=== PATIENT | female | born 1945 | race Caucasian/White ===

== ENCOUNTER → 2018-05-10 | Outpatient (CLI) | payer MEDICARE ==
[~2018-05-10] MED LIST: CLIN-62 PO; OXYC-109 PO
== END ==
LOC: CARD 07:57
PROVIDERS: ATTEND Internal Medicine Interventional Cardiology
DX: I49.3 Ventricular premature depolarization (principal); I49.5 Sick sinus syndrome; I10 Essential (primary) hypertension
CPT/HCPCS: 93225; 93226

== ENCOUNTER 2018-05-11 09:10 | Outpatient (RCR) | payer MEDICARE ==
[2018-05-13] MEDS ORDERED: DICL25TA PO (08:59)
[2018-05-13] MEDS ORDERED: MULT-878 PO (08:59)
[2018-05-13] MEDS ORDERED: OMEP20CA12 PO (08:59)
[2018-05-13] MEDS ORDERED: ACET-2267 PO (08:59)
[2018-05-13] MEDS ORDERED: CEFD300C3 PO (11:01)
[2018-05-23] MEDS ORDERED: ONDA4TAB11 PO (17:59)
[2018-05-28] MEDS ORDERED: CLIN300C11 PO (08:53)
== END 2018-08-09 | disposition home or self-care (01) ==
LOC: CARD 09:10
PROVIDERS: ATTEND Internal Medicine Interventional Cardiology
DX: I49.5 Sick sinus syndrome (principal); I10 Essential (primary) hypertension; I49.3 Ventricular premature depolarization
CPT/HCPCS: 93270

== ENCOUNTER 2018-05-12 10:28 | Inpatient (IN) | payer MEDICARE ==
[~2018-05-12] VITALS: Ht 165.1 cm; Wt 60.3 kg
[2018-05-12] MEDS ORDERED: NS IV 500 ML 500 ML IV ONE (10:37)
[2018-05-12] MEDS ORDERED: NS IV 1000 ML 1,000 ML IV SCH (10:37)
[2018-05-12] MEDS ORDERED: ONDANSETRON 4 MG/2 ML (SDV) Z0FRAN IVP ONE (10:45)
--- OUTSIDE RECORDS SUMMARY | 2018-05-12 10:45 | XMS REPORT | Clinical Summary ---
Author Author Admin, BESSY Organization [facility] [employer] [place] Address Unknown Phone Unavailable Allergies, Adverse Reactions, Alerts Allergy Name Reaction Description Start Date Severity Status Provider SULFA rash Moderate Active Spring Elder DAILY MULTIVITAMIN rash/hives Moderate Active Spring Elder L-GLUTAMIC ACID MONOSOD SALT abdominal pain Moderate Active Spring Elder IBUPROFEN headache Mild Active Spring Elder EQUATE rash Moderate Active Spring Elder CIPRO constipation Mild Active Spring Elder BACTRIM rash Moderate Active Spring Elder Conditions or Problems Problem Name Problem Code Onset Date Status Entry Date Provider Comment Standard Description Annotate BMI 20-20.9 Active Anson Sal MD Body Mass Index between 19-24, adult 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 Medication List Medication Instructions Start Date Stop Date Generic Name NDC Status Provider Patient Instruction TYLENOL 325 MG ORAL TABLET 2 tabs by mouth every 4 hours as needed ACETAMINOPHEN 25152639816 Active Anson Sal MD Active OMEPRAZOLE 20 MG ORAL CAPSULE DELAYED RELEASE 1 tablet by mouth daily OMEPRAZOLE 95851485857 Active Sprign Elder Active LOPERAMIDE HCL 2 MG ORAL CAPSULE 1 cap by mouth daily LOPERAMIDE HCL 84825970197 Active Spring Elder Active ONDANSETRON 4 MG ORAL TABLET DISINTEGRATING 1 q4h PRN nausea ONDANSETRON 89120301930 Active Spring Elder Active DICLOFENAC SODIUM 25 MG ORAL TABLET DELAYED RELEASE 1 tab by mouth daily DICLOFENAC SODIUM 77053206845 Active Spring Elder Active Vital Signs Date Name Value Unit Range Description blood pressure, diastolic, repeated by physician 70 BP sal blood pressure, diastolic 70 mm[Hg] BP sal blood pressure, systolic, repeated by physician 110 BP sys blood pressure, systolic 110 mm[Hg] BP sys height E&M 66 [in_us] Bdy height pulse rate E&M 56 /min Heart rate temperature E&M 98.0 [degF] Body temperature weight E&M 125 [lb_av] Weight Measured Diagnostic Results Date Name Value Unit Range Description Office Visit: CN-obstructing left ureter - Chemistry RBC, urine, dipstick negative Office Visit: CN-obstructing left ureter - PMH sexually transmitted disease no risk noted Office Visit: CN-obstructing left ureter - Urinalysis appearance, urine clear urine color straw specific gravity, urine 1.010 pH, urine, semiquantitative 5.0 protein, urine, semiquantitative (dipstick) negative glucose, urine, semiquantitative negative ketones, urine, by test strip negative bilirubin, urine negative nitrite, urine, semiquantitative negative urobilinogen, urine, semiquantitative (dipstick) 0.2 leukocyte esterase, urine, by dipstick 2+ Encounters Code Encounter Date Provider Facility CPT-94794 Level 3 New Patient 13:25:33 MINGO Sal MD [facility] [place]
--- OUTSIDE RECORDS SUMMARY | 2018-05-12 10:45 | XMS REPORT | Clinical Summary ---
Author Author Admin, Reece Organization [facility] [employer] [place] Address Unknown Phone Unavailable Allergies, Adverse Reactions, [...] mouth every 4 hours as needed ACETAMINOPHEN 51007733249 Active Anson Sal MD Active OMEPRAZOLE 20 MG ORAL CAPSULE DELAYED RELEASE 1 tablet by mouth daily OMEPRAZOLE 65316101719 Active Spring Elder Active LOPERAMIDE HCL 2 MG ORAL CAPSULE 1 cap by mouth daily LOPERAMIDE HCL 30626008926 Active Spring Elder Active ONDANSETRON 4 MG ORAL TABLET DISINTEGRATING 1 q4h PRN nausea ONDANSETRON 49505305875 Active [facility] Elder Active DICLOFENAC SODIUM 25 MG ORAL TABLET DELAYED RELEASE 1 tab by mouth daily DICLOFENAC SODIUM 89969784555 Active Spring Elder Active Advance Directives Directive Description Start Date PERMISSION TO SHARE Vital Signs Date Name Value Unit Range Description blood pressure, diastolic, repeated by physician 72 BP sal blood pressure, diastolic 72 mm[Hg] BP sal blood pressure, systolic, repeated by physician 110 BP sys blood pressure, systolic 110 mm[Hg] BP sys height E&M 66 [in_us] Bdy height pulse rate E&M 68 /min Heart rate temperature E&M 98.3 [degF] Body temperature weight E&M 125 [lb_av] Weight Measured blood pressure, diastolic, repeated by physician 70 [...] 2+ Encounters Code Encounter Date Provider Facility CPT-96155 Level 3 Est. 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
--- OUTSIDE RECORDS SUMMARY | 2018-05-12 10:45 | XMS REPORT | Clinical Summary ---
Author Author Admin, Reece Organization [facility] [employer] [place] Address Unknown Phone Unavailable Allergies, Adverse Reactions, [...] mouth every 4 hours as needed ACETAMINOPHEN 40858026133 Active Anson Sal MD Active OMEPRAZOLE 20 MG ORAL CAPSULE DELAYED RELEASE 1 tablet by mouth daily OMEPRAZOLE 75992592589 Active Spring Elder Active LOPERAMIDE HCL 2 MG ORAL CAPSULE 1 cap by mouth daily LOPERAMIDE HCL 70192711391 Active Spring Elder Active ONDANSETRON 4 MG ORAL TABLET DISINTEGRATING 1 q4h PRN nausea ONDANSETRON 69254113967 Active Spring Elder Active DICLOFENAC SODIUM 25 MG ORAL TABLET DELAYED RELEASE 1 tab by mouth daily DICLOFENAC SODIUM 75140558933 Active Spring Elder Active Advance Directives Directive [...] 2+ Encounters Code Encounter Date Provider Facility CPT-36550 Level 3 Est. 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
--- OUTSIDE RECORDS SUMMARY | 2018-05-12 10:45 | XMS REPORT | Clinical Summary ---
Author Author Admin, Reece Organization [facility] [employer] [place] Address Unknown Phone Unavailable Allergies, Adverse Reactions, [...] mouth every 4 hours as needed ACETAMINOPHEN 44547651790 Active Anson Sal MD Active OMEPRAZOLE 20 MG ORAL CAPSULE DELAYED RELEASE 1 tablet by mouth daily OMEPRAZOLE 08704606439 Active Spring Elder Active LOPERAMIDE HCL 2 MG ORAL CAPSULE 1 cap by mouth daily LOPERAMIDE HCL 56508071263 Active Spring Elder Active ONDANSETRON 4 MG ORAL TABLET DISINTEGRATING 1 q4h PRN nausea ONDANSETRON 60804266770 Active Spring Elder Active DICLOFENAC SODIUM 25 MG ORAL TABLET DELAYED RELEASE 1 tab by mouth daily DICLOFENAC SODIUM 76620972651 Active Spring Elder Active Advance Directives Directive [...] 2+ Encounters Code Encounter Date Provider Facility CPT-80832 Level 3 Est. 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
--- OUTSIDE RECORDS SUMMARY | 2018-05-12 10:45 | XMS REPORT ---
Author Author [place]HOMI ARMAND[place]RA[place] [facility] Address [address] [place] [address] Care Team Providers [employer] Supervisor Name Role Phone ARMANDO COMER Unavailable PROBLEMS Type Condition ICD9-CM Code HNI94-DZ Code Onset Dates Condition Status SNOMED Code Problem Anxiety F41.9 Active 64103201 Problem Mixed hyperlipidemia E78.2 Active 247456264 Problem Diverticulosis of both small and large intestine without bleeding K57.50 Active 50622780 Problem Hiatal hernia K44.9 Active 34191439 Problem Gastroesophageal reflux disease with esophagitis K21.0 Active 916672732 Problem Arthritis M19.90 Active 2138774 ALLERGIES Substance Reaction Event Type Date Status Equate rash Drug Allergy Mar, Active Cipro constipation Drug Allergy Mar, Active Bactrim rash Drug Allergy Mar, Active Multivitamin rash Drug Allergy Mar, Active Ibuprofen headache Drug Allergy Mar, Active ENCOUNTERS Encounter Location Date Diagnosis [address] [address] Mar, Anxiety F41.[address] [address] Mar, Anxiety F41.9 ; Arthritis M19.90 ; Diverticulosis of both small and large intestine without bleeding K57.50 ; Gastroesophageal reflux disease with esophagitis K21.0 ; Hiatal hernia K44.9 ; Mixed hyperlipidemia E78.2 and Acute URI J06.[address] [address] Mar, [address] [address] Mar, IMMUNIZATIONS No Known Immunizations SOCIAL HISTORY Never Assessed REASON FOR VISIT PLAN OF CARE VITAL SIGNS MEDICATIONS Medication Instructions Dosage Frequency Start Date End Date Duration Status Zofran 4 MG Orally every 8 hrs prn 1 tablet 30 day(s) Unknown Diclofenac Sodium 25 MG Orally two times a day 1 tablet with food or milk 12h 30 day(s) Active Omeprazole 20 MG Orally Once a day 1 capsule 24h 30 day(s) Active Imodium A-D 2 MG Orally Four times a day 1 tablet as needed 6h Unknown RESULTS No Results PROCEDURES No Known procedures INSTRUCTIONS MEDICATIONS ADMINISTERED No Known Medications MEDICAL (GENERAL) HISTORY Type Description Date Medical History coronary artery disease Medical History pyelonephritis Medical History Anxiety Medical History Arthritis Medical History Diverticulosis of both small and large intestine without bleeding Medical History Gastroesophageal reflux disease with esophagitis Medical History Hiatal hernia Medical History Mixed hyperlipidemia Surgical History cholecystectomy Surgical History hysterectomy Surgical History jaw wiring
--- NOTE | 2018-05-12 10:46 | ED General ---
General Stated Complaint: NAUSEA Source of Information: Patient, EMS Exam Limitations: No Limitations History of Present Illness Date Seen by Provider: May 12, 2018 Time Seen by Provider: 10:29 Initial Comments Patient presents to ER by EMS from home with chief complaint that she woke up this morning feeling very very weak and tired. She having any chest pains but she was starting have some nausea vomiting. She has some burning urination but she thinks She doesn't drink enough water. She was recently started on a residential monitor outpatient by Dr. Tyson, cardiology because she was having bradycardia sometimes symptomatic. She's had a lot of nasal congestion, sore throat, postnasal drip but no coughing, shortness of breath or wheezing. She has no history of coronary disease. She denies fever or chills. Her bowels are moving normally today, non-diarrhea. She does have quite a bit of anxiety. After the residential monitor the plan was to qualify her for a pacemaker. Patient also within the last couple weeks had a surgery by urologist and for a left ureteral stricture or kink repair. Allergies and Home Medications Allergies Coded Allergies: Penicillins (Unverified Allergy, Unknown, PASS OUT, 05/12/18) Sulfa (Sulfonamide Antibiotics) (Unverified Allergy, Unknown, RASH, ) Home Medications Clindamycin Hcl 150 Mg Cap, 1 EACH PO QID, (Reported) Oxycodone Hcl/Acetaminophen 1 Each Tablet, 1 EACH PO Q4H PRN, (Reported) FOR PAIN Patient Home Medication List Home Medication List Reviewed: Yes Review of Systems Review of Systems Constitutional: No chills, No fever; malaise, weakness EENTM: No ear pain, No eye pain Respiratory: cough; No phlegm, No stridor, No wheezing Cardiovascular: No chest pain, No palpitations Gastrointestinal: No abdominal pain, No constipation, No diarrhea; nausea, vomiting Genitourinary: No discharge, No dysuria Musculoskeletal: No back pain, No joint pain Skin: No pruritus, No rash Past Unlwrmm-Wagxdr-Rearhx Hx Patient Social History Alcohol Use: Denies Use Recreational Drug Use: No Smoking Status: Never a Smoker Past Medical History 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 Disorders: No Physical Exam Vital Signs Vital Signs - First Documented 05/12/18 10:30 Temp 98.3 Pulse 65 Resp 15 B/P (MAP) 103/52 (69) Pulse Ox 99 Capillary Refill : Height, Weight, BMI Height: '" Weight: lbs. oz. kg; BMI Method: General Appearance: Anxious, Thin Eyes: Bilateral Eye Normal Inspection, Bilateral Eye PERRL, Bilateral Eye EOMI HEENT: PERRL/EOMI, Normal ENT Inspection, Pharynx Normal; No Moist Mucous Membranes Neck: Full Range of Motion, Normal Inspection, Supple Respiratory: Chest Non Tender, Lungs Clear, Normal Breath Sounds, No Accessory Muscle Use, No Respiratory Distress Cardiovascular: Regular Rate, Rhythm, Normal Peripheral Pulses, Other (right lower extremity has chronic edema more so than left) Gastrointestinal: No Organomegaly, Non Tender, Soft Extremity: Normal Capillary Refill, Normal Range of Motion, Non Tender, No Calf Tenderness Neurologic/Psychiatric: Alert, Oriented x3, No Motor/Sensory Deficits, Other ( anxious affect) Progress/Results/Core Measures Suspected Sepsis SIRS Temperature: Pulse: Respiratory Rate: Laboratory Tests 05/12/18 11:02: White Blood Count 11.0 Blood Pressure / Mean: Laboratory Tests 05/12/18 11:02: Creatinine 0.80, INR Comment 1.0, Platelet Count 424H, Total Bilirubin 0.6 Results/Orders Lab Results Laboratory Tests Test 05/12/18 11:02 05/12/18 11:55 Range/Units White Blood Count 11.0 4.3-11.0 10^3/uL Red Blood Count 5.59 4.35-5.85 10^6/uL Hemoglobin 15.1 11.5-16.0 G/DL Hematocrit 46 35-52 % Mean Corpuscular Volume 82 80-99 FL Mean Corpuscular Hemoglobin 27 25-34 PG Mean Corpuscular Hemoglobin Concent 33 32-36 G/DL Red Cell Distribution Width 14.9 H 10.0-14.5 % Platelet Count 424 H 130-400 10^3/uL Mean Platelet Volume 9.5 7.4-10.4 FL Neutrophils (%) (Auto) 79 H 42-75 % Lymphocytes (%) (Auto) 14 12-44 % Monocytes (%) (Auto) 4 0-12 % Eosinophils (%) (Auto) 2 0-10 % Basophils (%) (Auto) 0 0-10 % Neutrophils # (Auto) 8.7 H 1.8-7.8 X 10^3 Lymphocytes # (Auto) 1.6 1.0-4.0 X 10^3 Monocytes # (Auto) 0.5 0.0-1.0 X 10^3 Eosinophils # (Auto) 0.3 0.0-0.3 10^3/uL Basophils # (Auto) 0.0 0.0-0.1 10^3/uL Prothrombin Time 13.5 12.2-14.7 SEC INR Comment 1.0 0.8-1.4 Activated Partial Thromboplast Time 29 24-35 SEC Sodium Level 140 135-145 MMOL/L Potassium Level 4.2 3.6-5.0 MMOL/L Chloride Level 101 98-107 MMOL/L Carbon Dioxide Level 17 L 21-32 MMOL/L Anion Gap 22 H 5-14 MMOL/L Blood Urea Nitrogen 14 7-18 MG/DL Creatinine 0.80 0.60-1.30 MG/DL Estimat Glomerular Filtration Rate > 60 BUN/Creatinine Ratio 18 Glucose Level 117 H 70-105 MG/DL Calcium Level 10.1 8.5-10.1 MG/DL Corrected Calcium 9.7 8.5-10.1 MG/DL Magnesium Level 2.5 H 1.8-2.4 MG/DL Total Bilirubin 0.6 0.1-1.0 MG/DL Aspartate Amino Transf (AST/SGOT) 19 5-34 U/L Alanine Aminotransferase (ALT/SGPT) 11 0-55 U/L Alkaline Phosphatase 109 40-136 U/L Troponin T 13 H <=10 NG/L Pro-B-Type Natriuretic Peptide 433.4 H <75.0 PG/ML Total Protein 7.5 6.4-8.2 GM/DL Albumin 4.5 3.2-4.5 GM/DL Urine Color YELLOW Urine Clarity CLOUDY Urine pH 5.5 5-9 Urine Specific [place] >=1.030 1.016-1.022 Urine Protein 2+ H NEGATIVE Urine Glucose (UA) NEGATIVE NEGATIVE Urine Ketones TRACE H NEGATIVE Urine Nitrite NEGATIVE NEGATIVE Urine Bilirubin NEGATIVE NEGATIVE Urine Urobilinogen 0.2 NORMAL MG/DL Urine Leukocyte Esterase 1+ H NEGATIVE Urine RBC (Auto) 3+ H NEGATIVE Urine RBC 50-100 H /HPF Urine WBC 10-25 H /HPF Urine Squamous Epithelial Cells 0-2 /HPF Urine Crystals P /LPF Urine Amorphous Sediment MOD CORBIN PHOSPHATE H /LPF Urine Bacteria FEW H /HPF Urine Casts NONE /LPF Urine Mucus NONE /LPF Urine Culture Indicated YES Urine Opiates Screen NEGATIVE NEGATIVE Urine Oxycodone Screen NEGATIVE NEGATIVE Urine Methadone Screen NEGATIVE NEGATIVE Urine Propoxyphene Screen NEGATIVE NEGATIVE Urine Barbiturates Screen NEGATIVE NEGATIVE Ur Tricyclic Antidepressants Screen NEGATIVE NEGATIVE Urine Phencyclidine Screen NEGATIVE NEGATIVE Urine Amphetamines Screen NEGATIVE NEGATIVE Urine Methamphetamines Screen NEGATIVE NEGATIVE Urine Benzodiazepines Screen NEGATIVE NEGATIVE Urine Cocaine Screen NEGATIVE NEGATIVE Urine Cannabinoids Screen NEGATIVE NEGATIVE My Orders Orders - YOLY SANTOS Ondansetron Injection (Zofran Injectio (05/12/18 10:45) Cbc With Automated Diff (05/12/18 10:37) Comprehensive Metabolic Panel (05/12/18 10:37) Hs C Reactive Protein (05/12/18 10:37) Drug Screen Stat (Urine) (05/12/18 10:37) Magnesium (05/12/18 10:37) Protime With Inr (05/12/18 10:37) Partial Thromboplastin Time (05/12/18 10:37) Thyroid Stimulating Hormone (05/12/18 10:37) Ua Culture If Indicated (05/12/18 10:37) Troponin T (05/12/18 10:37) Probnp Fs (05/12/18 10:37) Chest 1 View Ap/Pa Only (05/12/18 10:37) Saline Lock/Iv-Start (05/12/18 10:37) Ns Iv 500 Ml (Sodium Chloride 0.9%) (05/12/18 10:37) Ns Iv 1000 Ml (Sodium Chloride 0.9%) (05/12/18 10:37) Promethazine Injection (Phenergan Injec (05/12/18 11:15) Loratadine Tablet (Claritin Tablet) (05/12/18 11:15) Straight Cath For Spec.-Adult (05/12/18 11:44) Urine Culture (05/12/18 11:55) Lactated Ringers (Lr 1000 Ml Iv Solution (05/12/18 13:15) Medications Given in ED Current Medications Medications Dose Ordered Sig/Mela Route Start Time Stop Time Status Last Admin Dose Admin Ondansetron HCl 4 mg ONCE ONCE IVP 05/12/18 10:45 05/12/18 10:46 DC 05/12/18 10:50 4 MG Promethazine HCl 25 mg ONCE ONCE IVP 05/12/18 11:15 05/12/18 11:16 DC 05/12/18 11:07 25 MG Sodium Chloride 500 ml @ 0 mls/hr Q0M ONCE IV 05/12/18 10:37 05/12/18 10:41 DC 05/12/18 12:01 999 MLS/HR Vital Signs/I&O 05/12/18 10:30 Temp 98.3 Pulse 65 Resp 15 B/P (MAP) 103/52 (69) Pulse Ox 99 Capillary Refill : Progress Note #1: Time: 10:45 Progress Note The patient has fairly dramatic and anxious however her blood pressure soft around the 100/48 and her heart rate stays low and appropriately so about 60- 70. Plan to get an EKG, chest x-ray look for infection by obtaining a urine sample. We'll give her a 30 mL/kg fluid bolus and since she's having dysuria but no fever we'll go ahead and give her a gram of Rocephin. We'll give her 4 more milligrams of Zofran since she started complaining of nausea. She does have some upper respiratory symptoms which are seasonal allergy versus viral. Ordered loratadine but we don't have any. 25 mg Phenergan were added her IV fluids. Progress Note #2: Time: 13:01 Progress Note The patient's nausea is under control with Phenergan and she appears to have a UTI. Her initial troponin is negative. Her blood pressure soft and she was having an elevated heart rate which would qualify her for sepsis. They are much better now 109/56 after her 30 mg/kg fluid bolus. We'll offer her stay in the hospital. ECG Initial ECG Impression Date: May 12, 2018 Initial ECG Impression Time: 10:31 Initial ECG Rate: 67 Initial ECG Rhythm: Normal Sinus Initial ECG Intervals: Normal Initial ECG Impression: Normal, Nonspecific Changes Initial ECG Comparisson: No Previous ECG Available Comment PVC. Sinus rhythm without ST elevation or depression. Diagnostic Imaging Diagonstic Imaging: Xray Plain Films/CT/US/NM/MRI: chest (1v) Comments [facility] [place], [place] NAME: MARTÍN MATHEW REC#: [id number] PT STATUS: REG ER : 1945 PHYSICIAN: YOLY SANTOS MD ADMIT DATE: 05/12/18/ER FS Draft Date of Exam:05/12/18 CHEST 1 VIEW AP/PA ONLY INDICATION: Productive cough and nausea. Frontal chest obtained at 10:18 a.m. There is no prior study for comparison. FINDINGS: Heart is normal in size. There appears to be a large hiatal hernia with majority of stomach above the hemidiaphragms. There is no focal infiltrate or pneumothorax or pleural fluid. IMPRESSION: Apparent large hiatal hernia with majority of stomach above the hemidiaphragms. No acute infiltrate or pleural fluid. Dictated on workstation # [id number] Dict: 05/12/18 1123 Trans: 05/12/18 1130 [id number] Interpreted by: DESIRAE DAHL MD Electronically signed by: Reviewed: Reviewed by Me Departure Impression Primary Impression: Urinary tract infection Qualified Codes: N30.01 - Acute cystitis with hematuria Additional Impressions: Sepsis Qualified Codes: A41.9 - Sepsis, unspecified organism History of sinus bradycardia History of ureteral obstruction Disposition: XFER SHT-TRM HOSP Condition: Stable Transfer Time Spoke to Accepting Phy: 13:[address] Rubin: Accepts the patient to [facility] telemetry. Transfer Time: 14:15 Transfer Facility: [facility] [place], [place] Method of Transfer: EMS Departure-Patient Inst. Referrals: ARMANDO COMER MD (PCP/Family) Primary Care Physician YOLY SANTOS May 12, 2018 10:46
--- OUTSIDE RECORDS SUMMARY | 2018-05-12 10:46 | XMS REPORT | Continuity of Care Document ---
Author Author [facility] Organization [facility] Address Unknown Phone Unavailable Allergies Active Description Code Type Severity Reaction Onset Reported/Identified Relationship to Patient Clinical Status Yes ibuprofen Drug Mild migraine Yes penicillin 3 Drug Severe [id number] Yes sulfa drug 16 Drug Moderate 926548666 Yes Penicillins [id number] Drug Allergy Unknown PASS OUT 11/18/2011 Yes Sulfa (Sulfonamide Antibiotics) [id number] Drug Allergy Unknown RASH 2011 Medications There is no data. 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 03/19/2018 Anson Sue MD Z68.20 BMI 20-20.9 05/10/2018 Victoriano ESTRADA MD Ot I49.3 VENTRICULAR PREMATURE DEPOLARIZATION 05/10/2018 Victoriano ESTRADA MD Ot I49.3 VENTRICULAR PREMATURE DEPOLARIZATION 05/11/2018 NATALIE COLINDRES M LEE Ot I10 ESSENTIAL (PRIMARY) HYPERTENSION 05/11/2018 NATALIE COLINDRES M LEE Ot I49.3 VENTRICULAR PREMATURE DEPOLARIZATION 05/11/2018 Victoriano ESTRADA MD Ot I49.5 SICK SINUS SYNDROME Procedures There is no data. Results There is no data. Encounters ACCT No. Visit Date/Time Discharge Status Pt. Type Provider Facility Loc./Unit Complaint [id number] 05/07/2018 16:25:26 ACT Unknown Anson Sue MD [id number] 04/27/2018 06:25:20 04/28/2018 11:55:00 DIS Inpatient DAYA SUE YASMEEN ICU robotic pyeloplasty [id number] 03/24/2018 07:49:45 03/24/2018 12:00:00 DIS Outpatient DAYA SUE YASMEEN Surgery ops [id number] 04/19/2018 10:40:00 04/19/2018 23:59:59 CLS [facility] [id number] 05/05/2018 08:06:00 05/05/2018 23:59:59 CLS Preadmit Victoriano ESTRADA MD [facility] CARD HTN,PVC'S,SINUS NODE DYSFUCTION [id number] 05/12/2018 10:30:00 ACT Emergency YOLY SANTOS MD [facility] ER FS NAUSEA [id number] 05/11/2018 09:10:00 ACT Outpatient Victoriano ESTRADA MD [facility] CARD HTN,PVC'S,SINUS NODE DYSFUCTION [id number] 05/10/2018 07:57:00 ACT Outpatient Victoriano ESTRADA MD [facility] CARD HTN,PVC'S,SINUS NODE DYSFUCTION
--- OUTSIDE RECORDS SUMMARY | 2018-05-12 10:46 | XMS REPORT | Clinical Summary ---
Author Author Admin, BESSY Organization [facility] [employer] [place] Address Unknown Phone Unavailable Allergies, Adverse Reactions, [...] mouth every 4 hours as needed ACETAMINOPHEN 94999768455 Active Anson Sal MD Active OMEPRAZOLE 20 MG ORAL CAPSULE DELAYED RELEASE 1 tablet by mouth daily OMEPRAZOLE 25266613135 Active Spring Elder Active LOPERAMIDE HCL 2 MG ORAL CAPSULE 1 cap by mouth daily LOPERAMIDE HCL 99878928616 Active Spring Elder Active ONDANSETRON 4 MG ORAL TABLET DISINTEGRATING 1 q4h PRN nausea ONDANSETRON 02895124926 Active Spring Elder Active DICLOFENAC SODIUM 25 MG ORAL TABLET DELAYED RELEASE 1 tab by mouth daily DICLOFENAC SODIUM 45027833875 Active Spring Elder Active Vital Signs Date [...] 2+ Encounters Code Encounter Date Provider Facility CPT-31842 Level 3 New Patient 13:25:33 MINGO Sal MD [facility] [place]
--- OUTSIDE RECORDS SUMMARY | 2018-05-12 10:46 | XMS REPORT | Clinical Summary ---
Author Author Admin, E Organization [facility] [place] Address Unknown Phone Unavailable Allergies, Adverse Reactions, [...] Entry Date Provider Comment Standard Description Annotate Problems Unknown Active Medication List Medication Instructions Start Date Stop Date Generic Name NDC Status Provider Patient Instruction OMEPRAZOLE 20 MG ORAL CAPSULE DELAYED RELEASE 1 tablet by mouth daily OMEPRAZOLE 37642309468 Active Spring Elder Active LOPERAMIDE HCL 2 MG ORAL CAPSULE 1 cap by mouth daily LOPERAMIDE HCL 66133157729 Active Spring Elder Active ONDANSETRON 4 MG ORAL TABLET DISINTEGRATING 1 q4h PRN nausea ONDANSETRON 83376672752 Active Spring Elder Active DICLOFENAC SODIUM 25 MG ORAL TABLET DELAYED RELEASE 1 tab by mouth daily DICLOFENAC SODIUM 04101294036 Active Spring Elder Active
--- OUTSIDE RECORDS SUMMARY | 2018-05-12 10:46 | XMS REPORT | Clinical Summary ---
Author Author Admin, BESSY Organization [facility] [employer] [place] Address Unknown Phone Unavailable Allergies, Adverse Reactions, [...] mouth every 4 hours as needed ACETAMINOPHEN 84507442308 Active Anson Sal MD Active OMEPRAZOLE 20 MG ORAL CAPSULE DELAYED RELEASE 1 tablet by mouth daily OMEPRAZOLE 11552661423 Active Spring Elder Active LOPERAMIDE HCL 2 MG ORAL CAPSULE 1 cap by mouth daily LOPERAMIDE HCL 40441513775 Active Spring Elder Active ONDANSETRON 4 MG ORAL TABLET DISINTEGRATING 1 q4h PRN nausea ONDANSETRON 74331493696 Active Spring Elder Active DICLOFENAC SODIUM 25 MG ORAL TABLET DELAYED RELEASE 1 tab by mouth daily DICLOFENAC SODIUM 99141336816 Active Spring Elder Active Vital Signs Date [...] 2+ Encounters Code Encounter Date Provider Facility CPT-84244 Level 3 New Patient 13:25:33 MINGO Sal MD [facility] [place]
--- OUTSIDE RECORDS SUMMARY | 2018-05-12 10:46 | XMS REPORT | Clinical Summary ---
Author Author Admin, BESSY Organization [facility] [employer] [place] Address Unknown Phone Unavailable Allergies, Adverse Reactions, [...] mouth every 4 hours as needed ACETAMINOPHEN 09172934966 Active Anson Sal MD Active OMEPRAZOLE 20 MG ORAL CAPSULE DELAYED RELEASE 1 tablet by mouth daily OMEPRAZOLE 42275333476 Active [place] Elder Active LOPERAMIDE HCL 2 MG ORAL CAPSULE 1 cap by mouth daily LOPERAMIDE HCL 13176596131 Active [place] Elder Active ONDANSETRON 4 MG ORAL TABLET DISINTEGRATING 1 q4h PRN nausea ONDANSETRON 06000672201 Active [place] Elder Active DICLOFENAC SODIUM 25 MG ORAL TABLET DELAYED RELEASE 1 tab by mouth daily DICLOFENAC SODIUM 64484877788 Active [place] Elder Active Vital Signs Date [...] 2+ Encounters Code Encounter Date Provider Facility [id number] Level 3 New Patient 13:25:33 MINGO Sal MD [facility] [place]
[2018-05-12 11:15] LABS: BASOPHILS % (AUTO) 0 % (0-10); EOSINOPHILS % (AUTO) 2 % (0-10); HEMATOCRIT 46 % (35-52); HEMOGLOBIN 15.1 G/DL (11.5-16.0); LYMPHOCYTES % (AUTO) 14 % (12-44); MEAN CORPUSCULAR HEMOGLOBIN 27 PG (25-34); MEAN CORPUSCULAR HGB CONC 33 G/DL (32-36); MEAN CORPUSCULAR VOLUME 82 FL (80-99); MEAN PLATELET VOLUME 9.5 FL (7.4-10.4); MONOCYTES % (AUTO) 4 % (0-12); NEUTROPHILS % (AUTO) 79 % (42-75); PLATELET COUNT 424 10^3/uL (130-400); RED CELL DISTRIBUTION WIDTH 14.9 % (10.0-14.5)
[2018-05-12] MEDS ORDERED: LORATADINE (CLARITIN) 10 MG TAB PO ONE (11:15)
[2018-05-12] MEDS ORDERED: PROMETHAZINE INJ 25 MG/ML (PHENERGAN) AMP IVP ONE (11:15)
[2018-05-12 11:16] LABS: EOSINOPHILS # (AUTO) 0.3 10^3/uL (0.0-0.3); LYMPHOCYTES # (AUTO) 1.6 X 10^3 (1.0-4.0); MONOCYTES # (AUTO) 0.5 X 10^3 (0.0-1.0); NEUTROPHILS # (AUTO) 8.7 X 10^3 (1.8-7.8)
--- NOTE | 2018-05-12 11:31 | Diagnostic Imaging Report ---
INDICATION: Productive cough and nausea. Frontal chest obtained at 10:18 a.m. There is no prior study for comparison. FINDINGS: Heart is normal in size. There appears to be a large hiatal hernia with majority of stomach above the hemidiaphragms. There is no focal infiltrate or pneumothorax or pleural fluid. IMPRESSION: Apparent large hiatal hernia with majority of stomach above the hemidiaphragms. No acute infiltrate or pleural fluid. Dictated by: Dictated on workstation # [id number]
[2018-05-12 11:42] LABS: PROTHROMBIN TIME PATIENT 13.5 SEC (12.2-14.7)
[2018-05-12 12:31] LABS: ALANINE AMINOTRANSFERASE 11 U/L (0-55); ALKALINE PHOSPHATASE 109 U/L (40-136); BILIRUBIN,TOTAL 0.6 MG/DL (0.1-1.0); BUN/CREATININE RATIO 18; CALCIUM 10.1 MG/DL (8.5-10.1); CARBON DIOXIDE 17 MMOL/L (21-32); CHLORIDE 101 MMOL/L (98-107); GFR ESTIMATED > 60; GLUCOSE 117 MG/DL (70-105); MAGNESIUM 2.5 MG/DL (1.8-2.4); POTASSIUM 4.2 MMOL/L (3.6-5.0); SODIUM 140 MMOL/L (135-145)
[2018-05-12 12:32] LABS: ALBUMIN 4.5 GM/DL (3.2-4.5); TOTAL PROTEIN 7.5 GM/DL (6.4-8.2)
[2018-05-12 12:33] LABS: CLARITY,URINE CLOUDY; COLOR,URINE YELLOW; GLUCOSE, URINE (UA) NEGATIVE (NEGATIVE); PH,URINE 5.5 (5-9); PROTEIN,URINE 2+ (NEGATIVE)
[2018-05-12 12:34] LABS: BACTERIA,URINE FEW /HPF; BILIRUBIN,URINE NEGATIVE (NEGATIVE); KETONES,URINE TRACE (NEGATIVE); LEUKOCYTE ESTERASE ,URINE 1+ (NEGATIVE); NITRITE,URINE NEGATIVE (NEGATIVE); RBC,URINE 50-100 /HPF; SQUAMOUS EPITHELIAL CELL,UR 0-2 /HPF; UROBILINOGEN,URINE 0.2 MG/DL (NORMAL)
[2018-05-12 12:35] LABS: AMORPHOUS SEDIMENT,UR MOD AMOR PHOSPHATE /LPF
[2018-05-12 12:38] LABS: AMPHETAMINE SCREEN, URINE NEGATIVE (NEGATIVE); BARBITURATE SCREEN URINE NEGATIVE (NEGATIVE); BENZODIAZEPINES SCREEN URINE NEGATIVE (NEGATIVE); CANNABINOID SCREEN, URINE NEGATIVE (NEGATIVE); COCAINE SCREEN URINE NEGATIVE (NEGATIVE); METHADONE STAT NEGATIVE (NEGATIVE); METHAMPHETAMINE SCREEN URINE S NEGATIVE (NEGATIVE); OPIATE SCREEN URINE NEGATIVE (NEGATIVE); OXYCODONE STAT NEGATIVE (NEGATIVE); PROPOXYPHENE STAT NEGATIVE (NEGATIVE); TRICYCLIC ANTIDEPRESSANTS SCRE NEGATIVE (NEGATIVE)
[2018-05-12] MEDS ORDERED: LACTATED RINGERS 1,000 ML IV SCH (13:15)
--- OUTSIDE RECORDS SUMMARY | 2018-05-12 14:05 | XMS REPORT | Continuity of Care Document ---
Author Author [facility] Organization [facility] Address Unknown Phone Unavailable Allergies Active Description Code Type Severity Reaction Onset Reported/Identified Relationship to Patient Clinical Status Yes ibuprofen Drug Mild migraine Yes penicillin 3 Drug Severe 306713616 Yes sulfa drug 16 Drug Moderate 043463491 Yes Penicillins [id number] Drug Allergy Unknown PASS OUT 05/12/2018 Yes Sulfa (Sulfonamide Antibiotics) [id number] Drug Allergy Unknown RASH 2018 Medications There is no data. 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 Results Test Result Range Complete blood count (CBC) with automated white blood cell (WBC) differential - 05/12/18 11:02 Blood leukocytes automated count (number/volume) 11.0 10*3/uL 4.3-11.0 Blood erythrocytes automated count (number/volume) 5.59 10*6/uL 4.35-5.85 Venous blood hemoglobin measurement (mass/volume) 15.1 g/dL 11.5-16.0 Blood hematocrit (volume fraction) 46 % 35-52 Automated erythrocyte mean corpuscular volume 82 [foz_us] 80-99 Automated erythrocyte mean corpuscular hemoglobin (mass per erythrocyte) 27 pg 25-34 Automated erythrocyte mean corpuscular hemoglobin concentration measurement ( mass/volume) 33 g/dL 32-36 Automated erythrocyte distribution width ratio 14.9 % 10.0-14.5 Automated blood platelet count (count/volume) 424 10*3/uL 130-400 Automated blood platelet mean volume measurement 9.5 [foz_us] 7.4-10.4 Automated blood neutrophils/100 leukocytes 79 % 42-75 Automated blood lymphocytes/100 leukocytes 14 % 12-44 Blood monocytes/100 leukocytes 4 % 0-12 Automated blood eosinophils/100 leukocytes 2 % 0-10 Automated blood basophils/100 leukocytes 0 % 0-10 Blood neutrophils automated count (number/volume) 8.7 10*3 1.8-7.8 Blood lymphocytes automated count (number/volume) 1.6 10*3 1.0-4.0 Blood monocytes automated count (number/volume) 0.5 10*3 0.0-1.0 Automated eosinophil count 0.3 10*3/uL 0.0-0.3 Automated blood basophil count (count/volume) 0.0 10*3/uL 0.0-0.1 PT panel in platelet poor plasma by coagulation assay - 05/12/18 11:02 Prothrombin time (PT) in platelet poor plasma by coagulation assay 13.5 s 12.2-14.7 INR in platelet poor plasma or blood by coagulation assay 1.0 0.8-1.4 Activated partial thromboplastin time (aPTT) in platelet poor plasma bycoagulation assay - 05/12/18 11:02 Activated partial thromboplastin time (aPTT) in platelet poor plasma bycoagulation assay 29 s 24-35 Comprehensive metabolic panel - 05/12/18 11:02 Serum or plasma sodium measurement (moles/volume) 140 mmol/L 135-145 Serum or plasma potassium measurement (moles/volume) 4.2 mmol/L 3.6-5.0 Serum or plasma chloride measurement (moles/volume) 101 mmol/L 98-107 Carbon dioxide 17 mmol/L 21-32 Serum or plasma anion gap determination (moles/volume) 22 mmol/L 5-14 Serum or plasma urea nitrogen measurement (mass/volume) 14 mg/dL 7-18 Serum or plasma creatinine measurement (mass/volume) 0.80 mg/dL 0.60-1.30 Serum or plasma urea nitrogen/creatinine mass ratio 18 NRG Serum or plasma creatinine measurement with calculation of estimated glomerular filtration rate > NRG Serum or plasma glucose measurement (mass/volume) 117 mg/dL 70-105 Serum or plasma calcium measurement (mass/volume) 10.1 mg/dL 8.5-10.1 Serum or plasma total bilirubin measurement (mass/volume) 0.6 mg/dL 0.1-1.0 Serum or plasma alkaline phosphatase measurement (enzymatic activity/volume) 109 U/L 40-136 Serum or plasma aspartate aminotransferase measurement (enzymatic activity/ volume) 19 U/L 5-34 Serum or plasma alanine aminotransferase measurement (enzymatic activity/volume ) 11 U/L 0-55 Serum or plasma protein measurement (mass/volume) 7.5 g/dL 6.4-8.2 Serum or plasma albumin measurement (mass/volume) 4.5 g/dL 3.2-4.5 CALCIUM CORRECTED 9.7 mg/dL 8.5-10.1 Magnesium - 05/12/18 11:02 Magnesium 2.5 mg/dL 1.8-2.4 TROPONIN T - 05/12/18 11:02 TROPONIN T 13 % <=10 PROBNP FS - 05/12/18 11:02 PROBNP FS 433.4 pg/mL <75.0 Complete urinalysis with reflex to culture - 05/12/18 11:55 Urine color determination YELLOW NRG Urine clarity determination CLOUDY NRG Urine pH measurement by test strip 5.5 5-9 Specific gravity of urine by test strip >= 1.016-1.022 Urine protein assay by test strip, semi-quantitative 2+ NEGATIVE Urine glucose detection by automated test strip NEGATIVE NEGATIVE Erythrocytes detection in urine sediment by light microscopy 3+ NEGATIVE Urine ketones detection by automated test strip TRACE NEGATIVE Urine nitrite detection by test strip NEGATIVE NEGATIVE Urine total bilirubin detection by test strip NEGATIVE NEGATIVE Urine urobilinogen measurement by automated test strip (mass/volume) 0.2 mg/dL NORMAL Urine leukocyte esterase detection by dipstick 1+ NEGATIVE Automated urine sediment erythrocyte count by microscopy (number/high power field) [HPF] NRG Automated urine sediment leukocyte count by microscopy (number/high power field ) [HPF] NRG Bacteria detection in urine sediment by light microscopy FEW NRG Squamous epithelial cells detection in urine sediment by light microscopy 0-2 NRG Crystals detection in urine sediment by light microscopy P NRG Casts detection in urine sediment by light microscopy NONE NRG Mucus detection in urine sediment by light microscopy NONE NRG Complete urinalysis with reflex to culture YES NRG Amorphous sediment detection in urine sediment by light microscopy MOD CORBIN PHOSPHATE NRG Urine drug screening test - 05/12/18 11:55 Urine phencyclidine detection by screening method NEGATIVE NEGATIVE Urine benzodiazepines detection by screening method NEGATIVE NEGATIVE Urine cocaine detection NEGATIVE NEGATIVE Urine amphetamines detection by screening method NEGATIVE NEGATIVE Urine methamphetamine detection by screening method NEGATIVE NEGATIVE Urine cannabinoids detection by screening method NEGATIVE NEGATIVE Urine opiates detection by screening method NEGATIVE NEGATIVE Urine barbiturates detection NEGATIVE NEGATIVE Screening urine tricyclic antidepressants detection NEGATIVE NEGATIVE Urine methadone detection by screening method NEGATIVE NEGATIVE Urine oxycodone detection NEGATIVE NEGATIVE Urine propoxyphene detection NEGATIVE NEGATIVE Encounters ACCT No. Visit Date/Time Discharge Status Pt. Type Provider Facility Loc./Unit Complaint [id number] 05/07/2018 16:25:26 ACT Unknown Anson Sue MD [id number] 04/27/2018 06:25:20 04/28/2018 11:55:00 DIS Inpatient DAYA SUE [facility] ICU robotic pyeloplasty [id number] 03/24/2018 07:49:45 03/24/2018 12:00:00 DIS Outpatient DAYA SUE [facility] Surgery ops [id number] 04/19/2018 10:40:00 04/19/2018 23:59:59 CLS [facility] [id number] 05/05/2018 08:06:00 05/05/2018 23:59:59 CLS Preadmit Victoriano ESTRADA MD [facility] CARD HTN,PVC'S,SINUS NODE DYSFUCTION [id number] 05/12/2018 14:01:00 ACT Inpatient SAMMIE TINAJERO MD [facility] 4TH NAUSEA [id number] 05/11/2018 09:10:00 ACT Outpatient Victoriano ESTRADA MD [facility] CARD HTN,PVC'S,SINUS NODE DYSFUCTION [id number] 05/10/2018 07:57:00 ACT Outpatient Victoriano ESTRADA MD [facility] CARD HTN,PVC'S,SINUS NODE DYSFUCTION
[2018-05-12] MEDS ORDERED: ACETAMINOPHEN 500 MG TAB (TYLENOL) ONE (15:40)
[2018-05-12] MEDS ORDERED: ACETAMINOPHEN 500 MG TAB (TYLENOL) PO PRN (15:45)
[2018-05-12] MEDS ORDERED: PANTOPRAZOLE 40 MG (PROTONIX) TAB PO NR (15:45)
[2018-05-12] MEDS ORDERED: IBUPROFEN 800 MG (MOTRIN) TAB PO PRN (15:45)
[2018-05-12] MEDS ORDERED: CATHETER FLUSH 10 ML SYR IV PRN (16:00)
[2018-05-12] MEDS ORDERED: ONDANSETRON 4 MG/2 ML (SDV) Z0FRAN IV PRN (16:00)
[2018-05-12] MEDS: LACTATED RINGERS 1,000 ML IV SCH (16:00)
[2018-05-12] MEDS ORDERED: PROMETHAZINE INJ 25 MG/ML (PHENERGAN) AMP IV PRN (16:00)
[2018-05-12] MEDS: cefTRIAXone 1,000 MG/SWFI 10 ML IV PUSH IV SCH ×2 (16:04)
--- NOTE | 2018-05-12 16:27 | NUR ---
MARTÍN MATHEW admitted to room 422-1, with an admitting diagnosis of uti, on 05/12/18 from [facility] ED via EMS, accompanied by EMS staff.recieved report from Tory nurse at [facility] ER ,MARTÍN MATHEW introduced to surroundings, call light, bed controls, phone, TV, temperature control, lights, meal times, smoking policy, visitor policy, side rail policy, bathrooms and showers. Patient Rights given to patient in the handbook. MARTÍN MATHEW verbalizes understanding that [facility] is not responsible for the loss or damage to any personal effects or valuables that are kept in the patients posession, patient requested to keep her purse in safe, during their hospitalization. The following Patient Care Plans and discharge were discussed with the patient . MARTÍN MATHEW verbalizes understanding of Interdisciplinary Patient Education.
[2018-05-12 16:36] VITALS: BP 134/61
[2018-05-12] MEDS ORDERED: FLU QUADRIvalent (5+ YOA) 2018-2019 (AFLURIA) 0.5 ML IM ONE (17:00)
[2018-05-12 19:38] VITALS: BP 127/58
[2018-05-13 00:10] VITALS: BP 114/57
[2018-05-13] MEDS: LACTATED RINGERS 1,000 ML IV SCH ×3 (02:11→11:58)
--- NOTE | 2018-05-13 03:09 | NUR ---
THIS RN CALLED DR. TINAJERO IN REGARDS TO THE PT'S HEART RATE BEING UPPER 40S TO LOWER 50S BPM, PT IS ASYMPTOMATIC. ORDERS RECEIVED TO MONITOR. ORDERS READ BACK AND VERIFIED. WILL CONTINUE TO MONITOR.
[2018-05-13 04:30] VITALS: BP 122/57
[2018-05-13 06:13] LABS: BASOPHILS % (AUTO) 0 % (0-10); EOSINOPHILS # (AUTO) 1.5 10^3/uL (0.0-0.3); EOSINOPHILS % (AUTO) 21 % (0-10); HEMATOCRIT 37 % (35-52); HEMOGLOBIN 11.8 G/DL (11.5-16.0); LYMPHOCYTES # (AUTO) 1.2 X 10^3 (1.0-4.0); LYMPHOCYTES % (AUTO) 16 % (12-44); MEAN CORPUSCULAR HEMOGLOBIN 27 PG (25-34); MEAN CORPUSCULAR HGB CONC 32 G/DL (32-36); MEAN CORPUSCULAR VOLUME 83 FL (80-99); MEAN PLATELET VOLUME 10.1 FL (7.4-10.4); MONOCYTES # (AUTO) 0.5 X 10^3 (0.0-1.0); MONOCYTES % (AUTO) 6 % (0-12); NEUTROPHILS # (AUTO) 4.3 X 10^3 (1.8-7.8); NEUTROPHILS % (AUTO) 57 % (42-75); PLATELET COUNT 310 10^3/uL (130-400); RED CELL DISTRIBUTION WIDTH 14.7 % (10.0-14.5); WHITE BLOOD COUNT 7.5 10^3/uL (4.3-11.0)
[2018-05-13 06:30] LABS: BUN/CREATININE RATIO 16; CALCIUM 8.6 MG/DL (8.5-10.1); CARBON DIOXIDE 21 MMOL/L (21-32); CHLORIDE 112 MMOL/L (98-107); CREATININE SERUM 0.77 MG/DL (0.60-1.30); GFR ESTIMATED > 60; GLUCOSE 89 MG/DL (70-105); POTASSIUM 3.8 MMOL/L (3.6-5.0); SODIUM 142 MMOL/L (135-145)
[2018-05-13] MEDS ORDERED: PANTOPRAZOLE 40 MG (PROTONIX) TAB PO SCH (07:00)
[2018-05-13 07:02] LABS: EOSINOPHILS % (MANUAL) 16 %; LYMPHOCYTES % (MANUAL) 22 %; MONOCYTES % (MANUAL) 5 %; NEUTROPHILS % (MANUAL) 57 %
[2018-05-13 08:00] VITALS: BP 110/58
[2018-05-13] MEDS ORDERED: MULT-878 PO (08:59)
[2018-05-13] MEDS ORDERED: OMEP20CA12 PO (08:59)
[2018-05-13] MEDS ORDERED: ACET-2267 PO (08:59)
[2018-05-13] MEDS ORDERED: DICL25TA PO (08:59)
--- NOTE | 2018-05-13 10:53 | Short Stay Summary ---
History of Present Illness History of Present Illness Reason for visit/HPI 72 yo F that presented to ER with nausea and vomiting that had been going on for a couple days prior to presenting to ER. States that she had been feeling fatigued. 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 She has been seeing Dr Tyson for bradycardia. States that during surgery it was low and into the 30s. States that she has never had any symptoms with her low heart rate. Date of Admission May 12, 2018 at 14:01 Date of Discharge 05/13/2018 Time Seen by Provider: 09:45 Attending Physician Sammie Tinajero MD Admitting Physician Madhu Gould MD Consult Allergies and Home Medications Allergies Coded Allergies: Penicillins (Unverified Allergy, Unknown, PASS OUT, 05/12/18) Sulfa (Sulfonamide Antibiotics) (Unverified Allergy, Unknown, RASH, ) Home Medications Acetaminophen 500 Mg Tablet, 1,000 MG PO Q6H PRN for PAIN-MILD, (Reported) Diclofenac Sodium 25 Mg Tablet.dr, 25 MG PO BID, (Reported) Multivitamins-Min/FA/Ginkgo 1 Each Tablet, 1 TAB PO DAILY, (Reported) Omeprazole 20 Mg Capsule.dr, 20 MG PO DAILY, (Reported) Patient Home Medication List Home Medication List Reviewed: Yes Past Tedpnnp-Iqvbfr-Dimoea Hx Patient Social History Living Status: Daughter Alcohol Use: Denies Use Recreational Drug Use: No Smoking Status: Never a Smoker Physical Abuse Screen: No Sexual Abuse: No Recent Foreign Travel: No Contact w/other who traveled: No Recent Infectious Disease Expo: No Immunizations Up To Date Date of Pneumonia Vaccine: Oct 24, 2017 Respiratory No Cardiovascular No Neurological No 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 System Hx 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 Disorders: No Gastrointestinal No Musculoskeletal Yes (DJD RIGHT SHOULDER) Arthritis Endocrine History of Endocrine Disorders: No HEENT History of HEENT Disorders: No Cancer No Psychosocial History of Psychiatric Problem: No Integumentary History of Skin or Integumenta: No Blood Transfusions History of Blood Disorders: No Family Medical History Family Hx: Cardiovascular disease Colon cancer Hypertension Visual disorder Review of Systems Constitutional: no symptoms reported EENTM: no symptoms reported Respiratory: no symptoms reported; No cough, No dyspnea on exertion, No short of breath Cardiovascular: no symptoms reported; No edema, No palpitations Gastrointestinal: no symptoms reported; No abdominal pain, No constipation, No diarrhea, No loss of appetite, No nausea Genitourinary: no symptoms reported; No dysuria; frequency; No hematuria : No Musculoskeletal: no symptoms reported Skin: no symptoms reported Psychiatric/Neurological: No Symptoms Reported Physical Exam Vital Signs Vital Signs - First Documented 05/12/18 05/12/18 10:30 16:36 Temp 98.3 Pulse 65 Resp 15 B/P (MAP) 103/52 (69) Pulse Ox 99 O2 Delivery Room Air Capillary Refill : Less Than 3 Seconds Height, Weight, BMI Height: 5'5.00" Weight: 133lbs. 0.0oz. 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 Norm as Tested Skin: Normal Color, Warm/Dry Lymphatic: No Adenopathy Clinical Quality Measures Admission Status Admission Status: Observation DVT/VTE Risk/Contraindication: Risk Factor Score Per Nursin RFS Level Per Nursing on Admit: 2=Moderate Short Stay Diagnosis Discharge Diagnosis-Short Stay Admission Diagnosis: Dehydration UTI Bradycardia Final Discharge Diagnosis: See Above Conclusion Labs Laboratory Tests 05/12/18 11:02: White Blood Count 11.0, Red Blood Count 5.59, Hemoglobin 15.1, Hematocrit 46, Mean Corpuscular Volume 82, Mean Corpuscular Hemoglobin 27, Mean Corpuscular Hemoglobin Concent 33, Red Cell Distribution Width 14.9H, Platelet Count 424H, Mean Platelet Volume 9.5, Neutrophils (%) (Auto) 79H, Lymphocytes (%) (Auto) 14 , Monocytes (%) (Auto) 4, Eosinophils (%) (Auto) 2, Basophils (%) (Auto) 0, Neutrophils # (Auto) 8.7H, Lymphocytes # (Auto) 1.6, Monocytes # (Auto) 0.5, Eosinophils # (Auto) 0.3, Basophils # (Auto) 0.0, Prothrombin Time 13.5, INR Comment 1.0, Activated Partial Thromboplast Time 29, Sodium Level 140, Potassium Level 4.2, Chloride Level 101, Carbon Dioxide Level 17L, Anion Gap 22H , Blood Urea Nitrogen 14, Creatinine 0.80, Estimat Glomerular Filtration Rate > 60, BUN/Creatinine Ratio 18, Glucose Level 117H, Calcium Level 10.1, Corrected Calcium 9.7, Magnesium Level 2.5H, Total Bilirubin 0.6, Aspartate Amino Transf ( AST/SGOT) 19, Alanine Aminotransferase (ALT/SGPT) 11, Alkaline Phosphatase 109, Troponin T 13H, C-Reactive Protein High Sensitivity 0.26, Pro-B-Type Natriuretic Peptide 433.4H, Total Protein 7.5, Albumin 4.5, Thyroid Stimulating Hormone (TSH) 1.59 05/12/18 11:55: Urine Color YELLOW, Urine Clarity CLOUDY, Urine pH 5.5, Urine Specific [place] > =1.030, Urine Protein 2+H, Urine Glucose (UA) NEGATIVE, Urine Ketones TRACEH, Urine Nitrite NEGATIVE, Urine Bilirubin NEGATIVE, Urine Urobilinogen 0.2, Urine Leukocyte Esterase 1+H, Urine RBC (Auto) 3+H, Urine RBC 50-100H, Urine WBC 10- 25H, Urine Squamous Epithelial Cells 0-2, Urine Crystals P, Urine Amorphous Sediment MOD CORBIN PHOSPHATEH, Urine Bacteria FEWH, Urine Casts NONE, Urine Mucus NONE, Urine Culture Indicated YES, Urine Opiates Screen NEGATIVE, Urine Oxycodone Screen NEGATIVE, Urine Methadone Screen NEGATIVE, Urine Propoxyphene Screen NEGATIVE, Urine Barbiturates Screen NEGATIVE, Ur Tricyclic Antidepressants Screen NEGATIVE, Urine Phencyclidine Screen NEGATIVE, Urine Amphetamines Screen NEGATIVE, Urine Methamphetamines Screen NEGATIVE, Urine Benzodiazepines Screen NEGATIVE, Urine Cocaine Screen NEGATIVE, Urine Cannabinoids Screen NEGATIVE 05/12/18 17:15: Troponin I < 0.028 05/13/18 05:25: White Blood Count 7.5, Red Blood Count 4.43, Hemoglobin 11.8#, Hematocrit 37, Mean Corpuscular Volume 83, Mean Corpuscular Hemoglobin 27, Mean Corpuscular Hemoglobin Concent 32, Red Cell Distribution Width 14.7H, Platelet Count 310, Mean Platelet Volume 10.1, Neutrophils (%) (Auto) 57, Lymphocytes (%) (Auto) 16 , Monocytes (%) (Auto) 6, Eosinophils (%) (Auto) 21H, Basophils (%) (Auto) 0, Neutrophils # (Auto) 4.3, Lymphocytes # (Auto) 1.2, Monocytes # (Auto) 0.5, Eosinophils # (Auto) 1.5H, Basophils # (Auto) 0.0, Sodium Level 142, Potassium Level 3.8, Chloride Level 112#H, Carbon Dioxide Level 21, Anion Gap 9, Blood Urea Nitrogen 12, Creatinine 0.77, Estimat Glomerular Filtration Rate > 60, BUN/ Creatinine Ratio 16, Glucose Level 89, Calcium Level 8.6, Neutrophils % (Manual ) 57, Lymphocytes % (Manual) 22, Monocytes % (Manual) 5, Eosinophils % (Manual) 16 Microbiology 05/12/18 Urine Culture - Final, Complete NO GROWTH Conclusion/Plan 72 yo F that was admitted for nausea and vomiting with dehydration. Doing much better this AM. She has tolerated PO diet. Labs improved. Will d/c home with oral antibiotics. Copy Copies To 1: SELF,MADHU TINAJERO,SAMMIE Reid MD May 13, 2018 10:53
[2018-05-13] MEDS ORDERED: CEFD300C3 PO (11:01)
--- NOTE | 2018-05-13 11:05 | Discharge Instructions ---
Discharge [facility] Discharge Medications New, Converted or Re-Newed RX: Transmitted to Pharmacy New Medications: Cefdinir (Cefdinir) 300 Mg Capsule 300 MG PO BID, #10 CAP Continued Medications: Acetaminophen (Tylenol Extra Strength) 500 Mg Tablet 1000 MG PO Q6H PRN for PAIN-MILD, TAB Diclofenac Sodium (Diclofenac Sodium) 25 Mg Tablet.dr 25 MG PO BID, TAB Multivitamins-Min/FA/Ginkgo (One Daily For Women 50+ Adv Tb) 1 Each Tablet 1 TAB PO DAILY, TAB Omeprazole (Omeprazole) 20 Mg Capsule.dr 20 MG PO DAILY, CAP Patient Instructions Goal/Follow Up Appt: You have a hospital follow up appt with Dr Gould Thu @ [id number] Patient Instructions: - Make sure to complete your antibiotics Activity & Diet Discharge Diet: No Restrictions Activity as Tolerated: Yes Copy Copies To 1: ARMANDO GOULD MD, HOLLY R MD May 13, 2018 11:05
[2018-05-13 13:53] VITALS: BP 110/58
[2018-05-13] MEDS: cefTRIAXone 1,000 MG/SWFI 10 ML IV PUSH IV SCH ×2 (13:55)
--- NOTE | 2018-05-14 16:12 | Physician Query Clarification ---
PQ-Conflicting Diagnosis Admission/Discharge Admission Date: May 12, 2018 at 14:01 Discharge Date: May 13, 2018 at 13:56 The medical record reflects the following clinical scenario: History/Risk Factors: UTI Clinical Findings: UTI, increased heart rate Treatment: IV Rocephin Question: Do you agree with the impression of the SEPSIS per Dr. Tapia Please document a response below. PHYSICIAN RESPONSE Do you agree w/Consulting Dx?: No Explanation of clincal finding Tachycardia can be explained by dehydration and it resolved after IVF bolus. No other signs to indicate sepsis related to UTI In responding to this query, please exercise your independent professional judgment. The purpose of this communication is to more accurately reflect the complexity of your patients condition. The fact that a question is asked does not imply that any particular answer is desired or expected. Thank you for your timely response to this clarification. Requestors name: [ ] Phone # [ ] THIS PHYSICIAN QUERY FORM IS A PERMANENT PART OF THE MEDICAL RECORD KARI ANDRES May 14, 2018 16:12 SAMMIE TINAJERO MD May 26, 2018 08:45
== END 2018-05-13 13:56 | disposition home or self-care (01) | DRG 690 ==
LOC: EDUNIT# 10:28 → ER FS 10:30 → 4TH 14:01
PROVIDERS: ADMIT Family Medicine; ATTEND Family Medicine
DX: N30.01 Acute cystitis with hematuria (principal); E86.0 Dehydration; R00.1 Bradycardia, unspecified; F41.9 Anxiety disorder, unspecified; I49.5 Sick sinus syndrome; M19.011 Primary osteoarthritis, right shoulder; Z98.890 Other specified postprocedural states; Z88.0 Allergy status to penicillin; Z88.2 Allergy status to sulfonamides; I49.3 Ventricular premature depolarization; I10 Essential (primary) hypertension
CPT/HCPCS: 36415; 51701; 71045; 80048; 80053; 80306; 81000; 83735; 83880; 84443; 84484; 85007; 85025; 85027; 85610; 85730; 86141; 87088; 96361; 96374; 96375

== ENCOUNTER 2018-05-23 15:09 | Emergency (ER) | payer MEDICARE ==
[~2018-05-23] VITALS: Ht 165.1 cm; Wt 55.8 kg
[~2018-05-23 15:09] MED LIST changes: +ACET-2267 PO; +CEFD300C3 PO; +DICL25TA PO; +MULT-878 PO; +OMEP20CA12 PO
--- OUTSIDE RECORDS SUMMARY | 2018-05-23 15:14 | XMS REPORT | Clinical Summary ---
Author Author Admin, [facility] Organization [facility] [place] Address Unknown Phone Unavailable Allergies, Adverse Reactions, [...] mouth every 4 hours as needed ACETAMINOPHEN 18896426846 Active Anson Sal MD Active OMEPRAZOLE 20 MG ORAL CAPSULE DELAYED RELEASE 1 tablet by mouth daily OMEPRAZOLE 65079250223 Active [place] Elder Active LOPERAMIDE HCL 2 MG ORAL CAPSULE 1 cap by mouth daily LOPERAMIDE HCL 91533473040 Active [place] Elder Active ONDANSETRON 4 MG ORAL TABLET DISINTEGRATING 1 q4h PRN nausea ONDANSETRON 16966168773 Active [place] Elder Active DICLOFENAC SODIUM 25 MG ORAL TABLET DELAYED RELEASE 1 tab by mouth daily DICLOFENAC SODIUM 56179838456 Active [place] Elder Active Advance Directives Directive Description Start Date PERMISSION TO SHARE Vital Signs Date Name Value Unit Range Description blood pressure, diastolic, repeated by physician 70 BP sal blood pressure, diastolic 70 mm[Hg] BP sal blood pressure, systolic, repeated by physician 120 BP sys blood pressure, systolic 120 mm[Hg] BP sys height E&M 66 [in_us] Bdy height pulse rate E&M 70 /min Heart rate temperature E&M 98.0 [degF] Body temperature weight E&M 126 [lb_av] Weight Measured blood pressure, diastolic, repeated by physician 72 [...] 2+ Encounters Code Encounter Date Provider Facility CPT-32939 Level 3 Est. 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
--- OUTSIDE RECORDS SUMMARY | 2018-05-23 15:14 | XMS REPORT | Clinical Summary ---
Author Author Admin, [facility] Organization [facility] [facility] [place] Address Unknown Phone Unavailable Allergies, Adverse Reactions, [...] mouth every 4 hours as needed ACETAMINOPHEN 41700647713 Active Anson Sal MD Active OMEPRAZOLE 20 MG ORAL CAPSULE DELAYED RELEASE 1 tablet by mouth daily OMEPRAZOLE 35941004661 Active [place] Elder Active LOPERAMIDE HCL 2 MG ORAL CAPSULE 1 cap by mouth daily LOPERAMIDE HCL 47825940269 Active [place] Elder Active ONDANSETRON 4 MG ORAL TABLET DISINTEGRATING 1 q4h PRN nausea ONDANSETRON 77835642653 Active [place] Elder Active DICLOFENAC SODIUM 25 MG ORAL TABLET DELAYED RELEASE 1 tab by mouth daily DICLOFENAC SODIUM 95505672740 Active [place] Elder Active Advance Directives Directive [...] pressure, diastolic, repeated by physician 72 BP sla blood pressure, diastolic 72 mm[Hg] BP sal [...] 2+ Encounters Code Encounter Date Provider Facility CPT-84759 Level 3 Est. 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
--- OUTSIDE RECORDS SUMMARY | 2018-05-23 15:14 | XMS REPORT | Clinical Summary ---
Author Author Admin, [facility] Organization [facility] [employer] [place] Address Unknown Phone Unavailable Allergies, Adverse Reactions, [...] mouth every 4 hours as needed ACETAMINOPHEN 05474879579 Active Anson Sal MD Active OMEPRAZOLE 20 MG ORAL CAPSULE DELAYED RELEASE 1 tablet by mouth daily OMEPRAZOLE 53171480117 Active [place] Elder Active LOPERAMIDE HCL 2 MG ORAL CAPSULE 1 cap by mouth daily LOPERAMIDE HCL 22367300650 Active [place] Elder Active ONDANSETRON 4 MG ORAL TABLET DISINTEGRATING 1 q4h PRN nausea ONDANSETRON 23943369877 Active [place] Elder Active DICLOFENAC SODIUM 25 MG ORAL TABLET DELAYED RELEASE 1 tab by mouth daily DICLOFENAC SODIUM 48343837143 Active [place] Elder Active Advance Directives Directive [...] 2+ Encounters Code Encounter Date Provider Facility CPT-06157 Level 3 Est. 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
--- OUTSIDE RECORDS SUMMARY | 2018-05-23 15:15 | XMS REPORT | Continuity of Care Document ---
Author Author [facility] Organization [facility] Address Unknown Phone Unavailable Allergies Active Description Code Type Severity Reaction Onset Reported/Identified Relationship to Patient Clinical Status Yes ibuprofen Drug Mild migraine Yes penicillin 3 Drug Severe [id number] Yes sulfa drug 16 Drug Moderate [id number] Yes Penicillins [id number] Drug Allergy Unknown PASS OUT 05/12/2018 Yes Sulfa (Sulfonamide Antibiotics) [id number] Drug Allergy Unknown RASH 2018 Medications There [...] 05/12/18 11:02 PROBNP FS 433.4 pg/mL <75.0 THYROID STIMULATING HORMONE - 05/12/18 11:02 THYROID STIMULATING HORMONE 1.59 u[iU]/mL 0.35-4.94 Serum or plasma C reactive protein measurement (mass/volume) - 05/12/18 11:02 Serum or plasma C reactive protein measurement (mass/volume) 0.26 mg /dL 0.00-0.50 Complete urinalysis with reflex to culture - [...] NEGATIVE NEGATIVE Urine propoxyphene detection NEGATIVE NEGATIVE Bacterial urine culture - 05/12/18 11:55 Bacterial urine culture NG NRG Serum or plasma troponin i.cardiac measurement (mass/volume) - 05/12/18 17:15 Serum or plasma troponin i.cardiac measurement (mass/volume) < ng/ mL <0.028 Complete blood count (CBC) with automated white blood cell (WBC) differential - 05/13/18 05:25 Blood leukocytes automated count (number/volume) 7.5 10*3/uL 4.3-11.0 Blood erythrocytes automated count (number/volume) 4.43 10*6/uL 4.35-5.85 Venous blood hemoglobin measurement (mass/volume) 11.8 g/dL 11.5-16.0 Blood hematocrit (volume fraction) 37 % 35-52 Automated erythrocyte mean corpuscular volume 83 [foz_us] 80-99 Automated erythrocyte mean corpuscular hemoglobin (mass per erythrocyte) 27 pg 25-34 Automated erythrocyte mean corpuscular hemoglobin concentration measurement ( mass/volume) 32 g/dL 32-36 Automated erythrocyte distribution width ratio 14.7 % 10.0-14.5 Automated blood platelet count (count/volume) 310 10*3/uL 130-400 Automated blood platelet mean volume measurement 10.1 [foz_us] 7.4-10.4 Automated blood neutrophils/100 leukocytes 57 % 42-75 Automated blood lymphocytes/100 leukocytes 16 % 12-44 Blood monocytes/100 leukocytes 6 % 0-12 Automated blood eosinophils/100 leukocytes 21 % 0-10 Automated blood basophils/100 leukocytes 0 % 0-10 Blood neutrophils automated count (number/volume) 4.3 10*3 1.8-7.8 Blood lymphocytes automated count (number/volume) 1.2 10*3 1.0-4.0 Blood monocytes automated count (number/volume) 0.5 10*3 0.0-1.0 Automated eosinophil count 1.5 10*3/uL 0.0-0.3 Automated blood basophil count (count/volume) 0.0 10*3/uL 0.0-0.1 Whole blood basic metabolic panel - 05/13/18 05:25 Serum or plasma sodium measurement (moles/volume) 142 mmol/L 135-145 Serum or plasma potassium measurement (moles/volume) 3.8 mmol/L 3.6-5.0 Serum or plasma chloride measurement (moles/volume) 112 mmol/L 98-107 Carbon dioxide 21 mmol/L 21-32 Serum or plasma anion gap determination (moles/volume) 9 mmol/L 5-14 Serum or plasma urea nitrogen measurement (mass/volume) 12 mg/dL 7-18 Serum or plasma creatinine measurement (mass/volume) 0.77 mg/dL 0.60-1.30 Serum or plasma urea nitrogen/creatinine mass ratio 16 NRG Serum or plasma creatinine measurement with calculation of estimated glomerular filtration rate > NRG Serum or plasma glucose measurement (mass/volume) 89 mg/dL 70-105 Serum or plasma calcium measurement (mass/volume) 8.6 mg/dL 8.5-10.1 Blood manual differential performed detection - 05/13/18 05:25 Blood monocytes/100 leukocytes 5 % NRG Manual blood segmented neutrophils/100 leukocytes 57 % NRG Manual blood lymphocytes/100 leukocytes 22 % NRG Manual eosinophils/100 leukocytes in nose 16 % NRG Encounters ACCT No. Visit Date/Time Discharge Status Pt. Type Provider Facility Loc./Unit Complaint [id number] 05/07/2018 16:25:26 ACT Unknown Anson Sue MD [id number] 04/27/2018 06:25:20 04/28/2018 11:55:00 DIS Inpatient DAYA SUE [facility] ICU robotic pyeloplasty [id number] 03/24/2018 07:49:45 03/24/2018 12:00:00 DIS Outpatient DAYA SUE [facility] Surgery ops [id number] 05/19/2018 10:45:00 05/19/2018 23:59:59 CLS [facility] [id number] 05/12/2018 14:01:00 05/13/2018 13:56:00 DIS Inpatient SAMMIE TINAJERO MD [facility] 4TH NAUSEA [id number] 05/11/2018 09:10:00 05/11/2018 23:59:59 CLS Outpatient Victoriano ESTRADA MD [facility] CARD HTN,PVC'S,SINUS NODE DYSFUCTION [id number] 05/10/2018 07:57:00 05/10/2018 23:59:59 CLS Outpatient Victoriano ESTRADA MD [facility] CARD HTN,PVC'S,SINUS NODE DYSFUCTION [id number] 05/05/2018 08:06:00 05/05/2018 23:59:59 CLS Preadmit Victoriano ESTRADA MD [facility] CARD HTN,PVC'S,SINUS NODE DYSFUCTION
[2018-05-23] MEDS ORDERED: ONDANSETRON 4 MG/2 ML (SDV) Z0FRAN IVP ONE ×2 (15:45→17:45)
[2018-05-23] MEDS ORDERED: NS 1000 ML IV BAG IV ONE (15:45)
--- NOTE | 2018-05-23 15:47 | ED GI ---
General Chief Complaint: Abdominal/GI Problems Stated Complaint: NAUSEA,DIARRHEA Nursing Triage Note: TO ROOM 05 VIA AMB. COMPLAINS OF DRY HEAVES AND DIARRHEA STARTING TODAY. Sepsis Screen: No Definite Risk Source of Information: Patient Exam Limitations: No Limitations History of Present Illness Date Seen by Provider: May 23, 2018 Time Seen by Provider: 15:32 Initial Comments 72-year-old female presents with history of dry heaves and diarrhea since this morning. She states she has had dry heaves approximately every hour and watery stools or times since the onset of her symptoms. Been no fever or chills. She is not aware of any precipitating ingestion. There has been quite a bit of this condition in the community. She had similar symptoms approximately 2 weeks ago requiring emergency room visits. There's been no blood in her emesis or stool. No urinary complaints reported. She denies medical conditions other than being evaluated currently for bradycardia. She denies any chest pain or shortness of breath. Allergies and Home Medications Allergies Coded Allergies: Penicillins (Unverified Allergy, Unknown, PASS OUT, 05/12/18) Sulfa (Sulfonamide Antibiotics) (Unverified Allergy, Unknown, RASH, ) Home Medications Acetaminophen 500 Mg Tablet, 1,000 MG PO Q6H PRN for PAIN-MILD, (Reported) Diclofenac Sodium 25 Mg Tablet.dr, 25 MG PO BID, (Reported) Multivitamins-Min/FA/Ginkgo 1 Each Tablet, 1 TAB PO DAILY, (Reported) Omeprazole 20 Mg Capsule.dr, 20 MG PO DAILY, (Reported) Patient Home Medication List Home Medication List Reviewed: Yes Review of Systems Review of Systems Constitutional: malaise, weakness EENTM: No Symptoms Reported Respiratory: No Symptoms Reported Cardiovascular: No Symptoms Reported Gastrointestinal: See HPI Genitourinary: No Symptoms Reported Musculoskeletal: no symptoms reported Skin: no symptoms reported Psychiatric/Neurological: No Symptoms Reported Endocrine: No Symptoms Reported Hematologic/Lymphatic: No Symptoms Reported Past Dmwcscp-Prjhgc-Xkfmis Hx Past Med/Social Hx: Reviewed Nursing Past Med/Soc Hx Patient Social History Alcohol Use: Rarely Uses Recreational Drug Use: No Smoking Status: Former Smoker Recent Foreign Travel: No Contact w/Someone Who Travel: No Recent Infectious Disease Expo: No Recent Hopitalizations: Yes Immunizations Up To Date Date of Pneumonia Vaccine: Oct 24, 2017 Past Medical History Respiratory: No Cardiac: Yes (BRADYCARDIA) Neurological: No 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 Disorders: No Gastrointestinal: No Musculoskeletal: Yes (DJD RIGHT SHOULDER) Arthritis Endocrine: No HEENT: No Cancer: No Psychosocial: No Integumentary: No Blood Disorders: No Family Medical History Cardiovascular disease Colon cancer Hypertension Visual disorder Physical Exam Vital Signs Vital Signs - First Documented 05/23/18 15:15 Temp 97.7 Pulse 68 Resp 16 B/P (MAP) 133/79 (97) Pulse Ox 97 O2 Delivery Room Air Capillary Refill : Less Than 3 Seconds Height/Weight/BMI Height: 5'5.00" Weight: 123lbs. 0.0oz. 55.267421gd; 20.3 BMI Method:Stated General Appearance: WD/WN, no apparent distress HEENT: PERRL/EOMI, normal ENT inspection, TMs normal, pharynx normal; No scleral icterus (R), No scleral icterus (L), No pale conjunctivae (R), No pale conjunctivae (L), No pharyngeal erythema Neck: non-tender, full range of motion, supple, normal inspection Respiratory: chest non-tender, lungs clear, normal breath sounds, no respiratory distress, no accessory muscle use Cardiovascular: regular rate, rhythm, no edema, no gallop, no JVD, no murmur Gastrointestinal: normal bowel sounds, non tender, soft, no organomegaly, no pulsatile mass; No guarding, No rebound Extremities: normal range of motion, non-tender, normal inspection, no pedal edema, no calf tenderness Back: normal inspection, no CVA tenderness, no vertebral tenderness Neurologic/Psychiatric: 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 as tested, no motor/sensory deficits, alert, normal mood/affect, oriented x 3 Skin: normal color, warm/dry Lymphatic: no adenopathy Progress/Results/Core Measures Results/Orders Lab Results Laboratory Tests Test 05/23/18 15:20 05/23/18 15:30 Range/Units White Blood Count 18.6 H 4.3-11.0 10^3/uL Red Blood Count 5.30 4.35-5.85 10^6/uL Hemoglobin 14.3 11.5-16.0 G/DL Hematocrit 44 35-52 % Mean Corpuscular Volume 83 80-99 FL Mean Corpuscular Hemoglobin 27 25-34 PG Mean Corpuscular Hemoglobin Concent 33 32-36 G/DL Red Cell Distribution Width 15.5 H 10.0-14.5 % Platelet Count 350 130-400 10^3/uL Mean Platelet Volume 9.9 7.4-10.4 FL Neutrophils (%) (Auto) 82 H 42-75 % Lymphocytes (%) (Auto) 10 L 12-44 % Monocytes (%) (Auto) 3 0-12 % Eosinophils (%) (Auto) 5 0-10 % Basophils (%) (Auto) 0 0-10 % Neutrophils # (Auto) 15.2 H 1.8-7.8 X 10^3 Lymphocytes # (Auto) 1.8 1.0-4.0 X 10^3 Monocytes # (Auto) 0.6 0.0-1.0 X 10^3 Eosinophils # (Auto) 0.9 H 0.0-0.3 10^3/uL Basophils # (Auto) 0.0 0.0-0.1 10^3/uL Neutrophils % (Manual) 68 % Lymphocytes % (Manual) 12 % Monocytes % (Manual) 0 % Eosinophils % (Manual) 4 % Basophils % (Manual) 1 % Metamyelocytes % 0 % Band Neutrophils 15 % Sodium Level 142 135-145 MMOL/L Potassium Level 4.6 3.6-5.0 MMOL/L Chloride Level 104 98-107 MMOL/L Carbon Dioxide Level 26 21-32 MMOL/L Anion Gap 12 5-14 MMOL/L Blood Urea Nitrogen 14 7-18 MG/DL Creatinine 0.83 0.60-1.30 MG/DL Estimat Glomerular Filtration Rate > 60 BUN/Creatinine Ratio 17 Glucose Level 103 70-105 MG/DL Calcium Level 9.6 8.5-10.1 MG/DL Corrected Calcium 9.2 8.5-10.1 MG/DL Total Bilirubin 0.6 0.1-1.0 MG/DL Aspartate Amino Transf (AST/SGOT) 22 5-34 U/L Alanine Aminotransferase (ALT/SGPT) 15 0-55 U/L Alkaline Phosphatase 107 40-136 U/L Total Protein 7.3 6.4-8.2 GM/DL Albumin 4.5 3.2-4.5 GM/DL Lipase 35 8-78 U/L Urine Color YELLOW Urine Clarity SLT CLOUDY Urine pH 6.0 5-9 Urine Specific [place] 1.020 1.016-1.022 Urine Protein 1+ H NEGATIVE Urine Glucose (UA) NEGATIVE NEGATIVE Urine Ketones NEGATIVE NEGATIVE Urine Nitrite NEGATIVE NEGATIVE Urine Bilirubin NEGATIVE NEGATIVE Urine Urobilinogen 0.2 NORMAL MG/DL Urine Leukocyte Esterase 1+ H NEGATIVE Urine RBC (Auto) 3+ H NEGATIVE Urine RBC >100 H /HPF Urine WBC 5-10 H /HPF Urine Squamous Epithelial Cells 0-2 /HPF Urine Crystals NONE /LPF Urine Bacteria FEW H /HPF Urine Casts NONE /LPF Urine Mucus NONE /LPF Urine Culture Indicated YES My Orders Orders - EBONY RODAS MD Comprehensive Metabolic Panel (05/23/18 15:39) Lipase (05/23/18 15:39) Ua Culture If Indicated (05/23/18 15:39) Saline Lock/Iv-Start (05/23/18 15:39) Acute Abd Series (05/23/18 15:39) Cbc With Automated Diff (05/23/18 15:39) Ondansetron Injection (Zofran Injectio (05/23/18 15:45) Ns Iv 1000 Ml (Sodium Chloride 0.9%) (05/23/18 15:45) Manual Differential (05/23/18 15:20) Urine Culture (05/23/18 15:30) Ct Abdomen/Pelvis W (05/23/18 16:38) Iohexol Injection (Omnipaque 350 Mg/Ml 1 (05/23/18 17:15) Received Contrast (Hold Metformin- Contr (05/23/18 17:15) Ns (Ivpb) (Sodium Chloride 0.9% Ivpb Bag (05/23/18 17:15) Ondansetron Injection (Zofran Injectio (05/23/18 17:45) Medications Given in ED Current Medications Medications Dose Ordered Sig/Mela Route Start Time Stop Time Status Last Admin Dose Admin Iohexol 100 ml ONCE ONCE IV 05/23/18 17:15 05/23/18 17:16 UNV 05/23/18 17:06 100 ML Ondansetron HCl 4 mg ONCE ONCE IVP 05/23/18 15:45 05/23/18 15:47 DC 05/23/18 15:46 4 MG Ondansetron HCl 4 mg ONCE ONCE IVP 05/23/18 17:45 05/23/18 17:46 DC 05/23/18 17:39 4 MG Sodium Chloride 100 ml ONCE ONCE IV 05/23/18 17:15 05/23/18 17:16 UNV 05/23/18 17:06 80 ML Sodium Chloride 500 ml ONCE ONCE IV 05/23/18 15:45 05/23/18 15:47 DC 05/23/18 15:46 500 ML Vital Signs/I&O 05/23/18 15:15 Temp 97.7 Pulse 68 Resp 16 B/P (MAP) 133/79 (97) Pulse Ox 97 O2 Delivery Room Air Blood Pressure Mean: 97 Progress Progress Note : Time: 15:47 Progress Note The patient is uncomfortable but in no acute distress. Will give IV fluids cautiously and Zofran. Radiographic and laboratory studies. Discussed plan with patient understands and agrees. 1620 Feeling much better after 500ml of NS and dose of Zofran. No further vomiting or diarrhea. Will continue to monitor. 1645 WBC and radiology report reviewed with patient and daughter. Will proceed with CT abd/pelvis as recommended by radiology. 1735 No vomiting but has had an episode of diarrhea. She feels thirsty. Will give additional Zofran then have PO challenge prior to determination concerning discharge. 1756 Tolerated PO challenge well. Will discharge with instructions to closely monitor and to return if her sx worsen. Recommended family member stay with her this evening to improve safety. Diagnostic Imaging Diagonstic Imaging: Xray Plain Films/CT/US/NM/MRI: abdomen Comments NAME: MARTÍN [facility]HEW [facility] REC#: [id number] PT STATUS: REG ER : 1945 PHYSICIAN: EBONY RODAS MD ADMIT DATE: 05/23/18/ER FS Draft Date of Exam:05/23/18 ACUTE ABD SERIES EXAMINATION: Abdominal radiographs, acute series. DATE: May 23, 2018. CLINICAL INDICATION: 72-year-old female, diarrhea. COMPARISON: Chest radiograph, May 12, 2018. COMMENTS: There is a very large air-filled lucency projecting above the level of the mid and left hemidiaphragm which is unchanged since comparison chest radiograph. This likely contains segments of bowel. This may relate to a large hernia. The heart size is likely within normal limits. The cardiomediastinal contours are obscured by the above-mentioned abnormality. There is no identified pneumothorax. There is no large pleural effusion. There is no visible focal airspace consolidation. There is no identified free intraperitoneal air. There is a left-sided ureteral stent. There are gas-filled segments of small bowel in the abdomen which are not disproportionately distended compared to colonic caliber. There are multiple air-fluid levels present within bowel. There is no identified pneumatosis or portal venous gas. IMPRESSION: 1. Abnormal but nonspecific bowel gas pattern with multiple air-fluid levels present. 2. Distended segments of large bowel projecting above the level of the hemidiaphragms. This likely relates to a large hernia. Considering distention of segments of bowel within the hernia, an obstructive process cannot be excluded. Recommend CT abdomen and pelvis with intravenous contrast for further assessment. Please make sure that the complete extent of the hernia is imaged. Dictated on workstation # [id number] Dict: 05/23/18 1610 Trans: 05/23/18 1623 [facility] [id number] Interpreted by: PHILLIP RUTH MD Electronically signed by: CT: No obstruction. Hiatal hernia. Dr. Ruth. Report would not copy/paste into record. Departure Impression Primary Impression: Gastroenteritis Additional Impressions: Dehydration Abdominal pain Qualified Codes: R10.84 - Generalized abdominal pain Disposition: 01 HOME, SELF-CARE Condition: Improved Departure-Patient Inst. Decision time for Depature: 17:57 Referrals: ARMANDO COMER MD (PCP/Family) Primary Care Physician Patient Instructions: Dehydration, Adult (DC), Viral Gastroenteritis, Acute Abdomen (Belly Pain), Adult (DC) Add. Discharge Instructions: Clear liquids tonight then cautiously advance diet to avoid milk products x 3 days. All discharge instructions reviewed with patient and/or family. Voiced understanding. Scripts Ondansetron (Ondansetron Odt) 4 Mg Tab.rapdis 4 MG PO Q4H PRN for NAUSEA/VOMITING-1ST LINE, #10 TAB Prov: EBONY RODAS MD 05/23/18 EBONY RODAS MD May 23, 2018 15:47
[2018-05-23 15:55] LABS: HEMATOCRIT 44 % (35-52); HEMOGLOBIN 14.3 G/DL (11.5-16.0); MEAN CORPUSCULAR HEMOGLOBIN 27 PG (25-34); MEAN CORPUSCULAR HGB CONC 33 G/DL (32-36); MEAN CORPUSCULAR VOLUME 83 FL (80-99); MEAN PLATELET VOLUME 9.9 FL (7.4-10.4); PLATELET COUNT 350 10^3/uL (130-400); RED CELL DISTRIBUTION WIDTH 15.5 % (10.0-14.5); WHITE BLOOD COUNT 18.6 10^3/uL (4.3-11.0)
[2018-05-23 15:56] LABS: BASOPHILS % (AUTO) 0 % (0-10); EOSINOPHILS # (AUTO) 0.9 10^3/uL (0.0-0.3); EOSINOPHILS % (AUTO) 5 % (0-10); LYMPHOCYTES # (AUTO) 1.8 X 10^3 (1.0-4.0); LYMPHOCYTES % (AUTO) 10 % (12-44); MONOCYTES # (AUTO) 0.6 X 10^3 (0.0-1.0); MONOCYTES % (AUTO) 3 % (0-12); NEUTROPHILS # (AUTO) 15.2 X 10^3 (1.8-7.8); NEUTROPHILS % (AUTO) 82 % (42-75)
[2018-05-23 16:03] LABS: BUN/CREATININE RATIO 17; CALCIUM 9.6 MG/DL (8.5-10.1); CARBON DIOXIDE 26 MMOL/L (21-32); CHLORIDE 104 MMOL/L (98-107); CREATININE SERUM 0.83 MG/DL (0.60-1.30); GFR ESTIMATED > 60; GLUCOSE 103 MG/DL (70-105); POTASSIUM 4.6 MMOL/L (3.6-5.0); SODIUM 142 MMOL/L (135-145)
[2018-05-23 16:04] LABS: ALANINE AMINOTRANSFERASE 15 U/L (0-55); ALBUMIN 4.5 GM/DL (3.2-4.5); ALKALINE PHOSPHATASE 107 U/L (40-136); BILIRUBIN,TOTAL 0.6 MG/DL (0.1-1.0); LIPASE 35 U/L (8-78); TOTAL PROTEIN 7.3 GM/DL (6.4-8.2)
[2018-05-23 16:12] LABS: BAND NEUTROPHILS 15 %; BASOPHILS % (MANUAL) 1 %; EOSINOPHILS % (MANUAL) 4 %; LYMPHOCYTES % (MANUAL) 12 %; MONOCYTES % (MANUAL) 0 %; NEUTROPHILS % (MANUAL) 68 %
[2018-05-23 16:13] LABS: METAMYELOCYTES % 0 %
--- NOTE | 2018-05-23 16:24 | Diagnostic Imaging Report ---
EXAMINATION: Abdominal radiographs, acute series. DATE: May 23, 2018. CLINICAL INDICATION: 72-year-old female, diarrhea. COMPARISON: Chest radiograph, May 12, 2018. COMMENTS: There is a very large air-filled lucency projecting above the level of the mid and left hemidiaphragm which is unchanged since comparison chest radiograph. This likely contains segments of bowel. This may relate to a large hernia. The heart size is likely within normal limits. The cardiomediastinal contours are obscured by the above-mentioned abnormality. There is no identified pneumothorax. There is no large pleural effusion. There is no visible focal airspace consolidation. There is no identified free intraperitoneal air. There is a left-sided ureteral stent. There are gas-filled segments of small bowel in the abdomen which are not disproportionately distended compared to colonic caliber. There are multiple air-fluid levels present within bowel. There is no identified pneumatosis or portal venous gas. IMPRESSION: 1. Abnormal but nonspecific bowel gas pattern with multiple air-fluid levels present. 2. Distended segments of large bowel projecting above the level of the hemidiaphragms. This likely relates to a large hernia. Considering distention of segments of bowel within the hernia, an obstructive process cannot be excluded. Recommend CT abdomen and pelvis with intravenous contrast for further assessment. Please make sure that the complete extent of the hernia is imaged. Dictated by: Dictated on workstation # [id number]
[2018-05-23 16:26] LABS: CLARITY,URINE SLT CLOUDY; COLOR,URINE YELLOW; GLUCOSE, URINE (UA) NEGATIVE (NEGATIVE); PROTEIN,URINE 1+ (NEGATIVE)
[2018-05-23 16:27] LABS: BACTERIA,URINE FEW /HPF; BILIRUBIN,URINE NEGATIVE (NEGATIVE); KETONES,URINE NEGATIVE (NEGATIVE); LEUKOCYTE ESTERASE ,URINE 1+ (NEGATIVE); NITRITE,URINE NEGATIVE (NEGATIVE); RBC,URINE >100 /HPF; UROBILINOGEN,URINE 0.2 MG/DL (NORMAL)
[2018-05-23 16:28] LABS: SQUAMOUS EPITHELIAL CELL,UR 0-2 /HPF
--- NOTE | 2018-05-23 16:35 | NUR ---
RESTING IN BED ET DENIES NEEDS. NOTIFIED EVERYTHING WAS BACK AND DR SHOULD BE IN SOON.
--- NOTE | 2018-05-23 16:40 | NUR ---
IN TALKING TO PT AT THIS TIME.
[2018-05-23] MEDS ORDERED: HOLD METFORMIN - RECEIVED CONTRAST 20 ML VIAL IV SCH (17:15)
[2018-05-23] MEDS ORDERED: IOHEXOL 350 MG/ML 100 ML (OMNIPAQUE 350) VIAL IV ONE (17:15)
[2018-05-23] MEDS ORDERED: NS 100 ML (IVPB) BAG IV ONE (17:15)
--- NOTE | 2018-05-23 17:23 | Diagnostic Imaging Report ---
PROCEDURE: CT abdomen and pelvis with contrast. TECHNIQUE: Multiple contiguous axial images were obtained through the abdomen and pelvis after administration of intravenous contrast. Auto Exposure Controls were utilized during the CT exam to meet ALARA standards for radiation dose reduction. INDICATION: Abdominal pain and diarrhea. There is marked gaseous distention of the stomach which is filled with air and fluid above the diaphragm consistent with a large hiatal hernia. No complete obstruction is evident. There are mildly dilated loops of small bowel which are filled with air and fluid. The colon is also mildly dilated with air and some fluid. The changes are most likely related to a large hiatal hernia and generalized ileus but there may be a gastric volvulus present with no current obstruction. There is no bowel wall edema. There is no free intraperitoneal air or fluid. The gallbladder is absent. The liver is normal. There is mild prominence of the common bile duct which may be related to the cholecystectomy. The spleen, pancreas and adrenals are normal. The kidneys, ureters and bladder are normal. IMPRESSION: There is air and fluid seen in dilated stomach, small bowel and colon. This is most likely related to a generalized ileus. The entire stomach is in the chest consistent with a volvulus but no obstruction is present at this time. Dictated by: Dictated on workstation # [id number]
--- NOTE | 2018-05-23 17:45 | NUR ---
ICE CHIPS GIVEN PER VERBAL ORDER.
[2018-05-23] MEDS ORDERED: ONDA4TAB11 PO (17:59)
--- NOTE | 2018-05-23 18:00 | NUR ---
TOLERATING ICE CHIPS. DR NOTIFIED.
[2018-05-23 18:07] VITALS: BP 118/56
[2018-05-28] MEDS ORDERED: CLIN300C11 PO (08:53)
== END 2018-05-23 18:07 | disposition home or self-care (01) ==
LOC: EDUNIT# 15:09 → ER FS 15:10
DX: K52.9 Noninfective gastroenteritis and colitis, unspecified (principal); E86.0 Dehydration; M19.011 Primary osteoarthritis, right shoulder; Z88.0 Allergy status to penicillin; Z82.49 Family history of ischemic heart disease and other diseases of the circulatory system; Z80.0 Family history of malignant neoplasm of digestive organs; Z88.2 Allergy status to sulfonamides; Z87.891 Personal history of nicotine dependence
CPT/HCPCS: 36415; 74022; 74177; 80053; 81000; 83690; 85007; 85027; 87088; 96374; 96376

== ENCOUNTER 2018-05-27 07:51 | Day surgery (SDC) | payer MEDICARE ==
[~2018-05-27] VITALS: Ht 165.1 cm; Wt 53.5 kg
[2018-05-27] VITALS (17 sets, daily range): BP systolic 112–141; BP diastolic 63–98
[~2018-05-27 07:51] MED LIST changes: +ONDA4TAB11 PO
[2018-05-27] MEDS ORDERED: HEParin 1000 UNIT/ML (10ML VIAL) FOR BOLUS ONE (07:57)
[2018-05-27] MEDS ORDERED: LIDOCAINE 1% INJ 20 ML 20 ML VIAL ONE ×2 (07:57→11:00)
[2018-05-27] MEDS ORDERED: NS IV 1000 ML 2,000 ML ONE (07:57)
[2018-05-27] MEDS ORDERED: NS IV 1000 ML 1,000 ML IV SCH ×2 (08:04→11:58)
[2018-05-27] MEDS ORDERED: BACITRACIN 50000 UNITS/500 ML NS IR ONE ×2 (08:15)
[2018-05-27] MEDS ORDERED: BACITRACIN INJECTION 50,000 UNIT, SODIUM CHLORIDE 0.9% IRRIGATIO 500 ML IR ONE ×2 (08:15)
--- OUTSIDE RECORDS SUMMARY | 2018-05-27 08:27 | XMS REPORT | Continuity of Care Document ---
Author Author [facility] Organization [facility] Address Unknown Phone Unavailable Allergies Active Description Code Type Severity Reaction Onset Reported/Identified Relationship to Patient Clinical Status Yes ibuprofen Drug Mild migraine Yes penicillin 3 Drug Severe [id number] Yes sulfa drug 16 Drug Moderate [id number] Yes Penicillins [id number] Drug Allergy Unknown PASS OUT 05/12/2018 Yes Sulfa (Sulfonamide Antibiotics) [id number] Drug Allergy Unknown RASH 2018 Medications There [...] in urine sediment by light microscopy MOD OCRBIN PHOSPHATE NRG Urine drug screening test - [...] eosinophils/100 leukocytes in nose 16 % NRG Complete blood count (CBC) with automated white blood cell (WBC) differential - 05/23/18 15:20 Blood leukocytes automated count (number/volume) 18.6 10*3/uL 4.3-11.0 Blood erythrocytes automated count (number/volume) 5.30 10*6/uL 4.35-5.85 Venous blood hemoglobin measurement (mass/volume) 14.3 g/dL 11.5-16.0 Blood hematocrit (volume fraction) 44 % 35-52 Automated erythrocyte mean corpuscular volume 83 [foz_us] 80-99 Automated erythrocyte mean corpuscular hemoglobin (mass per erythrocyte) 27 pg 25-34 Automated erythrocyte mean corpuscular hemoglobin concentration measurement ( mass/volume) 33 g/dL 32-36 Automated erythrocyte distribution width ratio 15.5 % 10.0-14.5 Automated blood platelet count (count/volume) 350 10*3/uL 130-400 Automated blood platelet mean volume measurement 9.9 [foz_us] 7.4-10.4 Automated blood neutrophils/100 leukocytes 82 % 42-75 Automated blood lymphocytes/100 leukocytes 10 % 12-44 Blood monocytes/100 leukocytes 3 % 0-12 Automated blood eosinophils/100 leukocytes 5 % 0-10 Automated blood basophils/100 leukocytes 0 % 0-10 Blood neutrophils automated count (number/volume) 15.2 10*3 1.8-7.8 Blood lymphocytes automated count (number/volume) 1.8 10*3 1.0-4.0 Blood monocytes automated count (number/volume) 0.6 10*3 0.0-1.0 Automated eosinophil count 0.9 10*3/uL 0.0-0.3 Automated blood basophil count (count/volume) 0.0 10*3/uL 0.0-0.1 Comprehensive metabolic panel - 05/23/18 15:20 Serum or plasma sodium measurement (moles/volume) 142 mmol/L 135-145 Serum or plasma potassium measurement (moles/volume) 4.6 mmol/L 3.6-5.0 Serum or plasma chloride measurement (moles/volume) 104 mmol/L 98-107 Carbon dioxide 26 mmol/L 21-32 Serum or plasma anion gap determination (moles/volume) 12 mmol/L 5-14 Serum or plasma urea nitrogen measurement (mass/volume) 14 mg/dL 7-18 Serum or plasma creatinine measurement (mass/volume) 0.83 mg/dL 0.60-1.30 Serum or plasma urea nitrogen/creatinine mass ratio 17 NRG Serum or plasma creatinine measurement with calculation of estimated glomerular filtration rate > NRG Serum or plasma glucose measurement (mass/volume) 103 mg/dL 70-105 Serum or plasma calcium measurement (mass/volume) 9.6 mg/dL 8.5-10.1 Serum or plasma total bilirubin measurement (mass/volume) 0.6 mg/dL 0.1-1.0 Serum or plasma alkaline phosphatase measurement (enzymatic activity/volume) 107 U/L 40-136 Serum or plasma aspartate aminotransferase measurement (enzymatic activity/ volume) 22 U/L 5-34 Serum or plasma alanine aminotransferase measurement (enzymatic activity/volume ) 15 U/L 0-55 Serum or plasma protein measurement (mass/volume) 7.3 g/dL 6.4-8.2 Serum or plasma albumin measurement (mass/volume) 4.5 g/dL 3.2-4.5 CALCIUM CORRECTED 9.2 mg/dL 8.5-10.1 Lipase - 05/23/18 15:20 Lipase 35 U/L 8-78 Blood manual differential performed detection - 05/23/18 15:20 Blood monocytes/100 leukocytes 0 % NRG Manual blood segmented neutrophils/100 leukocytes 68 % NRG Blood band neutrophils/100 leukocytes 15 % NRG Manual blood lymphocytes/100 leukocytes 12 % NRG Manual eosinophils/100 leukocytes in nose 4 % NRG Manual blood basophils/100 leukocytes 1 % NRG Manual blood metamyelocytes/100 leukocytes 0 % NRG Complete urinalysis with reflex to culture - 05/23/18 15:30 Urine color determination YELLOW NRG Urine clarity determination SLT CLOUDY NRG Urine pH measurement by test strip 6.0 5-9 Specific gravity of urine by test strip 1.020 1.016- 1.022 Urine protein assay by test strip, semi-quantitative 1+ NEGATIVE Urine glucose detection by automated test strip NEGATIVE NEGATIVE Erythrocytes detection in urine sediment by light microscopy 3+ NEGATIVE Urine ketones detection by automated test strip NEGATIVE NEGATIVE Urine nitrite detection by test strip NEGATIVE NEGATIVE Urine total bilirubin detection by test strip NEGATIVE NEGATIVE Urine urobilinogen measurement by automated test strip (mass/volume) 0.2 mg/dL NORMAL Urine leukocyte esterase detection by dipstick 1+ NEGATIVE Automated urine sediment erythrocyte count by microscopy (number/high power field) > [HPF] NRG Automated urine sediment leukocyte count by microscopy (number/high power field ) [HPF] NRG Bacteria detection in urine sediment by light microscopy FEW NRG Squamous epithelial cells detection in urine sediment by light microscopy 0-2 NRG Crystals detection in urine sediment by light microscopy NONE NRG Casts detection in urine sediment by light microscopy NONE NRG Mucus detection in urine sediment by light microscopy NONE NRG Complete urinalysis with reflex to culture YES NRG Bacterial urine culture - 05/23/18 15:30 Bacterial urine culture NG NRG Encounters ACCT No. Visit Date/Time Discharge Status Pt. Type Provider Facility Loc./Unit Complaint [id number] 05/07/2018 16:25:26 ACT Unknown Anson Sue MD [id number] 04/27/2018 06:25:20 04/28/2018 11:55:00 DIS Inpatient DAYA SUE [facility] ICU robotic pyeloplasty [id number] 03/24/2018 07:49:45 03/24/2018 12:00:00 DIS Outpatient DAYA SUE [facility] Surgery ops [id number] 05/19/2018 10:45:00 05/19/2018 23:59:59 [facility] [id number] 05/23/2018 15:10:00 05/23/2018 18:07:00 DIS Emergency EBONY RODAS MD [facility] ER FS NAUSEA,DIARRHEA [id number] 05/12/2018 14:01:00 05/13/2018 13:56:00 DIS Inpatient SAMMEI TINAJERO MD [facility] 4TH NAUSEA [id number] 05/11/2018 09:10:00 05/11/2018 23:59:59 CLS Outpatient Victoriano ESTRADA MD [facility] CARD HTN,PVC'S,SINUS NODE DYSFUCTION [id number] 05/10/2018 07:57:00 05/10/2018 23:59:59 CLS Outpatient Victoriano ESTRADA MD [facility] CARD HTN,PVC'S,SINUS NODE DYSFUCTION [id number] 05/05/2018 08:06:00 05/05/2018 23:59:59 CLS Preadmit Victoriano ESTRADA MD [facility] CARD HTN,PVC'S,SINUS NODE DYSFUCTION [id number] 05/27/2018 10:00:00 PEN Preadmit Victoriano ESTRADA MD [facility] CATH SYMPTOMATIC 2ND DEGREE AV BLOCK
[2018-05-27 08:53] LABS: HEMOGLOBIN 12.6 G/DL (11.5-16.0); WHITE BLOOD COUNT 9.4 10^3/uL (4.3-11.0)
[2018-05-27 08:58] LABS: INR 1.1 (0.8-1.4); PROTHROMBIN TIME PATIENT 14.2 SEC (12.2-14.7)
[2018-05-27 09:07] LABS: ALANINE AMINOTRANSFERASE 13 U/L (0-55); ALKALINE PHOSPHATASE 92 U/L (40-136); BILIRUBIN,TOTAL 0.7 MG/DL (0.1-1.0); BUN/CREATININE RATIO 10; CALCIUM 9.8 MG/DL (8.5-10.1); CARBON DIOXIDE 25 MMOL/L (21-32); CHLORIDE 107 MMOL/L (98-107); CREATININE SERUM 0.78 MG/DL (0.60-1.30); GFR ESTIMATED > 60; GLUCOSE 94 MG/DL (70-105); POTASSIUM 3.8 MMOL/L (3.6-5.0); SODIUM 142 MMOL/L (135-145); TOTAL PROTEIN 6.3 GM/DL (6.4-8.2)
[2018-05-27] MEDS ORDERED: fentaNYL INJECTION 100 MCG/2 ML AMP ONE ×2 (10:10→11:05)
[2018-05-27] MEDS ORDERED: MIDAZOLAM 5 MG/5 ML (VERSED) VIAL ONE ×2 (10:10→11:05)
[2018-05-27] MEDS ORDERED: NS (IVPB) 250 ML ONE (10:11)
[2018-05-27] MEDS ORDERED: VANCOMYCIN 1000 MG/VIAL ONE (10:11)
--- NOTE | 2018-05-27 10:40 | Cardiac Procedure Note-CS/ASA ---
Pre-Procedure Note Pre-Op Procedure Note H&P Reviewed The H&P was reviewed, patient examined and no changes noted. Date H&P Reviewed: May 27, 2018 Time H&P Reviewed: 10:40 Conscious Sedation Pre-Proced Time 10:40 ASA Score 3 For ASA 3 and 4: Consider anesthesia and medical clearance. Also, for patients with a history of failed moderate sedation consider anesthesia. Airway Lungs Heart ASA score ASA 1: a normal healthy patient ASA 2: a patient with a mild systemic disease (mid diabetes, controlled hypertension, obesity ASA 3: a patient with a severe systemic disease that limits activity (angina , COPD, prior Myocardial infarction) ASA 4: a patient with an incapacitating disease that is a constant threat to life (CHF, renal failure) ASA 5: a moribund patient not expected to survive 24 hrs. (ruptured aneurysm) ASA 6: a declared brain- patient whose organs are being harvested. For emergent operations, add the letter E after the classification Mallampati Classification Grade 1 Sedation Plan Analgesia, Amnesia, Plan communicated to team members, Discussed options with patient/fam, Discussed risks with patient/fam The patient is an appropriate candidate to undergo the planned procedure, sedation, and anesthesia. The patient immediately re-assessed prior to indication. Victoriano ESTRADA MD May 27, 2018 10:40
[2018-05-27] MEDS ORDERED: NEO/POLY/BAC (NEOSPORIN) OINT 15 GM TUBE ONE (11:50)
--- NOTE | 2018-05-27 11:58 | Permanent Pacemaker Implant ---
Dual Chamber Pacemaker Implant PROCEDURE PHYSICIAN: Elayne Tyson MD DUAL CHAMBER PACEMAKER IMPLANTATION: DATE OF PROCEDURE: 05/27/18 ATTENDING PHYSICIAN: Dr. Elayne Tyson INDICATION: Symptomatic sinus node dysfunction, symptomatic second-degree AV block. PREOPERATIVE DIAGNOSIS: Symptomatic sinus node dysfunction, symptomatic second- degree AV block. POSTOPERATIVE DIAGNOSIS: Successful dual-chamber permanent pacemaker implantation. HISTORY: This is a 72-year-old lady who presented to us in the office with a referral for significant bradycardia during surgery. Lowest heart rate was 29 BPM. External monitoring was performed. She had episodes of dizziness and fatigue and event monitoring showed significant sinus node dysfunction and numerous episodes of second-degree heart block, Mobitz type I. Therefore the patient has symptomatic second degree heart block as well as sinus node dysfunction. Dual-chamber permanent pacemaker was recommended. PROCEDURE PERFORMED: 1. Dual-chamber permanent pacemaker implantation. 2. Fluoroscopy. 3. Central venous access. ANESTHESIA: Local anesthesia, conscious sedation. COMPLICATIONS: None. ESTIMATED BLOOD LOSS:20 mL. SPECIMENS: None. ORAL ANTICOAGULATION: None. FLUOROSCOPY TIME: < 2 minutes. FLUOROSCOPY DOSE: 30 mgy. CONTRAST DOSE: None. PROCEDURE DETAILS: The patient is a 72 female and after all of the patients questions were answered, the patient was brought to the EP Lab. The patient's left chest was prepped and draped in sterile fashion. A 2 inch horizontal incision was made 1 cm below the clavicle and dissection carried down to the pectoralis fascia. Using the modified Seldinger technique and under fluoroscopy guidance, the anterior aspect of the left axillary vein was accessed 2 times. The J wires were secured to the drapes with a mosquito clamp. A 7-Paraguayan sheath was introduced over one of the J-wires. The RV lead was then inserted. The RV lead was directed across the tricuspid valve to the apical septal portion of the right ventricle. The position was checked in FRISIAN and HORTON views. The screw was deployed and the lead connected to the computer numerical control programmer. Close sensing and pacing thresholds were obtained. Diaphragmatic pacing was ruled out. The lead was secured with 2-0 silk ties to the underlying muscle and fascia. Next, a 7-Paraguayan sheath was introduced through the remaining J-wire. An atrial lead was then introduced and guided to the level of the right appendage. The screw was deployed and the lead was connected to the interrogator. Good sensing and pacing thresholds were obtained. Diaphragmatic pacing was ruled out. The leads were secured with 2-0 silk ties to the underlying muscle and fascia. The leads were connected to the device in a hermetic fashion. The device and leads were placed in the pocket. Aggressive irrigation with saline solution was done. The device was secured to the underlying muscle and fascia with a 2-0 silk tie. interrogation of the device revealed good integrity of all the leads and good connections. The wound was then closed using 2 layers. The first layer was interrupted 2-0 absorbable Vicryl suture. The last layer was a single subcuticular layer with 4- 0 Vicryl suture. Half inch Steri-Strips and a small dressing were then applied to the wound. The patient tolerated the procedure well and was returned to the recovery room in stable condition with stable vital signs. DEVICE INFORMATION: Done. IPG [id number] Karolyn LEY, Serial RN [id number] RA LEAD: Model number [id number], length 52, serial number [id number]. RV LEAD: Model number [id number], length 58, serial number [id number] PER-OPERATIVE DEVICE INTERROGATION: Right atrial impedance 954, P-wave 1.6 mV, capture threshold 0.8 V at 0.6 ms. Right ventricular impedance 957 ohms. R-wave 10.2 mV. Capture threshold 0.5 V at 0.5 ms. PLAN: The patient transferred to the ICU. We will continue with two more doses of IV antibiotics. We will check a chest x-ray and interrogate the device in the morning. The patient will continue on oral antibiotics for 5 days. Elayne Tyson MD, [facility] Cardiac Electrophysiology Victoriano TYSON MD May 27, 2018 11:58 am
[2018-05-27] MEDS ORDERED: PATIENT MAY USE OWN MEDS, ALL PO SCH (12:00)
--- NOTE | 2018-05-27 13:33 | NUR ---
THIS RN PHONED DIRECTOR HOUSEKEEPING TO ASK DR. ESTRADA FOR TYLENOL FOR PATIENT. CLARKE KIMBROUGH INFORMED SHE WOULD ASK AND PUT ORDER IN. WILL WAIT FOR ORDER.
[2018-05-27] MEDS: ACETAMINOPHEN 325 MG TABLET PO PRN ×2 (13:56→20:14)
--- NOTE | 2018-05-27 18:19 | NUR ---
1430 DUE TO CHANGES IN STAFFING CARE OF PT TO THIS RN ALONG WITH Evaristo RAMACHANDRAN RN. REPORT RECEIVED FROM Roque HERNANDEZ RN. DRESSING TO LEFT CHEST D/I, LEFT ARM IN SLING. PT VOICES NO NEEDS AT THIS TIME, WILL CONTINUE TO MONITOR.
--- NOTE | 2018-05-27 20:05 | Diagnostic Imaging Report ---
EXAMINATION: Erect AP chest at 11:16 a.m. INDICATION: Pacemaker insertion. FINDINGS: In the interval since the exam performed on 05/23/2018, a left-sided pacemaker has been inserted. The pacer leads seem to be in good position. There is no sign of pneumothorax on the left. The lungs, where visualized are generally clear. The left lung base is obscured by the large hiatal hernia seen on the prior study. On the previous study, the stomach was distended by gas. On this exam, there is only a small amount of gas still present within the stomach. The heart is enlarged but stable. The mediastinum is not widened. The osseous structures are intact. IMPRESSION: 1. There has been interval insertion of a left-sided pacemaker without apparent complication. There is no acute cardiopulmonary abnormality identified. 2. There is much less distention of the stomach by gas. Most of the stomach still appears to lie above the diaphragm, however. Dictated by: Dictated on workstation # [id number]
[2018-05-28] VITALS: BP 125/71
[2018-05-28] MEDS: ACETAMINOPHEN 325 MG TABLET PO PRN ×2 (01:58→08:15)
[2018-05-28 04:00] VITALS: BP 156/79
[2018-05-28 04:27] LABS: HEMOGLOBIN 11.9 G/DL (11.5-16.0); MEAN PLATELET VOLUME 10.3 FL (7.4-10.4); RED CELL DISTRIBUTION WIDTH 15.2 % (10.0-14.5); WHITE BLOOD COUNT 8.7 10^3/uL (4.3-11.0)
[2018-05-28 05:03] LABS: ALANINE AMINOTRANSFERASE 10 U/L (0-55); ALBUMIN 3.4 GM/DL (3.2-4.5); ALKALINE PHOSPHATASE 87 U/L (40-136); BILIRUBIN,TOTAL 0.5 MG/DL (0.1-1.0); BUN/CREATININE RATIO 10; CARBON DIOXIDE 23 MMOL/L (21-32); CHLORIDE 111 MMOL/L (98-107); CREATININE SERUM 0.68 MG/DL (0.60-1.30); GFR ESTIMATED > 60; GLUCOSE 91 MG/DL (70-105); POTASSIUM 3.5 MMOL/L (3.6-5.0); SODIUM 142 MMOL/L (135-145); TOTAL PROTEIN 5.6 GM/DL (6.4-8.2)
--- NOTE | 2018-05-28 05:11 | NUR ---
Pt reports being nauseous, requesting Sprite and saltine crackers. Pt resting quietly in bed.
--- NOTE | 2018-05-28 08:51 | Cardiology Discharge Summary ---
Diagnosis/Chief Complaint Date of Admission 05/27/2018 Date of Discharge 05/28/2018 Admission Diagnosis Symptomatic second degree AV block. Final/Discharge Diagnosis Dual chamber permanent pacemaker. Chief Complaint/HPI Chief Complaint/HPI This is a 72-year-old lady who presented to us in the office with a referral for significant bradycardia during surgery. Lowest heart rate was 29 BPM. External monitoring was performed. She had episodes of dizziness and fatigue and event monitoring showed significant sinus node dysfunction and numerous episodes of second-degree heart block, Mobitz type I. Therefore the patient has symptomatic second degree heart block as well as sinus node dysfunction. Dual-chamber permanent pacemaker was recommended. Discharge Summary Procedures Dual chamber permanent pacemaker implantation. Discharge Physical Examination Normal left upper chest with no hematoma or swelling. Normal Cardiac and respiratory exam. Hospital Course Was the Problem List Reviewed?: Yes Unremarkable. Pending Labs Discussion & Recommendations Discussion Discharge took over 30 minutes to complete. All instructions discussed in length. - Clindamycin x 5 days. - wound check with RN in one week. - Cardiology f/up in one month with device interrogation. Follow up appt.: wound check in one week. device interrogation in one month. Dicharge Diet: Regular Diet Activity as Tolerated: Yes Home Medications Reviewed patient Home Medication Reconciliation performed by pharmacy medication reconciliations wind turbine service technician and/or nursing. Patients Allergies have been reviewed. Discharge Home Medications: Reviewed and agree with Discharge Medication list on patient's Discharge Instruction sheet Condition at discharge stable Instructions to patient/family Discussed at length Victoriano ESTRADA MD May 28, 2018 08:51
--- NOTE | 2018-05-28 08:52 | Discharge Inst-Post Device ---
Discharge Inst-Post Device Follow up/Plan Dr Tyson office for wound check in one week Heart Healthy Diet Do not lift arm on side of device placement above head for 4 weeks. Do not push and pull heavy objects for 4 weeks. Activity as tolerated. Leave dressing on until follow up at the office. Victoriano TYSON MD May 28, 2018 8:52 am
[2018-05-28] MEDS ORDERED: CLIN300C11 PO (08:53)
[2018-05-28] MEDS ORDERED: VANCOMYCIN INJECTION 750 MG in NS (IVPB) 250 ML IV SCH (10:00)
[2018-05-28] MEDS ORDERED: ONDANSETRON 4 MG (ZOFRAN) ORAL DISSOLVE TAB ONE (11:11)
[2018-05-28] MEDS ORDERED: ONDANSETRON 4 MG (ZOFRAN) ORAL DISSOLVE TAB PO ONE (11:15)
[2018-05-28 11:40] VITALS: BP 143/81
== END 2018-05-28 11:40 | disposition home or self-care (01) ==
LOC: CATH 07:51 → ICU 12:24 → CATH 05-28 11:40
PROVIDERS: ATTEND Internal Medicine Interventional Cardiology
DX: I44.1 Atrioventricular block, second degree (principal); I49.5 Sick sinus syndrome; R00.2 Palpitations; I49.3 Ventricular premature depolarization; I10 Essential (primary) hypertension; E78.5 Hyperlipidemia, unspecified; E11.9 Type 2 diabetes mellitus without complications; F17.210 Nicotine dependence, cigarettes, uncomplicated; M19.91 Primary osteoarthritis, unspecified site; Z82.49 Family history of ischemic heart disease and other diseases of the circulatory system; Z11.2 Encounter for screening for other bacterial diseases
CPT/HCPCS: 33208; 36415; 71045; 80053; 85027; 85610; 85730; 87081

== ENCOUNTER → 2018-06-14 | Outpatient (CLI) | payer MEDICARE ==
[~2018-06-14] MED LIST changes: +CLIN300C11 PO
== END ==
LOC: CARD 14:20
PROVIDERS: ATTEND Internal Medicine Interventional Cardiology
DX: I49.5 Sick sinus syndrome (principal); I10 Essential (primary) hypertension; I49.3 Ventricular premature depolarization; I08.3 Combined rheumatic disorders of mitral, aortic and tricuspid valves
CPT/HCPCS: 93306

== ENCOUNTER 2019-05-08 11:04 | Emergency (ER) | payer MEDICARE ==
[~2019-05-08] VITALS: Ht 167.7 cm; Wt 55.4 kg
[~2019-05-08 11:04] MED LIST changes: -OMEP20CA12 PO; +OMEP20CA18 PO
[2019-05-08] MEDS ORDERED: LIDOCAINE/EPI 2% 1:100,00 (XYLOCAINE) 20 ML VIAL ONE (11:11)
[2019-05-08] MEDS ORDERED: LIDOCAINE/EPI 2% 1:100,00 (XYLOCAINE) 20 ML VIAL INJ ONE (11:30)
--- NOTE | 2019-05-08 11:32 | ED Upper Extremity ---
General Chief Complaint: Laceration Stated Complaint: LT POINTER FINGER LACERATION History of Present Illness Date Seen by Provider: May 08, 2019 Time Seen by Provider: 11:00 Initial Comments This patient is a 73-year-old female that presents to the emergency department with the complaint of a laceration to her left index finger. Patient states that she was at [employer] last seen up some food getting ready for a meal after [employer] and cut her finger. Patient states Takes Eliquis daily and am unable to get bleeding to stop. Patient states her tetanus is up-to-date. Pain/Injury Location: left 2nd finger Allergies and Home Medications Allergies Coded Allergies: Penicillins (Unverified Allergy, Unknown, PASS OUT, 05/12/18) Sulfa (Sulfonamide Antibiotics) (Unverified Allergy, Unknown, RASH, 05/12/18) Home Medications Acetaminophen 500 Mg Tablet, 1,000 MG PO Q6H PRN for PAIN-MILD, (Reported) Clindamycin HCl 300 Mg Capsule, 300 MG PO TID Prescribed by: Victoriano ESTRADA on 05/28/18 0813 Diclofenac Sodium 25 Mg Tablet.dr, 25 MG PO BID, (Reported) Multivitamins-Min/FA/Ginkgo 1 Each Tablet, 1 TAB PO DAILY, (Reported) Omeprazole 20 Mg Capsule.dr, 20 MG PO DAILY, (Reported) Ondansetron 4 Mg Tab.rapdis, 4 MG PO Q4H PRN for NAUSEA/VOMITING-1ST LINE Prescribed by: EBONY RODAS on 05/23/18 9384 Patient Home Medication List Home Medication List Reviewed: Yes Review of Systems Constitutional: see HPI EENTM: see HPI Respiratory: see HPI Cardiovascular: see HPI Gastrointestinal: see HPI Skin: see HPI Past Xbphlkm-Pweivk-Nzpher Hx Patient Social History Type Used: Cigarettes 2nd Hand Smoke Exposure: No Recent Hopitalizations: Yes (APRIL 2018 L URETER REPAIR) Immunizations Up To Date Date of Pneumonia Vaccine: Oct 24, 2017 Past Medical History Surgeries: Yes (dental, left ureter, ) Bladder Surgery, Gallbladder, Hysterectomy, Tonsillectomy Respiratory: No Cardiac: Yes (SYMPTOMATIC 2 ND DEGREE AV) Neurological: No 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 Disorders: No Genitourinary: Yes (RECENT REPAIR OF L URETER) Gastrointestinal: Yes Gastroesophageal Reflux, Diverticulosis, Hiatal Hernia Musculoskeletal: Yes (DJD RIGHT SHOULDER) Arthritis Endocrine: No HEENT: No Cancer: No Psychosocial: Yes Anxiety Integumentary: No Blood Disorders: No Family Medical History Cardiovascular disease Colon cancer Hypertension Visual disorder Physical Exam Vital Signs Capillary Refill : Height, Weight, BMI Height: 5'5.00" Weight: 118lbs. 0.0oz. 53.151573wq; 19.6 BMI Method:Stated General Appearance: WD/WN, no apparent distress HEENT: PERRL/EOMI, normal ENT inspection, TMs normal, pharynx normal Neck: non-tender, full range of motion, supple, normal inspection Cardiovascular: normal peripheral pulses, regular rate, rhythm, no edema, no gallop, no JVD, no murmur Hand: laceration (left distal index finger along the nail bed. But not affecting the nail bed 1.5 cm.) Procedures/Interventions Wound Location: Upper Extremities (left distal index finger) Wound Length (cm): 1.5 Wound's Depth, Shape: superficial Wound Explored: clean Betadine Prep?: No (used sterile saline and surgical scrub.) Anesthesia: Lidocaine w/ Epi Suture: Ethlion Suture Size: 4-0 Number of Sutures: 2 Sterile Dressing Applied?: Yes Progress/Results/Core Measures Results/Orders My Orders Orders - ROBERT LILLY MD Lidocaine/Epi 2% 1:100,000 (Xylocaine/Ep (05/08/19 11:11) Departure Impression Primary Impression: Finger laceration Disposition: 01 HOME, SELF-CARE Condition: Stable Departure-Patient Inst. Decision time for Depature: 11:31 Referrals: SELFARMANDO MD (PCP/Family) Primary Care Physician Patient Instructions: Laceration Infection (DC), Wound Care (DC) Add. Discharge Instructions: Keep wound clean and dry and covered. They have a tube gauze in place please leave in place for the next 2-3 days then follow up with PCP for dressing change. Continue home medications. Sutures to be removed in 12-14 days. May use Neosporin or triple in about 1 and [id number]-rgg-cbbqaik. All discharge instructions reviewed with patient and/or family. Voiced understanding. ROBERT LILLY MD May 08, 2019 11:32
[2019-05-08 11:35] VITALS: BP 100/53
--- OUTSIDE RECORDS SUMMARY | 2019-05-09 00:30 | XMS REPORT ---
Author Author Jigna COMER [facility] MAIN Address [address] [place] [address] Care Team Providers Care Riverboat Captain Name Role Phone ARMANDO COMER Unavailable PROBLEMS Type Condition ICD9-CM Code FYW53-SL Code Onset Dates Condition S tatus SNOMED Code Problem Midline thoracic back pain M54.6 08 Jul, 2014 Active 463849950 Problem Hiatal hernia with gastroesophageal reflux K21.9 10 Apr, 2014 Active 825337437 Problem Coronary artery calcification seen on CAT scan I25.10 17 Feb, 2014 Active 561380445512527 Problem Mixed hyperlipidemia E78.2 Active 837378740 Problem Diverticulosis of both small and large intestine without bleeding K57.50 Active 08266265 Problem Anxiety F41.9 Active 14974320 Problem Coronary artery disease I25.10 Active 98460692 Problem Breast nodule N63.0 14 Sep, 2011 Active 290 433279 Problem Sick sinus syndrome I49.5 Active 87745723 Problem FH: coronary artery disease Z82.49 10 Apr, 2014 Active 082001233 Problem Arthritis M19.90 Active 3001705 Problem Hiatal hernia K44.9 Active 881795 09 Problem Gastroesophageal reflux disease with esophagitis K 21.0 Active 905120585 Problem Bradycardia R00.1 Active 68800325 ALLERGIES No Information ENCOUNTERS Encounter Location Date Diagnosis [address] [address] Sep, Hemorrhoid K64.9 and Rectal bleeding K62 .[address] [address] Sep, Mixed hyperlipidemia E78.[address] [address] Aug, Bradycardia R00.1 ; Skin tag L91.8 and S ick sinus syndrome I49.[address] [address] Jul, [address] [address] June, [address] [address] May, Hiatal hernia with gastroesophageal refl ux K21.9 and Bradycardia R00.[address] [address] Apr, Bradycardia R00.1 and Anxiety F41.9 [facility] [address] [facility] [id number] [address] [place] [id number] Apr, [facility] [address] [facility] [id number] [address] [place] [phone] Apr, [facility] [address] [place] [address] Mar, Open bite of left hand, initial encounte r S61.452A and Bitten by cat, initial encounter W55.01XA [address] [address] Mar, Anxiety F41.[address] [address] Mar, Anxiety F41.9 ; Arthritis M19.90 ; Diver ticulosis of both small and large intestine without bleeding K57.50 ; Gastroesophageal reflux disease with esophagitis K21.0 ; Hiatal hernia K44.9 ; Mixed hyperlipidemia E78.2 and Acute URI J06.[address] [address] Mar, [address] [address] Mar, [facility] [address] [facility] [id number] [address] [place] [phone] Feb, [facility] [address] [facility] [id number] [address] [place] [phone] Feb, [facility] [address] [facility] [id number] [address] [place] [phone] Feb, [facility] [address] [facility] [id number] [address] [place] [phone] Jan, [facility] [address] [facility] [id number] [address] [place] [phone] Jan, [facility] [address] [facility] [id number] [address] [place] [phone] Jan, [facility] [address] [facility] [id number] [address] [place] [phone] Jan, [facility] [address] [facility] [id number] [address] [place] [phone] Aug, IMMUNIZATIONS No Known Immunizations SOCIAL HISTORY Never Assessed REASON FOR VISIT [facility] call PLAN OF CARE VITAL SIGNS MEDICATIONS Medication Instructions Dosage Frequency Start Date End Date Duration S tatus Doxycycline Hyclate 100 MG Orally 2 times a day 1 capsule 12h Mar, 7 days Not-Taking PredniSONE 10 MG Orally Once a day 1/2 tab am and 1 tab hs 24h 5 days Not-Taking Cefdinir 300 MG Orally 2 times a day 1 tablet 12h Apr, 27 Ma r, 2019 Active Omeprazole 20 MG Orally Once a day 1 capsule 24h 30 day(s) Active Acetaminophen 500 MG Orally every 6 hrs 2 capsules as needed 6h Active One Daily Womens 50 Plus - Orally Once a day 1 tablet 24h Active Diclofenac Sodium 25 MG Orally two times a day 1 tablet with food or milk 12h 30 day(s) Active Metronidazole 500 MG Orally 3 times a day 1 tablet 8h Mar, 7 days Not-Taking RESULTS No Results PROCEDURES No Known procedures INSTRUCTIONS MEDICATIONS ADMINISTERED No Known Medications MEDICAL (GENERAL) HISTORY Type Description Date Medical History Anxiety Medical History Arthritis Medical History Diverticulosis of both small and large intestine without bleeding Medical History Gastroesophageal reflux disease with eso phagitis Medical History Hiatal hernia Medical History Mixed hyperlipidemia Medical History Coronary artery disease Medical History Pyelonephritis Medical History Anxiety Medical History Midline thoracic back pain Medical History Arthritis Medical History Gastroesophageal reflux disease with eso phagitis Surgical History cholecystectomy Surgical History hysterectomy Surgical History jaw wiring Surgical History stent kidney Surgical History cardiac pacemaker 05/2018 Hospitalization History Nausea and UTI- [facility] 04/2018
--- OUTSIDE RECORDS SUMMARY | 2019-05-09 00:30 | XMS REPORT | Clinical Summary ---
Author Author Admin, Jigna Park [facility] [place] Address Unknown Phone Unavailable Allergies, Adverse Reactions, Alerts Allergy Name Reaction Description Start Date Severity Status Pr ovider SULFA rash Moderate Active Spring Elder DAILY MULTIVITAMIN rash/hives Moderate Active Spring Elder L-GLUTAMIC ACID MONOSOD SALT abdominal pain Moderate Act ebony Spring Elder IBUPROFEN headache Mild Active Spring Elder EQUATE rash Moderate Active Spring Elder CIPRO constipation Mild Active Spring Elder BACTRIM rash Moderate Active Spring Elder Conditions or Problems Problem Name Problem Code Onset Date Status Entry Date Provider Comment Standard Description Annotate BMI 20-20.9 Resolved Anson Sal MD Body Mass Index between 19-24, adult 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 20 Active Anson Sal MD Body Mass Index less than 19, adult BMI 20-20.9 Inactive Spring Elder Medication List Medication Instructions Start Date Stop Date Generic Name NDC Status Provider Patient Instruction ELIQUIS 5 MG ORAL TABLET once daily APIXABAN 54875276 421 Active Anson Sal MD Active TYLENOL 325 MG ORAL TABLET 2 tabs by mouth every 4 hours as needed ACETAMINOPHEN 62912500654 Active Anson Sal MD Active OMEPRAZOLE 20 MG ORAL CAPSULE DELAYED RELEASE 1 tablet by mouth tiffanie ly OMEPRAZOLE 18201265460 Active Spring Elder Active LOPERAMIDE HCL 2 MG ORAL CAPSULE 1 cap by mouth daily LOPERAMIDE HCL 48807468164 Active Spring Elder Active ONDANSETRON 4 MG ORAL TABLET DISINTEGRATING 1 q4h PRN nausea ONDANSETRON 80820320693 Active Spring Elder Active DICLOFENAC SODIUM 25 MG ORAL TABLET DELAYED RELEASE 1 tab by mouth daily DICLOFENAC SODIUM 01280273403 Active Spring Elder Active Advance Directives Directive Description Start Date PERMISSION TO SHARE Vital Signs Date Name Value Unit Range Description blood pressure, diastolic, repeated by physician 70 BP sal blood pressure, diastolic 70 mm[Hg] BP sal blood pressure, systolic, repeated by physician 112 BP sys blood pressure, systolic 112 mm[Hg] BP sys height E&M 66 [in_us] Bdy height pulse rate E&M 70 /min Heart rate temperature E&M 98.2 [degF] Body temp erature weight E&M 120 [lb_av] Weight Measure d blood pressure, diastolic, repeated by physician 65 BP sal blood pressure, diastolic 65 mm[Hg] BP sal blood pressure, systolic, repeated by physician 118 BP sys blood pressure, systolic 118 mm[Hg] BP sys height E&M 66 [in_us] Bdy height pulse rate E&M 70 /min Heart rate temperature E&M 98.4 [degF] Body temp erature weight E&M 120 [lb_av] Weight Measure d blood pressure, diastolic, repeated by physician 70 BP sal blood pressure, diastolic 70 mm[Hg] BP sal blood pressure, systolic, repeated by physician 120 BP sys blood pressure, systolic 120 mm[Hg] BP sys height E&M 66 [in_us] Bdy height pulse rate E&M 70 /min Heart rate temperature E&M 98.0 [degF] Body temp erature weight E&M 126 [lb_av] Weight Measure d blood pressure, diastolic, repeated by physician 72 BP sal blood pressure, diastolic 72 mm[Hg] BP sal blood pressure, systolic, repeated by physician 110 BP sys blood pressure, systolic 110 mm[Hg] BP sys height E&M 66 [in_us] Bdy height pulse rate E&M 68 /min Heart rate temperature E&M 98.3 [degF] Body temp erature weight E&M 125 [lb_av] Weight Measure d blood pressure, diastolic, repeated by physician 70 BP sal blood pressure, diastolic 70 mm[Hg] BP sal blood pressure, systolic, repeated by physician 110 BP sys blood pressure, systolic 110 mm[Hg] BP sys height E&M 66 [in_us] Bdy height pulse rate E&M 56 /min Heart rate temperature E&M 98.0 [degF] Body temp erature weight E&M 125 [lb_av] Weight Measure d Diagnostic Results Date Name Value Unit Range [...] 2+ Encounters Code Encounter Date Provider Facility CPT-23321 Level 3 Est. Patient 10:35:14 HERACLIO shrestha MD [facility] CPT-75511 Level 3 Est. Patient 08:25:50 ENROLLMENT REPRESENTATIVE Anson shrestha MD [facility] CPT-25065 Level 3 New Patient 13:25:33 MINGO patterson MD [facility] [place] Procedures Code Procedure Name Date Entry Date Standard Desc ription CPT-73849 Cystoscopy W/rem FB 10:18:41 CDT CPT-21728 Postop F/U Visit 10:18:13 CDT CPT-52473 Postop F/U Visit 13:19:06 CDT
--- OUTSIDE RECORDS SUMMARY | 2019-05-09 00:30 | XMS REPORT | Clinical Summary ---
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.21 Active Anosn Nair Congenital obstruction of ureteropelvic junction BMI less than 20 Active Anson Sal MD Body Mass Index less than 19, adult BMI 20-20.9 Inactive Spring Elder Medication List Medication Instructions Start Date Stop Date Generic Name NDC Status Provider Patient Instruction ELIQUIS 5 MG ORAL TABLET once daily APIXABAN 29723725 421 Active Anson Sal MD Active TYLENOL 325 MG ORAL TABLET 2 tabs by mouth every 4 hours as needed ACETAMINOPHEN 58044925014 Active Anson Sal MD Active OMEPRAZOLE 20 MG ORAL CAPSULE DELAYED RELEASE 1 tablet by mouth tiffanie ly OMEPRAZOLE 34626726539 Active Spring Elder Active LOPERAMIDE HCL 2 MG ORAL CAPSULE 1 cap by mouth daily LOPERAMIDE HCL 94003601913 Active Spring Elder Active ONDANSETRON 4 MG ORAL TABLET DISINTEGRATING 1 q4h PRN nausea ONDANSETRON 80780580646 Active Spring Elder Active DICLOFENAC SODIUM 25 MG ORAL TABLET DELAYED RELEASE 1 tab by mouth daily DICLOFENAC SODIUM 08162111401 Active Spring Elder Active Advance Directives Directive [...] 2+ Encounters Code Encounter Date Provider Facility CPT-05377 Level 3 Est. Patient 10:35:14 HERACLIO shrestha MD [facility] CPT-28194 Level 3 Est. 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 CPT-31329 Level 3 New Patient 13:25:33 MINGO patterson MD [facility] Procedures Code Procedure Name Date Entry Date Standard Desc ription CPT-65495 Cystoscopy W/rem FB 10:18:41 CDT CPT-82017 Postop F/U Visit 10:18:13 CDT CPT-07366 Postop F/U Visit 13:19:06 CDT
--- OUTSIDE RECORDS SUMMARY | 2019-05-09 00:30 | XMS REPORT ---
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 Name Role Phone EARNEST GRAY Unavailable PROBLEMS Type Condition ICD9-CM Code QLS59-ZE Code Onset Dates Condition S tatus SNOMED Code Problem Midline thoracic back pain M54.6 08 Jul, 2014 Active 228967283 Problem Hiatal hernia with gastroesophageal reflux K21.9 10 Apr, 2014 Active 463180028 Problem Coronary artery calcification seen on CAT scan I25.10 Feb, Active 767599243726434 Problem Mixed hyperlipidemia E78.2 Active 337479735 Problem Diverticulosis of both small and large intestine without bleeding K57.50 Active 53564258 Problem Anxiety F41.9 Active 53107524 Problem Coronary artery disease I25.10 Active 08534887 Problem Breast nodule N63.0 14 Sep, 2011 Active 290 500952 Problem Sick sinus syndrome I49.5 Active 84802373 Problem FH: coronary artery disease Z82.49 10 Apr, 2014 Active 383490551 Problem Arthritis M19.90 Active 4395329 Problem Hiatal hernia K44.9 Active 394450 09 Problem Gastroesophageal reflux disease with esophagitis K 21.0 Active 983032415 Problem Bradycardia R00.1 Active 58452844 ALLERGIES No Information ENCOUNTERS Encounter Location Date Diagnosis [address] [address] Sep, Hemorrhoid K64.9 and Rectal bleeding K62 .[address] [address] Sep, Mixed hyperlipidemia E78.[address] [address] Aug, Bradycardia R00.1 ; Skin tag L91.8 and S ick sinus syndrome I49.[address] [address] Jul, [address] [address] June, [address] [address] May, Hiatal hernia with gastroesophageal refl ux K21.9 and Bradycardia R00.[address] [address] Apr, Bradycardia R00.1 and Anxiety F41.9 [facility] [address] [facility] [id number] [address] [place] [phone] Apr, [facility] [address] [facility] [id number] [address] [place] [phone] Apr, [facility] [address] [facility] [place] [address] Mar, Open bite of left hand, initial encounte r S61.452A and Bitten by cat, initial encounter W55.01XA [address] [address] Mar, Anxiety F41.[address] [address] Mar, Anxiety F41.9 ; Arthritis M19.90 ; Diver ticulosis of both small and large intestine without bleeding K57.50 ; Gastroesophageal reflux disease with esophagitis K21.0 ; Hiatal hernia K44.9 ; Mixed hyperlipidemia E78.2 and Acute URI J06.[address] [address] Mar, [address] [address] Mar, [facility] [address] [facility] [id number] [address] [place] [phone] Feb, [facility] [address] [facility] [id number] [address] [place] [phone] Feb, [facility] [address] [facility] [id number] [address] [place] [phone] Feb, [facility] [address] [facility] [id number] [address] [place] [phone] Jan, [facility] [address] [facility] [id number] [address] [place] [phone] Jan, [facility] [address] [facility] [id number] [address] [place] [phone] Jan, [facility] [address] [facility] [id number] [address] [place] [phone] Jan, [facility] [address] [facility] [id number] [address] [place] [phone] Aug, IMMUNIZATIONS No Known Immunizations SOCIAL HISTORY Never Assessed 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
--- OUTSIDE RECORDS SUMMARY | 2019-05-09 00:31 | XMS REPORT | Clinical Summary ---
Author Author Admin, [place] [facility] [employer] [place] Address Unknown Phone Unavailable Allergies, Adverse Reactions, [...] Nair Congenital obstruction of ureteropelvic junction BMI 20-20.9 Inactive [facility] Medication List Medication Instructions Start Date Stop Date Generic Name NDC Status Provider Patient Instruction TYLENOL 325 MG ORAL TABLET 2 tabs by mouth every 4 hours as needed ACETAMINOPHEN 09086324032 Active Anson Sal MD Active OMEPRAZOLE 20 MG ORAL CAPSULE DELAYED RELEASE 1 tablet by mouth tiffanie ly OMEPRAZOLE 27816899460 Active [facility] Elder Active LOPERAMIDE HCL 2 MG ORAL CAPSULE 1 cap by mouth daily LOPERAMIDE HCL 11307921629 Active [facility] Elder Active ONDANSETRON 4 MG ORAL TABLET DISINTEGRATING 1 q4h PRN nausea ONDANSETRON 96625282539 Active [facility] Elder Active DICLOFENAC SODIUM 25 MG ORAL TABLET DELAYED RELEASE 1 tab by mouth daily DICLOFENAC SODIUM 45189736979 Active [facility] Active Advance Directives Directive Description Start Date PERMISSION TO SHARE Vital Signs Date Name Value Unit Range Description blood pressure, diastolic, repeated by physician 65 [...] 2+ Encounters Code Encounter Date Provider Facility CPT-62595 Level 3 Est. Patient 08:25:50 MINGO shrestha MD [facility] CPT-44189 Level 3 New Patient 13:25:[address] [facility] [place] Procedures Code Procedure Name Date Entry Date Standard Desc ription CPT-21896 Cystoscopy W/rem FB 10:18:41 CDT CPT-11302 Postop F/U Visit 10:18:13 CDT CPT-81787 Postop F/U Visit 13:19:06 CDT
--- OUTSIDE RECORDS SUMMARY | 2019-05-09 00:31 | XMS REPORT | Clinical Summary ---
Author Author Admin, [place]igna [place] [facility] [employer] [place] Address Unknown Phone Unavailable Allergies, Adverse Reactions, [...] 5 MG ORAL TABLET once daily APIXABAN 76655288 421 Active Anson Sal MD Active TYLENOL 325 MG ORAL TABLET 2 tabs by mouth every 4 hours as needed ACETAMINOPHEN 51856888771 Active Anson Sal MD Active OMEPRAZOLE 20 MG ORAL CAPSULE DELAYED RELEASE 1 tablet by mouth tiffanie ly OMEPRAZOLE 29948681889 Active [facility] Elder Active LOPERAMIDE HCL 2 MG ORAL CAPSULE 1 cap by mouth daily LOPERAMIDE HCL 03456729740 Active [facility] Elder Active ONDANSETRON 4 MG ORAL TABLET DISINTEGRATING 1 q4h PRN nausea ONDANSETRON 62017731198 Active [facility] Elder Active DICLOFENAC SODIUM 25 MG ORAL TABLET DELAYED RELEASE 1 tab by mouth daily DICLOFENAC SODIUM 28945505969 Active [facility] Elder Active Advance Directives Directive [...] 2+ Encounters Code Encounter Date Provider Facility CPT-37371 Level 3 Est. Patient 10:35:14 HERACLIO shrestha MD [facility] CPT-77922 Level 3 Est. 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
--- OUTSIDE RECORDS SUMMARY | 2019-05-09 00:31 | XMS REPORT | Clinical Summary ---
Author Author Admin, [place] [facility] [employer] [place] Address Unknown Phone Unavailable Allergies, Adverse Reactions, [...] 5 MG ORAL TABLET once daily APIXABAN 97039468 421 Active Anson Sal MD Active TYLENOL 325 MG ORAL TABLET 2 tabs by mouth every 4 hours as needed ACETAMINOPHEN 24174540509 Active Anson Sal MD Active OMEPRAZOLE 20 MG ORAL CAPSULE DELAYED RELEASE 1 tablet by mouth tiffanie ly OMEPRAZOLE 00539602019 Active [facility] Elder Active LOPERAMIDE HCL 2 MG ORAL CAPSULE 1 cap by mouth daily LOPERAMIDE HCL 16510494814 Active [place] Elder Active ONDANSETRON 4 MG ORAL TABLET DISINTEGRATING 1 q4h PRN nausea ONDANSETRON 64064192814 Active [place] Elder Active DICLOFENAC SODIUM 25 MG ORAL TABLET DELAYED RELEASE 1 tab by mouth daily DICLOFENAC SODIUM 18799466697 Active [place] Elder Active Advance Directives Directive [...] 2+ Encounters Code Encounter Date Provider Facility CPT-42582 Level 3 Est. Patient 10:35:14 HERACLIO shrestha MD [facility] CPT-00449 Level 3 Est. 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
--- OUTSIDE RECORDS SUMMARY | 2019-05-09 00:31 | XMS REPORT | Clinical Summary ---
Author Author Admin, Jigna Park [facility] [employer] [place] Address Unknown Phone Unavailable Allergies, Adverse Reactions, [...] mouth every 4 hours as needed ACETAMINOPHEN 57352184464 Active Anson Sal MD Active OMEPRAZOLE 20 MG ORAL CAPSULE DELAYED RELEASE 1 tablet by mouth tiffanie ly OMEPRAZOLE 65737471880 Active [facility] Elder Active LOPERAMIDE HCL 2 MG ORAL CAPSULE 1 cap by mouth daily LOPERAMIDE HCL 32781061766 Active [place] Elder Active ONDANSETRON 4 MG ORAL TABLET DISINTEGRATING 1 q4h PRN nausea ONDANSETRON 11722676716 Active [place] Elder Active DICLOFENAC SODIUM 25 MG ORAL TABLET DELAYED RELEASE 1 tab by mouth daily DICLOFENAC SODIUM 04458848771 Active [place] Elder Active Advance Directives Directive [...] 2+ Encounters Code Encounter Date Provider Facility CPT-75909 Level 3 Est. Patient 08:25:50 MINGO shrestha MD [facility] CPT-82987 Level 3 New Patient 13:25:33 MINGO patterson MD [facility] [place] Procedures Code Procedure Name Date Entry Date Standard Desc ription CPT-22881 Cystoscopy W/rem FB 10:18:41 CDT CPT-01471 Postop F/U Visit 10:18:13 CDT CPT-24449 Postop F/U Visit 13:19:06 CDT
--- OUTSIDE RECORDS SUMMARY | 2019-05-09 00:31 | XMS REPORT | Clinical Summary ---
Author Author Admin, Jigna Griggs Organization [facility] [employer] [place] Address Unknown Phone Unavailable Allergies, Adverse Reactions, [...] mouth every 4 hours as needed ACETAMINOPHEN 24031377602 Active Anson Sal MD Active OMEPRAZOLE 20 MG ORAL CAPSULE DELAYED RELEASE 1 tablet by mouth tiffanie ly OMEPRAZOLE 72487082677 Active [facility] Elder Active LOPERAMIDE HCL 2 MG ORAL CAPSULE 1 cap by mouth daily LOPERAMIDE HCL 16813085407 Active [place] Elder Active ONDANSETRON 4 MG ORAL TABLET DISINTEGRATING 1 q4h PRN nausea ONDANSETRON 68536309678 Active [place] Elder Active DICLOFENAC SODIUM 25 MG ORAL TABLET DELAYED RELEASE 1 tab by mouth daily DICLOFENAC SODIUM 83972350039 Active [place] Elder Active Advance Directives Directive [...] 2+ Encounters Code Encounter Date Provider Facility CPT-72295 Level 3 Est. 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
--- OUTSIDE RECORDS SUMMARY | 2019-05-09 00:32 | XMS REPORT | Continuity of Care Document ---
Author Organization Unknown Address Unknown Phone Unavailable Allergies Active Description Code Type Severity Reaction Onset Reported/Identified Relationship to Patient Clinical Status Yes ibuprofen Drug Mild migraine Yes penicillin 3 Drug Severe [id number] Yes sulfa drug 16 Drug Mode rate [id number] Yes Penicillins [id number] Drug Aller gy Unknown PASS OUT 05/12/2018 Yes Sulfa (Sulfonamide Antibiotics) [id number] Drug Allergy Unknown RASH 019 Medications There is no data. 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 05/10/2018 NATALIE COLINDRES, Victoriano HOWARD Ot I49 .3 VENTRICULAR PREMATURE DEPOLARIZATION 05/10/2018 NATALIE COLINDRES, Victoriano HOWARD Ot I49 .3 VENTRICULAR PREMATURE DEPOLARIZATION 05/11/2018 NATALIE COLINDRES, Victoriano HOWARD Ot I10 ESSENTIAL (PRIMARY) HYPERTENSION 05/11/2018 Victoriano ESTRADA MD Ot I49 .3 VENTRICULAR PREMATURE DEPOLARIZATION 05/11/2018 NATALIE COLINDRES, Victoriano HOWARD Ot I49 .5 SICK SINUS SYNDROME 05/13/2018 SAMMIE TINAJERO MD Ot E86.0 DEHYDRATION 05/13/2018 SAMMIE TINAJERO MD Ot F41.9 ANXIETY DISORDER, UNSPECIFIED 05/13/2018 SAMMIE TINAJERO MD Ot I10 ESSENTIAL (PRIMARY) HYPERTENSION 05/13/2018 SAMMIE TINAJERO MD Ot I49.3 VENTRICULAR PREMATURE DEPOLARIZATION 05/13/2018 SAMMIE TINAJERO MD Ot I49.5 SICK SINUS SYNDROME 05/13/2018 SAMMIE TINAJERO MD Ot M19.0 11 PRIMARY OSTEOARTHRITIS, RIGHT SHOULDER 05/13/2018 GAULT MD, SAMMIE R Ot N30.0 1 ACUTE CYSTITIS WITH HEMATURIA 05/13/2018 TANVI COLINDRES, SAMMIE R Ot R00.1 BRADYCARDIA, UNSPECIFIED 05/13/2018 SAMMIE TINAJERO MD R Ot Z88.0 ALLERGY STATUS TO PENICILLIN 05/13/2018 SAMMIE TINAJERO MD Ot Z88.2 ALLERGY STATUS TO SULFONAMIDES STATUS 05/13/2018 SAMMIE TINAJERO MD Ot Z98.8 90 OTHER SPECIFIED POSTPROCEDURAL STATES 05/23/2018 EBONY RODAS MD Ot E86.0 DEHYDRATION 05/23/2018 EBONY RODAS MD Ot K52.9 NONINFECTIVE GASTROENTERITIS AND COLITIS 05/23/2018 EBONY RODAS MD Ot M19.011 PRIMARY OSTEOARTHRITIS, RIGHT SHOULDER 05/23/2018 EBONY RODAS MD, Ot R19.7 DIARRHEA, UNSPECIFIED 05/23/2018 EBONY RODAS MD Ot Z80.0 FAMILY HISTORY OF MALIGNANT NEOPLASM OF 05/23/2018 EBONY RODAS MD Ot Z82.49 FAMILY HX OF ISCHEM HEART DIS AND OTH DI 05/23/2018 EBONY RODAS MD Ot Z87.891 PERSONAL HISTORY OF NICOTINE DEPENDENCE 05/23/2018 EBONY RODAS MD Ot Z88.0 ALLERGY STATUS TO PENICILLIN 05/23/2018 EBONY RODAS MD Ot Z88.2 ALLERGY STATUS TO SULFONAMIDES STATUS 05/27/2018 EBONY RODAS MD Ot E86.0 DEHYDRATION 05/27/2018 EBONY RODAS MD Ot K52.9 NONINFECTIVE GASTROENTERITIS AND COLITIS 05/27/2018 EBONY RODAS MD Ot M19.011 PRIMARY OSTEOARTHRITIS, RIGHT SHOULDER 05/27/2018 EBONY RODAS MD Ot R19.7 DIARRHEA, UNSPECIFIED 05/27/2018 EBONY RODAS MD Ot Z80.0 FAMILY HISTORY OF MALIGNANT NEOPLASM OF 05/27/2018 EBONY RODAS MD Ot Z82.49 FAMILY HX OF ISCHEM HEART DIS AND OTH DI 05/27/2018 EBONY RODAS MD Ot Z87.891 PERSONAL HISTORY OF NICOTINE DEPENDENCE 05/27/2018 EBONY RODAS MD Ot Z88.0 ALLERGY STATUS TO PENICILLIN 05/27/2018 EBONY RODAS MD Ot Z88.2 ALLERGY STATUS TO SULFONAMIDES STATUS 05/27/2018 EBONY RODAS MD Ot E86.0 DEHYDRATION 05/27/2018 EBONY RODAS MD Ot K52.9 NONINFECTIVE GASTROENTERITIS AND COLITIS 05/27/2018 EBONY RODAS MD Ot M19.011 PRIMARY OSTEOARTHRITIS, RIGHT SHOULDER 05/27/2018 EBONY RODAS MD Ot R19.7 DIARRHEA, UNSPECIFIED 05/27/2018 EBONY RODAS MD Ot Z80.0 FAMILY HISTORY OF MALIGNANT NEOPLASM OF 05/27/2018 EBONY RODAS MD Ot Z82.49 FAMILY HX OF ISCHEM HEART DIS AND OTH DI 05/27/2018 EBONY RODAS MD Ot Z87.891 PERSONAL HISTORY OF NICOTINE DEPENDENCE 05/27/2018 EBONY RODAS MD, Ot Z88.0 ALLERGY STATUS TO PENICILLIN 05/27/2018 EBONY RODAS MD, Ot Z88.2 ALLERGY STATUS TO SULFONAMIDES STATUS 05/28/2018 Victoriano ESTRADA MD Ot E11 .9 TYPE 2 DIABETES MELLITUS WITHOUT COMPLIC 05/28/2018 Victoriano ESTRADA MD Ot E78 .5 HYPERLIPIDEMIA, UNSPECIFIED 05/28/2018 Victoriano ESTRADA MD Ot F17.210 NICOTINE DEPENDENCE, CIGARETTES, UNCOMPL 05/28/2018 Victoriano ESTRADA MD Ot I10 ESSENTIAL (PRIMARY) HYPERTENSION 05/28/2018 Victoriano ESTRADA MD Ot I44 .1 ATRIOVENTRICULAR BLOCK, SECOND DEGREE 05/28/2018 Victoriano ESTRADA MD Ot I49 .3 VENTRICULAR PREMATURE DEPOLARIZATION 05/28/2018 Victoriano ESTRADA MD Ot I49 .5 SICK SINUS SYNDROME 05/28/2018 Victoriano ESTRADA MD Ot M19.91 PRIMARY OSTEOARTHRITIS, UNSPECIFIED SITE 05/28/2018 Victoriano ESTRADA MD Ot R00 .2 PALPITATIONS 05/28/2018 Victoriano ESTRADA MD Ot Z11 .2 ENCOUNTER FOR SCREENING FOR OTHER BACTER 05/28/2018 Victoriano ESTRADA MD Ot Z82.49 FAMILY HX OF ISCHEM HEART DIS AND OTH DI 05/30/2018 Victoriano ESTRADA MD Ot E11 .9 TYPE 2 DIABETES MELLITUS WITHOUT COMPLIC 05/30/2018 Victoriano ESTRAAD MD Ot E78 .5 HYPERLIPIDEMIA, UNSPECIFIED 05/30/2018 Victoriano ESTRADA MD Ot F17.210 NICOTINE DEPENDENCE, CIGARETTES, UNCOMPL 05/30/2018 Victoriano ESTRADA MD Ot I10 ESSENTIAL (PRIMARY) HYPERTENSION 05/30/2018 Victoriano ESTRADA MD Ot I44 .1 ATRIOVENTRICULAR BLOCK, SECOND DEGREE 05/30/2018 Victoriano ESTRADA MD Ot I49 .3 VENTRICULAR PREMATURE DEPOLARIZATION 05/30/2018 Victoriano ESTRADA MD Ot I49 .5 SICK SINUS SYNDROME 05/30/2018 Victoriano ESTRADA MD, Ot M19.91 PRIMARY OSTEOARTHRITIS, UNSPECIFIED SITE 05/30/2018 Victoriano ESTRADA MD Ot R00 .2 PALPITATIONS 05/30/2018 Victoriano ESTRADA MD Ot Z11 .2 ENCOUNTER FOR SCREENING FOR OTHER BACTER 05/30/2018 Victoriano ESTRADA MD Ot Z82.49 FAMILY HX OF ISCHEM HEART DIS AND OTH DI 05/31/2018 Victoriano ESTRADA MD Ot I10 ESSENTIAL (PRIMARY) HYPERTENSION 05/31/2018 Victoriano ESTRADA MD Ot I49 .3 VENTRICULAR PREMATURE DEPOLARIZATION 05/31/2018 Victoriano ESTRADA MD Ot I49 .5 SICK SINUS SYNDROME 06/01/2018 Victoriano ESTRADA MD Ot E11 .9 TYPE 2 DIABETES MELLITUS WITHOUT COMPLIC 06/01/2018 Victoriano ESTRADA MD Ot E78 .5 HYPERLIPIDEMIA, UNSPECIFIED 06/01/2018 Victoriano ESTRADA MD Ot F17.210 NICOTINE DEPENDENCE, CIGARETTES, UNCOMPL 06/01/2018 Victoriano ESTRADA MD Ot I10 ESSENTIAL (PRIMARY) HYPERTENSION 06/01/2018 Victoriano ESTRADA MD Ot I44 .1 ATRIOVENTRICULAR BLOCK, SECOND DEGREE 06/01/2018 Victoriano ESTRADA MD Ot I49 .3 VENTRICULAR PREMATURE DEPOLARIZATION 06/01/2018 Victoriano ESTRADA MD Ot I49 .5 SICK SINUS SYNDROME 06/01/2018 Victoriano ESTRADA MD Ot M19.91 PRIMARY OSTEOARTHRITIS, UNSPECIFIED SITE 06/01/2018 Victoriano ESTRADA MD Ot R00 .2 PALPITATIONS 06/01/2018 Victoriano ESTRADA MD Ot Z11 .2 ENCOUNTER FOR SCREENING FOR OTHER BACTER 06/01/2018 Victoriano ESTRADA MD, Ot Z82.49 FAMILY HX OF ISCHEM HEART DIS AND OTH DI 06/11/2018 Victoriano ESTRADA MD Ot I10 ESSENTIAL (PRIMARY) HYPERTENSION 06/11/2018 Victoriano ESTRADA MD Ot I49 .3 VENTRICULAR PREMATURE DEPOLARIZATION 06/11/2018 Victoriano ESTRADA MD Ot I49 .5 SICK SINUS SYNDROME 06/11/2018 Victoriano ESTRADA MD Ot I10 ESSENTIAL (PRIMARY) HYPERTENSION 06/11/2018 Victoriano ESTRADA MD Ot I49 .3 VENTRICULAR PREMATURE DEPOLARIZATION 06/11/2018 Victoriano ESTRADA MD Ot I49 .5 SICK SINUS SYNDROME 06/15/2018 Victoriano ESTRADA MD Ot 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, AORTIC 06/15/2018 Victoriano ESTRADA MD Ot I10 ESSENTIAL (PRIMARY) HYPERTENSION 06/15/2018 Victoriano ESTRADA MD Ot I49 .3 VENTRICULAR PREMATURE DEPOLARIZATION 06/15/2018 Victoriano ESTRADA MD Ot I49 .5 SICK SINUS SYNDROME 07/06/2018 Victoriano ESTRADA MD Ot 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 Results Test Result Range Complete blood count (CBC) with automate d white blood cell (WBC) differential - 05/12/18 11:02 Blood leukocytes automated count (number/volume) 11.0 10*3/uL 4.3-11.0 Blood erythrocytes automated count (number/volume) 5.59 10*6/uL 4.35-5.85 Venous blood hemoglobin measurement (mass/volume) 15.1 g/dL 11.5-16.0 Blood hematocrit (volume fraction) 46 % 35-52 Automated erythrocyte mean corpuscular volume 82 [ foz_us] 80-99 Automated erythrocyte mean corpuscular h emoglobin (mass per erythrocyte) 27 pg 25-34 Automated erythrocyte mean corpuscular h emoglobin concentration measurement (mass/volume) 33 g/dL 32-36 Automated erythrocyte distribution width ratio 14. 9 % 10.0- 14.5 Automated blood platelet count (count/volume) 424 10*3/uL [...] 10*3 1.0-4.0 Blood monocytes automated count (number/volume) 0. 5 10*3 0.0-1.0 Automated eosinophil count 0.3 10*3/uL 0 .0-0.3 Automated blood basophil count (count/volume) 0.0 10*3/uL 0.0-0.1 PT panel in platelet poor plasma by coag ulation assay - 05/12/18 11:02 Prothrombin time (PT) in platelet poor plasma by coagu lation assay 13.5 s 12.2-14.7 INR in platelet poor plasma or blood by coagulation as say 1.0 0.8-1.4 Activated partial thromboplastin time (a PTT) in platelet poor plasma bycoagulation assay - 05/12/18 11:02 Activated partial thromboplastin time (a PTT) in platelet poor plasma bycoagulation assay 29 s 24-35 Comprehensive metabolic panel - 05/12/18 11:02 Serum or plasma sodium measurement (moles/volume) 140 mmol/L 135-145 Serum or plasma potassium measurement (moles/volume) 4.2 mmol/L 3.6-5.0 Serum or plasma chloride measurement (moles/volume) 101 mmol/L 98-107 Carbon dioxide 17 mmol/L 21-32 Serum or plasma anion gap determination (moles/volume) 22 mmol/L 5-14 Serum or plasma urea nitrogen measurement (mass/volume ) 14 mg/dL 7-18 Serum or plasma creatinine measurement (mass/volume) 0.80 mg/dL 0.60-1.30 Serum or plasma urea nitrogen/creatinine mass ratio 18 NRG Serum or plasma creatinine measurement w ith calculation of estimated glomerular filtration rate > NRG Serum or plasma glucose measurement (mass/volume) 117 mg/dL 70-105 Serum or plasma calcium measurement (mass/volume) 10.1 mg/dL 8.5-10.1 Serum or plasma total bilirubin measurement (mass/volu me) 0.6 mg/dL 0.1-1.0 Serum or plasma alkaline phosphatase tan surement (enzymatic activity/volume) 109 U/L 40-136 Serum or plasma aspartate aminotransfera se measurement (enzymatic activity/volume) 19 U/L 5-34 Serum or plasma alanine aminotransferase measurement (enzymatic activity/volume) 11 U/L 0-55 Serum or plasma protein measurement (mass/volume) 7.5 g/dL 6.4-8.2 Serum or plasma albumin measurement (mass/volume) 4.5 g/dL 3.2-4.5 CALCIUM CORRECTED 9.7 mg/dL 8.5-10.1 Magnesium - 05/12/18 11:02 Magnesium 2.5 mg/dL 1.8-2.4 TROPONIN T - 05/12/18 11:02 TROPONIN T 13 % <=10 PROBNP FS - 05/12/18 11:02 PROBNP FS 433.4 pg/mL <75.0 THYROID STIMULATING HORMONE - 05/12/18 1 1:02 THYROID STIMULATING HORMONE 1.59 u[iU]/mL 0.35-4.94 Serum or plasma C reactive protein measu rement (mass/volume) - 05/12/18 11:02 Serum or plasma C reactive protein measurement (mass/v olume) 0.26 mg/dL 0.00-0.50 Complete urinalysis with reflex to cultu re - 05/12/18 11:55 Urine color determination YELLOW NRG Urine clarity determination CLOUDY NR G Urine pH measurement by test strip 5.5 5-9 Specific gravity of urine by test strip >= 1.016-1.022 Urine protein assay by test strip, semi-quantitative 2+ NEGATIVE Urine glucose detection by automated test strip NE GATIVE NEGATIVE Erythrocytes detection in urine sediment by light micr oscopy 3+ NEGATIVE Urine ketones detection by automated test strip TR SHANTEL NEGATIVE Urine nitrite detection by test strip NEGATIVE NEGATIVE Urine total bilirubin detection by test strip NEGA TIVE NEGATIVE Urine urobilinogen measurement by automated test strip (mass/volume) 0.2 mg/dL NORMAL Urine leukocyte esterase detection by dipstick 1+ NEGATIVE Automated urine sediment erythrocyte cou nt by microscopy (number/high power field) [HPF] NRG Automated urine sediment leukocyte count by microscopy (number/high power field) [HPF] NRG Bacteria detection in urine sediment by light microsco py FEW NRG Squamous epithelial cells detection in u rine sediment by light microscopy 0-2 NRG Crystals detection in urine sediment by light microscopy P NRG Casts detection in urine sediment by light microscopy NONE NRG Mucus detection in urine sediment by light microscopy NONE NRG Complete urinalysis with reflex to culture YES NRG Amorphous sediment detection in urine sediment by ligh t microscopy MOD CORBIN PHOSPHATE NRG Urine drug screening test - 05/12/18 11: 55 Urine phencyclidine detection by screening method NEGATIVE NEGATIVE Urine benzodiazepines detection by screening method NEGATIVE NEGATIVE Urine cocaine detection NEGATIVE NEGATI VE Urine amphetamines detection by screening method N EGATIVE NEGATIVE Urine methamphetamine detection by screening method NEGATIVE NEGATIVE Urine cannabinoids detection by screening method N EGATIVE NEGATIVE Urine opiates detection by screening method NEGATI VE NEGATIVE Urine barbiturates detection NEGATIVE N EGATIVE Screening urine tricyclic antidepressants detection NEGATIVE NEGATIVE Urine methadone detection by screening method NEGA TIVE NEGATIVE Urine oxycodone detection NEGATIVE NEGA TIVE Urine propoxyphene detection NEGATIVE N EGATIVE Bacterial urine culture - 05/12/18 11:55 Bacterial urine culture NG NRG Serum or plasma troponin i.cardiac measu rement (mass/volume) - 05/12/18 17:15 Serum or plasma troponin i.cardiac measurement (mass/v olume) < ng/mL <0.028 Complete blood count (CBC) with automate d white blood cell (WBC) differential - 05/13/18 05:25 Blood leukocytes automated count (number/volume) 7.5 10*3/uL 4.3-11.0 Blood erythrocytes automated count (number/volume) 4.43 10*6/uL 4.35-5.85 Venous blood hemoglobin measurement (mass/volume) 11.8 g/dL 11.5-16.0 Blood hematocrit (volume fraction) 37 % 35-52 Automated erythrocyte mean corpuscular volume 83 [ foz_us] 80-99 Automated erythrocyte mean corpuscular h emoglobin (mass per erythrocyte) 27 pg 25-34 Automated erythrocyte mean corpuscular h emoglobin concentration measurement (mass/volume) 32 g/dL 32-36 Automated erythrocyte distribution width ratio 14. 7 % 10.0- 14.5 Automated blood platelet count (count/volume) 310 10*3/uL [...] 10*3 1.0-4.0 Blood monocytes automated count (number/volume) 0. 5 10*3 0.0-1.0 Automated eosinophil count 1.5 10*3/uL 0 .0-0.3 Automated blood basophil count (count/volume) 0.0 10*3/uL 0.0-0.1 Whole blood basic metabolic panel - 04/24 03/13 05:25 Serum or plasma sodium measurement (moles/volume) 142 mmol/L 135-145 Serum or plasma potassium measurement (moles/volume) 3.8 mmol/L 3.6-5.0 Serum or plasma chloride measurement (moles/volume) 112 mmol/L 98-107 Carbon dioxide 21 mmol/L 21-32 Serum or plasma anion gap determination (moles/volume) 9 mmol/L 5-14 Serum or plasma urea nitrogen measurement (mass/volume ) 12 mg/dL 7-18 Serum or plasma creatinine measurement (mass/volume) 0.77 mg/dL 0.60-1.30 Serum or plasma urea nitrogen/creatinine mass ratio 16 NRG Serum or plasma creatinine measurement w ith calculation of estimated glomerular filtration rate > NRG Serum or plasma glucose measurement (mass/volume) 89 mg/dL 70-105 Serum or plasma calcium measurement (mass/volume) 8.6 mg/dL 8.5-10.1 Blood manual differential performed dete ction - 05/13/18 05:25 Blood monocytes/100 leukocytes 5 % NRG Manual blood segmented neutrophils/100 leukocytes 57 % NRG Manual blood lymphocytes/100 leukocytes 22 % NRG Manual eosinophils/100 leukocytes in nose 16 % NRG Complete blood count (CBC) with automate d white blood cell (WBC) differential - 05/23/18 15:20 Blood leukocytes automated count (number/volume) 18.6 10*3/uL 4.3-11.0 Blood erythrocytes automated count (number/volume) 5.30 10*6/uL 4.35-5.85 Venous blood hemoglobin measurement (mass/volume) 14.3 g/dL 11.5-16.0 Blood hematocrit (volume fraction) 44 % 35-52 Automated erythrocyte mean corpuscular volume 83 [ foz_us] 80-99 Automated erythrocyte mean corpuscular h emoglobin (mass per erythrocyte) 27 pg 25-34 Automated erythrocyte mean corpuscular h emoglobin concentration measurement (mass/volume) 33 g/dL 32-36 Automated erythrocyte distribution width ratio 15. 5 % 10.0- 14.5 Automated blood platelet count (count/volume) 350 10*3/uL [...] 10*3 1.0-4.0 Blood monocytes automated count (number/volume) 0. 6 10*3 0.0-1.0 Automated eosinophil count 0.9 10*3/uL 0 .0-0.3 Automated blood basophil count (count/volume) 0.0 10*3/uL 0.0-0.1 Comprehensive metabolic panel - 05/23/18 15:20 Serum or plasma sodium measurement (moles/volume) 142 mmol/L 135-145 Serum or plasma potassium measurement (moles/volume) 4.6 mmol/L 3.6-5.0 Serum or plasma chloride measurement (moles/volume) 104 mmol/L 98-107 Carbon dioxide 26 mmol/L 21-32 Serum or plasma anion gap determination (moles/volume) 12 mmol/L 5-14 Serum or plasma urea nitrogen measurement (mass/volume ) 14 mg/dL 7-18 Serum or plasma creatinine measurement (mass/volume) 0.83 mg/dL 0.60-1.30 Serum or plasma urea nitrogen/creatinine mass ratio 17 NRG Serum or plasma creatinine measurement w ith calculation of estimated glomerular filtration rate > NRG Serum or plasma glucose measurement (mass/volume) 103 mg/dL 70-105 Serum or plasma calcium measurement (mass/volume) 9.6 mg/dL 8.5-10.1 Serum or plasma total bilirubin measurement (mass/volu me) 0.6 mg/dL 0.1-1.0 Serum or plasma alkaline phosphatase tan surement (enzymatic activity/volume) 107 U/L 40-136 Serum or plasma aspartate aminotransfera se measurement (enzymatic activity/volume) 22 U/L 5-34 Serum or plasma alanine aminotransferase measurement (enzymatic activity/volume) 15 U/L 0-55 Serum or plasma protein measurement (mass/volume) 7.3 g/dL 6.4-8.2 Serum or plasma albumin measurement (mass/volume) 4.5 g/dL 3.2-4.5 CALCIUM CORRECTED 9.2 mg/dL 8.5-10.1 Lipase - 05/23/18 15:20 Lipase 35 U/L 8-78 Blood manual differential performed dete ction - 05/23/18 15:20 Blood monocytes/100 leukocytes 0 % NRG Manual blood segmented neutrophils/100 leukocytes 68 % NRG Blood band neutrophils/100 leukocytes 15 % NRG Manual blood lymphocytes/100 leukocytes 12 % NRG Manual eosinophils/100 leukocytes in nose 4 % NRG Manual blood basophils/100 leukocytes 1 % NRG Manual blood metamyelocytes/100 leukocytes 0 % NRG Complete urinalysis with reflex to cultu re - 05/23/18 15:30 Urine color determination YELLOW NRG Urine clarity determination SLT CLOUDY NRG Urine pH measurement by test strip 6.0 5-9 Specific gravity of urine by test strip 1.020 1.016-1.022 Urine protein assay by test strip, semi-quantitative 1+ NEGATIVE Urine glucose detection by automated test strip NE GATIVE NEGATIVE Erythrocytes detection in urine sediment by light micr oscopy 3+ NEGATIVE Urine ketones detection by automated test strip NE GATIVE NEGATIVE Urine nitrite detection by test strip NEGATIVE NEGATIVE Urine total bilirubin detection by test strip NEGA TIVE NEGATIVE Urine urobilinogen measurement by automated test strip (mass/volume) 0.2 mg/dL NORMAL Urine leukocyte esterase detection by dipstick 1+ NEGATIVE Automated urine sediment erythrocyte cou nt by microscopy (number/high power field) > [HPF] NRG Automated urine sediment leukocyte count by microscopy (number/high power field) [HPF] NRG Bacteria detection in urine sediment by light microsco py FEW NRG Squamous epithelial cells detection in u rine sediment by light microscopy 0-2 NRG Crystals detection in urine sediment by light microsco py NONE NRG Casts detection in urine sediment by light microscopy NONE NRG Mucus detection in urine sediment by light microscopy NONE NRG Complete urinalysis with reflex to culture YES NRG Bacterial urine culture - 05/23/18 15:30 Bacterial urine culture NG NRG Automated blood complete blood count ( mogram) panel - 05/27/18 08:38 Blood leukocytes automated count (number/volume) 9.4 10*3/uL 4.3-11.0 Blood erythrocytes automated count (number/volume) 4.70 10*6/uL 4.35-5.85 Venous blood hemoglobin measurement (mass/volume) 12.6 g/dL 11.5-16.0 Blood hematocrit (volume fraction) 39 % 35-52 Automated erythrocyte mean corpuscular volume 82 [ foz_us] 80-99 Automated erythrocyte mean corpuscular h emoglobin (mass per erythrocyte) 27 pg 25-34 Automated erythrocyte mean corpuscular h emoglobin concentration measurement (mass/volume) 33 g/dL 32-36 Automated erythrocyte distribution width ratio 15. 0 % 10.0- 14.5 Automated blood platelet count (count/volume) 265 10*3/uL 130-400 Automated blood platelet mean volume measurement 10.0 [foz_us] 7.4-10.4 PT panel in platelet poor plasma by coag ulation assay - 05/27/18 08:38 Prothrombin time (PT) in platelet poor plasma by coagu lation assay 14.2 s 12.2-14.7 INR in platelet poor plasma or blood by coagulation as say 1.1 0.8-1.4 Activated partial thromboplastin time (a PTT) in platelet poor plasma bycoagulation assay - 05/27/18 08:38 Activated partial thromboplastin time (a PTT) in platelet poor plasma bycoagulation assay 29 s 24-35 Comprehensive metabolic panel - 05/27/18 08:38 Serum or plasma sodium measurement (moles/volume) 142 mmol/L 135-145 Serum or plasma potassium measurement (moles/volume) 3.8 mmol/L 3.6-5.0 Serum or plasma chloride measurement (moles/volume) 107 mmol/L 98-107 Carbon dioxide 25 mmol/L 21-32 Serum or plasma anion gap determination (moles/volume) 10 mmol/L 5-14 Serum or plasma urea nitrogen measurement (mass/volume ) 8 mg/dL 7-18 Serum or plasma creatinine measurement (mass/volume) 0.78 mg/dL 0.60-1.30 Serum or plasma urea nitrogen/creatinine mass ratio 10 NRG Serum or plasma creatinine measurement w ith calculation of estimated glomerular filtration rate > NRG Serum or plasma glucose measurement (mass/volume) 94 mg/dL 70-105 Serum or plasma calcium measurement (mass/volume) 9.8 mg/dL 8.5-10.1 Serum or plasma total bilirubin measurement (mass/volu me) 0.7 mg/dL 0.1-1.0 Serum or plasma alkaline phosphatase tan surement (enzymatic activity/volume) 92 U/L 40-136 Serum or plasma aspartate aminotransfera se measurement (enzymatic activity/volume) 16 U/L 5-34 Serum or plasma alanine aminotransferase measurement (enzymatic activity/volume) 13 U/L 0-55 Serum or plasma protein measurement (mass/volume) 6.3 g/dL 6.4-8.2 Serum or plasma albumin measurement (mass/volume) 4.0 g/dL 3.2-4.5 CALCIUM CORRECTED 9.8 mg/dL 8.5-10.1 Methicillin resistant Staphylococcus aur eus (MRSA) screening culture - 05/27/18 08:38 Methicillin resistant Staphylococcus aureus (MRSA) scr eening culture NEG NRG Automated blood complete blood count (he mogram) panel - 05/28/18 03:35 Blood leukocytes automated count (number/volume) 8.7 10*3/uL 4.3-11.0 Blood erythrocytes automated count (number/volume) 4.35 10*6/uL 4.35-5.85 Venous blood hemoglobin measurement (mass/volume) 11.9 g/dL 11.5-16.0 Blood hematocrit (volume fraction) 36 % 35-52 Automated erythrocyte mean corpuscular volume 82 [ foz_us] 80-99 Automated erythrocyte mean corpuscular h emoglobin (mass per erythrocyte) 27 pg 25-34 Automated erythrocyte mean corpuscular h emoglobin concentration measurement (mass/volume) 33 g/dL 32-36 Automated erythrocyte distribution width ratio 15. 2 % 10.0- 14.5 Automated blood platelet count (count/volume) 216 10*3/uL 130-400 Automated blood platelet mean volume measurement 10.3 [foz_us] 7.4-10.4 Comprehensive metabolic panel - 05/28/18 03:35 Serum or plasma sodium measurement (moles/volume) 142 mmol/L 135-145 Serum or plasma potassium measurement (moles/volume) 3.5 mmol/L 3.6-5.0 Serum or plasma chloride measurement (moles/volume) 111 mmol/L 98-107 Carbon dioxide 23 mmol/L 21-32 Serum or plasma anion gap determination (moles/volume) 8 mmol/L 5-14 Serum or plasma urea nitrogen measurement (mass/volume ) 7 mg/dL 7-18 Serum or plasma creatinine measurement (mass/volume) 0.68 mg/dL 0.60-1.30 Serum or plasma urea nitrogen/creatinine mass ratio 10 NRG Serum or plasma creatinine measurement w ith calculation of estimated glomerular filtration rate > NRG Serum or plasma glucose measurement (mass/volume) 91 mg/dL 70-105 Serum or plasma calcium measurement (mass/volume) 9.0 mg/dL 8.5-10.1 Serum or plasma total bilirubin measurement (mass/volu me) 0.5 mg/dL 0.1-1.0 Serum or plasma alkaline phosphatase tan surement (enzymatic activity/volume) 87 U/L 40-136 Serum or plasma aspartate aminotransfera se measurement (enzymatic activity/volume) 15 U/L 5-34 Serum or plasma alanine aminotransferase measurement (enzymatic activity/volume) 10 U/L 0-55 Serum or plasma protein measurement (mass/volume) 5.6 g/dL 6.4-8.2 Serum or plasma albumin measurement (mass/volume) 3.4 g/dL 3.2-4.5 CALCIUM CORRECTED 9.5 mg/dL 8.5-10.1 CMP - 10/22/18 11:37 GLUCOSE 87 mg/dL 65-139 UREA NITROGEN (BUN) 15 mg/dL 7-25 CREATININE 0.85 mg/dL 0.60-0.93 eGFR NON-AFR. DANISH 68 mL/min/1.73m2 > OR = 60 eGFR 79 mL/min/1.73m2 > OR = 60 BUN/CREATININE RATIO NOT APPLICABLE (calc) 6-22 SODIUM 142 mmol/L 135-146 POTASSIUM 4.4 mmol/L 3.5-5.3 CHLORIDE 105 mmol/L 98-110 CARBON DIOXIDE 28 mmol/L 20-32 CALCIUM 10.0 mg/dL 8.6-10.4 PROTEIN, TOTAL 6.4 g/dL 6.1-8.1 ALBUMIN 4.2 g/dL 3.6-5.1 GLOBULIN 2.2 g/dL (calc) 1.9-3.7 ALBUMIN/GLOBULIN RATIO 1.9 (calc) 1.0-2. 5 BILIRUBIN, TOTAL 0.8 mg/dL 0.2-1.2 ALKALINE PHOSPHATASE 95 U/L 33-130 AST 15 U/L 10-35 ALT 12 U/L 6-29 CBC w/MANUAL DIFF - 10/22/18 11:37 WHITE BLOOD CELL COUNT 8.3 Thousand/uL 3 .8-10.8 RED BLOOD CELL COUNT 5.15 Million/uL 3.8 0-5.10 HEMOGLOBIN 13.8 g/dL 11.7-15.5 HEMATOCRIT 42.9 % 35.0-45.0 MCV 83.3 fL 80.0-100.0 MCH 26.8 pg 27.0-33.0 MCHC 32.2 g/dL 32.0-36.0 RDW 13.9 % 11.0-15.0 PLATELET COUNT 277 Thousand/uL 140-400 MPV 10.4 fL 7.5-12.5 ABSOLUTE NEUTROPHILS 5196 cells/uL 1500- 7800 ABSOLUTE MONOCYTES 921 cells/uL 200-950 ABSOLUTE EOSINOPHILS 166 cells/uL 15-500 ABSOLUTE BASOPHILS 83 cells/uL 0-200 NEUTROPHILS 62.6 % NRG LYMPHOCYTES 20.2 % NRG MONOCYTES 11.1 % NRG EOSINOPHILS 2.0 % NRG BASOPHILS 1.0 % NRG ABSOLUTE BAND NEUTROPHILS 257 cells/uL 0 -750 ABSOLUTE LYMPHOCYTES 1677 cells/uL 850-3 900 BAND NEUTROPHILS 3.1 % NRG CBC MORPHOLOGY NORMAL COMMENT(S) NRG Encounters ACCT No. Visit Date/Time Discharge Status Pt. Type Provider Facility Loc./Unit Complaint [id number] 03/25/2019 10:00:00 03/25/2019 23:59: 59 CLS Outpatient SELF, ARMANDO Kidd [facility] [id number] 10/22/2018 10:40:00 Document Registration [id number] 10/02/2018 16:07:21 ACT Document Registration [id number] 04/27/2018 06:25:20 9 11:55:00 DIS Inpatient DAYA SUE [facility] ICU robotic pyeloplasty [id number] 03/24/2018 07:49:45 9 12:00:00 DIS Outpatient DAYA SUE [facility] Surgery ops [id number] 10/01/2018 17:32:00 ACT Unknown Anson Sue MD [id number] 08/10/2018 00:11:00 23:59:59 CLS Preadmit Victoriano ESTRADA MD [facility] CARD HTN,PVC'S,SINUS NODE DY SFUCTION [id number] 05/11/2018 09:10:00 00:01:00 DIS Outpatient Victoriano ESTRADA MD [facility] CARD HTN,PVC'S,SINUS NODE DY SFUCTION [id number] 06/14/2018 14:20:00 23:59:59 CLS Outpatient Victoriano ESTRADA MD [facility] CARD SINUS NODE DYSFUNCTION [id number] 05/27/2018 07:51:00 11:40:00 DIS Outpatient Victoriano ESTRADA MD [facility] [address] SYMPTOMATIC [address] BLOCK [id number] 05/23/2018 15:10:00 18:07:00 DIS Emergency ADRIANNA COLINDRES, EBONY juan [facility] ER FS NAUSEA,DIARRHEA [id number] 05/12/2018 14:01:00 13:56:00 DIS Inpatient TANVI COLIDNRES, SAMMIE Reid [facility] 4TH NAUSEA [id number] 05/10/2018 07:57:00 23:59:59 CLS Outpatient Victoriano ESTRADA MD [facility] CARD HTN,PVC'S,SINUS NODE DY SFUCTION [id number] 05/05/2018 08:06:00 23:59:59 CLS Preadmit Victoriano ESTRADA MD [facility] CARD HTN,PVC'S,SINUS NODE DY SFUCTION
== END 2019-05-08 11:35 | disposition home or self-care (01) ==
LOC: EDUNIT# 11:04 → ER FS 11:07
DX: S61.221A Laceration with foreign body of left index finger without damage to nail, initial encounter (principal); K21.9 Gastro-esophageal reflux disease without esophagitis; Z88.0 Allergy status to penicillin; Z88.2 Allergy status to sulfonamides; Z79.01 Long term (current) use of anticoagulants; Z80.0 Family history of malignant neoplasm of digestive organs; Z82.49 Family history of ischemic heart disease and other diseases of the circulatory system; W26.8XXA Contact with other sharp object(s), not elsewhere classified, initial encounter; Y92.22 Religious institution as the place of occurrence of the external cause
CPT/HCPCS: 12001

== ENCOUNTER 2019-06-23 10:50 | Inpatient (IN) | payer MEDICARE ==
[~2019-06-23] VITALS: Ht 167.7 cm; Wt 60.0 kg
[~2019-06-23 10:50] MED LIST changes: +ALBU2.5V4 INH; +APIX5TAB PO; +BISACODYL 10 MG SUPP (DULCOLAX) PR PRN; +CALCIUM CARBONATE 500 MG (TUMS) TAB.CHEW PO PRN; +DOCUSATE SODIUM 100 MG (COLACE) CAP PO PRN; +FLEET ENEMA ADULT 1 EA BTL PR PRN; +HYDR-34 PO; +HYDR-4342 PO; +LACTULOSE SYRUP 10GM/15ML (ENULOSE) 30ML UDC PO PRN; +LOPERAMIDE 2 MG (IMODIUM) TABLET PO PRN; +MELATONIN 3 MG TABLET PO PRN; +ONDANSETRON 4 MG (ZOFRAN) ORAL DISSOLVE TAB PO PRN; +PANT40TA3 PO; +SIME125T PO; +diphenhydrAMINE 25 MG TAB (BENADRYL) PO PRN; +guaiFENesin/CODEINE (ROBITUSSIN AC) 10ML UDC PO PRN
--- NOTE | 2019-06-23 10:50 | NUR ---
MARTÍN MATHEW admitted to room 230, with an admitting diagnosis of DEBILITY, on 06/23/19 from FOURTH FLOOR via WHEELCHAIR, accompanied by THERAPY. MARTÍN MATHEW introduced to surroundings, call light, bed controls, phone, TV, temperature control, lights, meal times, smoking policy, visitor policy, side rail policy, bathrooms and showers. Patient Rights given to patient in the handbook. MARTÍN MATHEW verbalizes understanding that [facility] is not responsible for the loss or damage to any personal effects or valuables that are kept in the patient's possession during their hospitalization. The following Patient Care Plans were discussed with the PATIENT: Discharge Planning, IMPAIRED MOBILITY, HIGH RISK: IMPAIRED SKIN INTEGRITY, HIGH RISK: INJURY, and KNOWLEDGE DEFICIT. MARTÍN MATHEW verbalizes understanding of Interdisciplinary Patient Education. Patient received Patient Rights Booklet, which includes Privacy Act Statement and Data Collection Information Summary.
[2019-06-23 12:20] VITALS: BP 108/55
--- NOTE | 2019-06-23 12:54 | Physical Therapy Evaluation ---
PT Evaluation-General Medical Diagnosis Admission Date Jun 23, 2019 at 10:50 Medical Diagnosis: colculus, s/p R hemicolectomy Onset Date: Jun 15, 2019 Therapy Diagnosis Therapy Diagnosis: impaired mobility, strength, endurance Height/Weight Height (Feet): 5 Height (Inches): 5.00 Weight (Pounds): 118 Weight (Ounces): 0.0 Precautions Precautions/Isolations: Standard Precautions Referral Physician: Leanne Nieto DO Reason for Referral: Evaluation/Treatment Medical History Pertinent Medical History: Arthritis, GERD Additional Medical History pacemaker, high cholesterol, diverticulosis, chronic back pain, anxiety Social History Home: Single Level Current Living Status: Alone Entry Into Home: Level Entry Prior Prior Level of Function SCALE: Activities may be completed with or without assistive devices. 7-Azxuakkisw-zdnikwx completes the activity by him/herself with no assistance from a helper. 5-Set-up or Clean-up Assistance-helper sets up or cleans up; patient completes activity. [place] assists only prior to or following the activity. 4-Supervision or Touching Assistance-helper provides verbal cues and/or touching/steadying and/or contact guard assistance as patient completes activity. Assistance may be provided throughout the activity or intermittently. 3-Partial/Moderate Assistance-helper does LESS THAN HALF the effort. [place] lifts, holds or supports trunk or limbs, but provides less than half the effort. 2-Substantial/Maximal Assistance-helper does MORE THAN HALF the effort. [place] lifts or holds trunk or limbs and provides more than half the effort. 8-Maxsqtglw-soucvg does ALL the effort. Patient does none of the effort to complete the activity. Or, the assistance of 2 or more helpers is required for the patient to complete the activity. If activity was not attempted, code reason: 7-Patient Refused. 9-Not Applicable-not attempted and the patient did not perform the activity before the current illness, exacerbation or injury. 10-Not Attempted due to Environmental Limitations-(lack of equipment, weather restraints, etc.). 88-Not Attempted due to Medical Conditions or Safety Concerns. Bed Mobility: 6 Transfers (B,C,W/C): 6 Gait: 6 Indoor Mobility (Ambulation): Independent PT Evaluation-Current Subjective Patient in bed pre tx, agrees to PT, has "some pain but not bad" in her abdomen, patient seems to be reluctant to rate her pain. Will be co-treating with OT for treatment due to poor patient mobility, SOB, very poor activity tolerance and endurance, balance, the need to coordinate UE and LE during functional activity and ADL's. Pt/Family Goals to be independent at home Objective Patient Orientation: Person, Place, Situation Attachments: Drains, IV ROM/Strength ROM Lower Extremities WNL Strength Lower Extremities 4/5 gross BLE Sensory Vision: Wears Glasses Hearing: Functional Sensation Right Lower Extremit: Intact Sensation Left Lower Extremity: Intact Transfers Roll Left to Right (QC): 4 Sit to Lying (QC): 3 Lying to Sitting/Side of Bed(Q: 3 Sit to Stand (QC): 4 Chair/Qsj-fe-Vmext Xfer(QC): 4 Toilet Transfer (QC): 4 Car Transfer (QC): 3 Patient performs bed mobility with SBA, supine <-> sit mod assist, sit <-> stand CGA, transfers CGA, car transfer mod assist, toilet transfer CGA. Patient sits at the edge of the bed and ambulates to the restroom and performs a toilet transfer with CGA, uses the restroom, nurse aide is there to help her clean and she comes back to sit on the edge of the bed. Gait Does the Patient Walk?: Yes Mode of Locomotion: Walk Anticipated Mode of Locomotion: Walk Walk 10 feet (QC): 4 Walk 50 ft with 2 Turns(QC): 4 Walk 150 ft (QC): 88 Walking 10ft/uneven surface-QC: 4 Distance: 50', 30' Gait Assistive Device: FWW Comments/Gait Description Patient can ambulate 50' with a rolling walker with CGA (including 50' with at least 2 turns of 90 degrees and 10' over an uneven surface). Patient ambulates slowly, gets SOB with activity, poor endurance. Wheelchair Training Does the Pt Use a Wheelchair?: No Wheel 50 ft with 2 turns (QC): 9 Wheel 150 ft (QC): 9 Stairs #of Steps: 1 1 Step (curb) (QC): 4 4 Steps (QC): 88 12 Steps (QC): 88 Patient can go up and down 1 steps using a rolling walker with CGA, cues for foot placement and safety. Balance Sitting Static: Fair Sitting Dynamic: Fair Standing Static: Fair Standing Dynamic: Fair Picking up an Object (QC): 88 Treatment bathing, dressing. PT performed bed mobility and transfers, ambulation, car transfer, assist with positioning and standing balance and standing during bathing and dressing, OT performed bathing, dressing, assist with mobility with UE positioning and safety. Assessment/Needs Patient has impaired mobility, strength, endurance. She is very deconditioned and cannot tolerate much activity, gets SOB with activity. Patient was complete ly exhausted after treatment and fell asleep immediately in the recliner. Patient in recliner post tx with nurse call, phone, tray, all needs met, legs elevated. Rehab Potential: Fair PT Short Term Goals Short Term Goals Time Frame: June 30, 2019 Roll Left & Right: 6 Sit to lyin Lying to sitting on side of be: 3 Sit to stand: 5 Chair/bug-rp-jdtrt transfer: 5 Walk 10 feet: 5 Walk 50 feet with two turns: 5 Walk 150 feet: 5 PT Half-Way Goals Half-Way Goals PT Half-Way Goals Time Frame: July 14, 2019 Roll Left & Right (QC): 6 Sit to Lying (QC): 6 Lying-Sitting on Side/Bed(QC): 6 Sit to Stand (QC): 6 Chair/Yft-bk-Gzkih Xfer(QC): 6 Toilet Transfer (QC): 6 Car Transfer (QC): 6 Does the Patient Walk: Yes Walk 10 feet (QC): 6 Walk 50ft with 2 Turns (QC): 6 Walk 150 ft (QC): 6 Walking 10ft on Uneven Surface: 6 1 Step (curb) (QC): 4 4 Steps (QC): 4 12 Steps (QC): 88 Picking up an Object (QC): 88 Does the Pt use WC or Scooter?: No Wheel 50 feet with 2 turns (QC: 9 Wheel 150 feet: 9 PT Plan Problem List Problem List: Activity Tolerance, Functional Strength, Safety, Balance, Gait, Transfer, Bed Mobility Treatment/Plan Treatment Plan: Continue Plan of Care Treatment Plan: Bed Mobility, Education, Functional Activity Susy, Functional Strength, Group Therapy, Gait, Safety, Therapeutic Exercise, Transfers Treatment Duration: July 14, 2019 Frequency: covid waiver 60 min per day, will increase as patient is able Estimated Hrs Per Day: 1.5 hours per day Patient and/or Family Agrees t: Yes Safety Risks/Education Patient Education: Gait Training, Transfer Techniques, Steps, Correct Positioning, Safety Issues Teaching Recipient: Patient Teaching Methods: Demonstration, Discussion Response to Teaching: Reinforcement Needed Discharge Recommendations Plan Patient will perform bed mobility and transfer training, balance and endurance training, functional strengthening, stair training, gait training, and education, to improve functional mobility and independence at home. Therapy Discharge Recommendati: Home & Family Time/GCodes Time In: 1050 Time Out: 1200 Total Billed Treatment Time: 60 Total Billed Treatment 1 visit EVM 10' FA 50' Co-treated with OT from [id number], PT eval from [id number], OT eval from 1100- 1110. LUIS FELIPE MOSELEY PT Jun 23, 2019 12:54
--- NOTE | 2019-06-23 13:02 | NUR ---
I SPOKE WITH THE PT WHEN SHE WAS ON THE 4TH FLOOR AND COMPLETED THE MED REC ON 06-16-2019. I HAVE REVIEWED ALL THE MEDICATIONS SO THEY CAN BE CONTINUED NEEDED THE FOLLOWING MEDICATIONS WERE DISCONTINUED UPON DISCHARGE: ELIQUIS 5MG MEDICATIONS THAT HAVE BEEN ADDED UPON DISCHARGE: ALBUTEROL NEBULIZER NORCO 7.5/325MG PROTONIX 40MG AFTER THE MEDICATIONS HAVE BEEN CONTINUED I WILL REVERT THE MED REC BACK TO REFLECT THE MEDICATIONS THE PT WAS TAKING UPON ADMISSION. Addendum: 06/24/19 at 0830 by AMARILYS GARNER CPhT I HAVE REVERTED THE MED REC BACK TO WHAT THE PT WAS TAKING BEFORE SHE WAS ADMITTED. MEDS THAT HAVE BEEN REMOVED: ALBUTEROL 2.5MG/3ML NORCO 7.5/325MG PROTONIX 40MG MEDICATIONS WERE ADDED BACK: ELIQUIS 5MG
--- OUTSIDE RECORDS SUMMARY | 2019-06-23 13:09 | XMS REPORT | Continuity of Care Document ---
Author Organization Unknown Address Unknown Phone Unavailable Allergies Active Description Code Type Severity Reaction Onset Reported/Identified Relationship to Patient Clinical Status Yes ibuprofen Drug Mild migraine Yes penicillin 3 Drug Severe [id number] Yes sulfa drug 16 Drug Mode rate [id number] Yes Penicillins [id number] Drug Aller gy Unknown PASS OUT 05/12/2018 Yes Sulfa (Sulfonamide Antibiotics) [id number] Drug Allergy Unknown RASH 019 Medications [...] 2 DIABETES MELLITUS WITHOUT COMPLIC 05/30/2018 Victoriano ESTRADA MD Ot E78 .5 HYPERLIPIDEMIA, UNSPECIFIED 05/30/2018 [...] SCREENING FOR OTHER BACTER 06/01/2018 Victoriano ESTRADA MD Ot Z82.49 FAMILY HX [...] Mccoy Z6 8.1 BMI less than 20 05/08/2019 Ot K21.9 RICHA RO-ESOPHAGEAL REFLUX DISEASE WITHOUT 05/08/2019 Ot M79.645 PA IN IN LEFT FINGER(S) 05/08/2019 Ot 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.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 L ACERATION W FB 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 05/08/2019 Ot W26.8XXA C ONTACT WITH OTHER SHARP OBJECT(S), NEC, 05/08/2019 Ot Y92.22 REL [facility] INSTIT[facility] 05/08/2019 Ot Z79.01 DALE G TERM (CURRENT) USE OF ANTICOAGULANT 05/08/2019 Ot Z80.0 FAMI LY HISTORY OF MALIGNANT NEOPLASM OF 05/08/2019 Ot Z82.49 FAM LAW HX OF ISCHEM HEART DIS AND OTH DI 05/08/2019 Ot Z88.0 GRETA RGY STATUS TO PENICILLIN 05/08/2019 Ot Z88.2 GRETA RGY STATUS TO SULFONAMIDES STATUS 05/11/2019 Ot K21.9 RICHA RO-ESOPHAGEAL REFLUX DISEASE WITHOUT 05/11/2019 Ot M79.645 PA IN IN LEFT FINGER(S) 05/11/2019 Ot S61.221A L ACERATION W FB 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 05/11/2019 Ot W26.8XXA C ONTACT WITH OTHER SHARP OBJECT(S), NEC, 05/11/2019 Ot Y92.22 REL [facility] 05/11/2019 Ot Z79.01 DALE G TERM (CURRENT) USE OF ANTICOAGULANT 05/11/2019 Ot Z80.0 FAMI LY HISTORY OF MALIGNANT NEOPLASM OF 05/11/2019 Ot Z82.49 FAM LAW HX OF ISCHEM HEART DIS AND OTH DI 05/11/2019 Ot Z88.0 GRETA RGY STATUS TO PENICILLIN 05/11/2019 Ot Z88.2 GRETA RGY STATUS TO SULFONAMIDES STATUS 06/17/2019 OUMAR ESTEVEZ MD Ot E78.00 PURE HYPERCHOLESTEROLEMIA, UNSPECIFIED 06/17/2019 OUMAR ESTVEEZ MD Ot F41 .9 ANXIETY DISORDER, UNSPECIFIED 06/17/2019 OUMAR ESTEVEZ MD Ot J30 .2 OTHER SEASONAL ALLERGIC RHINITIS 06/17/2019 OUMAR ESTEVEZ MD Ot K21 .9 GASTRO-ESOPHAGEAL REFLUX DISEASE WITHOUT 06/17/2019 OUMAR ESTEVEZ MD Ot K44 .9 DIAPHRAGMATIC HERNIA WITHOUT OBSTRUCTION 06/17/2019 OUMAR ESTEVEZ MD Ot K56 .2 VOLVULUS 06/17/2019 OUMAR ESTEVEZ MD Ot K57.90 DVRTCLOS OF INTEST, PART UNSP, W/O PERF 06/17/2019 OUMAR ESTEVEZ MD, Ot M19.011 PRIMARY OSTEOARTHRITIS, RIGHT SHOULDER 06/17/2019 OUMAR ESTEVEZ MD Ot M19.012 PRIMARY OSTEOARTHRITIS, LEFT SHOULDER 06/17/2019 OUMAR ESTEVEZ MD Ot M54 .6 PAIN IN THORACIC SPINE 06/17/2019 OUMAR ESTEVEZ MD Ot Z87.19 PERSONAL HISTORY OF OTHER DISEASES OF 06/17/2019 OUMAR ESTEVEZ MD Ot Z87.891 PERSONAL HISTORY OF NICOTINE DEPENDENCE 06/17/2019 OUMAR ESTEVEZ MD Ot Z95 .0 PRESENCE OF CARDIAC PACEMAKER 06/17/2019 OUMAR ESTEVEZ MD Ot E78.00 PURE HYPERCHOLESTEROLEMIA, UNSPECIFIED 06/17/2019 OUMAR ESTEVEZ MD Ot F41 .9 ANXIETY DISORDER, UNSPECIFIED 06/17/2019 OUMAR ESTEVEZ MD Ot J30 .2 OTHER SEASONAL ALLERGIC RHINITIS 06/17/2019 OUMAR ESTEVEZ MD Ot K21 .9 GASTRO-ESOPHAGEAL REFLUX DISEASE WITHOUT 06/17/2019 OUMAR ESTEVEZ MD Ot K44 .9 DIAPHRAGMATIC HERNIA WITHOUT OBSTRUCTION 06/17/2019 OUMAR ESTEVEZ MD Ot K56 .2 VOLVULUS 06/17/2019 OUMAR ESTEVEZ MD Ot K57.90 DVRTCLOS OF INTEST, PART UNSP, W/O PERF 06/17/2019 OUMAR ESTEVEZ MD Ot K91.89 OTH POSTPROCEDURAL COMPLICATIONS AND DIS 06/17/2019 OUMAR ESTEVEZ MD Ot M19.011 PRIMARY OSTEOARTHRITIS, RIGHT SHOULDER 06/17/2019 OUMAR ESTEVEZ MD Ot M19.012 PRIMARY OSTEOARTHRITIS, LEFT SHOULDER 06/17/2019 OUMAR ESTEVEZ MD Ot M54 .6 PAIN IN THORACIC SPINE 06/17/2019 OUMAR ESTEVEZ MD Ot Z87.19 PERSONAL HISTORY OF OTHER DISEASES OF 06/17/2019 OUMAR ESTEVEZ MD Ot Z87.891 PERSONAL HISTORY OF NICOTINE DEPENDENCE 06/17/2019 OUMAR ESTEVEZ MD Ot Z95 .0 PRESENCE OF CARDIAC PACEMAKER 06/17/2019 OUMAR ESTEVEZ MD Ot E78.00 PURE HYPERCHOLESTEROLEMIA, UNSPECIFIED 06/17/2019 OUMAR ESTEVEZ MD Ot F41 .9 ANXIETY DISORDER, UNSPECIFIED 06/17/2019 OUMAR ESTEVEZ MD Ot J30 .2 OTHER SEASONAL ALLERGIC RHINITIS 06/17/2019 OUMAR ESTEVEZ MD Ot K21 .9 GASTRO-ESOPHAGEAL REFLUX DISEASE WITHOUT 06/17/2019 OUMAR ESTEVEZ MD Ot K44 .9 DIAPHRAGMATIC HERNIA WITHOUT OBSTRUCTION 06/17/2019 OUMAR ESTEVEZ MD Ot K56 .2 VOLVULUS 06/17/2019 OUMAR ESTEVEZ MD Ot K57.90 DVRTCLOS OF INTEST, PART UNSP, W/O PERF 06/17/2019 OUMAR ESTEVEZ MD Ot K91.89 OTH POSTPROCEDURAL COMPLICATIONS AND DIS 06/17/2019 OUMAR ESTEVEZ MD Ot M19.011 PRIMARY OSTEOARTHRITIS, RIGHT SHOULDER 06/17/2019 OUMAR ESTEVEZ MD Ot M19.012 PRIMARY OSTEOARTHRITIS, LEFT SHOULDER 06/17/2019 OUMAR ESTEVEZ MD Ot M54 .6 PAIN IN THORACIC SPINE 06/17/2019 OUMAR ESTEVEZ MD Ot Z87.19 PERSONAL HISTORY OF OTHER DISEASES OF TH 06/17/2019 OUMAR ESTEVEZ MD Ot Z87.891 PERSONAL HISTORY OF NICOTINE DEPENDENCE 06/17/2019 OUMAR ESTEVEZ MD Ot Z95 .0 PRESENCE OF CARDIAC PACEMAKER 06/17/2019 OUMAR ESTEVEZ MD Ot E78.00 PURE HYPERCHOLESTEROLEMIA, UNSPECIFIED 06/17/2019 OUMAR ESTEVEZ MD Ot F41 .9 ANXIETY DISORDER, UNSPECIFIED 06/17/2019 OUMAR ESTEVEZ MD Ot J30 .2 OTHER SEASONAL ALLERGIC RHINITIS 06/17/2019 OUMAR ESTEVEZ MD Ot K21 .9 GASTRO-ESOPHAGEAL REFLUX DISEASE WITHOUT 06/17/2019 OUMAR ESTEVEZ MD Ot K44 .9 DIAPHRAGMATIC HERNIA WITHOUT OBSTRUCTION 06/17/2019 OUMAR ESTEEVZ MD Ot K56 .2 VOLVULUS 06/17/2019 OUMAR ESTEVEZ MD Ot K57.90 DVRTCLOS OF INTEST, PART UNSP, W/O PERF 06/17/2019 OUMAR ESTEVEZ MD Ot K91.89 OTH POSTPROCEDURAL COMPLICATIONS AND DIS 06/17/2019 OUMAR ESTEVEZ MD Ot M19.011 PRIMARY OSTEOARTHRITIS, RIGHT SHOULDER 06/17/2019 OUMAR ESTEVEZ MD Ot M19.012 PRIMARY OSTEOARTHRITIS, LEFT SHOULDER 06/17/2019 OUMAR ESTEVEZ MD Ot M54 .6 PAIN IN THORACIC SPINE 06/17/2019 OUMAR ESTEVEZ MD Ot Z87.19 PERSONAL HISTORY OF OTHER DISEASES OF 06/17/2019 OUMAR ESTEVEZ MD Ot Z87.891 PERSONAL HISTORY OF NICOTINE DEPENDENCE 06/17/2019 OUMAR ESTEVEZ MD Ot Z95 .0 PRESENCE OF CARDIAC PACEMAKER 06/19/2019 OUMAR ESTEVEZ MD Ot E78.00 PURE HYPERCHOLESTEROLEMIA, UNSPECIFIED 06/19/2019 OUMAR ESTEVEZ MD Ot F41 .9 ANXIETY DISORDER, UNSPECIFIED 06/19/2019 OUMAR ESTEVEZ MD Ot J30 .2 OTHER SEASONAL ALLERGIC RHINITIS 06/19/2019 OUMAR ESTEVEZ MD Ot K21 .9 GASTRO-ESOPHAGEAL REFLUX DISEASE WITHOUT 06/19/2019 OUMAR ESTEVEZ MD Ot K44 .9 DIAPHRAGMATIC HERNIA WITHOUT OBSTRUCTION 06/19/2019 OUMAR ESTEVEZ MD Ot K56 .2 VOLVULUS 06/19/2019 OUMAR ESTEVEZ MD Ot K57.90 DVRTCLOS OF INTEST, PART UNSP, W/O PERF 06/19/2019 OUMAR ESTEVEZ MD Ot K91.89 OTH POSTPROCEDURAL COMPLICATIONS AND DIS 06/19/2019 OUMAR ESTEVEZ MD Ot M19.011 PRIMARY OSTEOARTHRITIS, RIGHT SHOULDER 06/19/2019 OUMAR ESTEVEZ MD Ot M19.012 PRIMARY OSTEOARTHRITIS, LEFT SHOULDER 06/19/2019 OUMAR ESTEVEZ MD Ot M54 .6 PAIN IN THORACIC SPINE 06/19/2019 OUMAR ESTEVEZ MD Ot Z87.19 PERSONAL HISTORY OF OTHER DISEASES OF 06/19/2019 OUMAR ESTEVEZ MD Ot Z87.891 PERSONAL HISTORY OF NICOTINE DEPENDENCE 06/19/2019 OUMAR ESTEVEZ MD Ot Z95 .0 PRESENCE OF CARDIAC PACEMAKER 06/19/2019 OUMAR ESTEVEZ MD Ot E78.00 PURE HYPERCHOLESTEROLEMIA, UNSPECIFIED 06/19/2019 OUMAR ESTEVEZ MD Ot F41 .9 ANXIETY DISORDER, UNSPECIFIED 06/19/2019 OUMAR ESTEVEZ MD Ot J30 .2 OTHER SEASONAL ALLERGIC RHINITIS 06/19/2019 OUMAR ESTEVEZ MD Ot K21 .9 GASTRO-ESOPHAGEAL REFLUX DISEASE WITHOUT 06/19/2019 OUMAR ESTEVEZ MD Ot K44 .9 DIAPHRAGMATIC HERNIA WITHOUT OBSTRUCTION 06/19/2019 OUMAR ESTEVEZ MD Ot K56 .2 VOLVULUS 06/19/2019 OUMAR ESTEVEZ MD Ot K57.90 DVRTCLOS OF INTEST, PART UNSP, W/O PERF 06/19/2019 OUMAR ESTEVEZ MD Ot K91.89 OTH POSTPROCEDURAL COMPLICATIONS AND DIS 06/19/2019 OUMAR ESTEVEZ MD Ot M19.011 PRIMARY OSTEOARTHRITIS, RIGHT SHOULDER 06/19/2019 OUMAR ESTEVEZ MD Ot M19.012 PRIMARY OSTEOARTHRITIS, LEFT SHOULDER 06/19/2019 OUMAR ESTEVEZ MD Ot M54 .6 PAIN IN THORACIC SPINE 06/19/2019 OUMAR ESTEVEZ MD Ot Z87.19 PERSONAL HISTORY OF OTHER DISEASES OF TH 06/19/2019 OUMAR ESTEVEZ MD Ot Z87.891 PERSONAL HISTORY OF NICOTINE DEPENDENCE 06/19/2019 OUMAR ESTEVEZ MD Ot Z95 .0 PRESENCE OF CARDIAC PACEMAKER 06/20/2019 OUMAR ESTEVEZ MD Ot E78.00 PURE HYPERCHOLESTEROLEMIA, UNSPECIFIED 06/20/2019 OUMAR ESTEVEZ MD Ot F41 .9 ANXIETY DISORDER, UNSPECIFIED 06/20/2019 OUMAR ESTEVEZ MD Ot J30 .2 OTHER SEASONAL ALLERGIC RHINITIS 06/20/2019 OUMAR ESTEVEZ MD Ot K21 .9 GASTRO-ESOPHAGEAL REFLUX DISEASE WITHOUT 06/20/2019 OUMAR ESTEVEZ MD Ot K44 .9 DIAPHRAGMATIC HERNIA WITHOUT OBSTRUCTION 06/20/2019 OUMAR ESTEVEZ MD Ot K56 .2 VOLVULUS 06/20/2019 OUMAR ESTEVEZ MD Ot K57.90 DVRTCLOS OF INTEST, PART UNSP, W/O PERF 06/20/2019 OUMAR ESTEVEZ MD Ot K91.89 OTH POSTPROCEDURAL COMPLICATIONS AND DIS 06/20/2019 OUMAR ESTEVEZ MD Ot M19.011 PRIMARY OSTEOARTHRITIS, RIGHT SHOULDER 06/20/2019 OUMAR ESTEVEZ MD Ot M19.012 PRIMARY OSTEOARTHRITIS, LEFT SHOULDER 06/20/2019 OUMAR ESTEVEZ MD Ot M54 .6 PAIN IN THORACIC SPINE 06/20/2019 OUMAR ESTEVEZ MD Ot Z87.19 PERSONAL HISTORY OF OTHER DISEASES OF 06/20/2019 OUMAR ESTEVEZ MD Ot Z87.891 PERSONAL HISTORY OF NICOTINE DEPENDENCE 06/20/2019 OUMAR ESTEVEZ MD Ot Z95 .0 PRESENCE OF CARDIAC PACEMAKER 06/20/2019 OUMAR ESTEVEZ MD Ot E78.00 PURE HYPERCHOLESTEROLEMIA, UNSPECIFIED 06/20/2019 OUMAR ESTEVEZ MD Ot F41 .9 ANXIETY DISORDER, UNSPECIFIED 06/20/2019 OUMAR ESTEVEZ MD Ot J30 .2 OTHER SEASONAL ALLERGIC RHINITIS 06/20/2019 OUMAR ESTEVEZ MD Ot K21 .9 GASTRO-ESOPHAGEAL REFLUX DISEASE WITHOUT 06/20/2019 OUMAR ESTEVEZ MD Ot K44 .9 DIAPHRAGMATIC HERNIA WITHOUT OBSTRUCTION 06/20/2019 OUMAR ESTEVEZ MD Ot K56 .2 VOLVULUS 06/20/2019 OUMAR ESTEVEZ MD Ot K57.90 DVRTCLOS OF INTEST, PART UNSP, W/O PERF 06/20/2019 OUMAR ESTEVEZ MD Ot K91.89 OTH POSTPROCEDURAL COMPLICATIONS AND DIS 06/20/2019 OUMAR ESTEVEZ MD Ot M19.011 PRIMARY OSTEOARTHRITIS, RIGHT SHOULDER 06/20/2019 OUMAR ESTEVEZ MD Ot M19.012 PRIMARY OSTEOARTHRITIS, LEFT SHOULDER 06/20/2019 OUMAR ESTEVEZ MD Ot M54 .6 PAIN IN THORACIC SPINE 06/20/2019 OUMAR ESTEVEZ MD Ot Z87.19 PERSONAL HISTORY OF OTHER DISEASES OF 06/20/2019 OUMAR ESTEVEZ MD, Ot Z87.891 PERSONAL HISTORY OF NICOTINE DEPENDENCE 06/20/2019 OUMAR ESTEVEZ MD Ot Z95 .0 PRESENCE OF CARDIAC PACEMAKER 06/20/2019 OUMAR ESTEVEZ MD Ot E78.00 PURE HYPERCHOLESTEROLEMIA, UNSPECIFIED 06/20/2019 OUMAR ESTEVEZ MD Ot F41 .9 ANXIETY DISORDER, UNSPECIFIED 06/20/2019 OUMAR ESTEVEZ MD Ot J30 .2 OTHER SEASONAL ALLERGIC RHINITIS 06/20/2019 OUMAR ESTEVEZ MD Ot K21 .9 GASTRO-ESOPHAGEAL REFLUX DISEASE WITHOUT 06/20/2019 OUMAR ESTEVEZ MD Ot K44 .9 DIAPHRAGMATIC HERNIA WITHOUT OBSTRUCTION 06/20/2019 OUMAR ESTEVEZ MD Ot K56 .2 VOLVULUS 06/20/2019 OUMAR ESTEVEZ MD Ot K57.90 DVRTCLOS OF INTEST, PART UNSP, W/O PERF 06/20/2019 OUMAR ESTEVEZ MD Ot K91.89 OTH POSTPROCEDURAL COMPLICATIONS AND DIS 06/20/2019 OUMAR ESTEVEZ MD Ot M19.011 PRIMARY OSTEOARTHRITIS, RIGHT SHOULDER 06/20/2019 OUMAR ESTEVEZ MD Ot M19.012 PRIMARY OSTEOARTHRITIS, LEFT SHOULDER 06/20/2019 OUMAR ESTEVEZ MD Ot M54 .6 PAIN IN THORACIC SPINE 06/20/2019 OUMAR ESTEVEZ MD Ot Z87.19 PERSONAL HISTORY OF OTHER DISEASES OF 06/20/2019 OUMAR ESTEVEZ MD Ot Z87.891 PERSONAL HISTORY OF NICOTINE DEPENDENCE 06/20/2019 OUMAR ESTEVEZ MD Ot Z95 .0 PRESENCE OF CARDIAC PACEMAKER 06/21/2019 OUMAR ESTEVEZ MD Ot E78.00 PURE HYPERCHOLESTEROLEMIA, UNSPECIFIED 06/21/2019 OUMAR ESTEVEZ MD Ot F41 .9 ANXIETY DISORDER, UNSPECIFIED 06/21/2019 OUMAR ESTEVEZ MD Ot J30 .2 OTHER SEASONAL ALLERGIC RHINITIS 06/21/2019 OUMAR ESTEVEZ MD Ot K21 .9 GASTRO-ESOPHAGEAL REFLUX DISEASE WITHOUT 06/21/2019 OUMAR ESTEVEZ MD Ot K44 .9 DIAPHRAGMATIC HERNIA WITHOUT OBSTRUCTION 06/21/2019 OUMAR ESTEVEZ MD Ot K56 .2 VOLVULUS 06/21/2019 OUMAR ESTEVEZ MD Ot K57.90 DVRTCLOS OF INTEST, PART UNSP, W/O PERF 06/21/2019 OUMAR ESTEVEZ MD Ot K91.89 OTH POSTPROCEDURAL COMPLICATIONS AND DIS 06/21/2019 OUMAR ESTEVEZ MD Ot M19.011 PRIMARY OSTEOARTHRITIS, RIGHT SHOULDER 06/21/2019 OUMAR ESTEVEZ MD Ot M19.012 PRIMARY OSTEOARTHRITIS, LEFT SHOULDER 06/21/2019 OUMAR ESTEVEZ MD Ot M54 .6 PAIN IN THORACIC SPINE 06/21/2019 OUMAR ESTEVEZ MD Ot Z87.19 PERSONAL HISTORY OF OTHER DISEASES OF TH 06/21/2019 OUMAR ESTEVEZ MD Ot Z87.891 PERSONAL HISTORY OF NICOTINE DEPENDENCE 06/21/2019 OUMAR ESTEVEZ MD Ot Z95 .0 PRESENCE OF CARDIAC PACEMAKER 06/22/2019 OUMAR ESTEVEZ MD Ot E78.00 PURE HYPERCHOLESTEROLEMIA, UNSPECIFIED 06/22/2019 OUMAR ESTVEEZ MD Ot F41 .9 ANXIETY DISORDER, UNSPECIFIED 06/22/2019 OUMAR ESTEVEZ MD Ot J30 .2 OTHER SEASONAL ALLERGIC RHINITIS 06/22/2019 OUMAR ESTEVEZ MD Ot K21 .9 GASTRO-ESOPHAGEAL REFLUX DISEASE WITHOUT 06/22/2019 OUMAR ESTEVEZ MD Ot K44 .9 DIAPHRAGMATIC HERNIA WITHOUT OBSTRUCTION 06/22/2019 OUMAR ESTEVEZ MD Ot K55.019 ACUTE ISCHEMIA OF SMALL INTESTINE, EXTEN 06/22/2019 OUMAR ESTEVEZ MD Ot K55.039 ACUTE ISCHEMIA OF LARGE INTESTINE, EXTEN 06/22/2019 OUMAR ESTEVEZ MD Ot K56 .2 VOLVULUS 06/22/2019 OUMAR ESTEVEZ MD Ot K57.90 DVRTCLOS OF INTEST, PART UNSP, W/O PERF 06/22/2019 OUMAR ESTEVEZ MD Ot K91.89 OTH POSTPROCEDURAL COMPLICATIONS AND DIS 06/22/2019 OUMAR ESTEVEZ MD Ot M19.011 PRIMARY OSTEOARTHRITIS, RIGHT SHOULDER 06/22/2019 OUMAR ESTEVEZ MD Ot M19.012 PRIMARY OSTEOARTHRITIS, LEFT SHOULDER 06/22/2019 OUMAR ESTEVEZ MD, Ot M54 .6 PAIN IN THORACIC SPINE 06/22/2019 OUMAR ESTEVEZ MD, Ot Z87.19 PERSONAL HISTORY OF OTHER DISEASES OF TH 06/22/2019 OUMAR ESTEVEZ MD, Ot Z87.891 PERSONAL HISTORY OF NICOTINE DEPENDENCE 06/22/2019 OUMAR ESTEVEZ MD, Ot Z95 .0 PRESENCE OF CARDIAC PACEMAKER Procedures Code Description Performed By Per formed On [id number] EX CISION OF ILEUM, OPEN APPROACH 06/16/2019 [id number] RE SECTION OF RIGHT LARGE INTESTINE, OPEN 06/16/2019 Results Test Result Range Complete blood count [...] NG NRG Automated blood complete blood count (he mogram) panel - 05/27/18 08:38 Blood leukocytes [...] 7-25 CREATININE 0.85 mg/dL 0.60-0.93 eGFR NON-AFR. [place] 68 mL/min/1.73m2 > OR = 60 eGFR [...] % NRG CBC MORPHOLOGY NORMAL COMMENT(S) NRG Complete blood count (CBC) with automate d white blood cell (WBC) differential - 06/15/19 17:31 Blood leukocytes automated count (number/volume) 12.6 10*3/uL 4.3-11.0 Blood erythrocytes automated count (number/volume) 5.81 10*6/uL 4.35-5.85 Venous blood hemoglobin measurement (mass/volume) 15.6 g/dL 11.5-16.0 Blood hematocrit (volume fraction) 47 % 35-52 Automated erythrocyte mean corpuscular volume 81 [ foz_us] 80-99 Automated erythrocyte mean corpuscular h emoglobin (mass per erythrocyte) 27 pg 25-34 Automated erythrocyte mean corpuscular h emoglobin concentration measurement (mass/volume) 33 g/dL 32-36 Automated erythrocyte distribution width ratio 14. 6 % 10.0- 14.5 Automated blood platelet count (count/volume) 291 10*3/uL 130-400 Automated blood platelet mean volume measurement 9.2 [foz_us] 7.4-10.4 Automated blood neutrophils/100 leukocytes 75 % 42-75 Automated blood lymphocytes/100 leukocytes 18 % 12-44 Blood monocytes/100 leukocytes 6 % 0-12 Automated blood eosinophils/100 leukocytes 0 % 0-10 Automated blood basophils/100 leukocytes 1 % 0-10 Blood neutrophils automated count (number/volume) 9.4 10*3 1.8-7.8 Blood lymphocytes automated count (number/volume) 2.3 10*3 1.0-4.0 Blood monocytes automated count (number/volume) 0. 7 10*3 0.0-1.0 Automated eosinophil count 0.0 10*3/uL 0 .0-0.3 Automated blood basophil count (count/volume) 0.1 10*3/uL 0.0-0.1 Comprehensive metabolic panel - 06/15/19 17:31 Serum or plasma sodium measurement (moles/volume) 141 mmol/L 135-145 Serum or plasma potassium measurement (moles/volume) 4.0 mmol/L 3.6-5.0 Serum or plasma chloride measurement (moles/volume) 103 mmol/L 98-107 Carbon dioxide 24 mmol/L 21-32 Serum or plasma anion gap determination (moles/volume) 14 mmol/L 5-14 Serum or plasma urea nitrogen measurement (mass/volume ) 12 mg/dL 7-18 Serum or plasma creatinine measurement (mass/volume) 0.81 mg/dL 0.60-1.30 Serum or plasma urea nitrogen/creatinine mass ratio 15 NRG Serum or plasma creatinine measurement w ith calculation of estimated glomerular filtration rate > NRG Serum or plasma glucose measurement (mass/volume) 109 mg/dL 70-105 Serum or plasma calcium measurement (mass/volume) 10.7 mg/dL 8.5-10.1 Serum or plasma total bilirubin measurement (mass/volu me) 0.6 mg/dL 0.1-1.0 Serum or plasma alkaline phosphatase tan surement (enzymatic activity/volume) 99 U/L 40-136 Serum or plasma aspartate aminotransfera se measurement (enzymatic activity/volume) 19 U/L 5-34 Serum or plasma alanine aminotransferase measurement (enzymatic activity/volume) 10 U/L 0-55 Serum or plasma protein measurement (mass/volume) 7.7 g/dL 6.4-8.2 Serum or plasma albumin measurement (mass/volume) 4.8 g/dL 3.2-4.5 Serum or plasma amylase measurement (enz ymatic activity/volume) - 06/15/19 17:31 Serum or plasma amylase measurement (enzymatic activit y/volume) 86 U/L 25-125 Lipase - 06/15/19 17:31 Lipase 34 U/L 8-78 Complete urinalysis with reflex to cultu re - 06/15/19 20:01 Urine color determination YELLOW NRG Urine clarity determination CLEAR NR G Urine pH measurement by test strip 5.0 5-9 Specific gravity of urine by test strip <= 1.016-1.022 Urine protein assay by test strip, semi-quantitative NEGATIVE NEGATIVE Urine glucose detection by automated test strip NE GATIVE NEGATIVE Erythrocytes detection in urine sediment by light micr oscopy 1+ NEGATIVE Urine ketones detection by automated test strip NE GATIVE NEGATIVE Urine nitrite detection by test strip NEGATIVE NEGATIVE Urine total bilirubin detection by test strip NEGA TIVE NEGATIVE Urine urobilinogen measurement by automated test strip (mass/volume) 0.2 mg/dL < = 1.0 Urine leukocyte esterase detection by dipstick TRA CE NEGATIVE Automated urine sediment erythrocyte cou nt by microscopy (number/high power field) RARE NRG Automated urine sediment leukocyte count by microscopy (number/high power field) [HPF] NRG Bacteria detection in urine sediment by light microsco py NEGATIVE NRG Squamous epithelial cells detection in u rine sediment by light microscopy 2-5 NRG Crystals detection in urine sediment by light microsco py NONE NRG Casts detection in urine sediment by light microscopy NONE NRG Mucus detection in urine sediment by light microscopy NONE NRG Complete urinalysis with reflex to culture NO NRG Blood lactic acid measurement (moles/vol ume) - 06/15/19 20:01 Blood lactic acid measurement (moles/volume) 1.08 mmol/L 0.50-2.00 Methicillin resistant Staphylococcus aur eus (MRSA) screening culture - 06/15/19 23:50 Methicillin resistant Staphylococcus aureus (MRSA) scr eening culture NEG NRG Complete blood count (CBC) with automate d white blood cell (WBC) differential - 06/16/19 05:25 Blood leukocytes automated count (number/volume) 12.4 10*3/uL 4.3-11.0 Blood erythrocytes automated count (number/volume) 5.36 10*6/uL 4.35-5.85 Venous blood hemoglobin measurement (mass/volume) 14.4 g/dL 11.5-16.0 Blood hematocrit (volume fraction) 43 % 35-52 Automated erythrocyte mean corpuscular volume 81 [ foz_us] 80-99 Automated erythrocyte mean corpuscular h emoglobin (mass per erythrocyte) 27 pg 25-34 Automated erythrocyte mean corpuscular h emoglobin concentration measurement (mass/volume) 33 g/dL 32-36 Automated erythrocyte distribution width ratio 15. 4 % 10.0- 14.5 Automated blood platelet count (count/volume) 274 10*3/uL 130-400 Automated blood platelet mean volume measurement 9.5 [foz_us] 7.4-10.4 Automated blood neutrophils/100 leukocytes 81 % 42-75 Automated blood lymphocytes/100 leukocytes 12 % 12-44 Blood monocytes/100 leukocytes 7 % 0-12 Automated blood eosinophils/100 leukocytes 1 % 0-10 Automated blood basophils/100 leukocytes 0 % 0-10 Blood neutrophils automated count (number/volume) 10.0 10*3 1.8-7.8 Blood lymphocytes automated count (number/volume) 1.5 10*3 1.0-4.0 Blood monocytes automated count (number/volume) 0. 8 10*3 0.0-1.0 Automated eosinophil count 0.1 10*3/uL 0 .0-0.3 Automated blood basophil count (count/volume) 0.0 10*3/uL 0.0-0.1 Comprehensive metabolic panel - 06/16/19 05:25 Serum or plasma sodium measurement (moles/volume) 139 mmol/L 135-145 Serum or plasma potassium measurement (moles/volume) 4.5 mmol/L 3.6-5.0 Serum or plasma chloride measurement (moles/volume) 106 mmol/L 98-107 Carbon dioxide 23 mmol/L 21-32 Serum or plasma anion gap determination (moles/volume) 10 mmol/L 5-14 Serum or plasma urea nitrogen measurement (mass/volume ) 11 mg/dL 7-18 Serum or plasma creatinine measurement (mass/volume) 0.88 mg/dL 0.60-1.30 Serum or plasma urea nitrogen/creatinine mass ratio 13 NRG Serum or plasma creatinine measurement w ith calculation of estimated glomerular filtration rate > NRG Serum or plasma glucose measurement (mass/volume) 113 mg/dL 70-105 Serum or plasma calcium measurement (mass/volume) 9.3 mg/dL 8.5-10.1 Serum or plasma total bilirubin measurement (mass/volu me) 0.9 mg/dL 0.1-1.0 Serum or plasma alkaline phosphatase tan surement (enzymatic activity/volume) 85 U/L 40-136 Serum or plasma aspartate aminotransfera se measurement (enzymatic activity/volume) 49 U/L 5-34 Serum or plasma alanine aminotransferase measurement (enzymatic activity/volume) 35 U/L 0-55 Serum or plasma protein measurement (mass/volume) 6.1 g/dL 6.4-8.2 Serum or plasma albumin measurement (mass/volume) 3.6 g/dL 3.2-4.5 CALCIUM CORRECTED 9.6 mg/dL 8.5-10.1 Whole blood hemoglobin and hematocrit [facility] 06/16/19 22:24 Venous blood hemoglobin measurement (mass/volume) 9.0 g/dL 11.5-16.0 Blood hematocrit (volume fraction) 28 % 35-52 Whole blood hemoglobin and hematocrit [facility] 06/17/19 00:52 Venous blood hemoglobin measurement (mass/volume) 7.4 g/dL 11.5-16.0 Blood hematocrit (volume fraction) 23 % 35-52 FRESH FROZEN PLASMA - 06/17/19 01:10 FRESH FROZEN PLASMA TRANSFUSE D 06/17/19 1137 NRG PLATELET PHERESIS LR - 06/17/19 01:10 PLATELET PHERESIS LR PRSMD TR FSD 06/17/19 1215 NRG RED CELLS LEUKO REDUCED AS1 - 06/17/19 0 1:10 RED CELLS LEUKO REDUCED AS1 N OT AVAILABLE NRG Blood type T Indirect antibody screen [facility] 06/17/19 01:10 WRISTBAND NUMBER [id number] NRG ABO+Rh group OP NRG Blood group antibody screen NEGATIVE NR G FRESH FROZEN PLASMA - 06/17/19 01:10 FRESH FROZEN PLASMA TRANSFUSE D 06/17/19 0344 NRG FRESH FROZEN PLASMA - 06/17/19 01:10 FRESH FROZEN PLASMA TRANSFUSE D 06/17/19 0842 NRG PT panel in platelet poor plasma by coag ulation assay - 06/17/19 02:35 Prothrombin time (PT) in platelet poor plasma by coagu lation assay 20.2 s 12.2-14.7 INR in platelet poor plasma or blood by coagulation as say 1.6 0.8-1.4 Complete blood count (CBC) with automate d white blood cell (WBC) differential - 06/17/19 03:15 Blood leukocytes automated count (number/volume) 17.8 10*3/uL 4.3-11.0 Blood erythrocytes automated count (number/volume) 3.34 10*6/uL 4.35-5.85 Venous blood hemoglobin measurement (mass/volume) 9.5 g/dL 11.5-16.0 Blood hematocrit (volume fraction) 29 % 35-52 Automated erythrocyte mean corpuscular volume 86 [ foz_us] 80-99 Automated erythrocyte mean corpuscular h emoglobin (mass per erythrocyte) 28 pg 25-34 Automated erythrocyte mean corpuscular h emoglobin concentration measurement (mass/volume) 33 g/dL 32-36 Automated erythrocyte distribution width ratio 14. 6 % 10.0- 14.5 Automated blood platelet count (count/volume) 192 10*3/uL 130-400 Automated blood platelet mean volume measurement 10.0 [foz_us] 7.4-10.4 Automated blood neutrophils/100 leukocytes 90 % 42-75 Automated blood lymphocytes/100 leukocytes 5 % 12-44 Blood monocytes/100 leukocytes 5 % 0-12 Automated blood eosinophils/100 leukocytes 0 % 0-10 Automated blood basophils/100 leukocytes 0 % 0-10 Blood neutrophils automated count (number/volume) 16.0 10*3 1.8-7.8 Blood lymphocytes automated count (number/volume) 0.9 10*3 1.0-4.0 Blood monocytes automated count (number/volume) 0. 9 10*3 0.0-1.0 Automated eosinophil count 0.0 10*3/uL 0 .0-0.3 Automated blood basophil count (count/volume) 0.0 10*3/uL 0.0-0.1 Comprehensive metabolic panel - 06/17/19 03:15 Serum or plasma sodium measurement (moles/volume) 139 mmol/L 135-145 Serum or plasma potassium measurement (moles/volume) 4.1 mmol/L 3.6-5.0 Serum or plasma chloride measurement (moles/volume) 110 mmol/L 98-107 Carbon dioxide 17 mmol/L 21-32 Serum or plasma anion gap determination (moles/volume) 12 mmol/L 5-14 Serum or plasma urea nitrogen measurement (mass/volume ) 16 mg/dL 7-18 Serum or plasma creatinine measurement (mass/volume) 0.83 mg/dL 0.60-1.30 Serum or plasma urea nitrogen/creatinine mass ratio 19 NRG Serum or plasma creatinine measurement w ith calculation of estimated glomerular filtration rate > NRG Serum or plasma glucose measurement (mass/volume) 194 mg/dL 70-105 Serum or plasma calcium measurement (mass/volume) 7.0 mg/dL 8.5-10.1 Serum or plasma total bilirubin measurement (mass/volu me) 0.9 mg/dL 0.1-1.0 Serum or plasma alkaline phosphatase tan surement (enzymatic activity/volume) 55 U/L 40-136 Serum or plasma aspartate aminotransfera se measurement (enzymatic activity/volume) 67 U/L 5-34 Serum or plasma alanine aminotransferase measurement (enzymatic activity/volume) 91 U/L 0-55 Serum or plasma protein measurement (mass/volume) 3.3 g/dL 6.4-8.2 Serum or plasma albumin measurement (mass/volume) 2.1 g/dL 3.2-4.5 CALCIUM CORRECTED 8.5 mg/dL 8.5-10.1 Whole blood hemoglobin and hematocrit banner - 06/17/19 05:48 Venous blood hemoglobin measurement (mass/volume) 7.0 g/dL 11.5-16.0 Blood hematocrit (volume fraction) 21 % 35-52 Complete blood count (CBC) with automate d white blood cell (WBC) differential - 06/17/19 08:58 Blood leukocytes automated count (number/volume) 15.5 10*3/uL 4.3-11.0 Blood erythrocytes automated count (number/volume) 2.51 10*6/uL 4.35-5.85 Venous blood hemoglobin measurement (mass/volume) 7.4 g/dL 11.5-16.0 Blood hematocrit (volume fraction) 21 % 35-52 Automated erythrocyte mean corpuscular volume 85 [ foz_us] 80-99 Automated erythrocyte mean corpuscular h emoglobin (mass per erythrocyte) 29 pg 25-34 Automated erythrocyte mean corpuscular h emoglobin concentration measurement (mass/volume) 35 g/dL 32-36 Automated erythrocyte distribution width ratio 14. 0 % 10.0- 14.5 Automated blood platelet count (count/volume) 116 10*3/uL 130-400 Automated blood platelet mean volume measurement 9.5 [foz_us] 7.4-10.4 Automated blood neutrophils/100 leukocytes 90 % 42-75 Automated blood lymphocytes/100 leukocytes 5 % 12-44 Blood monocytes/100 leukocytes 6 % 0-12 Automated blood eosinophils/100 leukocytes 0 % 0-10 Automated blood basophils/100 leukocytes 0 % 0-10 Blood neutrophils automated count (number/volume) 13.9 10*3 1.8-7.8 Blood lymphocytes automated count (number/volume) 0.7 10*3 1.0-4.0 Blood monocytes automated count (number/volume) 0. 9 10*3 0.0-1.0 Automated eosinophil count 0.0 10*3/uL 0 .0-0.3 Automated blood basophil count (count/volume) 0.0 10*3/uL 0.0-0.1 PT panel in platelet poor plasma by coag ulation assay - 06/17/19 08:58 Prothrombin time (PT) in platelet poor plasma by coagu lation assay 15.9 s 12.2-14.7 INR in platelet poor plasma or blood by coagulation as say 1.2 0.8-1.4 Activated partial thromboplastin time (a PTT) in platelet poor plasma bycoagulation assay - 06/17/19 08:58 Activated partial thromboplastin time (a PTT) in platelet poor plasma bycoagulation assay 36 s 24-35 Comprehensive metabolic panel - 06/17/19 08:58 Serum or plasma sodium measurement (moles/volume) 140 mmol/L 135-145 Serum or plasma potassium measurement (moles/volume) 3.3 mmol/L 3.6-5.0 Serum or plasma chloride measurement (moles/volume) 108 mmol/L 98-107 Carbon dioxide 22 mmol/L 21-32 Serum or plasma anion gap determination (moles/volume) 10 mmol/L 5-14 Serum or plasma urea nitrogen measurement (mass/volume ) 16 mg/dL 7-18 Serum or plasma creatinine measurement (mass/volume) 0.77 mg/dL 0.60-1.30 Serum or plasma urea nitrogen/creatinine mass ratio 21 NRG Serum or plasma creatinine measurement w ith calculation of estimated glomerular filtration rate > NRG Serum or plasma glucose measurement (mass/volume) 181 mg/dL 70-105 Serum or plasma calcium measurement (mass/volume) 7.4 mg/dL 8.5-10.1 Serum or plasma total bilirubin measurement (mass/volu me) 2.0 mg/dL 0.1-1.0 Serum or plasma alkaline phosphatase tan surement (enzymatic activity/volume) 45 U/L 40-136 Serum or plasma aspartate aminotransfera se measurement (enzymatic activity/volume) 42 U/L 5-34 Serum or plasma alanine aminotransferase measurement (enzymatic activity/volume) 52 U/L 0-55 Serum or plasma protein measurement (mass/volume) 3.7 g/dL 6.4-8.2 Serum or plasma albumin measurement (mass/volume) 2.3 g/dL 3.2-4.5 CALCIUM CORRECTED 8.8 mg/dL 8.5-10.1 Manual absolute plasma cell count - 05/25 06/12 08:58 Blood monocytes/100 leukocytes 3 % NRG Manual blood segmented neutrophils/100 leukocytes 78 % NRG Blood band neutrophils/100 leukocytes 12 % NRG Manual blood lymphocytes/100 leukocytes 7 % NRG Manual eosinophils/100 leukocytes in nose 0 % NRG Manual blood basophils/100 leukocytes 0 % NRG Blood ovalocytes detection by light microscopy SLI GHT NRG Blood poikilocytosis detection by light microscopy SLIGHT NRG Capillary blood glucose measurement by g lucometer (mass/volume) - 06/17/19 11:41 Capillary blood glucose measurement by glucometer (mas s/volume) 185 mg/dL 70-110 Sputum Gram stain - 06/17/19 14:38 Sputum Gram stain No bacteria seen NRG Bacterial sputum culture - 06/17/19 14:3 8 Bacterial sputum culture NG NRG Complete blood count (CBC) with automate d white blood cell (WBC) differential - 06/17/19 15:28 Blood leukocytes automated count (number/volume) 6.3 10*3/uL 4.3-11.0 Blood erythrocytes automated count (number/volume) 2.89 10*6/uL 4.35-5.85 Venous blood hemoglobin measurement (mass/volume) 8.8 g/dL 11.5-16.0 Blood hematocrit (volume fraction) 25 % 35-52 Automated erythrocyte mean corpuscular volume 86 [ foz_us] 80-99 Automated erythrocyte mean corpuscular h emoglobin (mass per erythrocyte) 30 pg 25-34 Automated erythrocyte mean corpuscular h emoglobin concentration measurement (mass/volume) 35 g/dL 32-36 Automated erythrocyte distribution width ratio 14. 5 % 10.0- 14.5 Automated blood platelet count (count/volume) 124 10*3/uL 130-400 Automated blood platelet mean volume measurement 9.9 [foz_us] 7.4-10.4 Automated blood neutrophils/100 leukocytes 83 % 42-75 Automated blood lymphocytes/100 leukocytes 12 % 12-44 Blood monocytes/100 leukocytes 6 % 0-12 Automated blood eosinophils/100 leukocytes 0 % 0-10 Automated blood basophils/100 leukocytes 0 % 0-10 Blood neutrophils automated count (number/volume) 5.2 10*3 1.8-7.8 Blood lymphocytes automated count (number/volume) 0.8 10*3 1.0-4.0 Blood monocytes automated count (number/volume) 0. 4 10*3 0.0-1.0 Automated eosinophil count 0.0 10*3/uL 0 .0-0.3 Automated blood basophil count (count/volume) 0.0 10*3/uL 0.0-0.1 Comprehensive metabolic panel - 06/17/19 15:28 Serum or plasma sodium measurement (moles/volume) 142 mmol/L 135-145 Serum or plasma potassium measurement (moles/volume) 3.2 mmol/L 3.6-5.0 Serum or plasma chloride measurement (moles/volume) 110 mmol/L 98-107 Carbon dioxide 23 mmol/L 21-32 Serum or plasma anion gap determination (moles/volume) 9 mmol/L 5-14 Serum or plasma urea nitrogen measurement (mass/volume ) 17 mg/dL 7-18 Serum or plasma creatinine measurement (mass/volume) 0.78 mg/dL 0.60-1.30 Serum or plasma urea nitrogen/creatinine mass ratio 22 NRG Serum or plasma creatinine measurement w ith calculation of estimated glomerular filtration rate > NRG Serum or plasma glucose measurement (mass/volume) 172 mg/dL 70-105 Serum or plasma calcium measurement (mass/volume) 7.3 mg/dL 8.5-10.1 Serum or plasma total bilirubin measurement (mass/volu me) 1.8 mg/dL 0.1-1.0 Serum or plasma alkaline phosphatase tan surement (enzymatic activity/volume) 42 U/L 40-136 Serum or plasma aspartate aminotransfera se measurement (enzymatic activity/volume) 38 U/L 5-34 Serum or plasma alanine aminotransferase measurement (enzymatic activity/volume) 38 U/L 0-55 Serum or plasma protein measurement (mass/volume) 4.0 g/dL 6.4-8.2 Serum or plasma albumin measurement (mass/volume) 2.4 g/dL 3.2-4.5 CALCIUM CORRECTED 8.6 mg/dL 8.5-10.1 PT panel in platelet poor plasma by coag ulation assay - 06/17/19 15:28 Prothrombin time (PT) in platelet poor plasma by coagu lation assay 15.7 s 12.2-14.7 INR in platelet poor plasma or blood by coagulation as say 1.2 0.8-1.4 Activated partial thromboplastin time (a PTT) in platelet poor plasma bycoagulation assay - 06/17/19 15:28 Activated partial thromboplastin time (a PTT) in platelet poor plasma bycoagulation assay 32 s 24-35 Serum or plasma triglyceride measurement (mass/volume) - 06/17/19 15:28 Serum or plasma triglyceride measurement (mass/volume) 80 mg/dL <150 Arterial blood gas measurement - 0 15:41 Blood pCO2 38 mm[Hg] 35-45 Blood pO2 69 mm[Hg] 79-93 Arterial blood bicarbonate measurement (moles/volume) 24 mmol/L 23-27 Arterial blood base excess by calculation -0.5 mmo l/L -2.5-2.5 Arterial blood oxygen saturation measurement 95 % 94-100 * Inhaled oxygen flow rate 50 NRG Arterial blood pH measurement with patient temperature correction 7.41 7.37-7.43 Arterial blood carbon dioxide, total measurement (mole s/volume) 24.9 mmol/L 21.0-31.0 Body site LT RAD NRG Assessment of wrist artery patency prior to arterial p uncture POS NRG Setting of ventilation mode YES NR G Measurement of body temperature 36.4 NRG Capillary blood glucose measurement by g lucometer (mass/volume) - 06/17/19 17:49 Capillary blood glucose measurement by glucometer (mas s/volume) 139 mg/dL 70-110 Arterial blood gas measurement - 0 19:25 Blood pCO2 37 mm[Hg] 35-45 Blood pO2 66 mm[Hg] 79-93 Arterial blood bicarbonate measurement (moles/volume) 25 mmol/L 23-27 Arterial blood base excess by calculation 0.7 mmol /L -2.5-2.5 Arterial blood oxygen saturation measurement 95 % 94-100 * Inhaled oxygen flow rate 40% NRG Arterial blood pH measurement with patient temperature correction 7.43 7.37-7.43 Arterial blood carbon dioxide, total measurement (mole s/volume) 25.6 mmol/L 21.0-31.0 Body site ART LINE NRG Assessment of wrist artery patency prior to arterial p uncture YES-POS NRG Setting of ventilation mode YES NR G Measurement of body temperature 37.1 NRG Arterial blood gas measurement - 0 20:15 Blood pCO2 38 mm[Hg] 35-45 Blood pO2 63 mm[Hg] 79-93 Arterial blood bicarbonate measurement (moles/volume) 25 mmol/L 23-27 Arterial blood base excess by calculation 1.5 mmol /L -2.5-2.5 Arterial blood oxygen saturation measurement 93 % 94-100 * Inhaled oxygen flow rate 40% NRG Arterial blood pH measurement with patient temperature correction 7.44 7.37-7.43 Arterial blood carbon dioxide, total measurement (mole s/volume) 26.4 mmol/L 21.0-31.0 Body site ART LINE NRG Assessment of wrist artery patency prior to arterial p uncture YES-POS NRG Setting of ventilation mode YES NR G Measurement of body temperature 37.3 NRG Whole blood hemoglobin and hematocrit pa rowena - 06/17/19 22:20 Venous blood hemoglobin measurement (mass/volume) 8.3 g/dL 11.5-16.0 Blood hematocrit (volume fraction) 23 % 35-52 Arterial blood gas measurement - 0 22:56 Blood pCO2 38 mm[Hg] 35-45 Blood pO2 74 mm[Hg] 79-93 Arterial blood bicarbonate measurement (moles/volume) 26 mmol/L 23-27 Arterial blood base excess by calculation 2.9 mmol /L -2.5-2.5 Arterial blood oxygen saturation measurement 97 % 94-100 * Inhaled oxygen flow rate 60% NRG Arterial blood pH measurement with patient temperature correction 7.46 7.37-7.43 Arterial blood carbon dioxide, total measurement (mole s/volume) 27.6 mmol/L 21.0-31.0 Body site ART LINE NRG Assessment of wrist artery patency prior to arterial p uncture YES-POS NRG Setting of ventilation mode YES NR G Measurement of body temperature 37.3 NRG Arterial blood gas measurement - 0 02:20 Blood pCO2 38 mm[Hg] 35-45 Blood pO2 94 mm[Hg] 79-93 Arterial blood bicarbonate measurement (moles/volume) 27 mmol/L 23-27 Arterial blood base excess by calculation 3.8 mmol /L -2.5-2.5 Arterial blood oxygen saturation measurement 98 % 94-100 * Inhaled oxygen flow rate 60 NRG Arterial blood pH measurement with patient temperature correction 7.47 7.37-7.43 Arterial blood carbon dioxide, total measurement (mole s/volume) 28.4 mmol/L 21.0-31.0 Body site ART LINE NRG Assessment of wrist artery patency prior to arterial p uncture POSITIVE NRG Setting of ventilation mode YES NR G Measurement of body temperature 37.2 NRG Complete blood count (CBC) with automate d white blood cell (WBC) differential - 06/18/19 02:20 Blood leukocytes automated count (number/volume) 13.8 10*3/uL 4.3-11.0 Blood erythrocytes automated count (number/volume) 2.54 10*6/uL 4.35-5.85 Venous blood hemoglobin measurement (mass/volume) 7.8 g/dL 11.5-16.0 Blood hematocrit (volume fraction) 22 % 35-52 Automated erythrocyte mean corpuscular volume 86 [ foz_us] 80-99 Automated erythrocyte mean corpuscular h emoglobin (mass per erythrocyte) 31 pg 25-34 Automated erythrocyte mean corpuscular h emoglobin concentration measurement (mass/volume) 36 g/dL 32-36 Automated erythrocyte distribution width ratio 14. 4 % 10.0- 14.5 Automated blood platelet count (count/volume) 130 10*3/uL 130-400 Automated blood platelet mean volume measurement 10.6 [foz_us] 7.4-10.4 Automated blood neutrophils/100 leukocytes 84 % 42-75 Automated blood lymphocytes/100 leukocytes 9 % 12-44 Blood monocytes/100 leukocytes 7 % 0-12 Automated blood eosinophils/100 leukocytes 0 % 0-10 Automated blood basophils/100 leukocytes 0 % 0-10 Blood neutrophils automated count (number/volume) 11.6 10*3 1.8-7.8 Blood lymphocytes automated count (number/volume) 1.2 10*3 1.0-4.0 Blood monocytes automated count (number/volume) 1. 0 10*3 0.0-1.0 Automated eosinophil count 0.0 10*3/uL 0 .0-0.3 Automated blood basophil count (count/volume) 0.0 10*3/uL 0.0-0.1 Whole blood basic metabolic panel - 05/25 07/12 02:20 Serum or plasma sodium measurement (moles/volume) 143 mmol/L 135-145 Serum or plasma potassium measurement (moles/volume) 3.7 mmol/L 3.6-5.0 Serum or plasma chloride measurement (moles/volume) 110 mmol/L 98-107 Carbon dioxide 24 mmol/L 21-32 Serum or plasma anion gap determination (moles/volume) 9 mmol/L 5-14 Serum or plasma urea nitrogen measurement (mass/volume ) 24 mg/dL 7-18 Serum or plasma creatinine measurement (mass/volume) 0.87 mg/dL 0.60-1.30 Serum or plasma urea nitrogen/creatinine mass ratio 28 NRG Serum or plasma creatinine measurement w ith calculation of estimated glomerular filtration rate > NRG Serum or plasma glucose measurement (mass/volume) 135 mg/dL 70-105 Serum or plasma calcium measurement (mass/volume) 7.5 mg/dL 8.5-10.1 Serum or plasma phosphate measurement (m ass/volume) - 06/18/19 02:20 Serum or plasma phosphate measurement (mass/volume) 2.0 mg/dL 2.3-4.7 Magnesium - 06/18/19 02:20 Magnesium 1.5 mg/dL 1.6-2.4 Whole blood hemoglobin and hematocrit pa rowena - 06/18/19 06:35 Venous blood hemoglobin measurement (mass/volume) 7.7 g/dL 11.5-16.0 Blood hematocrit (volume fraction) 22 % 35-52 Capillary blood glucose measurement by g lucometer (mass/volume) - 06/18/19 11:26 Capillary blood glucose measurement by glucometer (mas s/volume) 130 mg/dL 70-110 Whole blood hemoglobin and hematocrit pa rowena - 06/18/19 15:15 Venous blood hemoglobin measurement (mass/volume) 6.8 g/dL 11.5-16.0 Blood hematocrit (volume fraction) 20 % 35-52 Capillary blood glucose measurement by g lucometer (mass/volume) - 06/18/19 18:01 Capillary blood glucose measurement by glucometer (mas s/volume) 101 mg/dL 70-110 Whole blood hemoglobin and hematocrit banner - 06/19/19 00:30 Venous blood hemoglobin measurement (mass/volume) 8.5 g/dL 11.5-16.0 Blood hematocrit (volume fraction) 25 % 35-52 Capillary blood glucose measurement by g lucometer (mass/volume) - 06/19/19 00:59 Capillary blood glucose measurement by glucometer (mas s/volume) 96 mg/dL 70-110 Complete blood count (CBC) with automate d white blood cell (WBC) differential - 06/19/19 03:30 Blood leukocytes automated count (number/volume) 10.5 10*3/uL 4.3-11.0 Blood erythrocytes automated count (number/volume) 2.84 10*6/uL 4.35-5.85 Venous blood hemoglobin measurement (mass/volume) 8.7 g/dL 11.5-16.0 Blood hematocrit (volume fraction) 25 % 35-52 Automated erythrocyte mean corpuscular volume 88 [ foz_us] 80-99 Automated erythrocyte mean corpuscular h emoglobin (mass per erythrocyte) 31 pg 25-34 Automated erythrocyte mean corpuscular h emoglobin concentration measurement (mass/volume) 35 g/dL 32-36 Automated erythrocyte distribution width ratio 15. 0 % 10.0- 14.5 Automated blood platelet count (count/volume) 118 10*3/uL 130-400 Automated blood platelet mean volume measurement 10.4 [foz_us] 7.4-10.4 Automated blood neutrophils/100 leukocytes 82 % 42-75 Automated blood lymphocytes/100 leukocytes 12 % 12-44 Blood monocytes/100 leukocytes 4 % 0-12 Automated blood eosinophils/100 leukocytes 1 % 0-10 Automated blood basophils/100 leukocytes 0 % 0-10 Blood neutrophils automated count (number/volume) 8.6 10*3 1.8-7.8 Blood lymphocytes automated count (number/volume) 1.3 10*3 1.0-4.0 Blood monocytes automated count (number/volume) 0. 4 10*3 0.0-1.0 Automated eosinophil count 0.2 10*3/uL 0 .0-0.3 Automated blood basophil count (count/volume) 0.0 10*3/uL 0.0-0.1 Arterial blood gas measurement - 0 03:30 Blood pCO2 41 mm[Hg] 35-45 Blood pO2 89 mm[Hg] 79-93 Arterial blood bicarbonate measurement (moles/volume) 31 mmol/L 23-27 Arterial blood base excess by calculation 7.8 mmol /L -2.5-2.5 Arterial blood oxygen saturation measurement 98 % 94-100 * Inhaled oxygen flow rate 30 NRG Arterial blood pH measurement with patient temperature correction 7.50 7.37-7.43 Arterial blood carbon dioxide, total measurement (mole s/volume) 32.6 mmol/L 21.0-31.0 Body site ART LINE NRG Assessment of wrist artery patency prior to arterial p uncture POSITIVE NRG Setting of ventilation mode YES NR G Measurement of body temperature 37.1 NRG Whole blood basic metabolic panel - 05/25 08/12 03:30 Serum or plasma sodium measurement (moles/volume) 141 mmol/L 135-145 Serum or plasma potassium measurement (moles/volume) 3.4 mmol/L 3.6-5.0 Serum or plasma chloride measurement (moles/volume) 106 mmol/L 98-107 Carbon dioxide 28 mmol/L 21-32 Serum or plasma anion gap determination (moles/volume) 7 mmol/L 5-14 Serum or plasma urea nitrogen measurement (mass/volume ) 16 mg/dL 7-18 Serum or plasma creatinine measurement (mass/volume) 0.74 mg/dL 0.60-1.30 Serum or plasma urea nitrogen/creatinine mass ratio 22 NRG Serum or plasma creatinine measurement w ith calculation of estimated glomerular filtration rate > NRG Serum or plasma glucose measurement (mass/volume) 99 mg/dL 70-105 Serum or plasma calcium measurement (mass/volume) 7.6 mg/dL 8.5-10.1 Serum or plasma phosphate measurement (m ass/volume) - 06/19/19 03:30 Serum or plasma phosphate measurement (mass/volume) 1.6 mg/dL 2.3-4.7 Magnesium - 06/19/19 03:30 Magnesium 2.1 mg/dL 1.6-2.4 Arterial blood gas measurement - 0 09:20 Blood pCO2 35 mm[Hg] 35-45 Blood pO2 72 mm[Hg] 79-93 Arterial blood bicarbonate measurement (moles/volume) 29 mmol/L 23-27 Arterial blood base excess by calculation 5.4 mmol /L -2.5-2.5 Arterial blood oxygen saturation measurement 97 % 94-100 * Inhaled oxygen flow rate 30% NRG Arterial blood pH measurement with patient temperature correction 7.52 7.37-7.43 Arterial blood carbon dioxide, total measurement (mole s/volume) 29.7 mmol/L 21.0-31.0 Body site LT RAD NRG Assessment of wrist artery patency prior to arterial p uncture YES-POS NRG Setting of ventilation mode YES NR G Measurement of body temperature 36.4 NRG Capillary blood glucose measurement by g lucometer (mass/volume) - 06/19/19 11:37 Capillary blood glucose measurement by glucometer (mas s/volume) 90 mg/dL 70-110 Capillary blood glucose measurement by g lucometer (mass/volume) - 06/19/19 17:46 Capillary blood glucose measurement by glucometer (mas s/volume) 83 mg/dL 70-110 Capillary blood glucose measurement by g lucometer (mass/volume) - 06/20/19 01:22 Capillary blood glucose measurement by glucometer (mas s/volume) 95 mg/dL 70-110 Complete blood count (CBC) with automate d white blood cell (WBC) differential - 06/20/19 03:28 Blood leukocytes automated count (number/volume) 10.7 10*3/uL 4.3-11.0 Blood erythrocytes automated count (number/volume) 2.73 10*6/uL 4.35-5.85 Venous blood hemoglobin measurement (mass/volume) 8.4 g/dL 11.5-16.0 Blood hematocrit (volume fraction) 25 % 35-52 Automated erythrocyte mean corpuscular volume 91 [ foz_us] 80-99 Automated erythrocyte mean corpuscular h emoglobin (mass per erythrocyte) 31 pg 25-34 Automated erythrocyte mean corpuscular h emoglobin concentration measurement (mass/volume) 34 g/dL 32-36 Automated erythrocyte distribution width ratio 15. 0 % 10.0- 14.5 Automated blood platelet count (count/volume) 144 10*3/uL 130-400 Automated blood platelet mean volume measurement 10.2 [foz_us] 7.4-10.4 Automated blood neutrophils/100 leukocytes 84 % 42-75 Automated blood lymphocytes/100 leukocytes 9 % 12-44 Blood monocytes/100 leukocytes 4 % 0-12 Automated blood eosinophils/100 leukocytes 2 % 0-10 Automated blood basophils/100 leukocytes 0 % 0-10 Blood neutrophils automated count (number/volume) 9.0 10*3 1.8-7.8 Blood lymphocytes automated count (number/volume) 1.0 10*3 1.0-4.0 Blood monocytes automated count (number/volume) 0. 4 10*3 0.0-1.0 Automated eosinophil count 0.2 10*3/uL 0 .0-0.3 Automated blood basophil count (count/volume) 0.0 10*3/uL 0.0-0.1 Whole blood basic metabolic panel - 05/25 09/11 03:28 Serum or plasma sodium measurement (moles/volume) 139 mmol/L 135-145 Serum or plasma potassium measurement (moles/volume) 3.3 mmol/L 3.6-5.0 Serum or plasma chloride measurement (moles/volume) 111 mmol/L 98-107 Carbon dioxide 19 mmol/L 21-32 Serum or plasma anion gap determination (moles/volume) 9 mmol/L 5-14 Serum or plasma urea nitrogen measurement (mass/volume ) 13 mg/dL 7-18 Serum or plasma creatinine measurement (mass/volume) 0.66 mg/dL 0.60-1.30 Serum or plasma urea nitrogen/creatinine mass ratio 20 NRG Serum or plasma creatinine measurement w ith calculation of estimated glomerular filtration rate > NRG Serum or plasma glucose measurement (mass/volume) 84 mg/dL 70-105 Serum or plasma calcium measurement (mass/volume) 7.6 mg/dL 8.5-10.1 Serum or plasma phosphate measurement (m ass/volume) - 06/20/19 03:28 Serum or plasma phosphate measurement (mass/volume) 2.1 mg/dL 2.3-4.7 Magnesium - 06/20/19 03:28 Magnesium 2.0 mg/dL 1.6-2.4 Capillary blood glucose measurement by g lucometer (mass/volume) - 06/20/19 11:30 Capillary blood glucose measurement by glucometer (mas s/volume) 82 mg/dL 70-110 Capillary blood glucose measurement by g lucometer (mass/volume) - 06/20/19 15:52 Capillary blood glucose measurement by glucometer (mas s/volume) 88 mg/dL 70-110 Capillary blood glucose measurement by g lucometer (mass/volume) - 06/20/19 21:16 Capillary blood glucose measurement by glucometer (mas s/volume) 116 mg/dL 70-110 Complete blood count (CBC) with automate d white blood cell (WBC) differential - 06/21/19 03:36 Blood leukocytes automated count (number/volume) 11.7 10*3/uL 4.3-11.0 Blood erythrocytes automated count (number/volume) 3.29 10*6/uL 4.35-5.85 Venous blood hemoglobin measurement (mass/volume) 9.8 g/dL 11.5-16.0 Blood hematocrit (volume fraction) 29 % 35-52 Automated erythrocyte mean corpuscular volume 88 [ foz_us] 80-99 Automated erythrocyte mean corpuscular h emoglobin (mass per erythrocyte) 30 pg 25-34 Automated erythrocyte mean corpuscular h emoglobin concentration measurement (mass/volume) 34 g/dL 32-36 Automated erythrocyte distribution width ratio 15. 2 % 10.0- 14.5 Automated blood platelet count (count/volume) 221 10*3/uL 130-400 Automated blood platelet mean volume measurement 9.8 [foz_us] 7.4-10.4 Automated blood neutrophils/100 leukocytes 82 % 42-75 Automated blood lymphocytes/100 leukocytes 8 % 12-44 Blood monocytes/100 leukocytes 7 % 0-12 Automated blood eosinophils/100 leukocytes 3 % 0-10 Automated blood basophils/100 leukocytes 0 % 0-10 Blood neutrophils automated count (number/volume) 9.5 10*3 1.8-7.8 Blood lymphocytes automated count (number/volume) 1.0 10*3 1.0-4.0 Blood monocytes automated count (number/volume) 0. 8 10*3 0.0-1.0 Automated eosinophil count 0.4 10*3/uL 0 .0-0.3 Automated blood basophil count (count/volume) 0.0 10*3/uL 0.0-0.1 Whole blood basic metabolic panel - 05/25 10/12 03:36 Serum or plasma sodium measurement (moles/volume) 137 mmol/L 135-145 Serum or plasma potassium measurement (moles/volume) 3.2 mmol/L 3.6-5.0 Serum or plasma chloride measurement (moles/volume) 110 mmol/L 98-107 Carbon dioxide 19 mmol/L 21-32 Serum or plasma anion gap determination (moles/volume) 8 mmol/L 5-14 Serum or plasma urea nitrogen measurement (mass/volume ) 8 mg/dL 7-18 Serum or plasma creatinine measurement (mass/volume) 0.62 mg/dL 0.60-1.30 Serum or plasma urea nitrogen/creatinine mass ratio 13 NRG Serum or plasma creatinine measurement w ith calculation of estimated glomerular filtration rate > NRG Serum or plasma glucose measurement (mass/volume) 128 mg/dL 70-105 Serum or plasma calcium measurement (mass/volume) 8.0 mg/dL 8.5-10.1 Serum or plasma phosphate measurement (m ass/volume) - 06/21/19 03:36 Serum or plasma phosphate measurement (mass/volume) 2.6 mg/dL 2.3-4.7 Magnesium - 06/21/19 03:36 Magnesium 2.0 mg/dL 1.6-2.4 Capillary blood glucose measurement by g lucometer (mass/volume) - 06/21/19 05:09 Capillary blood glucose measurement by glucometer (mas s/volume) 135 mg/dL 70-110 Capillary blood glucose measurement by g lucometer (mass/volume) - 06/21/19 10:48 Capillary blood glucose measurement by glucometer (mas s/volume) 144 mg/dL 70-110 Capillary blood glucose measurement by g lucometer (mass/volume) - 06/21/19 16:01 Capillary blood glucose measurement by glucometer (mas s/volume) 125 mg/dL 70-110 Capillary blood glucose measurement by g lucometer (mass/volume) - 06/21/19 20:37 Capillary blood glucose measurement by glucometer (mas s/volume) 139 mg/dL 70-110 Complete blood count (CBC) with automate d white blood cell (WBC) differential - 06/22/19 04:35 Blood leukocytes automated count (number/volume) 14.0 10*3/uL 4.3-11.0 Blood erythrocytes automated count (number/volume) 3.40 10*6/uL 4.35-5.85 Venous blood hemoglobin measurement (mass/volume) 10.2 g/dL 11.5-16.0 Blood hematocrit (volume fraction) 30 % 35-52 Automated erythrocyte mean corpuscular volume 88 [ foz_us] 80-99 Automated erythrocyte mean corpuscular h emoglobin (mass per erythrocyte) 30 pg 25-34 Automated erythrocyte mean corpuscular h emoglobin concentration measurement (mass/volume) 34 g/dL 32-36 Automated erythrocyte distribution width ratio 14. 8 % 10.0- 14.5 Automated blood platelet count (count/volume) 338 10*3/uL 130-400 Automated blood platelet mean volume measurement 10.0 [foz_us] 7.4-10.4 Automated blood neutrophils/100 leukocytes 82 % 42-75 Automated blood lymphocytes/100 leukocytes 9 % 12-44 Blood monocytes/100 leukocytes 7 % 0-12 Automated blood eosinophils/100 leukocytes 2 % 0-10 Automated blood basophils/100 leukocytes 0 % 0-10 Blood neutrophils automated count (number/volume) 11.5 10*3 1.8-7.8 Blood lymphocytes automated count (number/volume) 1.2 10*3 1.0-4.0 Blood monocytes automated count (number/volume) 1. 0 10*3 0.0-1.0 Automated eosinophil count 0.3 10*3/uL 0 .0-0.3 Automated blood basophil count (count/volume) 0.0 10*3/uL 0.0-0.1 Whole blood basic metabolic panel - 05/25 11/12 04:35 Serum or plasma sodium measurement (moles/volume) 137 mmol/L 135-145 Serum or plasma potassium measurement (moles/volume) 3.3 mmol/L 3.6-5.0 Serum or plasma chloride measurement (moles/volume) 108 mmol/L 98-107 Carbon dioxide 19 mmol/L 21-32 Serum or plasma anion gap determination (moles/volume) 10 mmol/L 5-14 Serum or plasma urea nitrogen measurement (mass/volume ) 6 mg/dL 7-18 Serum or plasma creatinine measurement (mass/volume) 0.61 mg/dL 0.60-1.30 Serum or plasma urea nitrogen/creatinine mass ratio 10 NRG Serum or plasma creatinine measurement w ith calculation of estimated glomerular filtration rate > NRG Serum or plasma glucose measurement (mass/volume) 139 mg/dL 70-105 Serum or plasma calcium measurement (mass/volume) 8.1 mg/dL 8.5-10.1 Serum or plasma phosphate measurement (m ass/volume) - 06/22/19 04:35 Serum or plasma phosphate measurement (mass/volume) 2.4 mg/dL 2.3-4.7 Magnesium - 06/22/19 04:35 Magnesium 1.9 mg/dL 1.6-2.4 Capillary blood glucose measurement by g lucometer (mass/volume) - 06/22/19 10:48 Capillary blood glucose measurement by glucometer (mas s/volume) 130 mg/dL 70-110 Capillary blood glucose measurement by g lucometer (mass/volume) - 06/22/19 15:33 Capillary blood glucose measurement by glucometer (mas s/volume) 142 mg/dL 70-110 Serum or plasma lithium measurement (mol es/volume) - 06/22/19 21:22 BNP PT 91.4 pg/mL <100.0 Capillary blood glucose measurement by g lucometer (mass/volume) - 06/22/19 22:28 Capillary blood glucose measurement by glucometer (mas s/volume) 125 mg/dL 70-110 Arterial blood gas measurement - 0 23:05 Blood pCO2 29 mm[Hg] 35-45 Blood pO2 74 mm[Hg] 79-93 Arterial blood bicarbonate measurement (moles/volume) 21 mmol/L 23-27 Arterial blood base excess by calculation -1.7 mmo l/L -2.5-2.5 Arterial blood oxygen saturation measurement 96 % 94-100 * Inhaled oxygen flow rate 30% NRG Arterial blood pH measurement with patient temperature correction 7.48 7.37-7.43 Arterial blood carbon dioxide, total measurement (mole s/volume) 22.2 mmol/L 21.0-31.0 Body site R RAD NRG Assessment of wrist artery patency prior to arterial p uncture YES-POS NRG Setting of ventilation mode NO NR G Measurement of body temperature 36.9 NRG Fibrin D-dimer FEU measurement in platel et poor plasma (mass/volume) - 06/22/19 23:25 Fibrin D-dimer FEU measurement in platelet poor plasma (mass/volume) 5.56 ug/mL 0.00-0.49 Serum or plasma troponin i.cardiac measu rement (mass/volume) - 06/22/19 23:25 Serum or plasma troponin i.cardiac measurement (mass/v olume) < ng/mL <0.028 Complete blood count (CBC) with automate d white blood cell (WBC) differential - 06/23/19 07:40 Blood leukocytes automated count (number/volume) 13.4 10*3/uL 4.3-11.0 Blood erythrocytes automated count (number/volume) 3.09 10*6/uL 4.35-5.85 Venous blood hemoglobin measurement (mass/volume) 9.3 g/dL 11.5-16.0 Blood hematocrit (volume fraction) 28 % 35-52 Automated erythrocyte mean corpuscular volume 89 [ foz_us] 80-99 Automated erythrocyte mean corpuscular h emoglobin (mass per erythrocyte) 30 pg 25-34 Automated erythrocyte mean corpuscular h emoglobin concentration measurement (mass/volume) 34 g/dL 32-36 Automated erythrocyte distribution width ratio 15. 1 % 10.0- 14.5 Automated blood platelet count (count/volume) 399 10*3/uL 130-400 Automated blood platelet mean volume measurement 9.7 [foz_us] 7.4-10.4 Automated blood neutrophils/100 leukocytes 81 % 42-75 Automated blood lymphocytes/100 leukocytes 9 % 12-44 Blood monocytes/100 leukocytes 7 % 0-12 Automated blood eosinophils/100 leukocytes 3 % 0-10 Automated blood basophils/100 leukocytes 0 % 0-10 Blood neutrophils automated count (number/volume) 10.8 10*3 1.8-7.8 Blood lymphocytes automated count (number/volume) 1.1 10*3 1.0-4.0 Blood monocytes automated count (number/volume) 0. 9 10*3 0.0-1.0 Automated eosinophil count 0.5 10*3/uL 0 .0-0.3 Automated blood basophil count (count/volume) 0.0 10*3/uL 0.0-0.1 Whole blood basic metabolic panel - 05/26 07:40 Serum or plasma sodium measurement (moles/volume) 136 mmol/L 135-145 Serum or plasma potassium measurement (moles/volume) 3.1 mmol/L 3.6-5.0 Serum or plasma chloride measurement (moles/volume) 107 mmol/L 98-107 Carbon dioxide 19 mmol/L 21-32 Serum or plasma anion gap determination (moles/volume) 10 mmol/L 5-14 Serum or plasma urea nitrogen measurement (mass/volume ) 4 mg/dL 7-18 Serum or plasma creatinine measurement (mass/volume) 0.55 mg/dL 0.60-1.30 Serum or plasma urea nitrogen/creatinine mass ratio 7 NRG Serum or plasma creatinine measurement w ith calculation of estimated glomerular filtration rate > NRG Serum or plasma glucose measurement (mass/volume) 118 mg/dL 70-105 Serum or plasma calcium measurement (mass/volume) 7.8 mg/dL 8.5-10.1 Serum or plasma phosphate measurement (m ass/volume) - 06/23/19 07:40 Serum or plasma phosphate measurement (mass/volume) 3.0 mg/dL 2.3-4.7 Magnesium - 06/23/19 07:40 Magnesium 1.8 mg/dL 1.6-2.4 Encounters ACCT No. Visit Date/Time Discharge Status Pt. Type Provider Facility Loc./Unit Complaint [id number] 03/25/2019 10:00:00 03/25/2019 23:59: 59 CLS Outpatient ARMANDO COMER [facility] [id number] 10/22/2018 10:40:00 Document Registration [id number] 10/02/2018 16:07:21 ACT Document Registration [id number] 04/27/2018 06:25:20 9 11:55:00 DIS Inpatient DAYA SUE [facility] ICU robotic pyeloplasty [id number] 03/24/2018 07:49:45 9 12:00:00 DIS Outpatient DAYA SUE [facility] Surgery ops [id number] 10/01/2018 17:32:00 ACT Unknown Anson Sue MD [id number] 08/10/2018 00:11:00 019 23:59:59 CLS Preadmit NATALIE COLINDRES, Victoriano HOWARD [facility] CARD HTN,PVC'S,SINUS NODE DY SFUCTION [id number] 05/11/2018 09:10:00 00:01:00 DIS Outpatient NATALIE COLINDRES, Victoriano HOWARD [facility] CARD HTN,PVC'S,SINUS NODE DY SFUCTION [id number] 06/14/2018 14:20:00 23:59:59 CLS Outpatient Victoriano ESTRADA MD [facility] CARD SINUS NODE DYSFUNCTION [id number] 05/27/2018 07:51:00 11:40:00 DIS Outpatient Victoriano ESTRADA MD Via [facility] SYMPTOMATIC [address]ND DEGREE AV BLOCK [id number] 05/23/2018 15:10:00 18:07:00 DIS Emergency ADRIANNA COLINDRES, EBONY [facility] ER FS NAUSEA,DIARRHEA [id number] 05/12/2018 14:01:00 13:56:00 DIS Inpatient SAMMIE TINAJERO MD [facility] 4TH NAUSEA [id number] 05/10/2018 07:57:00 23:59:59 CLS Outpatient NATALIE COLINDRES, Victoriano HOWARD [facility] CARD HTN,PVC'S,SINUS NODE DY SFUCTION [id number] 05/05/2018 08:06:00 23:59:59 CLS Preadmit Victoriano ESTRADA MD [facility] CARD HTN,PVC'S,SINUS NODE DY SFUCTION [id number] 06/23/2019 15:37:00 P EN Preadmit FUENTES DO, GEMMA DE BILITY [id number] 06/15/2019 19:00:[address] Inpatient OUMAR ESTEVEZ MD [facility] 4TH VOLVULUS, SBO [id number] 05/08/2019 11:07:00 Document Registration
--- NOTE | 2019-06-23 13:21 | ST Cognitive Linguistic Eval ---
Speech Evaluation-General Medical Diagnosis colculus, s/p R hemicolectomy Onset Date: Jun 15, 2019 Therapy Diagnosis Therapy Diagnosis: Cognitive-communication Referral Referring Physician: Dr. Nieto Medical History Pertinent Medical History: Arthritis, GERD Reviewed History: Yes Social History Current Living Status: Alone Speech PLF-Current Status Prior Level of Function Patient lived in her own home where she was independent for her daily needs. Subjective Patient was pleasant and cooperative with the cognitive assessment. Language Eval: Auditory Comprehends Simple Yes/No Ques: Functional Indent/Objects Multiple Calderón: Functional Ident/Pics in Multiple Calderón: Functional Follows 1-Step Commands: Functional Follows Complex Directions: Functional Follows General Conversations: Functional Language Eval: Verbal Language Completes Spontaneous Greeting: Functional Produces Auto, Serial Info: Functional Imitates Simple Words/Phrases: Functional Word Finding: Functional Requests Basic Needs: Functional States Basic Personal Info: Functional Expresses Complex Ideas: Functional Objective Cognitive Domain Attention: WNL Memory: Mild Problem Solving: Functional Executive Functions: WNL Visuospatial Skills: WNL Composite Severity Rating: WNL Clock Drawing Severity Rating: WNL Objective Formal/Standardized Tests [facility] Mental Status ([facility]) Results 27/30, within normal range of function Oral Motor/Speech Production Within normal limits, patient tires easily and speaks with short phrases Impression Patient is a pleasant 73 year old female who was admitted to the ARU s/p colon surgery. Patient was given the SLUMS at bedside with a score of 27/30 obtained. She does not require further ST services at this time. Speech Patient Assess Expression of Ideas/Wants: Expression (4) Understanding Verbal Content: Understands (4) Brief Interview-Mental Status: Yes Repetition of Three Words: Three (3) Temporal Orientation: Year: Correct (3) Temporal Orientation: Month: Accurate within 5 days(2) Temporal Orientation: Day: Correct (1) Recall : Wear to say "Sock": Yes,after cueing (1) Recall : Color: No, could not recall (0) Recall : Bed: Yes,after cueing (1) Memory/Recall Ability: Current season, That he or she is in a hsp/hsp unit Speech-Plan Patient/Family Goals Patient/Family Goals: Patient plans on returning to her home post rehab. Treatment Plan Speech Therapy Treatment Plan: Discontinue ST Treatment Duration: Jun 23, 2019 Frequency: 1 time per week Estimated Hrs Per Day: .25 hour per day Rehab Potential: Good Barriers to Learning: None identified Pt/Family Agrees to Plan: Yes Safety Risks/Education Teaching Recipient: Patient Teaching Methods: Discussion Response to Teaching: Verbalize Understanding Education Topics Provided: Safety within her room and communication of wants/needs Time Speech Therapy Time In: 13:00 Speech Therapy Time Out: 13:15 Total Billed Time: 15 Billed Treatment Time 1, TIKANDKEYON Alejandro Jun 23, 2019 13:21
--- NOTE | 2019-06-23 13:24 | Occupational Therapy Eval ---
OT Evaluation-General/PLF Medical Diagnosis Admission Date Jun 23, 2019 at 10:50 Medical Diagnosis: volvulus, s/p R hemicolectomy Onset Date: Jun 15, 2019 Therapy Diagnosis Therapy Diagnosis: debility, impaired ADLs/functional mobility Height/Weight Height (Feet): 5 Height (Inches): 5.00 Weight (Pounds): 118 Weight (Ounces): 0.0 Precautions Precautions/Isolations: Standard Precautions Referral Physician: Leanne Nieto DO Referral Reason: Evaluation/Treatment Medical History Pertinent Medical History: Arthritis, GERD Additional Medical History high cholesterol, hiatal hernia, chronic back pain, pacemaker Current History 06/15/2019 pt presented with abdominal pain, found to have volvulus. On 06/15 pt underwent R hemicolectomy, 06/16 returned to surgery due to bleeding. She was intubated x3 days. Pt then admitted to ARU on 06/22 in order for continued medication management and skilled therapies. Reviewed History: Yes Social History Home: Single Level Current Living Status: Alone Entry Into Home: Level Entry ADL-Prior Level of Function SCALE: Activities may be completed with or without assistive devices. 1-Jlypqwpwpt-zvsssyg completes the activity by him/herself with no assistance from a helper. 5-Set-up or Clean-up Assistance-helper sets up or cleans up; patient completes activity. [place] assists only prior to or following the activity. 4-Supervision or Touching Assistance-helper provides verbal cues and/or touching/steadying and/or contact guard assistance as patient completes activity. Assistance may be provided throughout the activity or intermittently. 3-Partial/Moderate Assistance-helper does LESS THAN HALF the effort. [place] lifts, holds or supports trunk or limbs, but provides less than half the effort. 2-Substantial/Maximal Assistance-helper does MORE THAN HALF the effort. [place] lifts or holds trunk or limbs and provides more than half the effort. 8-Eakmdwden-eoojqe does ALL the effort. Patient does none of the effort to complete the activity. Or, the assistance of 2 or more helpers is required for the patient to complete the activity. If activity was not attempted, code reason: 7-Patient Refused. 9-Not Applicable-not attempted and the patient did not perform the activity before the current illness, exacerbation or injury. 10-Not Attempted due to Environmental Limitations-(lack of equipment, weather restraints, etc.). 88-Not Attempted due to Medical Conditions or Safety Concerns. ADL PLOF Comments Pt reports being independent at [facility] with all ADLs and functional mobility. She denies using AE/AD for ADLs and functional mobility. 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 She has a tub shower (she expressed that she dislikes her current set up) and she does not have a shower chair. 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 Expressed she had some pain but did not rate. Mental Status/Objective Patient Orientation: Person, Place, Time, Situation Current Glasses/Contacts: Yes Hearing Aids: No Dentures/Partials: No Hand Dominance: Right Upper Extremity ROM WFL, BUE shoulder flexion to approx 150 degrees. She is able to touch the back of her head with both hands. Upper Extremity Coordination WFL thumb opposition Upper Extremity Sensation Pt denies tingling/numbness BUEs at this time. States she occasionally experiences tingling/numbness but unable to recall positioning/triggers that lead to this feeling. Upper Extremity Strength Grossly 3+/5 MMT ADL-Treatment Eating (QC): 7 Oral Hygiene (QC): 7 Shower/Bathe Self (QC): 3 (sponge bath. Pt able to reach all parts, but required assistance for thoroughness with buttocks. ) Upper Body Dressing (QC): 7 Lower Body Dressing (QC): 3 (Pt required assistance threading RLE into briefs. CGA during standing at [facility], she was able to manage clothing up.) On/Off Footwear (QC): 3 (Pt able to doff BLE socks. She threaded LLE sock but required assistance with RLE due to her stating "I can't reach") Toileting Hygiene (QC): 3 (Min A for thoroughness with buttocks. Pt able to manage pants up/down.) pt required increased time with all ADLs. Other Treatments Will be co-treating with OT for treatment due to poor patient mobility, SOB, very poor activity tolerance and endurance, balance, the need to coordinate UE and LE during functional activity and ADL'sOT/PT cotreat due to poor pt mobility, SOB, very poor activity tolerance/endurance, balance and the need to coordinate UE and LE for functional activities and ADLs. OT focused on ADLs, sequencing and UE placement while PT focused on overall gross movements, LE placement, and standing balance. Pt completed ADLs seated in recliner, including sponge bath, and dressing. Post OT/PT cotreat, pt seated in recliner, call light in reach and all needs met. Pt expressed she was tired and needed a nap. Education OT Patient Education: Correct positioning, Energy conservation, Modified ADL techniques, Progress toward Goal/Update tx plan, Purpose of tx/functional activities, Rehab process, Safety issues, Transfer techniques Teaching Recipient: Patient Teaching Methods: Discussion Response to Teaching: Verbalize Understanding OT Short Term Goals Short Term Goals Time Frame: July 06, 2019 Shower/bathe self: 4 Lower body dressin OT [employer] [facility] Goals Senior Care Goals Time Frame: July 22, 2019 Eating (QC): 6 Oral Hygiene (QC): 6 Toileting Hygiene (QC): 6 Shower/Bathe Self (QC): 6 Upper Body Dressing (QC): 6 Lower Body Dressing (QC): 6 On/Off Footwear (QC): 6 Additional Goals: 1-Demonstrate ADL Tasks, 2-Verbalize Understanding, 3- ImproveStrength/Susy 1=Demonstrate adherence to instructed precautions during ADL tasks. 2=Patient will verbalize/demonstrate understanding of assistive devices/mo difications for ADL. 3=Patient will improve strength/tolerance for activity to enable patient to perform ADL's. OT Education/Plan Problem List/Assessment Assessment: Decreased Activ Tolerance, Decreased UE Strength, Impaired Funct Balance, Impaired I ADL's, Impaired Self-Care Skills Discharge Recommendations Plan/Recommendations: Continue POC Equpiment Recommendations-D/C: Extended Bath Bench Treatment Plan/Plan of Care Treatment,Training & Education: Yes Patient would benefit from OT for education, treatment and training to promote independence in ADL's, mobility, safety and/or upper extremity function for ADL's. Plan of Care: ADL Retraining, Functional Mobility, Group Exercise/Act as Ind, UE Funct Exercise/Act Treatment Duration: July 22, 2019 Frequency: At least 5 of 7 days/Wk (IRF) Estimated Hrs Per Day: Other (COVID Waiver 60 mins per day, increase as pt able) Agreement: Yes Rehab Potential: Good Time/GCodes Start Time: 11:00 Stop Time: 12:00 Total Time Billed (hr/min): 60 Billed Treatment Time 9468-2860 OT eval x10 mins 7148-2712 OT/PT cotreat x50 mins 1, EVM (10'), ADL 3 (50') MAUDE GONZALEZ OT Jun 23, 2019 13:24
--- NOTE | 2019-06-23 13:56 | Progress Note ---
Subjective Date Seen by a Provider: Jun 23, 2019 Time Seen by a Provider: 13:45 Subjective/Events-last exam Patient seen with Dr. Armendariz. Patient reports doing well but having some abdominal discomfort from gas. Reports that she is having BMs and passing lots of gas. She denied any fever/chills. No nausea or vomiting. She is drinking her ensure drinks but did not eat much today. Ambulating well. Objective Exam Vital Signs Date Time Temp Pulse Resp B/P (MAP) Pulse Ox O2 Delivery O2 Flow Rate FiO2 06/23/19 12:55 72 06/23/19 12:20 36.4 83 20 108/55 96 Room Air Capillary Refill : General Appearance: No Apparent Distress, WD/WN Neck: Normal Inspection, Non Tender, Supple Respiratory: Normal Breath Sounds, No Accessory Muscle Use, No Respiratory Distress Cardiovascular: Regular Rate, Rhythm, No Edema Gastrointestinal: normal bowel sounds, soft, tenderness (mild), other (CHINO drain with clear SS drainage within bulb) Extremity: Normal Inspection, Normal Range of Motion Neurologic/Psychiatric: Alert, Oriented x3 Skin: Normal Color, Warm/Dry, Other (Midline abdominal incision C/D/I, no redness, erythema, or drainage noted.) Assessment/Plan Assessment/Plan Assess & Plan/Chief Complaint s/p RHC for cecal volvulus and acute ischemia. continued rectal bleed despite coagulation correction/PRBC. underwent re-exploration and found to have ileocolonic arterial anastomotic bleed. Hb stable. no episodes rectal bleed. diet as tolerated. Pain medications as needed. PT/OT. ANDREA GENAO APRN Jun 23, 2019 13:56
[2019-06-23] MEDS ORDERED: CHLORASEPTIC SPRAY 177 ML LIQUID MC PRN (14:30)
[2019-06-23] MEDS ORDERED: PROCHLORPERAZINE 25 MG (COMPAZINE) SUPP PR PRN (14:30)
[2019-06-23] MEDS ORDERED: diphenhydrAMINE 50 MG/ML INJ (BENADRYL) IVP PRN (14:30)
[2019-06-23] MEDS: HYDROcodone/APAP 7.5 MG/325 MG (LORTAB, LORCET PLUS) TABLET PO PRN ×2 (14:30→21:59)
[2019-06-23] MEDS ORDERED: ONDANSETRON 4 MG/2 ML (SDV) Z0FRAN IVP PRN (14:30)
[2019-06-23] MEDS ORDERED: HYDROcodone/APAP 7.5 MG/325 MG (LORTAB, LORCET PLUS) TABLET PO PRN (14:30)
[2019-06-23] MEDS ORDERED: HOLD METFORMIN - RECEIVED CONTRAST 20 ML VIAL IV SCH (14:30)
[2019-06-23] MEDS ORDERED: HYDROmorphone 2 MG/ML VIAL (DILAUDID) IVP PRN (14:30)
[2019-06-23] MEDS ORDERED: fentaNYL INJECTION 100 MCG/2 ML AMP IV PRN (14:30)
[2019-06-23] MEDS ORDERED: ACETAMINOPHEN 650 MG SUPP (TYLENOL) PR PRN (14:30)
[2019-06-23] MEDS ORDERED: CATHETER FLUSH 10 ML SYR IV PRN (14:30)
[2019-06-23] MEDS: ENOXAPARIN 40 MG/0.4 ML (LOVENOX) SYR SC SCH (15:12)
[2019-06-23] MEDS: DOCUSATE SODIUM 100 MG (COLACE) CAP PO SCH ×2 (15:13→20:13)
[2019-06-23] MEDS: polyethylene glycoL POWDER 17 GM (MIRALAX) PACK PO SCH ×2 (15:13→20:13)
[2019-06-23] MEDS: SENNA W/DOCUSATE (SENOKOT S) TABLET PO SCH ×2 (15:13→20:13)
[2019-06-23 16:25] VITALS: BP 118/73
[2019-06-23] MEDS: RT-ALBUTEROL SULF 2.5 MG/3 ML PRE-MIX VIAL INH SCH (19:15)
--- NOTE | 2019-06-23 21:02 | PM&R Post Admission Assessment ---
PM&R Date of Visit: Jun 23, 2019 Time of Visit: 11:00 History of Present Illness CC: Critical illness myopathy with debility HPI: This is a 73yoWF clinic patient of [facility] whom I met last week on 06/16/19 following a diagnosed volvulus resulting in urgent surgery by Dr Armendariz but became critically ill with hypovolumic shock due to acute blood loss of the surgical site and h/o OAC which was held but required repeat surgery for cauterization of the surgical anastomosis and 9 units of PRBC's with 4 units of FFP and 1 unit of platelets along with ventilator management for respiratory failure. Cardiology has maintained their consultation services due to h/o PAF. Patient is ready to come to IRF but required CT angiogram of the chest to r/o PE due to dyspnea which revealed no PE and Dr Armendariz was notified of presumed ileus findings on CT scan. CC: Debility following catastrophic GI bleed following right hemicolectomy due to volvulus HPI: This is a 73yoWF known to me from hospitalist service last week when she underwent an urgent right hemicolectomy due to volvulus by Dr. Armendariz but required a re-exploration because of continued bleed resulting in cautery with good blood loss resolution but received multiple units of pacc red blood cells during that time because she had been on Eliquis for paroxysmal atrial fibrillation she sees cardiology for on a regular basis. She has since done pretty well and stabilized and now since and now in the midst of obtaining a CT angiogram to rule out any pulmonary emboli which preliminary report shows no evidence of any pulmonary emboli but does show some mild pleural effusions. Her SOB she thinks is from allergies also. She does have a mild ileus that was updated to Dr. Armendariz and she will be evaluated by him and a diet will be initiated as long as it is okay with him. I did receive her chart her hgb remains stable at 10 and she appears to be very frail and pale and fatigued but she is oriented x3 and motivated to get strong enough to go home Patient was admitted to the ARU during this COVID-19 emergency. The ARU is the best and most appropriate post-acute care setting for this patient at this current time. Patient meets IRF admission criteria, however will be unable to tolerate 3 hours of therapy/5 days per week. The plan is for the patient to receive 2 hours of therapy per day, by receiving 1 hours of PT and 1 hour of OT 5 out of 7 days per the patient's week. As an interdisciplinary team, we will discuss this patient's ability to tolerate and increase in the intensity of therapy to be provided throughout the patient's stay. Past Bfqumwi-Afirxl-Oulxbc Hx Past Med/Social Hx: Reviewed Nursing Past Med/Soc Hx, Reviewed and Corrections made Patient Social History Marrital Status: Employed/Student: retired ([employer] main [employer]) Smoking Status: Never a Smoker Former Smoker, Quit: Aug 23, 1985 Type Used: Cigarettes 2nd Hand Smoke Exposure: No Recent Foreign Travel: No Contact w/other who traveled: No Recent Hopitalizations: Yes (APRIL 2018 L URETER REPAIR) Recent Infectious Disease Expo: No Immunizations Up To Date Tetanus Booster (TDap): Less than 5yrs Date of Pneumonia Vaccine: Feb 11, 2018 Seasonal Allergies Seasonal Allergies: Yes Past Medical History Surgeries: Bladder Surgery, Gallbladder, Hysterectomy, Pacemaker, Tonsillectomy Cardiac: Atrial Fibrillation, High Cholesterol 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: No Hysterectomy Gastrointestinal: Gastroesophageal Reflux, Gastrointestinal Bleed (06/17/19), Hemorrhoids, Esophagitis, Hiatal Hernia Musculoskeletal: Arthritis, Chronic Back Pain Psychosocial: Anxiety History of Blood Disorders: No Family History Cardiovascular disease Colon cancer Hypertension Visual disorder No Family History of: Cystic fibrosis Prior Level of Function Bed Mobility: 6 Transfers: 6 Gait: 6 Indoor Mobility (Ambulation): Independent Self Care: Independent Functional Cognition: Independent Leisure Interests: gardening, 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 Pt able to reach all parts, but required assistance for thoroughness with buttocks. ) Upper Body Dressin Lower Body Dressin (Pt required assistance threading RLE into briefs. CGA during standing at W, she was able to manage clothing up.) On/Off Footwear: 3 (Pt able to doff BLE socks. She threaded LLE sock but required assistance with RLE due to her stating "I can't reach") Toileting Hygiene: 3 (Min A for thoroughness with buttocks. Pt able to manage pants up/down.) PM&R Allergy/Meds/Data Review Allergies Coded Allergies: Penicillins (Unverified Allergy, Unknown, PASS OUT, 05/12/18) Sulfa (Sulfonamide Antibiotics) (Unverified Allergy, Unknown, RASH, 05/12/18) Home Medications Scheduled Albuterol Sulfate (Albuterol Sulfate), 2.5 MG INH RTBID Hydrocodone/Acetaminophen (Hydrocodone-Acetamin 7.5-325), 1 EACH PO Q4H Multivitamins-Min/FA/Ginkgo (One Daily For Women 50+ Adv Tb), 1 TAB PO DAILY, (Reported) Pantoprazole Sodium (Pantoprazole Sodium), 40 MG PO DAILY Scheduled PRN Acetaminophen (Tylenol Extra Strength), 1,000 MG PO Q6H PRN for PAIN-MILD, (Reported) Hydrocodone Bit/Acetaminophen (HYDROcodone/APAP 7.5/325 TAB), 1 EA PO Q4H PRN for PAIN-MODERATE (5-7) Simethicone (Gas-X), 125-250 MG PO BID PRN for GAS, (Reported) Discontinued Medications Apixaban (Eliquis), 5 MG PO BID, (Reported) Current Medications Current Medications Reviewed Review of Systems Constitutional: see HPI, dizziness, weakness EENTM: throat pain Respiratory: dyspnea on exertion Cardiovascular: no symptoms reported Gastrointestinal: abdominal pain, nausea Genitourinary: no symptoms reported Musculoskeletal: no symptoms reported Skin: no symptoms reported Psychiatric/Neurological: Anxiety All Other Systems Reviewed Negative Unless Noted: Yes Physical Exam Physical Exam Vital Signs Vital Signs - First Documented 06/23/19 06/23/19 06/23/19 12:00 12:20 19:16 Temp 36.4 Pulse 83 Resp 20 B/P (MAP) 108/55 Pulse Ox 96 O2 Delivery Room Air FiO2 21 Capillary Refill : Height, Weight, BMI Height: 5'5.00" Weight: 118lbs. 0.0oz. 53.110601dn; 23.57 BMI Method:Stated General Appearance: Anxious, Chronically ill, Mild Distress, Thin Eyes: Bilateral Eye Normal Inspection, Bilateral Eye PERRL HEENT: PERRL/EOMI, Normal ENT Inspection, Pharynx Normal Neck: Normal Inspection, Non Tender, Supple Respiratory: Chest Non Tender, Lungs Clear, Normal Breath Sounds, No Accessory Muscle Use, No Respiratory Distress, Decreased Breath Sounds Cardiovascular: Regular Rate, Rhythm, No Edema, No Gallop, No JVD, No Murmur, Normal Peripheral Pulses Gastrointestinal: Normal Bowel Sounds, No Organomegaly, No Pulsatile Mass, Non Tender, Soft Back: Normal Inspection, No CVA Tenderness, No Vertebral Tenderness Extremity: Normal Inspection, Normal Range of Motion Neurologic/Psychiatric: Alert, Oriented x3, No Motor/Sensory Deficits (except generalized weakness all extremities), Normal 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, 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 Norm as Tested, Abnormal Gait Skin: Normal Color, Warm/Dry, Other (Midline abdominal incision C/D/I, no redness, erythema, or drainage noted.) Lymphatic: No Adenopathy PM&R Medical Assessment & Plan REHAB/MEDICAL ASSESSMENT AND PLAN: REHAB IMPAIRMENT GROUP: Critical illness myopathy ETIOLOGIC DIAGNOSIS: Critical illness myopathy The comorbidities that impact the patients function and/or functional outcome by: frail status baseline with fall risk and catastrophic critical illness with severe weakness who lives alone REHAB PLAN: The patient is being admitted to our comprehensive inpatient rehabilitation facility and can tolerate the intensity of service consisting of at least: 180 minutes of therapy a day, 5 out of 7 days a week Rehab treatment will consist of: PT OT will focus on regaining strength in order to perform ADL's in order to return home after fall risk prevention completed The patient/family has a good understanding of our discharge process and will benefit from an interdisciplinary inpatient rehabilitation program. The patient has potential to make improvement and is in need of at least two of the following multidisciplinary therapies including but not limited to physical, occupational, speech, and prosthetics and orthotics. Additionally the patient will need services from respiratory, nutritional services, wound care, psychology, etc. (Customize this to each patient). Given the patients complex condition and risk of further medical complications, rehabilitation services cannot be safely or effectively provided at a lower level of care such as a fdc facility. BARRIERS TO DISCHARGE: Lives alone with frail status ESTIMATED LOS: 7 days DISPOSITION: Home RELEVANT CHANGES SINCE PREADMISSION SCREENING: I have compared the patients medical and functional status at the time of the preadmission screening and there are: no changes PROGNOSIS: Good REHABILITATION GOALS: 1. PT OT will focus on regaining strength in order to perform ADL's in order to return home after fall risk prevention completed All the above goals were reviewed with the patient and he/she is in agreement. By signing this document, I acknowledge that I have personally performed a full physical examination on this patient within 24 hours of admission to this inpatient rehabilitation facility and have determined the patient to be able to tolerate the above course of treatment at an intensive level for a reasonable period of time. I will be completing a detailed individualized Plan of Care for this patient by day #4 of the patients stay based upon the Preadmission Screen, the Post-Admission Evaluation, and the therapy evaluations. Admission Dx/Comorbidities: (1) Volvulus Status: Acute ICD Codes: K56.2 - Volvulus (2) GI bleed ICD Codes: K92.2 - Gastrointestinal hemorrhage, unspecified (3) Frailty ICD Codes: R54 - Age-related physical debility (4) Atrial fibrillation with rapid ventricular response ICD Codes: I48.91 - Unspecified atrial fibrillation (5) Transfusion of blood during current hospitalization (6) DVT prophylaxis Status: Acute ICD Codes: Z29.9 - Encounter for prophylactic measures, unspecified (7) Hypovolemic shock Status: Resolved ICD Codes: R57.1 - Hypovolemic shock (8) Anemia Status: Acute ICD Codes: D64.9 - Anemia, unspecified (9) Paroxysmal atrial fibrillation Status: Chronic ICD Codes: I48.0 - Paroxysmal atrial fibrillation (10) Pacemaker Status: Chronic ICD Codes: Z95.0 - Presence of cardiac pacemaker Assessment/Plan Assessment and Plan Assess & Plan/Chief Complaint Assessment: Critical illness myopathy Catastrophic GI Bleed requiring 9 units of blood 06/17/19 s/p volvulus right hemicolectomy 06/16/19 PAF h/o OAC prior to admit Post op ileus Plan: Monitor hgb Ileus management IRF protocol Pain control GEMMA FUENTES DO Jun 23, 2019 21:02
[2019-06-23] MEDS: ALPRAZolam 0.25 MG (XANAX) TAB PO PRN (23:35)
[2019-06-24 05:48] VITALS: BP 118/72
[2019-06-24] MEDS: HYDROcodone/APAP 7.5 MG/325 MG (LORTAB, LORCET PLUS) TABLET PO PRN ×2 (06:35→18:18)
--- NOTE | 2019-06-24 06:47 | Individualized Plan of Care ---
Individualized Plan of Care Rehab Nursing IPOC Order Admission Date Jun 23, 2019 at 10:50 Current Orders Orders Admission Order(Inpt,Obs,Sdc) (06/23/19 07:08) Vital Signs: Per Unit Policy ( 08,16,00 (06/23/19 07:08) Aiden Dubon 09,21 (06/23/19 07:08) Sequential Compression Device Q4H (06/23/19 07:08) Instrument Calibrator-Inpt Rehab Con (06/23/19 07:08) Rehab Nursing Orders-Ipoc (06/23/19 07:08) Physical Therapy Rehab Orders (06/23/19 07:08) Occupational Therapy Rehab Ord (06/23/19 07:08) Speech Therapy Rehab Orders (06/23/19 07:08) Cbc With Automated Diff (06/24/19 06:00) Comprehensive Metabolic Panel (06/24/19 06:00) General/Regular (06/23/19 Lunch) Intake & Output 06,14,22 (06/23/19 07:08) Precautions (Aru) (06/23/19 07:08) Weekly Weight WEEK (06/23/19 07:08) Rehab-Intensity Of Therapy (06/23/19 07:08) Initiate Admission Nursing Pro .admission (06/23/19 07:08) Acetaminophen Tablet (Tylenol Tablet) (06/23/19 07:15) Alprazolam Tablet (Xanax Tablet) (06/23/19 07:15) Calcium Carbonate Chew Tablet (Antacid C (06/23/19 07:15) Diphenhydramine Tablet (Benadryl Tablet) (06/23/19 07:15) Docusate Sodium Capsule (Colace Capsule) (06/23/19 09:00) Docusate Sodium Capsule (Colace Capsule) (06/23/19 07:15) Bisacodyl Suppository (Dulcolax Supposit (06/23/19 07:15) Lactulose Oral Solution (Enulose Oral So (06/23/19 07:15) Na Phos/Na Biphos Enema (Fleet Enema Gerardo (06/23/19 07:15) Guaifenesin/Codeine Syrup (Robitussin Ac (06/23/19 07:15) Loperamide Tablet (Imodium Tablet) (06/23/19 07:15) Melatonin Tablet (Melatonin Tablet) (06/23/19 07:15) Polyethylene Glycol Powder Pkt (Miralax (06/23/19 09:00) Ondansetron Oral Dissolve Tab (Zofran (06/23/19 07:15) Senna S Tablet (Senokot S Tablet) (06/23/19 09:00) Initiate Admission Nursing Pro .admission (06/23/19 07:08) Admission Arrival Bed Request (06/23/19 11:20) Patient Visit (06/23/19 ) Speech Sound Lang Comp (06/23/19 ) Hydrocodone/Apap 7.5/325 Tab (Lortab 7. (06/23/19 14:00) Patient Visit (06/23/19 ) Pt Eval Moderate Complexity (06/23/19 ) Functional Activities, Ea 15 (06/23/19 ) Code/Resuscitation (06/23/19 14:30) Activity (06/23/19 14:30) Ambulate 08,12,20 (06/23/19 14:30) Catheter(Urinary) Discontinue (06/23/19 14:30) Oxygen-Administer 07,19 (06/23/19 14:30) Sequential Compression Device Q4H (06/23/19 14:30) Weight Bearing Status (06/23/19 14:30) Ensure Enlive (06/23/19 Dinner) Acetaminophen Suppository (Tylenol Suppo (06/23/19 14:30) Albuterol Pre-Mix Nebs (Rt) (Proventil (06/23/19 21:00) Hydrocodone/Apap 7.5/325 Tab (Lortab 7. (06/23/19 14:30) Hydromorphone Injection (Dilaudid Inject (06/23/19 14:30) Enoxaparin Injection (Lovenox Injection) (06/23/19 14:30) Ondansetron Injection (Zofran Injectio (06/23/19 14:30) Pantoprazole Tablet (Protonix Tablet) (06/24/19 09:00) Phenol Throat [place] (Chloraseptic [place]) (06/23/19 14:30) Prochlorperazine Suppository (Compazine (06/23/19 14:30) Received Contrast (Hold Metformin- Contr (06/23/19 14:30) Sodium Chloride Flush (Catheter Flush Sy (06/23/19 14:30) Diphenhydramine Injection (Benadryl Inje (06/23/19 14:30) Fentanyl Injection (Sublimaze Injection (06/23/19 14:30) Consult Cardiology (06/23/19 14:30) Consult General Surgery (06/23/19 14:30) Svn Small Volume Nebulizer (06/23/19 14:30) Ambulate 08,12,20 (06/23/19 14:33) Sequential Compression Device Q4H (06/23/19 14:33) Dvt/Vte Risk - Notifiy Physici Q4H (06/23/19 14:33) Telemetry (06/23/19 15:31) Telemetry Nursing Assessment ( (06/23/19 15:31) General/Regular (06/23/19 Lunch) General/Regular (06/23/19 Dinner) Iron Test (Fe) (06/24/19 06:00) Potassium Cl 10meq/50ml Ivpb (Kcl 10 Meq (06/24/19 11:00) Patient Visit (06/24/19 ) Exercise Therap, Ea 15 Min (06/24/19 ) Gait Training, Ea 15 Min (06/24/19 ) Patient Visit (06/24/19 ) Exercise Therap, Ea 15 Min (06/24/19 ) Functional Activities, Ea 15 (06/24/19 ) Rehab Nursing Orders: Ongoing Assess. of Cognitive Status, Ongoing Assess. of Function Status, Bladder Management, Bladder Scan, Bladder Training, Bowel Management, Bowel Training, Disease Management & Educaiton, DVT Prophylaxis, Fall Prevention, Fluid/Electrolyte/Nutrition Mgmt, Infection Prevention, Med ication Management & Education, Management of Risks & Complications, Management of Skin Intergrity, Nutrition Management, Pain Management, Patient/Family Support, Safety Management Intensity of Therapy to be met Patient to be seen: Min.3h per day/5 of 7d PT IPOC Problem List: Activity Tolerance, Functional Strength, Safety, Balance, Gait, Transfer, Bed Mobility Treatment Plan: Continue Plan of Care Bed Mobility, Education, Functional Activity Susy, Functional Strength, Group Therapy, Gait, Safety, Therapeutic Exercise, Transfers Treatment Duration: July 14, 2019 Frequency: covid waiver 60 min per day, will increase as patient is able Estimated Hrs Per Day: 1.5 hours per day OT IPOC Problems: Decreased Activ Tolerance, Decreased UE Strength, Impaired Funct Balance, Impaired I ADL's, Impaired Self-Care Skills OT Treatment, Training and Edu: Yes Plan of Care: ADL Retraining, Functional Mobility, Group Exercise/Act as Ind, UE Funct Exercise/Act Treatment Duration: July 22, 2019 Frequency: At least 5 of 7 days/Wk (IRF) Estimated Hrs Per Day: Other (COVID Waiver 60 mins per day, increase as pt able ) ST IPOC Speech Therapy Treatment Plan: Discontinue ST Treatment Duration: Jun 23, 2019 Frequency: 1 time per week Estimated Hrs Per Day: .25 hour per day Instrument Calibrator/Case Mgmt Instrument Calibrator/Case Managemen: Discharge Planning Dietitian/Terminologist Dietitian/Terminologist to monitor nutritional status and make changes and/or recommendations as needed and work with speech pathology on dietary upgrades as the occur. Physician IPOC Medical Issues being managed closely and that require the 24 hour availability of a physician: Recent catastrophic critical illness with massive GIB requiring 9 units of blood will need close monitoring due to PAF and poor reserve Medical Issues: Bowel/Bladder Function, DVT Prophylaxis, Falls Precautions, Fluid/Electrolyte/Nutrition Balance, Infection Protection, Pain Management Brief Synthesis of Preadmission Screen, Post-Admission Evaluation, and Therapy Evaluations: PT OT will focus on regaining strength and recovering ADL's and recovering bowel function in order to return home to live independently Medical Prognosis: Good Anticipated Length of Stay: 7 days Patient meets criteria and does not have a qualifying 60% diagnosis. Patient will be admitted to IRF due to the current COVID-19 crisis. This patient is an appropriate ARU 40% patient, who during this COVID emergency, requires the admission to acute rehab. GEMMA FUENTES DO June 24, 2019 06:47
[2019-06-24 06:51] LABS: BASOPHILS % (AUTO) 0 % (0-10); EOSINOPHILS # (AUTO) 0.3 10^3/uL (0.0-0.3); EOSINOPHILS % (AUTO) 2 % (0-10); HEMATOCRIT 28 % (35-52); HEMOGLOBIN 9.5 G/DL (11.5-16.0); LYMPHOCYTES # (AUTO) 1.1 X 10^3 (1.0-4.0); LYMPHOCYTES % (AUTO) 10 % (12-44); MEAN CORPUSCULAR HEMOGLOBIN 30 PG (25-34); MEAN CORPUSCULAR HGB CONC 34 G/DL (32-36); MEAN CORPUSCULAR VOLUME 90 FL (80-99); MEAN PLATELET VOLUME 9.5 FL (7.4-10.4); MONOCYTES % (AUTO) 9 % (0-12); NEUTROPHILS # (AUTO) 9.5 X 10^3 (1.8-7.8); NEUTROPHILS % (AUTO) 79 % (42-75); PLATELET COUNT 476 10^3/uL (130-400); RED CELL DISTRIBUTION WIDTH 15.1 % (10.0-14.5)
[2019-06-24] MEDS: RT-ALBUTEROL SULF 2.5 MG/3 ML PRE-MIX VIAL INH SCH ×2 (07:13→19:13)
[2019-06-24 07:28] LABS: ALANINE AMINOTRANSFERASE 35 U/L (0-55); ALBUMIN 2.8 GM/DL (3.2-4.5); ALKALINE PHOSPHATASE 77 U/L (40-136); BILIRUBIN,TOTAL 0.4 MG/DL (0.1-1.0); BUN/CREATININE RATIO 6; CALCIUM 7.9 MG/DL (8.5-10.1); CARBON DIOXIDE 23 MMOL/L (21-32); CHLORIDE 108 MMOL/L (98-107); CREATININE SERUM 0.62 MG/DL (0.60-1.30); GFR ESTIMATED > 60; GLUCOSE 102 MG/DL (70-105); POTASSIUM 3.1 MMOL/L (3.6-5.0); SODIUM 140 MMOL/L (135-145)
[2019-06-24] MEDS ORDERED: APIX5TAB PO (08:26)
[2019-06-24] MEDS: polyethylene glycoL POWDER 17 GM (MIRALAX) PACK PO SCH ×2 (09:00→20:03)
[2019-06-24] MEDS: DOCUSATE SODIUM 100 MG (COLACE) CAP PO SCH ×2 (09:00→20:03)
[2019-06-24] MEDS: SENNA W/DOCUSATE (SENOKOT S) TABLET PO SCH ×2 (09:00→20:03)
[2019-06-24] MEDS: PANTOPRAZOLE 40 MG (PROTONIX) TAB PO SCH (09:22)
--- NOTE | 2019-06-24 10:42 | PM&R Progress Note ---
Subjective HPI/CC On Admission Date Seen by Provider: June 24, 2019 Time Seen by Provider: 10:45 Subjective/Events-last exam Patient had a good night last night and slept well No pain except incision site Building strength rapidly No falls Ileus still an issue but she is working through that BP remains stable AF managed by Cardiology Checked meds and labs Conferred with RN Reviewed therapy notes Review of Systems General: Fatigue Gastrointestinal: Abdominal Pain Objective Exam Vital Signs Vital Signs Date Time Temp Pulse Resp B/P (MAP) Pulse Ox O2 Delivery O2 Flow Rate FiO2 06/25/19 01:00 60 06/24/19 20:52 Room Air 06/24/19 19:13 93 06/24/19 16:00 37.4 20 110/73 (85) 06/23/19 19:16 21 Capillary Refill : Less Than 3 Seconds General Appearance: No Apparent Distress, Anxious, Chronically ill, Thin HEENT: PERRL/EOMI, Normal ENT Inspection, Pharynx Normal Neck: Normal Inspection, Non Tender, Supple Respiratory: Chest Non Tender, Lungs Clear, Normal Breath Sounds, No Accessory Muscle Use, No Respiratory Distress Cardiovascular: Regular Rate, Rhythm, No Edema, No Gallop, No JVD, No Murmur, Normal Peripheral Pulses Gastrointestinal: Normal Bowel Sounds, No Organomegaly, No Pulsatile Mass, Non Tender, Soft Back: Normal Inspection, No CVA Tenderness, No Vertebral Tenderness Extremity: Normal Inspection, Normal Range of Motion Neurologic/Psychiatric: Alert, Oriented x3, No Motor/Sensory Deficits (except generalized weakness all extremities), Normal 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 FIM Transfers Therapy Code Descriptions/Definitions Functional [place] Measure: 0=Not Assessed/NA 4=Minimal Assistance 1=Total Assistance 5=Supervision or Setup 2=Maximal Assistance 6=Modified [place] 3=Moderate Assistance 7=Complete IndependenceSCALE: Activities may be completed with or without assistive devices. 1-Gxfvcehkib-uallezb completes the activity by him/herself with no assistance from a helper. 5-Set-up or Clean-up Assistance-helper sets up or cleans up; patient completes activity. [place] assists only prior to or following the activity. 4-Supervision or Touching Assistance-helper provides verbal cues and/or touching/steadying and/or contact guard assistance as patient completes acti vity. Assistance may be provided throughout the activity or intermittently. 3-Partial/Moderate Assistance-helper does LESS THAN HALF the effort. [place] lifts, holds or supports trunk or limbs, but provides less than half the effort. 2-Substantial/Maximal Assistance-helper does MORE THAN HALF the effort. [place] lifts or holds trunk or limbs and provides more than half the effort. 8-Srtbjlrlr-kgojmf does ALL the effort. Patient does none of the effort to complete the activity. Or, the assistance of 2 or more helpers is required for the patient to complete the activity. If activity was not attempted, code reason: 7-Patient Refused. 9-Not Applicable-not attempted and the patient did not perform the activity before the current illness, exacerbation or injury. 10-Not Attempted due to Environmental Limitations-(lack of equipment, weather restraints, etc.). 88-Not Attempted due to Medical Conditions or Safety Concerns. Roll Left to Right (QC): 4 Sit to Lying (QC): 3 Sit to Stand (QC): 4 Chair/Mfl-fv-Ouwql Xfer(QC): 4 Car Transfer (QC): 3 Gait Training Does the Patient Walk?: Yes Walk 10 feet (QC): 4 Walk 50 ft with 2 Turns(QC): 4 Walk 150 ft (QC): 88 Walking 10ft/uneven surface-QC: 4 Gait Assistive Device: FWW Wheelchair Training Does the Pt Use a Wheelchair?: No Wheel 50 ft with 2 turns (QC): 9 Wheel 150 ft (QC): 9 Stair Training #of Steps: 1 1 Step (curb) (QC): 4 4 Steps (QC): 88 12 Steps (QC): 88 Balance Picking up an Object (QC): 88 ADL-Treatment Eating (QC): 7 Oral Hygiene (QC): 7 Shower/Bathe Self (QC): 3 (sponge bath. Pt able to reach all parts, but required assistance for thoroughness with buttocks. ) Upper Body Dressing (QC): 7 Lower Body Dressing (QC): 3 (Pt required assistance threading RLE into briefs. CGA during standing at [facility], she was able to manage clothing up.) On/Off Footwear (QC): 3 (Pt able to doff BLE socks. She threaded LLE sock but required assistance with RLE due to her stating "I can't reach") Toileting Hygiene (QC): 3 (Min A for thoroughness with buttocks. Pt able to manage pants up/down.) Assessment/Plan Assessment and Plan Assess & Plan/Chief Complaint Assessment: Critical illness myopathy Catastrophic GI Bleed requiring 9 units of blood 06/17/19 s/p volvulus right hemicolectomy 06/16/19 PAF h/o OAC prior to admit Post op ileus Plan: Monitor hgb Ileus management IRF protocol Pain control Improved on IRF protocol (1) Volvulus Status: Acute (2) GI bleed (3) Frailty (4) Atrial fibrillation with rapid ventricular response (5) Transfusion of blood during current hospitalization (6) DVT prophylaxis Status: Acute (7) Hypovolemic shock Status: Resolved Resolution Date/Time: 06/20/19 @ 11:26 (8) Anemia Status: Acute (9) Paroxysmal atrial fibrillation Status: Chronic (10) Pacemaker Status: Chronic GEMMA FUENTES DO June 24, 2019 10:42
--- NOTE | 2019-06-24 11:29 | NUR ---
RD ASSESSMENT PMHx: hypercholesterolemia; GERD; diverticulosis; hiatal hernia; s/p R hemicolectomy PT INTERACTION: Pt was awake and pleasant during nutrition assessment. Pt states current appetite is "so-so". Note PO intake of 50% x1meal, per chart review. Pt states no recent issues with nausea, vomiting, constipation, or diarrhea. Note last BM was 5, and pt currently on bowel regimen of colace BID; senna BID; and miralax BID, per chart review. ABNORMAL NUTRITION-RELATED LAB VALUES LOW: K 3.1; Bun 4; Ca 7.9; Pro 5.0; alb 2.8 HIGH: Est. kcal needs: 7799-2313 | 25-30 kcal/kg Est. Pro needs: 66-80 g Pro | 1.0-1.2 g Pro/kg PES STATEMENT: Inadequate oral intake (NI-2.1) related to loss of appetite as evidenced by pt interview | PO intake 50% x1meal INTERVENTION: Continue with current diet order of Regular diet. Continue with current supplementation order of Ensure Enlive (vary) with meals TID, for increased kcal intake. Provides 350 kcal and 13 g Pro per serving. Will continue to follow and reassess as pt needs, intake, and status change. MONITOR/EVALUATE: PO Intake; Plan of Care; Hydration Status; Weight Status; Lab Values Addy Hollingsworth, MS, RD, LD
[2019-06-24] MEDS: POTASSIUM CL 10MEQ/50ML IVPB 50 ML IV SCH ×4 (11:36→14:01)
--- NOTE | 2019-06-24 11:56 | Physical Therapy Daily Note ---
PT Daily Note-Current Subjective Pt agreeable to treatment. Pt says she has "gas bubbles that cause discomfort, otherwise denies pain. Pt says getting in/out of bed is getting easier. Mental Status Patient Orientation: Person, Place, Situation Transfers SCALE: Activities may be completed with or without assistive devices. 5-Hpwkugjbcm-elxxmck completes the activity by him/herself with no assistance from a helper. 5-Set-up or Clean-up Assistance-helper sets up or cleans up; patient completes activity. [place] assists only prior to or following the activity. 4-Supervision or Touching Assistance-helper provides verbal cues and/or touching/steadying and/or contact guard assistance as patient completes activity. Assistance may be provided throughout the activity or intermittently. 3-Partial/Moderate Assistance-helper does LESS THAN HALF the effort. [place] lifts, holds or supports trunk or limbs, but provides less than half the effort. 2-Substantial/Maximal Assistance-helper does MORE THAN HALF the effort. [place] lifts or holds trunk or limbs and provides more than half the effort. 0-Xitomkxqj-ozwzmw does ALL the effort. Patient does none of the effort to complete the activity. Or, the assistance of 2 or more helpers is required for the patient to complete the activity. If activity was not attempted, code reason: 7-Patient Refused. 9-Not Applicable-not attempted and the patient did not perform the activity before the current illness, exacerbation or injury. 10-Not Attempted due to Environmental Limitations-(lack of equipment, weather restraints, etc.). 88-Not Attempted due to Medical Conditions or Safety Concerns. Transfers all levels mod (I) Weight Bearing Right Lower Extremity: Right Weight Bearing/Tolerated Left Lower Extremity: Left Weight Bearing/Tolerated Gait Training Gait Assistive Device: FWW Pt amb with FWW 2 x 150ft, slow and steady speed Exercises Supine Ex: Ankle pumps, Quad Set, Heel Slides, Short Arc Quads, Hip abd/add Supine Reps: 20 Seated Therapy Exercises: Long arc quads Seated Reps: 20 NuStep Minutes: 5 NuStep Workload: 2 Assessment Current Status: Good Progress Pt shannan above well with rest breaks as needed. Pt fatigues somewhat, recovers with rest breaks. Pt able to get in/out of bed with HOB elevated. Pt back to bed with call light and all needs met. PT Short Term Goals Short Term Goals Time Frame: June 30, 2019 Roll Left & Right: 6 Sit to lyin Lying to sitting on side of be: 3 Sit to stand: 5 Chair/dpa-gj-zsbcz transfer: 5 Walk 10 feet: 5 Walk 50 feet with two turns: 5 Walk 150 feet: 5 PT Billet Bed Operator Goals Billet Bed Operator Goals PT Billet Bed Operator Goals Time Frame: July 14, 2019 Roll Left & Right (QC): 6 Sit to Lying (QC): 6 Lying-Sitting on Side/Bed(QC): 6 Sit to Stand (QC): 6 Chair/Sju-ej-Ddtvm Xfer(QC): 6 Toilet Transfer (QC): 6 Car Transfer (QC): 6 Does the Patient Walk: Yes Walk 10 feet (QC): 6 Walk 50ft with 2 Turns (QC): 6 Walk 150 ft (QC): 6 Walking 10ft on Uneven Surface: 6 1 Step (curb) (QC): 4 4 Steps (QC): 4 12 Steps (QC): 88 Picking up an Object (QC): 88 Does the Pt use WC or Scooter?: No Wheel 50 feet with 2 turns (QC: 9 Wheel 150 feet: 9 PT Plan Treatment/Plan Treatment Plan: Continue Plan of Care Treatment Plan: Bed Mobility, Education, Functional Activity Susy, Functional Strength, Group Therapy, Gait, Safety, Therapeutic Exercise, Transfers Treatment Duration: July 14, 2019 Frequency: aquilesid waiver 60 min per day, will increase as patient is able Estimated Hrs Per Day: 1.5 hours per day Patient and/or Family Agrees t: Yes Time/GCodes Time In: 1045 Time Out: 1130 Total Billed Treatment Time: 45 Total Billed Treatment 1, ex x 30', gait x 15' SUNDEEP SALTER CPTA June 24, 2019 11:56
--- NOTE | 2019-06-24 13:14 | NUR ---
CM/SS ADMISSION Patient was admitted to ARU 06/23/19 for Debility, post op for volvulus and secondary surgery for gastrointestinal hemorrhage. Catastrophic GI bleed required 9 units of blood 06/17/19. Prior to acute onset of illness 06/15/19 patient was independent of ADLs and resided home alone in [facility]. She had driven herself to her PCP office who then transitioned her to the [facility] ED and on up the continuum of care to surgery. PCP: EMILIANO PENA, Dr. Madhu Gould, [facility] PHARMACY: [facility] INSURANCE: [employer], patient identified it as [email or web address]. DME: Patient does not have walker or shower chair. She hopes to get to the point during her stay here that she doesn't need a FWW; however, will continue to explore therapy recommendations as patient progresses toward discharge. BARRIERS TO DISCHARGE: Recuperation time needed to return to PLOF. Only one family member local regarding availability to assist intermittently. Continue to explore for other barriers. CONTACTS: Patient has 4 children: maggy Rivera. 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 Yash Loaiza, [place], [place] Winston Loaiza, [place], [place] Magalie Genao, Youngest [address] [place] [address] Patient indicates that Magalie and her son have been assisting her as needed. Patient understood the purpose and process of the weekly team conference and that she will be reviewed next 06/29/19, regarding her progress toward discharge.
--- NOTE | 2019-06-24 13:55 | Occupational Ther Daily Note ---
OT Current Status-Daily Note Subjective Pt laying in bed at start of session, OT introduced self stating she was there with therapy. Pt groaned stating she really wants a nap. Pt agreed to OT tx with moderate encouragement. Mental Status/Objective Patient Orientation: Normal For Age ADL-Treatment Therapy Code Descriptions/Definitions Functional [place] Measure: 0=Not Assessed/NA 4=Minimal Assistance 1=Total Assistance 5=Supervision or Setup 2=Maximal Assistance 6=Modified [place] 3=Moderate Assistance 7=Complete IndependenceSCALE: Activities may be completed with or without assistive devices. 0-Gqgpgzzncf-hjrtnvh completes the activity by him/herself with no assistance from a helper. 5-Set-up or Clean-up Assistance-helper sets up or cleans up; patient completes activity. [place] assists only prior to or following the activity. 4-Supervision or Touching Assistance-helper provides verbal cues and/or touching/steadying and/or contact guard assistance as patient completes activity. Assistance may be provided throughout the activity or intermittently. 3-Partial/Moderate Assistance-helper does LESS THAN HALF the effort. [place] lifts, holds or supports trunk or limbs, but provides less than half the effort. 2-Substantial/Maximal Assistance-helper does MORE THAN HALF the effort. [place] lifts or holds trunk or limbs and provides more than half the effort. 5-Hsnwecvyv-irfxss does ALL the effort. Patient does none of the effort to complete the activity. Or, the assistance of 2 or more helpers is required for the patient to complete the activity. If activity was not attempted, code reason: 7-Patient Refused. 9-Not Applicable-not attempted and the patient did not perform the activity before the current illness, exacerbation or injury. 10-Not Attempted due to Environmental Limitations-(lack of equipment, weather restraints, etc.). 88-Not Attempted due to Medical Conditions or Safety Concerns. Eating (QC): 5 (set up per pt report) Oral Hygiene (QC): 5 (set up and clean up assistance at tray table, bed level.) Upper Body Dressing (QC): 3 (min A with managing shirt down over her back. ) Other Treatment Pt laying in bed, brushed her teeth at bed level, then transferred to EOB with SBA. Pt donned/doffed loop puller shirt. Pt then sat EOB in order to place 1" pegs into pegboard using RUE in order to increase seating balance and UE strength/endurance. Pt instructed to alternate hands with task, requiring mod cues during task for direction. She required multiple rest breaks during session, fatiguing quickly. Pt transferred back to supine. Post OT session, pt laying in bed, call light in reach and all needs met. Education OT Patient Education: Correct positioning, Energy conservation, Exercise program, Modified ADL techniques, Progress toward Goal/Update tx plan, Purpose of tx/functional activities, Transfer techniques Teaching Recipient: Patient Teaching Methods: Discussion Response to Teaching: Verbalize Understanding OT Short Term Goals Short Term Goals Time Frame: July 06, 2019 Shower/bathe self: 4 Lower body dressin OT Usp Goals [employer] Goals Time Frame: July 22, 2019 Eating (QC): 6 Oral Hygiene (QC): 6 Toileting Hygiene (QC): 6 Shower/Bathe Self (QC): 6 Upper Body Dressing (QC): 6 Lower Body Dressing (QC): 6 On/Off Footwear (QC): 6 Additional Goals: 1-Demonstrate ADL Tasks, 2-Verbalize Understanding, 3- ImproveStrength/Susy 1=Demonstrate adherence to instructed precautions during ADL tasks. 2=Patient will verbalize/demonstrate understanding of assistive devices/ modifications for ADL. 3=Patient will improve strength/tolerance for activity to enable patient to perform ADL's. OT Education/Plan Problem List/Assessment Assessment: Decreased Activ Tolerance, Decreased UE Strength, Impaired Funct Balance, Impaired I ADL's, Impaired Self-Care Skills Discharge Recommendations Plan/Recommendations: Continue POC Treatment Plan/Plan of Care Treatment,Training & Education: Yes Patient would benefit from OT for education, treatment and training to promote independence in ADL's, mobility, safety and/or upper extremity function for ADL's. Plan of Care: ADL Retraining, Functional Mobility, Group Exercise/Act as Ind, UE Funct Exercise/Act Treatment Duration: July 22, 2019 Frequency: At least 5 of 7 days/Wk (IRF) Estimated Hrs Per Day: Other (COVID Waiver 60 mins per day, increase as pt able) Agreement: Yes Rehab Potential: Good Time/GCodes Start Time: 13:00 Stop Time: 14:00 Total Time Billed (hr/min): 60 Billed Treatment Time 1, ADL 3 (40'), FA (20') MAUDE GONZALEZ OT June 24, 2019 13:55
--- NOTE | 2019-06-24 14:57 | Physical Therapy Daily Note ---
PT Daily Note-Current Subjective Pt c/o "gas pockets". Pt agrees to PT in bed. "I am worn out." Pt requests BR. During roll to pt (R) pt felt a "pinch" at IV insert point. Nurse made aware of pt complaint. Mental Status Patient Orientation: Person, Place, Situation Attachments: IV Transfers SCALE: Activities may be completed with or without assistive devices. 0-Xvwbdbbass-qrgnmub completes the activity by him/herself with no assistance from a helper. 5-Set-up or Clean-up Assistance-helper sets up or cleans up; patient completes activity. [place] assists only prior to or following the activity. 4-Supervision or Touching Assistance-helper provides verbal cues and/or touching/steadying and/or contact guard assistance as patient completes activity. Assistance may be provided throughout the activity or intermittently. 3-Partial/Moderate Assistance-helper does LESS THAN HALF the effort. [place] lifts, holds or supports trunk or limbs, but provides less than half the effort. 2-Substantial/Maximal Assistance-helper does MORE THAN HALF the effort. [place] lifts or holds trunk or limbs and provides more than half the effort. 8-Nekkyjdft-ckncfs does ALL the effort. Patient does none of the effort to complete the activity. Or, the assistance of 2 or more helpers is required for the patient to complete the activity. If activity was not attempted, code reason: 7-Patient Refused. 9-Not Applicable-not attempted and the patient did not perform the activity before the current illness, exacerbation or injury. 10-Not Attempted due to Environmental Limitations-(lack of equipment, weather restraints, etc.). 88-Not Attempted due to Medical Conditions or Safety Concerns. HOB elevated, mod (I) with transfers Weight Bearing Right Lower Extremity: Right Weight Bearing/Tolerated Left Lower Extremity: Left Weight Bearing/Tolerated Gait Training Gait Assistive Device: FWW 2 x 15' with CGA and FWW, f/u IV pole Exercises Supine Ex: Ankle pumps, Quad Set, Heel Slides, Short Arc Quads, Hip abd/add Supine Reps: 20 Assessment Current Status: Fair Progress Pt tired this pm. Pt pleasant and agreeable throughout. Pt able to complete all ther ex with rest breaks, somewhat SOB with exertion and conversation. Pt SBA for BR use. Pt back to bed with call light and all needs met. Pt nurse notified of pt c/o "pinch" at IV insert point. PT Short Term Goals Short Term Goals Time Frame: June 30, 2019 Roll Left & Right: 6 Sit to lyin Lying to sitting on side of be: 3 Sit to stand: 5 Chair/ucy-ro-pefyx transfer: 5 Walk 10 feet: 5 Walk 50 feet with two turns: 5 Walk 150 feet: 5 PT Regional Operations Manager Goals Retirement Goals PT Regional Operations Manager Goals Time Frame: July 14, 2019 Roll Left & Right (QC): 6 Sit to Lying (QC): 6 Lying-Sitting on Side/Bed(QC): 6 Sit to Stand (QC): 6 Chair/Wgx-qu-Gxkzt Xfer(QC): 6 Toilet Transfer (QC): 6 Car Transfer (QC): 6 Does the Patient Walk: Yes Walk 10 feet (QC): 6 Walk 50ft with 2 Turns (QC): 6 Walk 150 ft (QC): 6 Walking 10ft on Uneven Surface: 6 1 Step (curb) (QC): 4 4 Steps (QC): 4 12 Steps (QC): 88 Picking up an Object (QC): 88 Does the Pt use WC or Scooter?: No Wheel 50 feet with 2 turns (QC: 9 Wheel 150 feet: 9 PT Plan Treatment/Plan Treatment Plan: Continue Plan of Care Treatment Plan: Bed Mobility, Education, Functional Activity Susy, Functional Strength, Group Therapy, Gait, Safety, Therapeutic Exercise, Transfers Treatment Duration: July 14, 2019 Frequency: romelia waiver 60 min per day, will increase as patient is able Estimated Hrs Per Day: 1.5 hours per day Patient and/or Family Agrees t: Yes Time/GCodes Time In: 205 Time Out: 240 Total Billed Treatment Time: 35 Total Billed Treatment 1, ther ex 20min, FA 15min SUNDEEP SALTER CPTA June 24, 2019 14:57
[2019-06-24 16:00] VITALS: BP 110/73
[2019-06-24] MEDS: ENOXAPARIN 40 MG/0.4 ML (LOVENOX) SYR SC SCH (16:24)
--- NOTE | 2019-06-24 19:05 | Cardiology Progress Note ---
Cardiology SOAP Progress Note Subjective: No cardiac complaints. Objective: I&O/Vital Signs 06/26/19 06/26/19 06/26/19 06/26/19 07:00 07:31 08:20 12:21 Pulse 71 70 Pulse Ox 96 O2 Delivery Room Air Room Air 06/26/19 17:36 Temp 37.0 Pulse 69 Resp 16 B/P (MAP) 136/77 (96) Pulse Ox 96 O2 Delivery Room Air 06/26/19 00:00 Intake Total 932 ml Balance 932 ml Weight (Pounds): 118 Weight (Ounces): 0.0 Weight (Calculated Kilograms): 53.249661 Constitutional: AAO x 3; No apparent distress; PERRL, well-developed, well- nourished Respiratory: chest is bilaterally symmetric, lungs clear to auscultation; No crackles, No rhonchi, No rales, No wheezing Cardiovascular: regular rate-rhythm; No irregularly irregular, No extra beats, No parasternal heave is noted; S1 and S2; No gallop/S4, No diastolic murmur, No systolic murmur Gastrointestional: soft, audible bowel sounds Extremities: normal range of motion, non-tender, normal inspection, no lower extremity edema bilateral Neurologic/Psychiatric: no motor/sensory deficits, alert, normal mood/affect, oriented x 3 Skin: normal color Results/Procedures: Labs A/P: Assessment/Dx: Volvulus, post surgery, Significant bleeding post surgery, hemorrhagic shock, Sinus node dysfunction, Second degree heart block, previous history of dual-chamber permanent pacemaker, History of paroxysmal atrial fibrillation on oral anticoagulation., Hypertension Plan: Volvulus, post surgery, currently inpatient rehabilitation. Significant bleeding post surgery, hemorrhagic shock, numerous transfusions given. Required repeat surgery to clamp an arterial bleed. Much stable now. Sinus node dysfunction, Second degree heart block, previous history of dual-chamber permanent pacemaker, no active issues. History of paroxysmal atrial fibrillation, hold Eliquis. Hypertension Thank you for your consultation. Please call me if you have any questions. Elayne Tyson MD, FACP, FACC, FSCAI, FHRS, CCDS Interventional Cardiology Cardiac Electrophysiology Vascular Medicine and Endovascular Interventions Victoriano TYSON MD June 24, 2019 19:05
[2019-06-24] MEDS: ACETAMINOPHEN 500 MG TAB (TYLENOL) PO PRN (20:21)
[2019-06-24] MEDS: ALPRAZolam 0.25 MG (XANAX) TAB PO PRN (21:49)
[2019-06-25] MEDS: HYDROcodone/APAP 7.5 MG/325 MG (LORTAB, LORCET PLUS) TABLET PO PRN ×3 (01:59→20:06)
[2019-06-25 06:00] VITALS: BP 136/72
[2019-06-25] MEDS: ACETAMINOPHEN 500 MG TAB (TYLENOL) PO PRN (06:48)
[2019-06-25 08:15] LABS: BASOPHILS % (AUTO) 0 % (0-10); EOSINOPHILS # (AUTO) 0.3 10^3/uL (0.0-0.3); EOSINOPHILS % (AUTO) 2 % (0-10); HEMATOCRIT 28 % (35-52); HEMOGLOBIN 8.9 G/DL (11.5-16.0); LYMPHOCYTES # (AUTO) 1.1 X 10^3 (1.0-4.0); LYMPHOCYTES % (AUTO) 9 % (12-44); MEAN CORPUSCULAR HEMOGLOBIN 30 PG (25-34); MEAN CORPUSCULAR HGB CONC 32 G/DL (32-36); MEAN CORPUSCULAR VOLUME 92 FL (80-99); MEAN PLATELET VOLUME 9.8 FL (7.4-10.4); MONOCYTES % (AUTO) 8 % (0-12); NEUTROPHILS # (AUTO) 9.4 X 10^3 (1.8-7.8); NEUTROPHILS % (AUTO) 80 % (42-75); PLATELET COUNT 514 10^3/uL (130-400); RED CELL DISTRIBUTION WIDTH 15.1 % (10.0-14.5); WHITE BLOOD COUNT 11.7 10^3/uL (4.3-11.0)
[2019-06-25 08:28] LABS: ALANINE AMINOTRANSFERASE 36 U/L (0-55); ALBUMIN 2.8 GM/DL (3.2-4.5); ALKALINE PHOSPHATASE 76 U/L (40-136); BILIRUBIN,TOTAL 0.4 MG/DL (0.1-1.0); BUN/CREATININE RATIO 8; CARBON DIOXIDE 21 MMOL/L (21-32); CHLORIDE 107 MMOL/L (98-107); CREATININE SERUM 0.66 MG/DL (0.60-1.30); GFR ESTIMATED > 60; GLUCOSE 144 MG/DL (70-105); POTASSIUM 3.4 MMOL/L (3.6-5.0); SODIUM 138 MMOL/L (135-145); TOTAL PROTEIN 5.1 GM/DL (6.4-8.2)
[2019-06-25] MEDS: polyethylene glycoL POWDER 17 GM (MIRALAX) PACK PO SCH ×2 (09:03→20:34)
[2019-06-25] MEDS: SENNA W/DOCUSATE (SENOKOT S) TABLET PO SCH ×2 (09:03→20:34)
[2019-06-25] MEDS: DOCUSATE SODIUM 100 MG (COLACE) CAP PO SCH ×2 (09:03→20:34)
[2019-06-25] MEDS: PANTOPRAZOLE 40 MG (PROTONIX) TAB PO SCH (09:03)
[2019-06-25] MEDS: IRON SUCROSE 200 MG/10 ML (VENOFER) VIAL IV SCH (09:04)
[2019-06-25] MEDS: RT-ALBUTEROL SULF 2.5 MG/3 ML PRE-MIX VIAL INH SCH ×2 (09:26→19:28)
--- NOTE | 2019-06-25 12:09 | Physical Therapy Daily Note ---
PT Daily Note-Current Subjective Pt in chair, agreeable. Reports pain is "up and down, mainly gas pockets right now". Not rated. Mental Status Patient Orientation: Person, Place, Time, Situation Transfers SCALE: Activities may be completed with or without assistive devices. 8-Qjjbsyoinj-zhnwtev completes the activity by him/herself with no assistance from a helper. 5-Set-up or Clean-up Assistance-helper sets up or cleans up; patient completes activity. [place] assists only prior to or following the activity. 4-Supervision or Touching Assistance-helper provides verbal cues and/or touching/steadying and/or contact guard assistance as patient completes acti vity. Assistance may be provided throughout the activity or intermittently. 3-Partial/Moderate Assistance-helper does LESS THAN HALF the effort. [place] lifts, holds or supports trunk or limbs, but provides less than half the effort. 2-Substantial/Maximal Assistance-helper does MORE THAN HALF the effort. [place] lifts or holds trunk or limbs and provides more than half the effort. 0-Afqjwnlxn-dikmpu does ALL the effort. Patient does none of the effort to complete the activity. Or, the assistance of 2 or more helpers is required for the patient to complete the activity. If activity was not attempted, code reason: 7-Patient Refused. 9-Not Applicable-not attempted and the patient did not perform the activity before the current illness, exacerbation or injury. 10-Not Attempted due to Environmental Limitations-(lack of equipment, weather restraints, etc.). 88-Not Attempted due to Medical Conditions or Safety Concerns. Sit to Stand (QC): 4 Toilet Transfer (QC): 4 SBA-CGA for safety with toilet transfer. Weight Bearing Right Lower Extremity: Right Weight Bearing/Tolerated Left Lower Extremity: Left Weight Bearing/Tolerated Gait Training Does the Patient Walk?: Yes Distance: 150 Walk 10 feet (QC): 4 Walk 50 ft with 2 Turns(QC): 4 Walk 150 ft (QC): 4 Gait Persons Needed: 1 Gait Assistive Device: FWW Flexed posture, slow gait with FWW. Treatments Toilet transfer, gait with FWW. Returned to room with chair alarm activated, needs met. Assessment Current Status: Good Progress Pt tolerated well. Mildly impulsive with functional mobility. PT Short Term Goals Short Term Goals Time Frame: June 30, 2019 Roll Left & Right: 6 Sit to lyin Lying to sitting on side of be: 3 Sit to stand: 5 Chair/iru-gn-zldyi transfer: 5 Walk 10 feet: 5 Walk 50 feet with two turns: 5 Walk 150 feet: 5 PT Retirement Goals Retirement Goals PT Professor Of Nursing Goals Time Frame: July 14, 2019 Roll Left & Right (QC): 6 Sit to Lying (QC): 6 Lying-Sitting on Side/Bed(QC): 6 Sit to Stand (QC): 6 Chair/Kte-ux-Lhihz Xfer(QC): 6 Toilet Transfer (QC): 6 Car Transfer (QC): 6 Does the Patient Walk: Yes Walk 10 feet (QC): 6 Walk 50ft with 2 Turns (QC): 6 Walk 150 ft (QC): 6 Walking 10ft on Uneven Surface: 6 1 Step (curb) (QC): 4 4 Steps (QC): 4 12 Steps (QC): 88 Picking up an Object (QC): 88 Does the Pt use WC or Scooter?: No Wheel 50 feet with 2 turns (QC: 9 Wheel 150 feet: 9 PT Plan Problem List Problem List: Activity Tolerance, Functional Strength, Safety, Balance, Gait, Transfer, Bed Mobility Treatment/Plan Treatment Plan: Continue Plan of Care Treatment Plan: Bed Mobility, Education, Functional Activity Susy, Functional Strength, Group Therapy, Gait, Safety, Therapeutic Exercise, Transfers Treatment Duration: July 14, 2019 Frequency: romelia mathews 60 min per day, will increase as patient is able Estimated Hrs Per Day: 1.5 hours per day Patient and/or Family Agrees t: Yes Time/GCodes Time In: 1050 Time Out: 1118 Total Billed Treatment Time: 28 Total Billed Treatment 1, FA x 28' GERMAN PETERSEN DPRai June 25, 2019 12:09
--- NOTE | 2019-06-25 12:23 | PM&R Progress Note ---
Subjective HPI/CC On Admission Date Seen by Provider: June 25, 2019 Time Seen by Provider: 12:30 Subjective/Events-last exam Patient had a good night last night and slept well again No pain except incision site and ileus gas pockets she reports Building strength rapidly and she feels good about that No falls Ileus still an issue but she is working through that and appreciate Dr Armendariz's help BP remains stable AF managed by Cardiology Labs good Hgb 8.9 and giving iron infusions due to 23 low level of iron even after 9 units of blood last week Low potassium will be supplement with 80meq over 8 hours and increasing PO supplement No BM yet and maintained on laxatives Checked meds and labs Conferred with RN Reviewed therapy notes Review of Systems General: Fatigue Gastrointestinal: Abdominal Pain Objective Exam Vital Signs Vital Signs Date Time Temp Pulse Resp B/P (MAP) Pulse Ox O2 Delivery O2 Flow Rate FiO2 06/25/19 12:42 79 06/25/19 09:59 Room Air 06/25/19 09:26 95 06/25/19 06:00 36.3 18 136/72 (93) 06/23/19 19:16 21 Capillary Refill : Less Than 3 Seconds General Appearance: No Apparent Distress, Anxious, Chronically ill, Thin HEENT: PERRL/EOMI, Normal ENT Inspection, Pharynx Normal Neck: Normal Inspection, Non Tender, Supple Respiratory: Chest Non Tender, Lungs Clear, Normal Breath Sounds, No Accessory Muscle Use, No Respiratory Distress Cardiovascular: Regular Rate, Rhythm, No Edema, No Gallop, No JVD, No Murmur, Normal Peripheral Pulses Gastrointestinal: Normal Bowel Sounds, No Organomegaly, No Pulsatile Mass, Non Tender, Soft Back: Normal Inspection, No CVA Tenderness, No Vertebral Tenderness Extremity: Normal Inspection, Normal Range of Motion Neurologic/Psychiatric: Alert, Oriented x3, No Motor/Sensory Deficits (except generalized weakness all extremities), Normal Mood/Affect, java lead developer II-XII Norm as Tested, Abnormal Gait Skin: Normal Color, Warm/Dry, Other (Midline abdominal incision C/D/I, no redness, erythema, or drainage noted.) Lymphatic: No Adenopathy Results/Procedures Lab Laboratory Tests 06/25/19 07:37 Patient resulted labs reviewed. FIM Transfers Therapy Code Descriptions/Definitions Functional [place] Measure: 0=Not Assessed/NA 4=Minimal Assistance 1=Total Assistance 5=Supervision or Setup 2=Maximal Assistance 6=Modified [place] 3=Moderate Assistance 7=Complete IndependenceSCALE: Activities may be completed with or without assistive devices. 1-Mjogownnar-sxpnmbu completes the activity by him/herself with no assistance from a helper. 5-Set-up or Clean-up Assistance-helper sets up or cleans up; patient completes activity. [place] assists only prior to or following the activity. 4-Supervision or Touching Assistance-helper provides verbal cues and/or touching/steadying and/or contact guard assistance as patient completes activity. Assistance may be provided throughout the activity or intermittently. 3-Partial/Moderate Assistance-helper does LESS THAN HALF the effort. [place] lifts, holds or supports trunk or limbs, but provides less than half the effort. 2-Substantial/Maximal Assistance-helper does MORE THAN HALF the effort. [place] lifts or holds trunk or limbs and provides more than half the effort. 4-Rxrkhvmer-zvdqyg does ALL the effort. Patient does none of the effort to co mplete the activity. Or, the assistance of 2 or more helpers is required for the patient to complete the activity. If activity was not attempted, code reason: 7-Patient Refused. 9-Not Applicable-not attempted and the patient did not perform the activity before the current illness, exacerbation or injury. 10-Not Attempted due to Environmental Limitations-(lack of equipment, weather restraints, etc.). 88-Not Attempted due to Medical Conditions or Safety Concerns. Roll Left to Right (QC): 4 Sit to Lying (QC): 3 Sit to Stand (QC): 4 Chair/Ofz-nk-Cmjlz Xfer(QC): 4 Car Transfer (QC): 3 Gait Training Does the Patient Walk?: Yes Distance: 150 Walk 10 feet (QC): 4 Walk 50 ft with 2 Turns(QC): 4 Walk 150 ft (QC): 4 Walking 10ft/uneven surface-QC: 4 Gait Persons Needed: 1 Gait Assistive Device: FWW Wheelchair Training Does the Pt Use a Wheelchair?: No Wheel 50 ft with 2 turns (QC): 9 Wheel 150 ft (QC): 9 Stair Training #of Steps: 1 1 Step (curb) (QC): 4 4 Steps (QC): 88 12 Steps (QC): 88 Balance Picking up an Object (QC): 88 ADL-Treatment Eating (QC): 5 Oral Hygiene (QC): 5 Shower/Bathe Self (QC): 3 (sponge bath. Pt able to reach all parts, but required assistance for thoroughness with buttocks. ) Upper Body Dressing (QC): 3 Lower Body Dressing (QC): 3 (Pt required assistance threading RLE into briefs. CGA during standing at [facility], she was able to manage clothing up.) On/Off Footwear (QC): 3 (Pt able to doff BLE socks. She threaded LLE sock but required assistance with RLE due to her stating "I can't reach") Toileting Hygiene (QC): 3 (Min A for thoroughness with buttocks. Pt able to manage pants up/down.) Assessment/Plan Assessment and Plan Assess & Plan/Chief Complaint Assessment: Critical illness myopathy Catastrophic GI Bleed requiring 9 units of blood 06/17/19 s/p volvulus right hemicolectomy 06/16/19 PAF h/o OAC prior to admit Post op ileus Iron deficiency initiated Venofer Plan: Monitor hgb Ileus management IRF protocol Pain control Improved on IRF protocol (1) Volvulus Status: Acute (2) GI bleed (3) Frailty (4) Atrial fibrillation with rapid ventricular response (5) Transfusion of blood during current hospitalization (6) DVT prophylaxis Status: Acute (7) Hypovolemic shock Status: Resolved Resolution Date/Time: 06/20/19 @ 11:26 (8) Anemia Status: Acute (9) Paroxysmal atrial fibrillation Status: Chronic (10) Pacemaker Status: Chronic GEMMA FUENTES DO June 25, 2019 12:23
--- NOTE | 2019-06-25 12:29 | Progress Note ---
Subjective Date Seen by a Provider: June 25, 2019 Time Seen by a Provider: 11:00 Subjective/Events-last exam doing well. has not had a BM for a few days. tolerating diet. minimal abd pain. Objective Exam Vital Signs Date Time Temp Pulse Resp B/P (MAP) Pulse Ox O2 Delivery O2 Flow Rate FiO2 06/25/19 09:59 Room Air 06/25/19 09:26 95 Room Air 06/25/19 07:00 74 06/25/19 06:00 36.3 67 18 136/72 (93) 95 Room Air 06/25/19 01:00 60 06/24/19 20:52 Room Air 06/24/19 19:13 93 Room Air 06/24/19 19:00 70 06/24/19 16:00 37.4 71 20 110/73 (85) 94 Room Air I & O 06/25/19 07:00 Intake Total 1540 ml Balance 1540 ml Capillary Refill : Less Than 3 Seconds General Appearance: No Apparent Distress HEENT: PERRL/EOMI Neck: Full Range of Motion Respiratory: Chest Non Tender, Lungs Clear, Normal Breath Sounds Cardiovascular: Regular Rate, Rhythm Gastrointestinal: normal bowel sounds, non tender, soft Extremity: Normal Capillary Refill Neurologic/Psychiatric: Alert, Oriented x3 Skin: Normal Color Lymphatic: No Adenopathy Results Lab Laboratory Tests 06/25/19 07:37: White Blood Count 11.7H, Red Blood Count 3.01L, Hemoglobin 8.9L, Hematocrit 28L, Mean Corpuscular Volume 92, Mean Corpuscular Hemoglobin 30, Mean Corpuscular Hemoglobin Concent 32, Red Cell Distribution Width 15.1H, Platelet Count 514H, Mean Platelet Volume 9.8, Neutrophils (%) (Auto) 80H, Lymphocytes (%) (Auto) 9L, Monocytes (%) (Auto) 8, Eosinophils (%) (Auto) 2, Basophils (%) (Auto) 0, Neutrophils # (Auto) 9.4H, Lymphocytes # (Auto) 1.1, Monocytes # (Auto) 1.0, Eosinophils # (Auto) 0.3, Basophils # (Auto) 0.0, Sodium Level 138, Potassium Level 3.4L, Chloride Level 107, Carbon Dioxide Level 21, Anion Gap 10, Blood Urea Nitrogen 5L, Creatinine 0.66, Estimat Glomerular Filtration Rate > 60, BUN/Creatinine Ratio 8, Glucose Level 144H, Calcium Level 8.0L, Corrected Calcium 9.0, Total Bilirubin 0.4, Aspartate Amino Transf (AST/SGOT) 29, Alanine Aminotransferase (ALT/SGPT) 36, Alkaline Phosphatase 76, Total Protein 5.1L, Albumin 2.8L Assessment/Plan Assessment/Plan Assess & Plan/Chief Complaint s/p RHC for cecal volvulus. doing well. ADL's improving. mirlax until BM. Clinical Quality Measures DVT/VTE Risk/Contraindication: Risk Factor Score Per Nursin RFS Level Per Nursing on Admit: 4+=Very High CRISTI ALDRICH MD June 25, 2019 12:29
--- NOTE | 2019-06-25 12:29 | NUR ---
NO BM SINCE YESTERDAY MORNING. ABDOMEN IS MILDLY DISTENDED AND TENDER. ACTIVE BOWEL SOUNDS. DR. ALDRICH HERE AND INFORMED. PATIENT WAS GIVEN COLACE, SENOKOT, AND MIRALAX THIS AM. ORDERS TO CONTINUE WITH SAME PER DR. ALDRICH.
[2019-06-25] MEDS: POTASSIUM CL 10MEQ/50ML IVPB 50 ML IV SCH ×4 (13:07→15:55)
[2019-06-25] MEDS: ENOXAPARIN 40 MG/0.4 ML (LOVENOX) SYR SC SCH (14:20)
[2019-06-25] MEDS: KCL 10 MEQ TAB (MICRO K) PO SCH (17:15)
[2019-06-25 17:43] VITALS: BP 126/76
--- NOTE | 2019-06-25 21:04 | Cardiology Progress Note ---
Cardiology SOAP Progress Note Subjective: No cardiac complaints. Objective: I&O/Vital Signs 06/26/19 06/26/19 06/26/19 06/26/19 07:00 07:31 08:20 12:21 Pulse 71 70 Pulse Ox 96 O2 Delivery Room Air Room Air 06/26/19 17:36 Temp 37.0 Pulse 69 Resp 16 B/P (MAP) 136/77 (96) Pulse Ox 96 O2 Delivery Room Air 06/26/19 00:00 Intake Total 932 ml Balance 932 ml Weight (Pounds): 118 Weight (Ounces): 0.0 Weight (Calculated Kilograms): 53.261578 Constitutional: AAO x 3; No apparent distress; PERRL, well-nourished Respiratory: chest is bilaterally symmetric, lungs clear to auscultation; No crackles, No rhonchi, No rales Cardiovascular: regular rate-rhythm; No irregularly irregular, No extra beats, No parasternal heave is noted, No bradycardia, No tachycardia; S1 and S2; No gallop/S4, No diastolic murmur, No systolic murmur Gastrointestional: soft, audible bowel sounds Extremities: normal range of motion, non-tender, normal inspection, no lower extremity edema bilateral Neurologic/Psychiatric: no motor/sensory deficits, alert, normal mood/affect, oriented x 3 Skin: normal color Results/Procedures: Labs A/P: Assessment/Dx: Assessment/Dx: Volvulus, post surgery, Significant bleeding post surgery, hemorrhagic shock, Sinus node dysfunction, Second degree heart block, previous history of dual-chamber permanent pacemaker, History of paroxysmal atrial fibrillation on oral anticoagulation., Hypertension Plan: Plan: Volvulus, post surgery, currently inpatient rehabilitation. Significant bleeding post surgery, hemorrhagic shock, numerous transfusions given. Required repeat surgery to clamp an arterial bleed. Much stable now. Sinus node dysfunction, Second degree heart block, previous history of dual-chamber permanent pacemaker, no active issues. History of paroxysmal atrial fibrillation, hold Eliquis. Hypertension The patient had a lot of questions about the need for Eliquis and her recent bleed during her surgery. I explained to her that her permanent pacemaker was placed due to significant sinus node dysfunction and symptomatic second degree heart block. Her lowest heart rate was 29 BPM. On device interrogation we found at least 3 episodes of atrial fibrillation with the longest episode of atrial fibrillation was 1 hour. This requires oral anticoagulation therapy which is superior for stroke prevention as compared to aspirin. At that point in time I had a detailed conversation with the patient and her family and did explain the risk of bleeding in the future. She had accepted all the risks and was interested in stroke prevention therefore she was placed on Eliquis therapy. On this admission she presented with volvulus requiring surgery. Eliquis was on hold at least 48 hours before the surgery. Unfortunately there was an arterial bleed and the patient required repeat surgery to control the bleeding. Also considering that repeat surgery took place 3-4 days after Eliquis was stopped. Therefore I discussed again with the patient the risks and benefits of Eliquis therapy for stroke prevention and the downside of bleeding. Therefore at this point in time we have decided to hold off on Eliquis. Thank you for your consultation. Please call me if you have any questions. Elayne Tyson MD, FACP, FACC, FSCAI, FHRS, CCDS Interventional Cardiology Cardiac Electrophysiology Vascular Medicine and Endovascular Interventions Victoriano TYSON MD June 25, 2019 21:04
[2019-06-26] MEDS: ACETAMINOPHEN 500 MG TAB (TYLENOL) PO PRN (00:42)
[2019-06-26 05:05] VITALS: BP 136/75
[2019-06-26] MEDS: KCL 10 MEQ TAB (MICRO K) PO SCH ×2 (06:39→17:31)
[2019-06-26] MEDS: RT-ALBUTEROL SULF 2.5 MG/3 ML PRE-MIX VIAL INH SCH ×2 (07:31→18:47)
[2019-06-26] MEDS: polyethylene glycoL POWDER 17 GM (MIRALAX) PACK PO SCH ×2 (08:56→20:30)
[2019-06-26] MEDS: SENNA W/DOCUSATE (SENOKOT S) TABLET PO SCH ×2 (09:06→20:30)
[2019-06-26] MEDS: DOCUSATE SODIUM 100 MG (COLACE) CAP PO SCH ×2 (09:06→20:30)
[2019-06-26] MEDS: PANTOPRAZOLE 40 MG (PROTONIX) TAB PO SCH (09:06)
--- NOTE | 2019-06-26 10:02 | Progress Note ---
Subjective Date Seen by a Provider: June 26, 2019 Time Seen by a Provider: 08:45 Subjective/Events-last exam Patient seen with Dr. Armendariz. Patient reports doing well. Tolerating diet and ambulating. Having BMs. Denies any abdominal pain or N/V. Objective Exam Vital Signs Date Time Temp Pulse Resp B/P (MAP) Pulse Ox O2 Delivery O2 Flow Rate FiO2 06/26/19 07:31 96 Room Air 06/26/19 07:00 71 06/26/19 05:05 37.0 78 18 136/75 (95) 94 Room Air 06/26/19 01:07 70 06/26/19 01:00 70 06/25/19 21:00 Room Air 06/25/19 19:28 94 Room Air 06/25/19 19:00 70 06/25/19 17:43 37.6 70 18 126/76 (93) 97 Room Air 06/25/19 12:42 79 I & O 06/26/19 07:00 Intake Total 1522 ml Balance 1522 ml Capillary Refill : Less Than 3 Seconds General Appearance: No Apparent Distress, WD/WN Neck: Full Range of Motion, Normal Inspection, Supple Respiratory: Normal Breath Sounds, No Accessory Muscle Use, No Respiratory Distress Cardiovascular: Regular Rate, Rhythm, No Edema Gastrointestinal: normal bowel sounds, non tender, soft Extremity: Normal Inspection, Normal Range of Motion Neurologic/Psychiatric: Alert, Oriented x3 Skin: Normal Color, Warm/Dry, Other (Mid abdominal incision C/D/I with kristen in place.) Assessment/Plan Assessment/Plan Assess & Plan/Chief Complaint s/p RHC for cecal volvulus and acute ischemia. continued rectal bleed despite coagulation correction/PRBC. underwent re-exploration and found to have ileocolonic arterial anastomotic bleed. Hb stable. no episodes rectal bleed, having BMs. Tolerating diet. Pain medications as needed. PT/OT. Clinical Quality Measures DVT/VTE Risk/Contraindication: Risk Factor Score Per Nursin RFS Level Per Nursing on Admit: 4+=Very High ANDREA GENAO PICU NURSE June 26, 2019 10:02
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
[2019-06-26] MEDS: ENOXAPARIN 40 MG/0.4 ML (LOVENOX) SYR SC SCH (15:08)
[2019-06-26 17:36] VITALS: BP 136/77
--- NOTE | 2019-06-26 18:34 | Cardiology Progress Note ---
Cardiology SOAP Progress Note Subjective: No cardiac complaints. Objective: I&O/Vital Signs 06/26/19 06/26/19 06/26/19 06/26/19 07:00 07:31 08:20 12:21 Pulse 71 70 Pulse Ox 96 O2 Delivery Room Air Room Air 06/26/19 17:36 Temp 37.0 Pulse 69 Resp 16 B/P (MAP) 136/77 (96) Pulse Ox 96 O2 Delivery Room Air 06/26/19 00:00 Intake Total 932 ml Balance 932 ml Weight (Pounds): 118 Weight (Ounces): 0.0 Weight (Calculated Kilograms): 53.070388 Constitutional: AAO x 3; No apparent distress; PERRL, well-nourished Respiratory: chest is bilaterally symmetric, lungs clear to auscultation; No crackles, No rhonchi, No rales Cardiovascular: regular rate-rhythm; No irregularly irregular, No extra beats, No parasternal heave is noted, No bradycardia, No tachycardia; S1 and S2; No gallop/S4, No diastolic murmur, No systolic murmur Gastrointestional: soft, audible bowel sounds Extremities: normal range of motion, non-tender, normal inspection, no lower extremity edema bilateral Neurologic/Psychiatric: no motor/sensory deficits, alert, normal mood/affect, oriented x 3 Skin: normal color A/P: Assessment/Dx: Assessment/Dx: Volvulus, post surgery, Significant bleeding post surgery, hemorrhagic shock, Sinus node dysfunction, Second degree heart block, previous history of dual-chamber permanent pacemaker, History of paroxysmal atrial fibrillation on oral anticoagulation., Hypertension Plan: Volvulus, post surgery, currently inpatient rehabilitation. Significant bleeding post surgery, hemorrhagic shock, numerous transfusions given. Required repeat surgery to clamp an arterial bleed. Much stable now. Sinus node dysfunction, Second degree heart block, previous history of dual-chamber permanent pacemaker, no active issues. History of paroxysmal atrial fibrillation, hold Eliquis. Hypertension Discussion again today: The patient had a lot of questions about the need for Eliquis and her recent bleed during her surgery. I explained to her that her permanent pacemaker was placed due to significant sinus node dysfunction and symptomatic second degree heart block. Her lowest heart rate was 29 BPM. On device interrogation we found at least 3 episodes of atrial fibrillation with the longest episode of atrial fibrillation was 1 hour. This requires oral anticoagulation therapy which is superior for stroke prevention as compared to aspirin. At that point in time I had a detailed conversation with the patient and her family and did explain the risk of bleeding in the future. She had accepted all the risks and was interested in stroke prevention therefore she was placed on Eliquis therapy. On this admission she presented with volvulus requiring surgery. Eliquis was on hold at least 48 hours before the surgery. Unfortunately there was an arterial bleed and the patient required repeat surgery to control the bleeding. Also considering that repeat surgery took place 3-4 days after Eliquis was stopped. Therefore I discussed again with the patient the risks and benefits of Eliquis therapy for stroke prevention and the downside of bleeding. Therefore at this point in time we have decided to hold off on Eliquis. We have decided that we'll start full aspirin once okay with surgery. Thank you for your consultation. Please call me if you have any questions. Elayne Tyson MD, FACP, FACC, FSCAI, FHRS, CCDS Interventional Cardiology Cardiac Electrophysiology Vascular Medicine and Endovascular Interventions Victoriano TYSON MD June 26, 2019 18:34
[2019-06-26] MEDS: CATHETER FLUSH 10 ML SYR IV SCH (20:34)
[2019-06-26] MEDS: HYDROcodone/APAP 7.5 MG/325 MG (LORTAB, LORCET PLUS) TABLET PO PRN (22:50)
[2019-06-26] MEDS: ALPRAZolam 0.25 MG (XANAX) TAB PO PRN (23:20)
[2019-06-27] MEDS: CATHETER FLUSH 10 ML SYR IV SCH ×3 (06:27→20:49)
[2019-06-27 06:37] LABS: BASOPHILS % (AUTO) 0 % (0-10); EOSINOPHILS % (AUTO) 0 % (0-10); HEMATOCRIT 28 % (35-52); LYMPHOCYTES # (AUTO) 1.2 X 10^3 (1.0-4.0); LYMPHOCYTES % (AUTO) 10 % (12-44); MEAN CORPUSCULAR HEMOGLOBIN 30 PG (25-34); MEAN CORPUSCULAR HGB CONC 32 G/DL (32-36); MEAN CORPUSCULAR VOLUME 92 FL (80-99); MEAN PLATELET VOLUME 9.1 FL (7.4-10.4); MONOCYTES # (AUTO) 0.8 X 10^3 (0.0-1.0); MONOCYTES % (AUTO) 7 % (0-12); NEUTROPHILS % (AUTO) 84 % (42-75); PLATELET COUNT 563 10^3/uL (130-400); RED CELL DISTRIBUTION WIDTH 15.1 % (10.0-14.5)
[2019-06-27] MEDS: RT-ALBUTEROL SULF 2.5 MG/3 ML PRE-MIX VIAL INH SCH ×2 (06:40→18:37)
[2019-06-27 06:53] VITALS: BP 127/69
[2019-06-27 06:56] LABS: ALANINE AMINOTRANSFERASE 30 U/L (0-55); ALKALINE PHOSPHATASE 82 U/L (40-136); BILIRUBIN,TOTAL 0.3 MG/DL (0.1-1.0); BUN/CREATININE RATIO 8; CALCIUM 8.3 MG/DL (8.5-10.1); CARBON DIOXIDE 22 MMOL/L (21-32); CHLORIDE 106 MMOL/L (98-107); CREATININE SERUM 0.62 MG/DL (0.60-1.30); GFR ESTIMATED > 60; GLUCOSE 103 MG/DL (70-105); POTASSIUM 3.9 MMOL/L (3.6-5.0); SODIUM 138 MMOL/L (135-145); TOTAL PROTEIN 5.2 GM/DL (6.4-8.2)
[2019-06-27] MEDS: KCL 10 MEQ TAB (MICRO K) PO SCH ×2 (07:46→16:15)
--- NOTE | 2019-06-27 09:13 | PM&R Progress Note ---
Subjective HPI/CC On Admission Date Seen by Provider: June 27, 2019 Time Seen by Provider: 09:15 Subjective/Events-last exam Hgb 9.0 Bowels are moving Overall feels like she is progressing No falls No SOB Panic attacks managed by Xanax Overall feels like she is improving DC home is planned probably within the next week Venofer infusions tolerated Low potassium will continue supplement BM+ Checked meds and labs Conferred with RN Reviewed therapy notes Review of Systems General: Fatigue Gastrointestinal: Nausea, Abdominal Pain Objective Exam Vital Signs Vital Signs Date Time Temp Pulse Resp B/P (MAP) Pulse Ox O2 Delivery O2 Flow Rate FiO2 06/27/19 18:37 94 Room Air 06/27/19 16:00 37.7 71 14 104/69 (81) 06/23/19 19:16 21 Capillary Refill : Less Than 3 Seconds General Appearance: No Apparent Distress, WD/WN HEENT: PERRL/EOMI, Normal ENT Inspection, Pharynx Normal Neck: Full Range of Motion, Normal Inspection, Supple Respiratory: Normal Breath Sounds, No Accessory Muscle Use, No Respiratory Distress Cardiovascular: Regular Rate, Rhythm, No Edema Gastrointestinal: Normal Bowel Sounds, No Organomegaly, No Pulsatile Mass, Non Tender, Soft Back: Normal Inspection, No CVA Tenderness, No Vertebral Tenderness Extremity: Normal Inspection, Normal Range of Motion Neurologic/Psychiatric: Alert, Oriented x3 Skin: Normal Color, Warm/Dry, Other (Mid abdominal incision C/D/I with kristen in place.) Lymphatic: No Adenopathy Results/Procedures Lab Laboratory Tests 06/27/19 06:25 Patient resulted labs reviewed. FIM Transfers Therapy Code Descriptions/Definitions Functional [place] Measure: 0=Not Assessed/NA 4=Minimal Assistance 1=Total Assistance 5=Supervision or Setup 2=Maximal Assistance 6=Modified [place] 3=Moderate Assistance 7=Complete IndependenceSCALE: Activities may be completed with or without assistive devices. 0-Tasdhjgjle-qyrqomp completes the activity by him/herself with no assistance from a helper. 5-Set-up or Clean-up Assistance-helper sets up or cleans up; patient completes activity. [place] assists only prior to or following the activity. 4-Supervision or Touching Assistance-helper provides verbal cues and/or touching/steadying and/or contact guard assistance as patient completes activity. Assistance may be provided throughout the activity or intermittently. 3-Partial/Moderate Assistance-helper does LESS THAN HALF the effort. [place] lifts, holds or supports trunk or limbs, but provides less than half the effort. 2-Substantial/Maximal Assistance-helper does MORE THAN HALF the effort. [place] lifts or holds trunk or limbs and provides more than half the effort. 1-Knhjxcnng-hizfdq does ALL the effort. Patient does none of the effort to complete the activity. Or, the assistance of 2 or more helpers is required for the patient to complete the activity. If activity was not attempted, code reason: 7-Patient Refused. 9-Not Applicable-not attempted and the patient did not perform the activity before the current illness, exacerbation or injury. 10-Not Attempted due to Environmental Limitations-(lack of equipment, weather restraints, etc.). 88-Not Attempted due to Medical Conditions or Safety Concerns. Roll Left to Right (QC): 4 Sit to Lying (QC): 3 Sit to Stand (QC): 4 Chair/Fln-el-Ccrpm Xfer(QC): 4 Car Transfer (QC): 3 Gait Training Does the Patient Walk?: Yes Distance: 150 Walk 10 feet (QC): 4 Walk 50 ft with 2 Turns(QC): 4 Walk 150 ft (QC): 4 Walking 10ft/uneven surface-QC: 4 Gait Persons Needed: 1 Gait Assistive Device: FWW Wheelchair Training Does the Pt Use a Wheelchair?: No Wheel 50 ft with 2 turns (QC): 9 Wheel 150 ft (QC): 9 Stair Training #of Steps: 1 1 Step (curb) (QC): 4 4 Steps (QC): 88 12 Steps (QC): 88 Balance Picking up an Object (QC): 88 ADL-Treatment Eating (QC): 5 Oral Hygiene (QC): 5 Shower/Bathe Self (QC): 3 (sponge bath. Pt able to reach all parts, but required assistance for thoroughness with buttocks. ) Upper Body Dressing (QC): 3 Lower Body Dressing (QC): 3 (Pt required assistance threading RLE into briefs. CGA during standing at [facility], she was able to manage clothing up.) On/Off Footwear (QC): 3 (Pt able to doff BLE socks. She threaded LLE sock but required assistance with RLE due to her stating "I can't reach") Toileting Hygiene (QC): 3 (Min A for thoroughness with buttocks. Pt able to manage pants up/down.) Assessment/Plan Assessment and Plan Assess & Plan/Chief Complaint Assessment: Critical illness myopathy Catastrophic GI Bleed requiring 9 units of blood 06/17/19 s/p volvulus right hemicolectomy 06/16/19 PAF h/o OAC prior to admit Post op ileus Iron deficiency initiated Venofer Plan: Monitor labs Ileus management IRF protocol Pain control Improved on IRF protocol (1) Volvulus Status: Acute (2) GI bleed (3) Frailty (4) Atrial fibrillation with rapid ventricular response (5) Transfusion of blood during current hospitalization (6) DVT prophylaxis Status: Acute (7) Hypovolemic shock Status: Resolved Resolution Date/Time: 06/20/19 @ 11:26 (8) Anemia Status: Acute (9) Paroxysmal atrial fibrillation Status: Chronic (10) Pacemaker Status: Chronic GEMMA FUENTES DO June 27, 2019 09:13
[2019-06-27] MEDS: PANTOPRAZOLE 40 MG (PROTONIX) TAB PO SCH (09:27)
[2019-06-27] MEDS: IRON SUCROSE 200 MG/10 ML (VENOFER) VIAL IV SCH (09:27)
[2019-06-27] MEDS: polyethylene glycoL POWDER 17 GM (MIRALAX) PACK PO SCH ×2 (09:27→20:51)
[2019-06-27] MEDS: SENNA W/DOCUSATE (SENOKOT S) TABLET PO SCH ×2 (09:27→20:51)
[2019-06-27] MEDS: DOCUSATE SODIUM 100 MG (COLACE) CAP PO SCH ×2 (09:27→20:49)
--- NOTE | 2019-06-27 10:03 | Physical Therapy Daily Note ---
PT Daily Note-Current Subjective Pt. agrees to Rx with some encouragement. Pt. states she has been dealing with some anxiety and has been medicated on and off for this Pain Numeric Pain Scale: 4 Location: Medial Location Body Site: Abdomen (incisional) Pain Description: Burning Mental Status Patient Orientation: Normal For Age Transfers SCALE: Activities may be completed with or without assistive devices. 9-Pnwfuqqpcb-lwgzrek completes the activity by him/herself with no assistance from a helper. 5-Set-up or Clean-up Assistance-helper sets up or cleans up; patient completes activity. [place] assists only prior to or following the activity. 4-Supervision or Touching Assistance-helper provides verbal cues and/or touching/steadying and/or contact guard assistance as patient completes ac tivity. Assistance may be provided throughout the activity or intermittently. 3-Partial/Moderate Assistance-helper does LESS THAN HALF the effort. [place] lifts, holds or supports trunk or limbs, but provides less than half the effort. 2-Substantial/Maximal Assistance-helper does MORE THAN HALF the effort. [place] lifts or holds trunk or limbs and provides more than half the effort. 3-Ggzgouoxs-ewaqjz does ALL the effort. Patient does none of the effort to complete the activity. Or, the assistance of 2 or more helpers is required for the patient to complete the activity. If activity was not attempted, code reason: 7-Patient Refused. 9-Not Applicable-not attempted and the patient did not perform the activity before the current illness, exacerbation or injury. 10-Not Attempted due to Environmental Limitations-(lack of equipment, weather restraints, etc.). 88-Not Attempted due to Medical Conditions or Safety Concerns. Roll Left & Right (QC): 6 Sit to Lying (QC): 6 Lying to Sitting/Side of Bed(Q: 6 Sit to Stand (QC): 6 Chair/Akp-ba-Rlttw Xfer(QC): 6 instruction for safe rolling and sup to side to sit TRF Weight Bearing Right Lower Extremity: Right Weight Bearing/Tolerated Left Lower Extremity: Left Weight Bearing/Tolerated Gait Training Does the Patient Walk?: Yes Walk 10 feet (QC): 5 Walk 50 ft with 2 Turns(QC): 5 Walk 150 ft (QC): 5 Gait Persons Needed: 1 slow, flexed at trunk, careful with moderately heavy wt bearing on FWW Stair Training Stair Training: Handrails/: 2 handrails #of Steps: 4 4 Steps (QC): 4 Stairs: Pattern: Reciprocal Exercises Supine Ex: Bridging, Ankle pumps, Quad Set, Rolling, Heel Slides, Short Arc Quads, Scooting, Straight leg raise, Hip abd/add Supine Reps: 12 Assessment Current Status: Good Progress PT Short Term Goals Short Term Goals Time Frame: June 30, 2019 Roll Left & Right: 6 Sit to lyin Lying to sitting on side of be: 3 Sit to stand: 5 Chair/xwz-wc-clckj transfer: 5 Walk 10 feet: 5 Walk 50 feet with two turns: 5 Walk 150 feet: 5 PT Sales Promotion Officer Goals Sales Promotion Officer Goals PT Sales Promotion Officer Goals Time Frame: July 14, 2019 Roll Left & Right (QC): 6 Sit to Lying (QC): 6 Lying-Sitting on Side/Bed(QC): 6 Sit to Stand (QC): 6 Chair/Tpb-lx-Jwjew Xfer(QC): 6 Toilet Transfer (QC): 6 Car Transfer (QC): 6 Does the Patient Walk: Yes Walk 10 feet (QC): 6 Walk 50ft with 2 Turns (QC): 6 Walk 150 ft (QC): 6 Walking 10ft on Uneven Surface: 6 1 Step (curb) (QC): 4 4 Steps (QC): 4 12 Steps (QC): 88 Picking up an Object (QC): 88 Does the Pt use WC or Scooter?: No Wheel 50 feet with 2 turns (QC: 9 Wheel 150 feet: 9 PT Plan Treatment/Plan Treatment Plan: Continue Plan of Care Treatment Plan: Bed Mobility, Education, Functional Activity Susy, Functional Strength, Group Therapy, Gait, Safety, Therapeutic Exercise, Transfers Treatment Duration: July 14, 2019 Frequency: covid waiver 60 min per day, will increase as patient is able Estimated Hrs Per Day: 1.5 hours per day Patient and/or Family Agrees t: Yes Safety Risks/Education Patient Education: Gait Training, Transfer Techniques, Steps, Correct Positioning, Safety Issues Teaching Recipient: Patient Teaching Methods: Demonstration, Discussion Response to Teaching: Verbalize Understanding, Return Demonstration, Reinforcement Needed Time/GCodes Time In: 900 Time Out: 1000 Total Billed Treatment Time: 60 Total Billed Treatment 1,GT15m,EX25m,FA20m SO LONG MAGISTRATE June 27, 2019 10:03
--- NOTE | 2019-06-27 11:55 | Cardiology Progress Note ---
Cardiology SOAP Progress Note Subjective: No cardiac complaints. I saw the patient in the gym where she was exercising. During exercise she was not complaining of any cardiac symptoms. Objective: I&O/Vital Signs 06/27/19 06/27/19 06/27/19 06:40 06:53 09:00 Temp 37.7 Pulse 73 Resp 20 B/P (MAP) 127/69 (88) Pulse Ox 96 95 O2 Delivery Room Air Room Air Room Air 06/27/19 00:00 Intake Total 940 ml Balance 940 ml Weight (Pounds): 118 Weight (Ounces): 0.0 Weight (Calculated Kilograms): [id number] Constitutional: AAO x 3; No apparent distress; PERRL, well-nourished Respiratory: chest is bilaterally symmetric, lungs clear to auscultation; No crackles, No rhonchi, No rales Cardiovascular: regular rate-rhythm; No irregularly irregular, No extra beats, No parasternal heave is noted, No bradycardia, No tachycardia; S1 and S2; No gallop/S4, No diastolic murmur, No systolic murmur Gastrointestional: soft, audible bowel sounds Extremities: normal range of motion, non-tender, normal inspection, no lower extremity edema bilateral Neurologic/Psychiatric: no motor/sensory deficits, alert, normal mood/affect, oriented x 3 Skin: normal color Results/Procedures: Labs Laboratory Tests 06/27/19 06:25: White Blood Count 12.0H, Red Blood Count 3.04L, Hemoglobin 9.0L, Hematocrit 28L, Mean Corpuscular Volume 92, Mean Corpuscular Hemoglobin 30, Mean Corpuscular Hemoglobin Concent 32, Red Cell Distribution Width 15.1H, Platelet Count 563H, Mean Platelet Volume 9.1, Neutrophils (%) (Auto) 84H, Lymphocytes (%) (Auto) 10L , Monocytes (%) (Auto) 7, Eosinophils (%) (Auto) 0, Basophils (%) (Auto) 0, Neutrophils # (Auto) 10.0H, Lymphocytes # (Auto) 1.2, Monocytes # (Auto) 0.8, Eosinophils # (Auto) 0.0, Basophils # (Auto) 0.0, Sodium Level 138, Potassium Level 3.9, Chloride Level 106, Carbon Dioxide Level 22, Anion Gap 10, Blood Urea Nitrogen 5L, Creatinine 0.62, Estimat Glomerular Filtration Rate > 60, BUN/Creatinine Ratio 8, Glucose Level 103, Calcium Level 8.3L, Corrected Calcium 9.1, Total Bilirubin 0.3, Aspartate Amino Transf (AST/SGOT) 18, Alanine Aminotransferase (ALT/SGPT) 30, Alkaline Phosphatase 82, Total Protein 5.2L, Albumin 3.0L A/P: Assessment/Dx: Assessment/Dx: Volvulus, post surgery, Significant bleeding post surgery, hemorrhagic shock, Sinus node dysfunction, Second degree heart block, previous history of dual-chamber permanent pacemaker, History of paroxysmal atrial fibrillation on oral anticoagulation., Hypertension Plan: Volvulus, post surgery, currently inpatient rehabilitation. Significant bleeding post surgery, hemorrhagic shock, numerous transfusions given. Required repeat surgery to clamp an arterial bleed. Much stable now. Sinus node dysfunction, Second degree heart block, previous history of dual-chamber permanent pacemaker, no active issues. History of paroxysmal atrial fibrillation, hold Eliquis. Hypertension Therefore at this point in time we have decided to hold off on Eliquis. We have decided that we'll start full aspirin once okay with surgery. Thank you for your consultation. Please call me if you have any questions. Elayne Tyson MD, FACP, FACC, FSCAI, FHRS, CCDS Interventional Cardiology Cardiac Electrophysiology Vascular Medicine and Endovascular Interventions Victoriano TYSON MD June 27, 2019 11:55
--- NOTE | 2019-06-27 13:35 | Physical Therapy Daily Note ---
PT Daily Note-Current Subjective Pt. agrees to Rx, then wants to work on lunch a little bit more. Pt. fell asleep eating up in recliner Pain Location: No Pain Reported Mental Status Patient Orientation: Normal For Age Transfers SCALE: Activities may be completed with or without assistive devices. 4-Dwwnecnwxs-jufaowu completes the activity by him/herself with no assistance from a helper. 5-Set-up or Clean-up Assistance-helper sets up or cleans up; patient completes activity. [place] assists only prior to or following the activity. 4-Supervision or Touching Assistance-helper provides verbal cues and/or touc cal/steadying and/or contact guard assistance as patient completes activity. Assistance may be provided throughout the activity or intermittently. 3-Partial/Moderate Assistance-helper does LESS THAN HALF the effort. [place] lifts, holds or supports trunk or limbs, but provides less than half the effort. 2-Substantial/Maximal Assistance-helper does MORE THAN HALF the effort. [place] lifts or holds trunk or limbs and provides more than half the effort. 8-Wfqdvered-kwkikc does ALL the effort. Patient does none of the effort to complete the activity. Or, the assistance of 2 or more helpers is required for the patient to complete the activity. If activity was not attempted, code reason: 7-Patient Refused. 9-Not Applicable-not attempted and the patient did not perform the activity before the current illness, exacerbation or injury. 10-Not Attempted due to Environmental Limitations-(lack of equipment, weather restraints, etc.). 88-Not Attempted due to Medical Conditions or Safety Concerns. sit to stand from recliner and toilet and std chair all Mod I Weight Bearing Right Lower Extremity: Right Weight Bearing/Tolerated Left Lower Extremity: Left Weight Bearing/Tolerated Gait Training Does the Patient Walk?: Yes Gait Assistive Device: FWW 150ft x 2 SBA, slow, flexed at trunk Exercises Seated Therapy Exercises: Ankle pumps, Sit to stand, Long arc quads, Hip flexion, Hip abd/add Seated Reps: 12 Treatments toileted SBA, washed hands at sink indep no LOB, in chair with phone, diaz and warm blanket Assessment Current Status: Good Progress PT Short Term Goals Short Term Goals Time Frame: June 30, 2019 Roll Left & Right: 6 Sit to lyin Lying to sitting on side of be: 3 Sit to stand: 5 Chair/zbn-bx-abzvk transfer: 5 Walk 10 feet: 5 Walk 50 feet with two turns: 5 Walk 150 feet: 5 PT Fdc Goals Seed Corn Production Manager Goals PT Seed Corn Production Manager Goals Time Frame: July 14, 2019 Roll Left & Right (QC): 6 Sit to Lying (QC): 6 Lying-Sitting on Side/Bed(QC): 6 Sit to Stand (QC): 6 Chair/Jnu-mq-Hwgli Xfer(QC): 6 Toilet Transfer (QC): 6 Car Transfer (QC): 6 Does the Patient Walk: Yes Walk 10 feet (QC): 6 Walk 50ft with 2 Turns (QC): 6 Walk 150 ft (QC): 6 Walking 10ft on Uneven Surface: 6 1 Step (curb) (QC): 4 4 Steps (QC): 4 12 Steps (QC): 88 Picking up an Object (QC): 88 Does the Pt use WC or Scooter?: No Wheel 50 feet with 2 turns (QC: 9 Wheel 150 feet: 9 PT Plan Treatment/Plan Treatment Plan: Continue Plan of Care Treatment Plan: Bed Mobility, Education, Functional Activity Susy, Functional Strength, Group Therapy, Gait, Safety, Therapeutic Exercise, Transfers Treatment Duration: July 14, 2019 Frequency: covid waiver 60 min per day, will increase as patient is able Estimated Hrs Per Day: 1.5 hours per day Patient and/or Family Agrees t: Yes Safety Risks/Education Patient Education: Gait Training, Transfer Techniques, Correct Positioning, Disease Process, Safety Issues Teaching Recipient: Patient Teaching Methods: Demonstration, Discussion Response to Teaching: Verbalize Understanding, Return Demonstration Time/GCodes Time In: 1300 Time Out: 1330 Total Billed Treatment Time: 30 Total Billed Treatment 1,EX10m,GT20m SO LONG BATTERY VENT PLUG INSERTER June 27, 2019 13:35
--- NOTE | 2019-06-27 14:16 | Occupational Ther Daily Note ---
OT Current Status-Daily Note Subjective Pt alert, sitting in recliner. Pt agrees to therapy. No c/o pain. Mental Status/Objective Patient Orientation: Person, Place, Time, Situation Attachments: IV (midline) ADL-Treatment Pt agrees to shower. SBA to ambulate to bathroom using FWW. SBA to transfer to/from toilet using grabbars FWW. Pt able to reach buttocks sitting on toilet to cleanse after BM. Pt transferred to shower with SBA. Pt completed bathing using shower bench, grabbars and hand held shower with SBA. Completed upper body dressing after set up. SBA for lower body dressing after set up. Sitting at sink, pt completed own oral care and grooming. Pt ambulated back to room and sat in recliner after therapy. Call light/phone in reach, safety measures in place. Therapy Code Descriptions/Definitions Functional [place] Measure: 0=Not Assessed/NA 4=Minimal Assistance 1=Total Assistance 5=Supervision or Setup 2=Maximal Assistance 6=Modified [place] 3=Moderate Assistance 7=Complete IndependenceSCALE: Activities may be completed with or without assistive devices. 6-Vpabiqncdt-pxwwrlq completes the activity by him/herself with no assistance from a helper. 5-Set-up or Clean-up Assistance-helper sets up or cleans up; patient completes activity. [place] assists only prior to or following the activity. 4-Supervision or Touching Assistance-helper provides verbal cues and/or touching/steadying and/or contact guard assistance as patient completes activity. Assistance may be provided throughout the activity or intermittently. 3-Partial/Moderate Assistance-helper does LESS THAN HALF the effort. [place] lifts, holds or supports trunk or limbs, but provides less than half the effort. 2-Substantial/Maximal Assistance-helper does MORE THAN HALF the effort. [place] lifts or holds trunk or limbs and provides more than half the effort. 1-Rrpxoqmos-lswqwx does ALL the effort. Patient does none of the effort to complete the activity. Or, the assistance of 2 or more helpers is required for the patient to complete the activity. If activity was not attempted, code reason: 7-Patient Refused. 9-Not Applicable-not attempted and the patient did not perform the activity before the current illness, exacerbation or injury. 10-Not Attempted due to Environmental Limitations-(lack of equipment, weather restraints, etc.). 88-Not Attempted due to Medical Conditions or Safety Concerns. Oral Hygiene (QC): 6 Shower/Bathe Self (QC): 4 Upper Body Dressing (QC): 4 Lower Body Dressing (QC): 4 On/Off Footwear: 4 Toileting Hygiene (QC): 4 Toilet Transfer (QC): 4 OT Short Term Goals Short Term Goals Time Frame: July 06, 2019 Shower/bathe self: 4 Lower body dressin OT Jail Goals Bank Cashier Goals Time Frame: July 22, 2019 Eating (QC): 6 Oral Hygiene (QC): 6 Toileting Hygiene (QC): 6 Shower/Bathe Self (QC): 6 Upper Body Dressing (QC): 6 Lower Body Dressing (QC): 6 On/Off Footwear (QC): 6 Additional Goals: 1-Demonstrate ADL Tasks, 2-Verbalize Understanding, 3- ImproveStrength/Susy 1=Demonstrate adherence to instructed precautions during ADL tasks. 2=Patient will verbalize/demonstrate understanding of assistive josseline ann marie/modifications for ADL. 3=Patient will improve strength/tolerance for activity to enable patient to perform ADL's. OT Education/Plan Problem List/Assessment Assessment: Decreased Activ Tolerance, Decreased UE Strength, Impaired Coordination, Impaired Funct Balance Discharge Recommendations Plan/Recommendations: Continue POC Treatment Plan/Plan of Care Patient would benefit from OT for education, treatment and training to promote independence in ADL's, mobility, safety and/or upper extremity function for ADL's. Plan of Care: ADL Retraining, Functional Mobility, Group Exercise/Act as Ind, UE Funct Exercise/Act Treatment Duration: July 22, 2019 Frequency: At least 5 of 7 days/Wk (IRF) Estimated Hrs Per Day: Other (COVID Waiver 60 mins per day, increase as pt able) Agreement: Yes Rehab Potential: Good Time/GCodes Start Time: 10:00 Stop Time: 11:00 Total Time Billed (hr/min): 60 Billed Treatment Time 1 visit-ADL 4 (60 min) FANY ROYAL June 27, 2019 14:16
--- NOTE | 2019-06-27 14:40 | Occupational Ther Daily Note ---
OT Current Status-Daily Note Subjective Pt alert, sitting in recliner. Pt agrees to therapy. No c/o pain. Mental Status/Objective Patient Orientation: Person, Place, Time, Situation Attachments: IV ADL-Treatment Pt able to complete own meal setup and uses regular utensils to eat. Therapy Code Descriptions/Definitions Functional [place] Measure: 0=Not Assessed/NA 4=Minimal Assistance 1=Total Assistance 5=Supervision or Setup 2=Maximal Assistance 6=Modified [place] 3=Moderate Assistance 7=Complete IndependenceSCALE: Activities may be completed with or without assistive devices. 0-Lhclyxhorv-eehlbkm completes the activity by him/herself with no assistance from a helper. 5-Set-up or Clean-up Assistance-helper sets up or cleans up; patient completes activity. [place] assists only prior to or following the activity. 4-Supervision or Touching Assistance-helper provides verbal cues and/or touching/steadying and/or contact guard assistance as patient completes activity. Assistance may be provided throughout the activity or intermittently. 3-Partial/Moderate Assistance-helper does LESS THAN HALF the effort. [place] lifts, holds or supports trunk or limbs, but provides less than half the effort. 2-Substantial/Maximal Assistance-helper does MORE THAN HALF the effort. [place] lifts or holds trunk or limbs and provides more than half the effort. 1-Bojaowibx-xnpala does ALL the effort. Patient does none of the effort to c omplete the activity. Or, the assistance of 2 or more helpers is required for the patient to complete the activity. If activity was not attempted, code reason: 7-Patient Refused. 9-Not Applicable-not attempted and the patient did not perform the activity before the current illness, exacerbation or injury. 10-Not Attempted due to Environmental Limitations-(lack of equipment, weather restraints, etc.). 88-Not Attempted due to Medical Conditions or Safety Concerns. Eating (QC): 6 Other Treatment Pt working on functional mobility to increase activity tolerance and coordination for daily living tasks. Pt able to ambulate throughout [facility] without recovery breaks. After session, pt sitting in recliner with call light/phone in reach. All needs met in room. OT Short Term Goals Short Term Goals Time Frame: July 06, 2019 Shower/bathe self: 4 Lower body dressin OT Fdc Goals Fdc Goals Time Frame: July 22, 2019 Eating (QC): 6 Oral Hygiene (QC): 6 Toileting Hygiene (QC): 6 Shower/Bathe Self (QC): 6 Upper Body Dressing (QC): 6 Lower Body Dressing (QC): 6 On/Off Footwear (QC): 6 Additional Goals: 1-Demonstrate ADL Tasks, 2-Verbalize Understanding, 3- ImproveStrength/Susy 1=Demonstrate adherence to instructed precautions during ADL tasks. 2=Patient will verbalize/demonstrate understanding of assistive devices/modifications for ADL. 3=Patient will improve strength/tolerance for activity to enable patient to perform ADL's. OT Education/Plan Problem List/Assessment Assessment: Decreased Activ Tolerance, Decreased UE Strength, Impaired Coordination, Impaired Funct Balance, Impaired Self-Care Skills Discharge Recommendations Plan/Recommendations: Continue POC Treatment Plan/Plan of Care Patient would benefit from OT for education, treatment and training to promote independence in ADL's, mobility, safety and/or upper extremity function for ADL's. Plan of Care: ADL Retraining, Functional Mobility, Group Exercise/Act as Ind, UE Funct Exercise/Act Treatment Duration: July 22, 2019 Frequency: At least 5 of 7 days/Wk (IRF) Estimated Hrs Per Day: Other (COVID Waiver 60 mins per day, increase as pt able ) Agreement: Yes Rehab Potential: Good Time/GCodes Start Time: 13:45 Stop Time: 14:15 Total Time Billed (hr/min): 30 Billed Treatment Time 1 visit-FA 2 (30 min) FANY ROYAL June 27, 2019 14:40
[2019-06-27] MEDS: ENOXAPARIN 40 MG/0.4 ML (LOVENOX) SYR SC SCH (14:46)
[2019-06-27] MEDS: ACETAMINOPHEN 500 MG TAB (TYLENOL) PO PRN (15:26)
[2019-06-27 16:00] VITALS: BP 104/69
[2019-06-27] MEDS: ALPRAZolam 0.25 MG (XANAX) TAB PO PRN (22:18)
--- NOTE | 2019-06-28 01:00 | NUR ---
pt assist up to b/r .pt lower abd incisional site noted draining mod. amt of yellow color drainage ,area cleaned et gauze dressing applied
[2019-06-28 06:02] VITALS: BP 133/79
[2019-06-28] MEDS: KCL 10 MEQ TAB (MICRO K) PO SCH ×2 (06:12→17:04)
[2019-06-28] MEDS: CATHETER FLUSH 10 ML SYR IV SCH ×3 (06:12→22:05)
--- NOTE | 2019-06-28 08:26 | NUR ---
MODERATE AMOUNT OF SEROSANGUINOUS DRAINAGE NOTED FROM THE BOTTOM OF ABDOMINAL INCISION. STARTED LAST NIGHT PER NOC SHIFT. DR. ALDRICH INFORMED. WILL SEE PATIENT LATER TODAY.
[2019-06-28] MEDS: PANTOPRAZOLE 40 MG (PROTONIX) TAB PO SCH (08:49)
[2019-06-28] MEDS: SENNA W/DOCUSATE (SENOKOT S) TABLET PO SCH ×2 (08:49→20:39)
[2019-06-28] MEDS: DOCUSATE SODIUM 100 MG (COLACE) CAP PO SCH ×2 (08:49→20:38)
[2019-06-28] MEDS: polyethylene glycoL POWDER 17 GM (MIRALAX) PACK PO SCH ×2 (08:49→20:39)
--- NOTE | 2019-06-28 08:56 | Physical Therapy Daily Note ---
PT Daily Note-Current Subjective Patient in recliner pre tx, agrees to PT, has no complaints of pain. Appearance Patient in recliner post tx with nurse call, phone, tray, all needs met. Discussed with nurse about letting patient go to the bathroom by herself, we will try it for now. Mental Status Patient Orientation: Person, Place, Situation Transfers SCALE: Activities may be completed with or without assistive devices. 5-Rajdzzbhfd-hkslycu completes the activity by him/herself with no assistance from a helper. 5-Set-up or Clean-up Assistance-helper sets up or cleans up; patient completes activity. [place] assists only prior to or following the activity. 4-Supervision or Touching Assistance-helper provides verbal cues and/or touching/steadying and/or contact guard assistance as patient completes activity. Assistance may be provided throughout the activity or intermittently. 3-Partial/Moderate Assistance-helper does LESS THAN HALF the effort. [place] lifts, holds or supports trunk or limbs, but provides less than half the effort. 2-Substantial/Maximal Assistance-helper does MORE THAN HALF the effort. [place] lifts or holds trunk or limbs and provides more than half the effort. 4-Cgrvrxaqy-lqsjsb does ALL the effort. Patient does none of the effort to comp lete the activity. Or, the assistance of 2 or more helpers is required for the patient to complete the activity. If activity was not attempted, code reason: 7-Patient Refused. 9-Not Applicable-not attempted and the patient did not perform the activity before the current illness, exacerbation or injury. 10-Not Attempted due to Environmental Limitations-(lack of equipment, weather restraints, etc.). 88-Not Attempted due to Medical Conditions or Safety Concerns. Sit to Stand (QC): 6 Chair/Iqo-ps-Nuhlk Xfer(QC): 6 Weight Bearing Right Lower Extremity: Right Weight Bearing/Tolerated Left Lower Extremity: Left Weight Bearing/Tolerated Gait Training Distance: 250', 120'x3 Walk 10 feet (QC): 6 Walk 50 ft with 2 Turns(QC): 6 Walk 150 ft (QC): 6 Gait Assistive Device: FWW Patient ambulates very slowly but without LOB or unsteadiness, some slight SOB. Patient has to use the restroom during treatment, she ambulates to her room and then back to the therapy gym, patient can toilet herself but asks for help wiping, she should be able to do this herself. Exercises NuStep Minutes: 15 NuStep Workload: 4 Treatments transfers, ambulation, toileting, functional strengthening Assessment Current Status: Fair Progress improving endurance PT Short Term Goals Short Term Goals Time Frame: June 30, 2019 Roll Left & Right: 6 Sit to lyin Lying to sitting on side of be: 3 Sit to stand: 5 Chair/cbn-bm-nnmtg transfer: 5 Walk 10 feet: 5 Walk 50 feet with two turns: 5 Walk 150 feet: 5 PT Finishing Room Operator Goals Finishing Room Operator Goals PT Finishing Room Operator Goals Time Frame: July 14, 2019 Roll Left & Right (QC): 6 Sit to Lying (QC): 6 Lying-Sitting on Side/Bed(QC): 6 Sit to Stand (QC): 6 Chair/Fpk-cf-Aipci Xfer(QC): 6 Toilet Transfer (QC): 6 Car Transfer (QC): 6 Does the Patient Walk: Yes Walk 10 feet (QC): 6 Walk 50ft with 2 Turns (QC): 6 Walk 150 ft (QC): 6 Walking 10ft on Uneven Surface: 6 1 Step (curb) (QC): 4 4 Steps (QC): 4 12 Steps (QC): 88 Picking up an Object (QC): 88 Does the Pt use WC or Scooter?: No Wheel 50 feet with 2 turns (QC: 9 Wheel 150 feet: 9 PT Plan Problem List Problem List: Activity Tolerance, Functional Strength, Safety, Balance, Gait, Transfer Treatment/Plan Treatment Plan: Continue Plan of Care Treatment Plan: Bed Mobility, Education, Functional Activity Susy, Functional Strength, Group Therapy, Gait, Safety, Therapeutic Exercise, Transfers Treatment Duration: July 14, 2019 Frequency: covid waiver 60 min per day, will increase as patient is able Estimated Hrs Per Day: 1.5 hours per day Patient and/or Family Agrees t: Yes Safety Risks/Education Patient Education: Gait Training, Transfer Techniques, Correct Positioning, Safety Issues Teaching Recipient: Patient Teaching Methods: Demonstration, Discussion Response to Teaching: Reinforcement Needed Time/GCodes Time In: 0800 Time Out: 0900 Total Billed Treatment Time: 60 Total Billed Treatment 1 visit EX 15' FA 10' GT 35' LUIS FELIPE MOSELEY PT June 28, 2019 08:56
[2019-06-28] MEDS: RT-ALBUTEROL SULF 2.5 MG/3 ML PRE-MIX VIAL INH SCH ×2 (08:58→18:15)
--- NOTE | 2019-06-28 09:17 | NUR ---
PER THERAPY, PATIENT MAY BE UP AD ANALISA IN ROOM.
--- NOTE | 2019-06-28 10:23 | PM&R Progress Note ---
Subjective HPI/CC On Admission Date Seen by Provider: June 28, 2019 Time Seen by Provider: 10:15 Subjective/Events-last exam Dr. Armendariz will evaluate the drainage on the lower incision Had a large BM Aspirin of 325 mg daily recommended by cardiology and she has chosen to not go back on Eliquis due to the life-threatening bleed Overall feels like she is making progress and is up ad-gregory in the room Close to discharge, will discuss that in team meeting Checked meds and labs Conferred with RN Reviewed therapy notes Review of Systems General: Fatigue Gastrointestinal: Abdominal Pain Objective Exam Vital Signs Vital Signs Date Time Temp Pulse Resp B/P (MAP) Pulse Ox O2 Delivery O2 Flow Rate FiO2 06/28/19 18:17 94 Room Air 06/28/19 17:18 37.0 66 20 143/89 (107) 06/23/19 19:16 21 Capillary Refill : Less Than 3 Seconds General Appearance: No Apparent Distress, WD/WN HEENT: PERRL/EOMI, Normal ENT Inspection, Pharynx Normal Neck: Full Range of Motion, Normal Inspection, Supple Respiratory: Normal Breath Sounds, No Accessory Muscle Use, No Respiratory Distress Cardiovascular: Regular Rate, Rhythm, No Edema Gastrointestinal: Normal Bowel Sounds, No Organomegaly, No Pulsatile Mass, Non Tender, Soft Back: Normal Inspection, No CVA Tenderness, No Vertebral Tenderness Extremity: Normal Inspection, Normal Range of Motion Neurologic/Psychiatric: Alert, Oriented x3 Skin: Normal Color, Warm/Dry, Other (Mid abdominal incision C/D/I with kristen in place.) Lymphatic: No Adenopathy Results/Procedures Lab Patient resulted labs reviewed. FIM Transfers Therapy Code Descriptions/Definitions Functional [place] Measure: 0=Not Assessed/NA 4=Minimal Assistance 1=Total Assistance 5=Supervision or Setup 2=Maximal Assistance 6=Modified [place] 3=Moderate Assistance 7=Complete IndependenceSCALE: Activities may be completed with or without assistive devices. 6-Oeanzshgjk-dinirxh completes the activity by him/herself with no assistance from a helper. 5-Set-up or Clean-up Assistance-helper sets up or cleans up; patient completes activity. [place] assists only prior to or following the activity. 4-Supervision or Touching Assistance-helper provides verbal cues and/or touching/steadying and/or contact guard assistance as patient completes activity. Assistance may be provided throughout the activity or intermittently. 3-Partial/Moderate Assistance-helper does LESS THAN HALF the effort. [place] lifts, holds or supports trunk or limbs, but provides less than half the effort. 2-Substantial/Maximal Assistance-helper does MORE THAN HALF the effort. [place] lifts or holds trunk or limbs and provides more than half the effort. 1-Ghfsgvgyo-efhule does ALL the effort. Patient does none of the effort to complete the activity. Or, the assistance of 2 or more helpers is required for the patient to complete the activity. If activity was not attempted, code reason: 7-Patient Refused. 9-Not Applicable-not attempted and the patient did not perform the activity before the current illness, exacerbation or injury. 10-Not Attempted due to Environmental Limitations-(lack of equipment, weather restraints, etc.). 88-Not Attempted due to Medical Conditions or Safety Concerns. Roll Left to Right (QC): 6 Sit to Lying (QC): 6 Sit to Stand (QC): 6 Chair/Mce-rj-Bslnf Xfer(QC): 6 Car Transfer (QC): 3 Gait Training Does the Patient Walk?: Yes Distance: 250', 120'x3 Walk 10 feet (QC): 6 Walk 50 ft with 2 Turns(QC): 6 Walk 150 ft (QC): 6 Walking 10ft/uneven surface-QC: 4 Gait Persons Needed: 1 Gait Assistive Device: FWW Wheelchair Training Does the Pt Use a Wheelchair?: No Wheel 50 ft with 2 turns (QC): 9 Wheel 150 ft (QC): 9 Stair Training Stair Training: Handrails/: 2 handrails #of Steps: 4 1 Step (curb) (QC): 4 4 Steps (QC): 4 12 Steps (QC): 88 Stairs: Pattern: Reciprocal Balance Picking up an Object (QC): 88 ADL-Treatment Eating (QC): 6 Oral Hygiene (QC): 6 Shower/Bathe Self (QC): 4 Upper Body Dressing (QC): 4 Lower Body Dressing (QC): 4 On/Off Footwear (QC): 4 Toileting Hygiene (QC): 4 Toilet Transfer (QC): 4 Assessment/Plan Assessment and Plan Assess & Plan/Chief Complaint Assessment: Critical illness myopathy Catastrophic GI Bleed requiring 9 units of blood 06/17/19 s/p volvulus right hemicolectomy 06/16/19 PAF h/o OAC prior to admit Post op ileus Iron deficiency initiated 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
--- NOTE | 2019-06-28 11:14 | Occupational Ther Daily Note ---
OT Current Status-Daily Note Subjective Pt alert, sitting in recliner. Pt agrees to therapy. No c/o pain at this time. Mental Status/Objective Patient Orientation: Person, Place, Time, Situation Attachments: IV (midline) ADL-Treatment Pt is up ad gregory to bathroom, per PT. Pt ambulated to bathroom to stand at sink to complete grooming, no oral care. Pt then transferred to toilet, mod I. Completed toileting, mod I. Pt requested to change lower body clothing, completed by self after set up. Pt ambulated to closet and dirty clothing from clean. Then ambulated 2x's from room to laundry room. Pt able to place laundry in washer. Pt requires increased time due to multiple recovery breaks throughout therapy. After session, pt sitting in recliner with call light/phone in reach. All needs met in room. Therapy Code Descriptions/Definitions Functional [place] Measure: 0=Not Assessed/NA 4=Minimal Assistance 1=Total Assistance 5=Supervision or Setup 2=Maximal Assistance 6=Modified [place] 3=Moderate Assistance 7=Complete IndependenceSCALE: Activities may be completed with or without assistive devices. 5-Rayjvlzqys-audubll completes the activity by him/herself with no assistance from a helper. 5-Set-up or Clean-up Assistance-helper sets up or cleans up; patient completes activity. [place] assists only prior to or following the activity. 4-Supervision or Touching Assistance-helper provides verbal cues and/or t ouching/steadying and/or contact guard assistance as patient completes activity. Assistance may be provided throughout the activity or intermittently. 3-Partial/Moderate Assistance-helper does LESS THAN HALF the effort. [place] lifts, holds or supports trunk or limbs, but provides less than half the effort. 2-Substantial/Maximal Assistance-helper does MORE THAN HALF the effort. [place] lifts or holds trunk or limbs and provides more than half the effort. 5-Wewetqlmr-ttjprf does ALL the effort. Patient does none of the effort to complete the activity. Or, the assistance of 2 or more helpers is required for the patient to complete the activity. If activity was not attempted, code reason: 7-Patient Refused. 9-Not Applicable-not attempted and the patient did not perform the activity before the current illness, exacerbation or injury. 10-Not Attempted due to Environmental Limitations-(lack of equipment, weather restraints, etc.). 88-Not Attempted due to Medical Conditions or Safety Concerns. Lower Body Dressing (QC): 5 Toileting Hygiene (QC): 6 Toilet Transfer (QC): 6 OT Short Term Goals Short Term Goals Time Frame: July 06, 2019 Shower/bathe self: 4 Lower body dressin OT Instructor Warper Goals Instructor Warper Goals Time Frame: July 22, 2019 Eating (QC): 6 Oral Hygiene (QC): 6 Toileting Hygiene (QC): 6 Shower/Bathe Self (QC): 6 Upper Body Dressing (QC): 6 Lower Body Dressing (QC): 6 On/Off Footwear (QC): 6 Additional Goals: 1-Demonstrate ADL Tasks, 2-Verbalize Understanding, 3- ImproveStrength/[place] 1=Demonstrate adherence to instructed precautions during ADL tasks. 2=Patient will verbalize/demonstrate understanding of assistive devices/modifications for ADL. 3=Patient will improve strength/tolerance for activity to enable patient to perform ADL's. OT Education/Plan Problem List/Assessment Assessment: Decreased Activ Tolerance, Decreased UE Strength, Impaired Self- Care Skills Discharge Recommendations Plan/Recommendations: Continue POC Treatment Plan/Plan of Care Patient would benefit from OT for education, treatment and training to promote independence in ADL's, mobility, safety and/or upper extremity function for ADL's. Plan of Care: ADL Retraining, Functional Mobility, Group Exercise/Act as Ind, UE Funct Exercise/Act Treatment Duration: July 22, 2019 Frequency: At least 5 of 7 days/Wk (IRF) Estimated Hrs Per Day: Other (COVID Waiver 60 mins per day, increase as pt able) Agreement: Yes Rehab Potential: Good Time/GCodes Start Time: 10:00 Stop Time: 11:00 Total Time Billed (hr/min): 60 Billed Treatment Time 1 visit-FA 4 (60 min) FANY ROYAL June 28, 2019 11:14
--- NOTE | 2019-06-28 12:36 | NUR ---
DR. ALDRICH HERE TO ASSESS ABDOMINAL INCISION. DELMA REMOVED PER DR ALDRICH. WOUND CULTURE SENT TO LAB. DRESSING CHANGE ORDERS: CLEANSE WOUND WITH NORMAL SALINE. PACK WITH WET TO DRY GAUZE. COVER WITH GAUZE AND SECURE WITH TAPE. CHANGE TWICE A DAY AND NEEDED. Addendum: 06/28/19 at 1329 by MARLYN AGUILERA RN TOP 1/3 OF DELMA STILL INTACT.
--- NOTE | 2019-06-28 12:39 | NUR ---
PER DR. ALDRICH... OK TO START 325 MG OF ASPIRIN DAILY. AWARE THAT PATIENT IS ON LOVENOX.
--- NOTE | 2019-06-28 12:40 | NUR ---
DR. ESTRADA TO THE FLOOR. INFORMED THAT DR. ALDRICH IS OK WITH STARTING DAILY ASPIRIN. NEW ORDER FOR ASPIRIN- 325 MG PO DAILY.
--- NOTE | 2019-06-28 12:40 | Cardiology Progress Note ---
Cardiology SOAP Progress Note Subjective: No cardiac complaints. Objective: I&O/Vital Signs 06/28/19 06/28/19 06:02 09:20 Temp 37.1 Pulse 73 Resp 18 B/P (MAP) 133/79 (97) Pulse Ox 97 O2 Delivery Room Air Room Air 06/28/19 00:00 Intake Total 740 ml Balance 740 ml Weight (Pounds): 118 Weight (Ounces): 0.0 Weight (Calculated Kilograms): 53.595164 Constitutional: AAO x 3; No apparent distress; PERRL, well-nourished Respiratory: chest is bilaterally symmetric, lungs clear to auscultation; No crackles, No rhonchi, No rales Cardiovascular: regular rate-rhythm; No irregularly irregular, No extra beats, No parasternal heave is noted, No bradycardia, No tachycardia; S1 and S2; No gallop/S4, No diastolic murmur, No systolic murmur Gastrointestional: soft, audible bowel sounds Extremities: normal range of motion, non-tender, normal inspection, no lower extremity edema bilateral Neurologic/Psychiatric: no motor/sensory deficits, alert, normal mood/affect, oriented x 3 Skin: normal color A/P: Assessment/Dx: Assessment/Dx: Volvulus, post surgery, Significant bleeding post surgery, hemorrhagic shock, Sinus node dysfunction, Second degree heart block, previous history of dual-chamber permanent pacemaker, History of paroxysmal atrial fibrillation on oral anticoagulation., Hypertension Plan: Volvulus, post surgery, currently inpatient rehabilitation. Significant bleeding post surgery, hemorrhagic shock, numerous transfusions given. Required repeat surgery to clamp an arterial bleed. Much stable now. Sinus node dysfunction, Second degree heart block, previous history of dual-chamber permanent pacemaker, no active issues. History of paroxysmal atrial fibrillation, hold Eliquis. Hypertension Therefore at this point in time we have decided to hold off on Eliquis. General Surgery gave okay for using full aspirin. We will start full aspirin today. DVT prophylaxis as per general surgery. Thank you for your consultation. Please call me if you have any questions. Elayne Tyson MD, FACP, FACC, FSCAI, FHRS, CCDS Interventional Cardiology Cardiac Electrophysiology Vascular Medicine and Endovascular Interventions Victoriano TYSON MD June 28, 2019 12:40
--- NOTE | 2019-06-28 12:54 | Progress Note ---
Subjective Date Seen by a Provider: June 28, 2019 Time Seen by a Provider: 12:30 Subjective/Events-last exam noticed drainage per lower aspect wound yesterday. purulent drainage ind entified. kristen removed and subcutaneous abscess identified and drained. Objective Exam Vital Signs Date Time Temp Pulse Resp B/P (MAP) Pulse Ox O2 Delivery O2 Flow Rate FiO2 06/28/19 09:20 Room Air 06/28/19 06:02 37.1 73 18 133/79 (97) 97 Room Air 06/27/19 21:00 Room Air 06/27/19 18:37 94 Room Air 06/27/19 16:00 37.7 71 14 104/69 (81) 96 Room Air I & O 06/28/19 07:00 Intake Total 1230 ml Balance 1230 ml Capillary Refill : Less Than 3 Seconds General Appearance: No Apparent Distress HEENT: PERRL/EOMI Neck: Full Range of Motion Respiratory: Chest Non Tender, Lungs Clear, Normal Breath Sounds Cardiovascular: Regular Rate, Rhythm Gastrointestinal: normal bowel sounds, non tender, soft, other (sq wound abscess, fascia intact) Extremity: Normal Capillary Refill Neurologic/Psychiatric: Alert, Oriented x3 Skin: Normal Color Lymphatic: No Adenopathy Assessment/Plan Assessment/Plan Assess & Plan/Chief Complaint s/p RHC for cecal volvulus. doing well. ADL's improving. abd wound abscess s/p opening and drainage. will pack wet to dry. Clinical Quality Measures DVT/VTE Risk/Contraindication: Risk Factor Score Per Nursin RFS Level Per Nursing on Admit: 4+=Very High CRISTI ALDRICH MD June 28, 2019 12:54
--- NOTE | 2019-06-28 13:41 | Occupational Ther Daily Note ---
OT Current Status-Daily Note Subjective Pt alert, sitting in recliner. Pt agrees to therapy. Pt had just gotten dressing changed so declined shower this pm. Pt c/o fatigue. Mental Status/Objective Patient Orientation: Person, Place, Time, Situation Attachments: IV (midline) ADL-Treatment Pt up ad gregory for bathroom. Pt completed toileting and hygiene, mod I. Pt then ambulated to laundry to gather clothes from dryer. Pt able to bend down, reach in and pull out clothing and place in bag without LOB. Pt then ambulated back to room to fold laundry. Pt able to sit in recliner and fold laundry without difficulty. Due to increased fatigue pt did not put clothing away. Pt takes increased time to complete tasks due to low activity tolerance and multiple recovery breaks. After therapy, pt siting in recliner with call light/phone in reach. All needs met in room. Therapy Code Descriptions/Definitions Functional [place] Measure: 0=Not Assessed/NA 4=Minimal Assistance 1=Total Assistance 5=Supervision or Setup 2=Maximal Assistance 6=Modified [place] 3=Moderate Assistance 7=Complete IndependenceSCALE: Activities may be completed with or without assistive devices. 2-Mjucmpnmkk-ejgsrxu completes the activity by him/herself with no assistance from a helper. 5-Set-up or Clean-up Assistance-helper sets up or cleans up; patient completes activity. Buna assists only prior to or following the activity. 4-Supervision or Touching Assistance-helper provides verbal cues and/or touching/steadying and/or contact guard assistance as patient completes activit y. Assistance may be provided throughout the activity or intermittently. 3-Partial/Moderate Assistance-helper does LESS THAN HALF the effort. Buna lifts, holds or supports trunk or limbs, but provides less than half the effort. 2-Substantial/Maximal Assistance-helper does MORE THAN HALF the effort. Buna lifts or holds trunk or limbs and provides more than half the effort. 0-Ezqrfprsj-kuuthi does ALL the effort. Patient does none of the effort to complete the activity. Or, the assistance of 2 or more helpers is required for the patient to complete the activity. If activity was not attempted, code reason: 7-Patient Refused. 9-Not Applicable-not attempted and the patient did not perform the activity before the current illness, exacerbation or injury. 10-Not Attempted due to Environmental Limitations-(lack of equipment, weather restraints, etc.). 88-Not Attempted due to Medical Conditions or Safety Concerns. Toileting Hygiene (QC): 6 Toilet Transfer (QC): 6 OT Short Term Goals Short Term Goals Time Frame: July 06, 2019 Shower/bathe self: 4 Lower body dressin OT Otr Owner Operator Goals Usp Goals Time Frame: July 22, 2019 Eating (QC): 6 Oral Hygiene (QC): 6 Toileting Hygiene (QC): 6 Shower/Bathe Self (QC): 6 Upper Body Dressing (QC): 6 Lower Body Dressing (QC): 6 On/Off Footwear (QC): 6 Additional Goals: 1-Demonstrate ADL Tasks, 2-Verbalize Understanding, 3- ImproveStrength/Ussy 1=Demonstrate adherence to instructed precautions during ADL tasks. 2=Patient will verbalize/demonstrate understanding of assistive devices/modifications for ADL. 3=Patient will improve strength/tolerance for activity to enable patient to perform ADL's. OT Education/Plan Problem List/Assessment Assessment: Decreased Activ Tolerance, Decreased UE Strength, Impaired Coordination, Impaired Funct Balance Discharge Recommendations Plan/Recommendations: Continue POC Treatment Plan/Plan of Care Patient would benefit from OT for education, treatment and training to promote independence in ADL's, mobility, safety and/or upper extremity function for ADL's. Plan of Care: ADL Retraining, Functional Mobility, Group Exercise/Act as Ind, UE Funct Exercise/Act Treatment Duration: July 22, 2019 Frequency: At least 5 of 7 days/Wk (IRF) Estimated Hrs Per Day: Other (COVID Waiver 60 mins per day, increase as pt able) Agreement: Yes Rehab Potential: Good Time/GCodes Start Time: 13:00 Stop Time: 13:30 Total Time Billed (hr/min): 30 Billed Treatment Time 1 visit-FA 2 (30 min) FANY ROYAL June 28, 2019 13:41
--- NOTE | 2019-06-28 14:13 | Physical Therapy Daily Note ---
PT Daily Note-Current Subjective Patient in recliner pre tx, agrees to PT, has no complaints of pain but states that her abdominal bandage is uncomfortable. Appearance Patient in bed post tx with nurse call, phone, tray, all needs met. Mental Status Patient Orientation: Person, Place, Situation Transfers SCALE: Activities may be completed with or without assistive devices. 7-Tjovkhewye-bnejqfq completes the activity by him/herself with no assistance from a helper. 5-Set-up or Clean-up Assistance-helper sets up or cleans up; patient completes activity. Alexander assists only prior to or following the activity. 4-Supervision or Touching Assistance-helper provides verbal cues and/or touching/steadying and/or contact guard assistance as patient completes activity. Assistance may be provided throughout the activity or intermittently. 3-Partial/Moderate Assistance-helper does LESS THAN HALF the effort. Alexander lifts, holds or supports trunk or limbs, but provides less than half the effort. 2-Substantial/Maximal Assistance-helper does MORE THAN HALF the effort. Alexander lifts or holds trunk or limbs and provides more than half the effort. 8-Evtqkeokq-cfynke does ALL the effort. Patient does none of the effort to complete the activity. Or, the assistance of 2 or more helpers is required for the patient to complete the activity. If activity was not attempted, code reason: 7-Patient Refused. 9-Not Applicable-not attempted and the patient did not perform the activity before the current illness, exacerbation or injury. 10-Not Attempted due to Environmental Limitations-(lack of equipment, weather restraints, etc.). 88-Not Attempted due to Medical Conditions or Safety Concerns. Roll Left & Right (QC): 6 Sit to Lying (QC): 6 Sit to Stand (QC): 6 Chair/Cwb-kb-Vfeyj Xfer(QC): 6 Weight Bearing Right Lower Extremity: Right Weight Bearing/Tolerated Left Lower Extremity: Left Weight Bearing/Tolerated Gait Training Distance: 300', 120' Walk 10 feet (QC): 6 Walk 50 ft with 2 Turns(QC): 6 Walk 150 ft (QC): 6 Gait Assistive Device: FWW Very slow ambulation, patient needs occasional standing rest break due to fatigue. Patient states she is very tired/fatigued this afternoon. Exercises LAQ alternating for 5 min Treatments functional strengthening, ambulation, bed mobility and transfers Assessment Current Status: Fair Progress improving general mobility PT Short Term Goals Short Term Goals Time Frame: June 30, 2019 Roll Left & Right: 6 Sit to lyin Lying to sitting on side of be: 3 Sit to stand: 5 Chair/aux-zm-dobgb transfer: 5 Walk 10 feet: 5 Walk 50 feet with two turns: 5 Walk 150 feet: 5 PT Mcfp Goals [place] Administrator Goals PT [place] Administrator Goals Time Frame: July 14, 2019 Roll Left & Right (QC): 6 Sit to Lying (QC): 6 Lying-Sitting on Side/Bed(QC): 6 Sit to Stand (QC): 6 Chair/Rdl-va-Uffze Xfer(QC): 6 Toilet Transfer (QC): 6 Car Transfer (QC): 6 Does the Patient Walk: Yes Walk 10 feet (QC): 6 Walk 50ft with 2 Turns (QC): 6 Walk 150 ft (QC): 6 Walking 10ft on Uneven Surface: 6 1 Step (curb) (QC): 4 4 Steps (QC): 4 12 Steps (QC): 88 Picking up an Object (QC): 88 Does the Pt use WC or Scooter?: No Wheel 50 feet with 2 turns (QC: 9 Wheel 150 feet: 9 PT Plan Problem List Problem List: Activity Tolerance, Functional Strength, Safety, Balance, Gait, Transfer Treatment/Plan Treatment Plan: Continue Plan of Care Treatment Plan: Bed Mobility, Education, Functional Activity Susy, Functional Strength, Group Therapy, Gait, Safety, Therapeutic Exercise, Transfers Treatment Duration: July 14, 2019 Frequency: covid waiver 60 min per day, will increase as patient is able Estimated Hrs Per Day: 1.5 hours per day Patient and/or Family Agrees t: Yes Safety Risks/Education Patient Education: Gait Training, Transfer Techniques, Correct Positioning, Safety Issues Teaching Recipient: Patient Teaching Methods: Demonstration, Discussion Response to Teaching: Reinforcement Needed Time/GCodes Time In: 1340 Time Out: 1410 Total Billed Treatment Time: 30 Total Billed Treatment 1 visit FA 30' LUIS FELIPE MOSELEY PT June 28, 2019 14:13
[2019-06-28] MEDS: ENOXAPARIN 40 MG/0.4 ML (LOVENOX) SYR SC SCH (15:10)
[2019-06-28] MEDS: ASPIRIN 325 MG (5 GR) TABLET PO SCH (15:10)
[2019-06-28 17:18] VITALS: BP 143/89
--- NOTE | 2019-06-28 19:05 | NUR ---
bedside report received from MARLYN MIR, assume care of pt
--- NOTE | 2019-06-28 20:30 | NUR ---
dressing change to lower part of midline incision with wet to dry ns packing, then 4x4 then abd dressing, tolerated well
--- NOTE | 2019-06-28 20:36 | NUR ---
pt refused Colace, miralax & Senokot.
[2019-06-29 05:55] VITALS: BP 113/58
[2019-06-29] MEDS: CATHETER FLUSH 10 ML SYR IV SCH ×3 (06:52→20:59)
[2019-06-29] MEDS: KCL 10 MEQ TAB (MICRO K) PO SCH ×2 (06:52→18:43)
[2019-06-29] MEDS: RT-ALBUTEROL SULF 2.5 MG/3 ML PRE-MIX VIAL INH SCH ×2 (07:18→18:54)
[2019-06-29] MEDS: polyethylene glycoL POWDER 17 GM (MIRALAX) PACK PO SCH ×2 (07:40→20:57)
[2019-06-29] MEDS: SENNA W/DOCUSATE (SENOKOT S) TABLET PO SCH ×2 (07:40→20:57)
[2019-06-29] MEDS: PANTOPRAZOLE 40 MG (PROTONIX) TAB PO SCH (08:37)
[2019-06-29] MEDS: IRON SUCROSE 200 MG/10 ML (VENOFER) VIAL IV SCH (08:37)
[2019-06-29] MEDS: ASPIRIN 325 MG (5 GR) TABLET PO SCH (08:37)
[2019-06-29] MEDS: DOCUSATE SODIUM 100 MG (COLACE) CAP PO SCH ×2 (08:37→20:57)
[2019-06-29] MEDS ORDERED: ASPIRIN 325 MG (5 GR) TABLET PO SCH (09:00)
--- NOTE | 2019-06-29 09:25 | Cardiology Progress Note ---
Cardiology SOAP Progress Note Subjective: No cardiac complaints. Objective: I&O/Vital Signs 06/29/19 06/29/19 05:55 07:18 Temp 36.9 Pulse 62 Resp 20 B/P (MAP) 113/58 (76) Pulse Ox 96 94 O2 Delivery Room Air Room Air 06/28/19 23:59 Intake Total 830 ml Balance 830 ml Weight (Pounds): 118 Weight (Ounces): 0.0 Weight (Calculated Kilograms): 53.751287 Constitutional: AAO x 3; No apparent distress; PERRL, well-nourished Respiratory: chest is bilaterally symmetric, lungs clear to auscultation; No crackles, No rhonchi, No rales Cardiovascular: regular rate-rhythm; No irregularly irregular, No extra beats, No parasternal heave is noted, No bradycardia, No tachycardia; S1 and S2; No gallop/S4, No diastolic murmur, No systolic murmur Gastrointestional: soft, audible bowel sounds Extremities: normal range of motion, non-tender, normal inspection, no lower extremity edema bilateral Neurologic/Psychiatric: no motor/sensory deficits, alert, normal mood/affect, oriented x 3 Skin: normal color Results/Procedures: Labs Microbiology 06/28/19 Gram Stain - Final, Resulted 06/28/19 Wound Culture, Resulted Pending A/P: Assessment/Dx: Assessment/Dx: Volvulus, post surgery, Significant bleeding post surgery, hemorrhagic shock, Sinus node dysfunction, Second degree heart block, previous history of dual-chamber permanent pacemaker, History of paroxysmal atrial fibrillation on oral anticoagulation., Hypertension Plan: Volvulus, post surgery, currently inpatient rehabilitation. Significant bleeding post surgery, hemorrhagic shock, numerous transfusions given. Required repeat surgery to clamp an arterial bleed. Much stable now. Sinus node dysfunction, Second degree heart block, previous history of dual-chamber permanent pacemaker, no active issues. History of paroxysmal atrial fibrillation, hold Eliquis. Patient does not want to continue with Eliquis. Discussed at length with the patient and all the risks and benefits. She is okay with full aspirin which was started after getting okay from general surgery. Hypertension Therefore at this point in time we have decided to hold off on Eliquis. General Surgery gave okay for using full aspirin. Full aspirin started. DVT prophylaxis as per general surgery. Thank you for your consultation. Please call me if you have any questions. Elayne Tyson MD, FACP, FACC, FSCAI, FHRS, CCDS Interventional Cardiology Cardiac Electrophysiology Vascular Medicine and Endovascular Interventions Victoriano TYSON MD June 29, 2019 09:25
--- NOTE | 2019-06-29 10:04 | Physical Therapy Daily Note ---
PT Daily Note-Current Subjective Pt. agrees to Rx, states her only c/o today is that her ears are "plugged" like she has been flying etc Nursing was advised Pain Location: No Pain Reported Mental Status Patient Orientation: Person, Place, Time, Situation Transfers SCALE: Activities may be completed with or without assistive devices. 2-Ukbuxsjnzq-uqifpmj completes the activity by him/herself with no assistance from a helper. 5-Set-up or Clean-up Assistance-helper sets up or cleans up; patient completes activity. Vega assists only prior to or following the activity. 4-Supervision or Touching Assistance-helper provides verbal cues and/or touching/steadying and/or contact guard assistance as patient completes activity. Assistance may be provided throughout the activity or intermittently. 3-Partial/Moderate Assistance-helper does LESS THAN HALF the effort. Vega lifts, holds or supports trunk or limbs, but provides less than half the effort. 2-Substantial/Maximal Assistance-helper does MORE THAN HALF the effort. Vega lifts or holds trunk or limbs and provides more than half the effort. 2-Mrgfgpfgm-ytzdha does ALL the effort. Patient does none of the effort to complete the activity. Or, the assistance of 2 or more helpers is required for the patient to complete the activity. If activity was not attempted, code reason: 7-Patient Refused. 9-Not Applicable-not attempted and the patient did not perform the activity before the current illness, exacerbation or injury. 10-Not Attempted due to Environmental Limitations-(lack of equipment, weather restraints, etc.). 88-Not Attempted due to Medical Conditions or Safety Concerns. Roll Left & Right (QC): 6 Sit to Lying (QC): 6 Lying to Sitting/Side of Bed(Q: 6 Sit to Stand (QC): 6 Chair/Yun-hj-Ytfgr Xfer(QC): 6 Toilet Transfer (QC): 6 Car Transfer (QC): 6 Weight Bearing Right Lower Extremity: Right Weight Bearing/Tolerated Left Lower Extremity: Left Weight Bearing/Tolerated Gait Training Does the Patient Walk?: Yes Walk 10 feet (QC): 6 Walk 50 ft with 2 Turns(QC): 6 Walk 150 ft (QC): 6 Gait Persons Needed: 0 Gait Assistive Device: None pt. up ad gregory, scored 50/56 AYALA today Balance Special Test Comments 50/56 AYALA, LOB with SLS and needed long step with heel toe trial Exercises Supine Ex: Bridging, Ankle pumps, Quad Set, Rolling, Glut sets, Heel Slides, Short Arc Quads, Scooting, Straight leg raise, Hip abd/add Supine Reps: 15 Assessment Current Status: Good Progress PT Short Term Goals Short Term Goals Time Frame: June 30, 2019 Roll Left & Right: 6 Sit to lyin Lying to sitting on side of be: 3 Sit to stand: 5 Chair/cox-wd-nqogj transfer: 5 Walk 10 feet: 5 Walk 50 feet with two turns: 5 Walk 150 feet: 5 PT Recreational Director Goals Recreational Director Goals PT Recreational Director Goals Time Frame: July 14, 2019 Roll Left & Right (QC): 6 Sit to Lying (QC): 6 Lying-Sitting on Side/Bed(QC): 6 Sit to Stand (QC): 6 Chair/Tfo-er-Mmsff Xfer(QC): 6 Toilet Transfer (QC): 6 Car Transfer (QC): 6 Does the Patient Walk: Yes Walk 10 feet (QC): 6 Walk 50ft with 2 Turns (QC): 6 Walk 150 ft (QC): 6 Walking 10ft on Uneven Surface: 6 1 Step (curb) (QC): 4 4 Steps (QC): 4 12 Steps (QC): 88 Picking up an Object (QC): 88 Does the Pt use WC or Scooter?: No Wheel 50 feet with 2 turns (QC: 9 Wheel 150 feet: 9 PT Plan Treatment/Plan Treatment Plan: Continue Plan of Care Treatment Plan: Bed Mobility, Education, Functional Activity Susy, Functional Strength, Group Therapy, Gait, Safety, Therapeutic Exercise, Transfers Treatment Duration: July 14, 2019 Frequency: covid waiver 60 min per day, will increase as patient is able Estimated Hrs Per Day: 1.5 hours per day Patient and/or Family Agrees t: Yes Safety Risks/Education Patient Education: Gait Training, Transfer Techniques, Correct Positioning, Disease Process, Safety Issues Teaching Recipient: Patient Teaching Methods: Demonstration, Discussion Response to Teaching: Verbalize Understanding, Return Demonstration, Reinforcement Needed Time/GCodes Time In: 900 Time Out: 1000 Total Billed Treatment Time: 60 Total Billed Treatment 1,NM35m,GT10m,EX15m SO LONG INTELLECTUAL PROPERTY LAWYER June 29, 2019 10:04
--- NOTE | 2019-06-29 10:16 | PM&R Progress Note ---
Subjective HPI/CC On Admission Date Seen by Provider: June 29, 2019 Time Seen by Provider: 10:15 Subjective/Events-last exam Pt doing very well Wet to dry dressings twice daily Colace given no BM yet but she doesn't want to get too loose of stools Dr. Armendariz was okay with incision IV iron given DC is planned since conferred with team meeting and she will go home on Thursday07/01/19 Pt slept really well last night Checked meds and labs Conferred with RN Reviewed therapy notes Review of Systems General: Fatigue Gastrointestinal: Abdominal Pain Objective Exam Vital Signs Vital Signs Date Time Temp Pulse Resp B/P (MAP) Pulse Ox O2 Delivery O2 Flow Rate FiO2 06/29/19 18:54 94 Room Air 06/29/19 17:13 36.6 74 18 106/69 (81) 06/23/19 19:16 21 Capillary Refill : Less Than 3 Seconds General Appearance: No Apparent Distress, WD/WN HEENT: PERRL/EOMI, Normal ENT Inspection, Pharynx Normal Neck: Full Range of Motion, Normal Inspection, Supple Respiratory: Normal Breath Sounds, No Accessory Muscle Use, No Respiratory Distress Cardiovascular: Regular Rate, Rhythm, No Edema Gastrointestinal: Normal Bowel Sounds, No Organomegaly, No Pulsatile Mass, Non Tender, Soft Back: Normal Inspection, No CVA Tenderness, No Vertebral Tenderness Extremity: Normal Inspection, Normal Range of Motion Neurologic/Psychiatric: Alert, Oriented x3 Skin: Normal Color, Warm/Dry, Other (Mid abdominal incision C/D/I with kristen in place.) Lymphatic: No Adenopathy Results/Procedures Lab Patient resulted labs reviewed. FIM Transfers Therapy Code Descriptions/Definitions Functional [place] Measure: 0=Not Assessed/NA 4=Minimal Assistance 1=Total Assistance 5=Supervision or Setup 2=Maximal Assistance 6=Modified [place] 3=Moderate Assistance 7=Complete IndependenceSCALE: Activities may be completed with or without assistive devices. 4-Ikwqfndooe-dywdrxi completes the activity by him/herself with no assistance from a helper. 5-Set-up or Clean-up Assistance-helper sets up or cleans up; patient completes activity. [place] assists only prior to or following the activity. 4-Supervision or Touching Assistance-helper provides verbal cues and/or touching/steadying and/or contact guard assistance as patient completes activity. Assistance may be provided throughout the activity or intermittently. 3-Partial/Moderate Assistance-helper does LESS THAN HALF the effort. [place] lifts, holds or supports trunk or limbs, but provides less than half the effort. 2-Substantial/Maximal Assistance-helper does MORE THAN HALF the effort. [place] lifts or holds trunk or limbs and provides more than half the effort. 8-Oidpbwgds-xwtqli does ALL the effort. Patient does none of the effort to complete the activity. Or, the assistance of 2 or more helpers is required for the patient to complete the activity. If activity was not attempted, code reason: 7-Patient Refused. 9-Not Applicable-not attempted and the patient did not perform the activity before the current illness, exacerbation or injury. 10-Not Attempted due to Environmental Limitations-(lack of equipment, weather restraints, etc.). 88-Not Attempted due to Medical Conditions or Safety Concerns. Roll Left to Right (QC): 6 Sit to Lying (QC): 6 Sit to Stand (QC): 6 Chair/Fly-sq-Mymgl Xfer(QC): 6 Car Transfer (QC): 6 Gait Training Does the Patient Walk?: Yes Distance: 300', 120' Walk 10 feet (QC): 6 Walk 50 ft with 2 Turns(QC): 6 Walk 150 ft (QC): 6 Walking 10ft/uneven surface-QC: 4 Gait Persons Needed: 0 Gait Assistive Device: None Wheelchair Training Does the Pt Use a Wheelchair?: No Wheel 50 ft with 2 turns (QC): 9 Wheel 150 ft (QC): 9 Stair Training Stair Training: Handrails/: 2 handrails #of Steps: 4 1 Step (curb) (QC): 4 4 Steps (QC): 4 12 Steps (QC): 88 Stairs: Pattern: Reciprocal Balance Picking up an Object (QC): 88 ADL-Treatment Eating (QC): 6 Oral Hygiene (QC): 6 Shower/Bathe Self (QC): 4 Upper Body Dressing (QC): 4 Lower Body Dressing (QC): 5 On/Off Footwear (QC): 4 Toileting Hygiene (QC): 6 Toilet Transfer (QC): 6 Assessment/Plan Assessment and Plan Assess & Plan/Chief Complaint Assessment: Critical illness myopathy Catastrophic GI Bleed requiring 9 units of blood 06/17/19 s/p volvulus right hemicolectomy 06/16/19 PAF h/o OAC prior to admit Post op ileus Iron deficiency initiated Venofer Plan: Monitor labs Ileus management IRF protocol Pain control Improved on IRF protocol ASA 325mg daily Patient refuses to take OAC due to life-threatening bleed (1) Volvulus Status: Acute (2) GI bleed (3) Frailty (4) Atrial fibrillation with rapid ventricular response (5) Transfusion of blood during current hospitalization (6) DVT prophylaxis Status: Acute (7) Hypovolemic shock Status: Resolved Resolution Date/Time: 06/20/19 @ 11:26 (8) Anemia Status: Acute (9) Paroxysmal atrial fibrillation Status: Chronic (10) Pacemaker Status: Chronic GEMMA FUENTES DO June 29, 2019 10:16
--- NOTE | 2019-06-29 11:25 | Occupational Ther Daily Note ---
OT Current Status-Daily Note Subjective Pt alert, sitting in recliner. Pt agrees to therapy. No c/o pain at this time. Pt has increased anxiety today, worrying about her dogs and what will happen at todays discharge planning meeting. Mental Status/Objective Patient Orientation: Person, Place, Time, Situation Attachments: IV ADL-Treatment Pt wants to work on not using FWW. AGOSTO encouraged pt to use it at this time due to increased anxiety and shaking. Pt able to retrieve clothing using FWW by self then transport to designated area. Pt then ambulated to toilet and transferred onto/off of toilet with mod I. Pt completed toileting using FWW, mod I. Pt transferred to shower using FWW, grabbars and shower bench, mod I. Pt completed shower using grabbars, hand held shower and shower bench, set up with covering IV and wound. Pt doffed/donned clothing by self using FWW in standing to hike pants. Pt sat at sink to complete own oral care and grooming. Pt takes increased time to complete all ADLs due to increased anxiety and low activity tolerance required multiple recovery breaks. Pt able to use FWW functional for transfers and ambulation throughout [facility]. After session, pt sitting at [facility] area table waiting for PT session to begin. All needs met. Therapy Code Descriptions/Definitions Functional [place] Measure: 0=Not Assessed/NA 4=Minimal Assistance 1=Total Assistance 5=Supervision or Setup 2=Maximal Assistance 6=Modified [place] 3=Moderate Assistance 7=Complete IndependenceSCALE: Activities may be completed with or without assistive devices. 2-Yryzrlfutn-psamxzz completes the activity by him/herself with no assistance from a helper. 5-Set-up or Clean-up Assistance-helper sets up or cleans up; patient completes activity. [place] assists only prior to or following the activity. 4-Supervision or Touching Assistance-helper provides verbal cues and/or touching/steadying and/or contact guard assistance as patient completes activity. Assistance may be provided throughout the activity or intermittently. 3-Partial/Moderate Assistance-helper does LESS THAN HALF the effort. [place] lifts, holds or supports trunk or limbs, but provides less than half the effort. 2-Substantial/Maximal Assistance-helper does MORE THAN HALF the effort. [place] lifts or holds trunk or limbs and provides more than half the effort. 6-Xewmjoveo-gzlzjv does ALL the effort. Patient does none of the effort to complete the activity. Or, the assistance of 2 or more helpers is required for the patient to complete the activity. If activity was not attempted, code reason: 7-Patient Refused. 9-Not Applicable-not attempted and the patient did not perform the activity before the current illness, exacerbation or injury. 10-Not Attempted due to Environmental Limitations-(lack of equipment, weather restraints, etc.). 88-Not Attempted due to Medical Conditions or Safety Concerns. Eating (QC): 6 (Using clinical judgement, pt is able to complete own meal set up and use regular utensils to eat.) Oral Hygiene (QC): 6 Shower/Bathe Self (QC): 5 Upper Body Dressing (QC): 6 Lower Body Dressing (QC): 6 On/Off Footwear: 6 Toileting Hygiene (QC): 6 Toilet Transfer (QC): 6 OT Short Term Goals Short Term Goals Time Frame: July 06, 2019 Shower/bathe self: 4 Lower body dressin OT Group Home Goals Rand Cementer Goals Time Frame: July 22, 2019 Eating (QC): 6 (met) Oral Hygiene (QC): 6 (met) Toileting Hygiene (QC): 6 (met) Shower/Bathe Self (QC): 6 Upper Body Dressing (QC): 6 (met) Lower Body Dressing (QC): 6 (met) On/Off Footwear (QC): 6 (met) Additional Goals: 1-Demonstrate ADL Tasks, 2-Verbalize Understanding, 3- ImproveStrength/Susy 1=Demonstrate adherence to instructed precautions during ADL tasks. 2=Patient will verbalize/demonstrate understanding of assistive devices/modifications for ADL. 3=Patient will improve strength/tolerance for activity to enable patient to perform ADL's. OT Education/Plan Problem List/Assessment Assessment: Decreased Activ Tolerance, Impaired Self-Care Skills Discharge Recommendations Plan/Recommendations: Continue POC Treatment Plan/Plan of Care Patient would benefit from OT for education, treatment and training to promote independence in ADL's, mobility, safety and/or upper extremity function for ADL's. Plan of Care: ADL Retraining, Functional Mobility, Group Exercise/Act as Ind, UE Funct Exercise/Act Treatment Duration: July 22, 2019 Frequency: At least 5 of 7 days/Wk (IRF) Estimated Hrs Per Day: Other (COVID Waiver 60 mins per day, increase as pt able) Agreement: Yes Rehab Potential: Good Time/GCodes Start Time: 07:30 Stop Time: 09:00 Total Time Billed (hr/min): 90 Billed Treatment Time 1 visit-ADL 5 (80 min) FA 1 (10 min) FANY ROYAL June 29, 2019 11:25
--- NOTE | 2019-06-29 13:36 | Progress Note ---
Subjective Date Seen by a Provider: June 29, 2019 Time Seen by a Provider: 13:00 Subjective/Events-last exam doing well. ambulating well. tolerating diet and having BM's. open wound intact, granulation bed forming. no redness erythema. Objective Exam Vital Signs Date Time Temp Pulse Resp B/P (MAP) Pulse Ox O2 Delivery O2 Flow Rate FiO2 06/29/19 08:15 Room Air 06/29/19 07:18 94 Room Air 06/29/19 05:55 36.9 62 20 113/58 (76) 96 Room Air 06/28/19 20:40 Room Air 06/28/19 18:17 94 Room Air 06/28/19 17:18 37.0 66 20 143/89 (107) 95 Room Air I & O 06/29/19 07:00 Intake Total 1270 ml Balance 1270 ml Capillary Refill : Less Than 3 Seconds General Appearance: No Apparent Distress HEENT: PERRL/EOMI Neck: Full Range of Motion Respiratory: Chest Non Tender, Lungs Clear, Normal Breath Sounds Cardiovascular: Regular Rate, Rhythm Gastrointestinal: normal bowel sounds, non tender, soft, other (open wound intact, no redness/erythema) Extremity: Normal Capillary Refill Neurologic/Psychiatric: Alert, Oriented x3 Skin: Normal Color Lymphatic: No Adenopathy Results Lab Microbiology 06/28/19 Gram Stain - Final, Resulted 06/28/19 Wound Culture - Preliminary, Resulted YEAST Assessment/Plan Assessment/Plan Assess & Plan/Chief Complaint s/p RHC for cecal volvulus. doing well. ADL's improving. abd wound abscess s/p opening and drainage. will pack wet to dry. start levaquin PO. Clinical Quality Measures DVT/VTE Risk/Contraindication: Risk Factor Score Per Nursin RFS Level Per Nursing on Admit: 4+=Very High CRISTI ALDRICH MD June 29, 2019 13:36
[2019-06-29] MEDS: ENOXAPARIN 40 MG/0.4 ML (LOVENOX) SYR SC SCH (14:40)
[2019-06-29] MEDS ORDERED: LEVOFLOXACIN 500 MG TAB (LEVAQUIN) PO NR (16:30)
[2019-06-29 17:13] VITALS: BP 106/69
[2019-06-30] MEDS: ALPRAZolam 0.25 MG (XANAX) TAB PO PRN (03:40)
[2019-06-30 05:37] VITALS: BP 109/63
[2019-06-30] MEDS: RT-ALBUTEROL SULF 2.5 MG/3 ML PRE-MIX VIAL INH SCH ×2 (06:34→19:07)
[2019-06-30] MEDS: CATHETER FLUSH 10 ML SYR IV SCH ×3 (06:39→20:24)
[2019-06-30] MEDS: KCL 10 MEQ TAB (MICRO K) PO SCH ×2 (06:39→17:28)
[2019-06-30] MEDS: DOCUSATE SODIUM 100 MG (COLACE) CAP PO SCH ×2 (08:29→20:27)
[2019-06-30] MEDS: SENNA W/DOCUSATE (SENOKOT S) TABLET PO SCH ×2 (08:29→20:27)
[2019-06-30] MEDS: polyethylene glycoL POWDER 17 GM (MIRALAX) PACK PO SCH ×2 (08:29→20:27)
[2019-06-30] MEDS: PANTOPRAZOLE 40 MG (PROTONIX) TAB PO SCH (08:29)
[2019-06-30] MEDS: ASPIRIN 325 MG (5 GR) TABLET PO SCH (08:29)
--- NOTE | 2019-06-30 08:38 | Occupational Ther Daily Note ---
OT Current Status-Daily Note Subjective Pt alert, in bathroom. Pt is up in room ad gregory. Pt agrees to therapy. Mental Status/Objective Patient Orientation: Person, Place, Time, Situation Attachments: IV (midline) ADL-Treatment Pt requires increased time to complete all ADLs due to low activity tolerance and slow movements. Pt completed all ADLs without FWW. Pt independent with toileting hygiene/clothing manipulation and transfer. Pt retrieved clothing independently and transported to bathroom. Pt transferred into shower using grabbars and shower bench. Completed shower using hand held shower, grabbars and shower bench with modified independence. Pt completed dressing independently. Standing at sink, pt completed grooming and oral care independently. Using clinical judgment, pt able to open containers/packages by self and uses regular utensils to eat. After session, pt sitting in recliner with call light/phone in reach. Nrsg in room, all needs met. Therapy Code Descriptions/Definitions Functional [place] Measure: 0=Not Assessed/NA 4=Minimal Assistance 1=Total Assistance 5=Supervision or Setup 2=Maximal Assistance 6=Modified [place] 3=Moderate Assistance 7=Complete IndependenceSCALE: Activities may be completed with or without assistive devices. 7-Kpunoxixxe-jemmgqy completes the activity by him/herself with no assistance from a helper. 5-Set-up or Clean-up Assistance-helper sets up or cleans up; patient completes activity. [place] assists only prior to or following the activity. 4-Supervision or Touching Assistance-helper provides verbal cues and/or touching/steadying and/or contact guard assistance as patient completes activity. Assistance may be provided throughout the activity or intermittently. 3-Partial/Moderate Assistance-helper does LESS THAN HALF the effort. [place] lifts, holds or supports trunk or limbs, but provides less than half the effort. 2-Substantial/Maximal Assistance-helper does MORE THAN HALF the effort. [place] lifts or holds trunk or limbs and provides more than half the effort. 5-Dnbqyismg-mmdryz does ALL the effort. Patient does none of the effort to complete the activity. Or, the assistance of 2 or more helpers is required for the patient to complete the activity. If activity was not attempted, code reason: 7-Patient Refused. 9-Not Applicable-not attempted and the patient did not perform the activity before the current illness, exacerbation or injury. 10-Not Attempted due to Environmental Limitations-(lack of equipment, weather restraints, etc.). 88-Not Attempted due to Medical Conditions or Safety Concerns. Eating (QC): 6 Oral Hygiene (QC): 6 Bathing Location: L Arm, R Arm, L Upper Leg, R Upper Leg, L Lower Leg (including foot), R Lower Leg (including foot), Chest, Abdomen, Buttocks, Perineal Area Shower/Bathe Self (QC): 5 (Set up only for covery abdominal wound before shower. Pt is independent with rest.) Upper Body Dressing (QC): 6 Lower Body Dressing (QC): 6 On/Off Footwear: 6 Toileting Hygiene (QC): 6 Toilet Transfer (QC): 6 OT Short Term Goals Short Term Goals Time Frame: July 06, 2019 Shower/bathe self: 4 Lower body dressin OT Inverted Block Operator Goals Inverted Block Operator Goals Time Frame: July 22, 2019 Eating (QC): 6 (met) Oral Hygiene (QC): 6 (met) Toileting Hygiene (QC): 6 (met) Shower/Bathe Self (QC): 6 (set up for covering abdominal wound only, independent for rest of shower) Upper Body Dressing (QC): 6 (met) Lower Body Dressing (QC): 6 (met) On/Off Footwear (QC): 6 (met) Additional Goals: 1-Demonstrate ADL Tasks, 2-Verbalize Understanding, 3- ImproveStrength/Susy 1=Demonstrate adherence to instructed precautions during ADL tasks. 2=Patient will verbalize/demonstrate understanding of assistive devices/modifications for ADL. 3=Patient will improve strength/tolerance for activity to enable patient to perform ADL's. OT Education/Plan Problem List/Assessment Assessment: Decreased Activ Tolerance Discharge Recommendations Plan/Recommendations: Continue POC Treatment Plan/Plan of Care Patient would benefit from OT for education, treatment and training to promote independence in ADL's, mobility, safety and/or upper extremity function for ADL' s. Plan of Care: ADL Retraining, Functional Mobility, Group Exercise/Act as Ind, UE Funct Exercise/Act Treatment Duration: July 22, 2019 Frequency: At least 5 of 7 days/Wk (IRF) Estimated Hrs Per Day: Other (COVID Waiver 60 mins per day, increase as pt able) Agreement: Yes Rehab Potential: Good Time/GCodes Start Time: 07:30 Stop Time: 08:30 Total Time Billed (hr/min): 60 Billed Treatment Time 1 visit-ADL 4 (60 min) FANY ROYAL June 30, 2019 08:38
--- NOTE | 2019-06-30 09:54 | Physical Therapy Daily Note ---
PT Daily Note-Current Subjective Patient in recliner pre tx, agrees to PT, has no complaints of pain at rest. Appearance Patient in recliner post tx with nurse call, phone, tray, all needs met. Mental Status Patient Orientation: Person, Place, Situation Transfers SCALE: Activities may be completed with or without assistive devices. 7-Zhniyyqrev-pdhlyle completes the activity by him/herself with no assistance from a helper. 5-Set-up or Clean-up Assistance-helper sets up or cleans up; patient completes activity. [place] assists only prior to or following the activity. 4-Supervision or Touching Assistance-helper provides verbal cues and/or touching/steadying and/or contact guard assistance as patient completes activity. Assistance may be provided throughout the activity or intermittently. 3-Partial/Moderate Assistance-helper does LESS THAN HALF the effort. [place] lifts, holds or supports trunk or limbs, but provides less than half the effort. 2-Substantial/Maximal Assistance-helper does MORE THAN HALF the effort. [place] lifts or holds trunk or limbs and provides more than half the effort. 9-Kidxwhjll-plklfb does ALL the effort. Patient does none of the effort to complete the activity. Or, the assistance of 2 or more helpers is required for the patient to complete the activity. If activity was not attempted, code reason: 7-Patient Refused. 9-Not Applicable-not attempted and the patient did not perform the activity before the current illness, exacerbation or injury. 10-Not Attempted due to Environmental Limitations-(lack of equipment, weather restraints, etc.). 88-Not Attempted due to Medical Conditions or Safety Concerns. Roll Left & Right (QC): 6 Sit to Lying (QC): 6 Lying to Sitting/Side of Bed(Q: 6 Sit to Stand (QC): 6 Chair/Vjw-ko-Klrbh Xfer(QC): 6 Toilet Transfer (QC): 6 Car Transfer (QC): 6 Patient performs bed mobility and transfers with independence, car transfer with independence. Weight Bearing Right Lower Extremity: Right Weight Bearing/Tolerated Left Lower Extremity: Left Weight Bearing/Tolerated Gait Training Distance: 350'x2 Walk 10 feet (QC): 4 Walk 50 ft with 2 Turns(QC): 4 Walk 150 ft (QC): 4 Walking 10ft/uneven surface-QC: 4 Gait Persons Needed: 1 Gait Assistive Device: None Patient can ambulate 350' without an assistive device with SBA (including 50' with at least 2 turns of 90 degrees and 10' over an uneven surface). Patient has moments of unsteadiness and still needs SBA and would benefit from continued use of SPC or rolling walker. Patient slightly SOB after ambulating 350'. Wheelchair Training Does the Pt Use a Wheelchair?: No Stair Training Stair Training: Handrails/: 2 handrails #of Steps: 12 1 Step (curb) (QC): 4 4 Steps (QC): 4 12 Steps (QC): 4 Stairs: Pattern: Step to Patient can go up and down 12 steps using 2 handrails with SBA. Balance Picking up an Object (QC): 4 Exercises NuStep Minutes: 15 NuStep Workload: 4 Treatments bed mobility and transfers, ambulation, stair training, gait training, functional strengthening Assessment Current Status: Fair Progress slowly improving endurance. Recommend patient use SPC or rolling walker during ambulation due to unsteadiness during ambulation. PT Short Term Goals Short Term Goals Time Frame: June 30, 2019 Roll Left & Right: 6 Sit to lyin Lying to sitting on side of be: 3 Sit to stand: 5 Chair/adh-ta-hfgxd transfer: 5 Walk 10 feet: 5 Walk 50 feet with two turns: 5 Walk 150 feet: 5 PT Newspaper Copy Editor Goals Longterm Goals PT Newspaper Copy Editor Goals Time Frame: July 14, 2019 Roll Left & Right (QC): 6 Sit to Lying (QC): 6 Lying-Sitting on Side/Bed(QC): 6 Sit to Stand (QC): 6 Chair/Cul-xq-Buzxn Xfer(QC): 6 Toilet Transfer (QC): 6 Car Transfer (QC): 6 Does the Patient Walk: Yes Walk 10 feet (QC): 6 Walk 50ft with 2 Turns (QC): 6 Walk 150 ft (QC): 6 Walking 10ft on Uneven Surface: 6 1 Step (curb) (QC): 4 4 Steps (QC): 4 12 Steps (QC): 88 Picking up an Object (QC): 88 Does the Pt use WC or Scooter?: No Wheel 50 feet with 2 turns (QC: 9 Wheel 150 feet: 9 PT Plan Problem List Problem List: Activity Tolerance, Functional Strength, Safety, Balance, Gait, Transfer Treatment/Plan Treatment Plan: Continue Plan of Care Treatment Plan: Bed Mobility, Education, Functional Activity Susy, Functional Strength, Group Therapy, Gait, Safety, Therapeutic Exercise, Transfers Treatment Duration: July 14, 2019 Frequency: covid waiver 60 min per day, will increase as patient is able Estimated Hrs Per Day: 1.5 hours per day Patient and/or Family Agrees t: Yes Safety Risks/Education Patient Education: Gait Training, Transfer Techniques, Steps, Correct Positioning, Safety Issues Teaching Recipient: Patient Teaching Methods: Demonstration, Discussion Response to Teaching: Reinforcement Needed Time/GCodes Time In: 0900 Time Out: 1000 Total Billed Treatment Time: 60 Total Billed Treatment 1 visit GT 30' EX 15' FA 15' LUIS FELIPE MOSELEY PT June 30, 2019 09:54
--- NOTE | 2019-06-30 10:11 | PM&R Progress Note ---
Subjective HPI/CC On Admission Date Seen by Provider: June 30, 2019 Time Seen by Provider: 10:15 Subjective/Events-last exam Pt discharge planned for tomorrow Levaquin initiated for incision drainage per Dr. Armendariz Had a small BM with a lot of gas so will send in laxatives when she goes home tomorrow Xanax was taken and that helped her overall anxiety at times Pt slept really well last night Checked meds and labs Conferred with RN Reviewed therapy notes Review of Systems General: Fatigue Gastrointestinal: Abdominal Pain Neurological: Weakness Objective Exam Vital Signs Vital Signs Date Time Temp Pulse Resp B/P (MAP) Pulse Ox O2 Delivery O2 Flow Rate FiO2 06/30/19 20:15 Room Air 06/30/19 16:12 37.2 77 16 98/60 (73) 97 Capillary Refill : Less Than 3 Seconds General Appearance: No Apparent Distress, WD/WN, Chronically ill, Thin HEENT: PERRL/EOMI, Normal ENT Inspection, Pharynx Normal Neck: Full Range of Motion, Normal Inspection, Supple Respiratory: Chest Non Tender, Lungs Clear, Normal Breath Sounds, No Accessory Muscle Use, No Respiratory Distress Cardiovascular: Regular Rate, Rhythm, No Edema Gastrointestinal: Normal Bowel Sounds, No Organomegaly, No Pulsatile Mass, Non Tender, Soft Back: Normal Inspection, No CVA Tenderness, No Vertebral Tenderness Extremity: Normal Inspection, Normal Range of Motion Neurologic/Psychiatric: Alert, Oriented x3, No Motor/Sensory Deficits, Normal Mood/Affect, metal caster II-XII Norm as Tested Skin: Normal Color, Warm/Dry, Other (Mid abdominal incision C/D/I with kristen in place.) Lymphatic: No Adenopathy Results/Procedures Lab Patient resulted labs reviewed. FIM Transfers Therapy Code Descriptions/Definitions Functional [place] Measure: 0=Not Assessed/NA 4=Minimal Assistance 1=Total Assistance 5=Supervision or Setup 2=Maximal Assistance 6=Modified [place] 3=Moderate Assistance 7=Complete IndependenceSCALE: Activities may be completed with or without assistive devices. 8-Htvpbftlgs-udddnmp completes the activity by him/herself with no assistance from a helper. 5-Set-up or Clean-up Assistance-helper sets up or cleans up; patient completes activity. [place] assists only prior to or following the activity. 4-Supervision or Touching Assistance-helper provides verbal cues and/or touching/steadying and/or contact guard assistance as patient completes activity. Assistance may be provided throughout the activity or intermittently. 3-Partial/Moderate Assistance-helper does LESS THAN HALF the effort. [place] lifts, holds or supports trunk or limbs, but provides less than half the effort. 2-Substantial/Maximal Assistance-helper does MORE THAN HALF the effort. [place] lifts or holds trunk or limbs and provides more than half the effort. 4-Fwxzqusjs-fbdykv does ALL the effort. Patient does none of the effort to complete the activity. Or, the assistance of 2 or more helpers is required for the patient to complete the activity. If activity was not attempted, code reason: 7-Patient Refused. 9-Not Applicable-not attempted and the patient did not perform the activity before the current illness, exacerbation or injury. 10-Not Attempted due to Environmental Limitations-(lack of equipment, weather restraints, etc.). 88-Not Attempted due to Medical Conditions or Safety Concerns. Roll Left to Right (QC): 6 Sit to Lying (QC): 6 Sit to Stand (QC): 6 Chair/Pnn-pv-Pdjli Xfer(QC): 6 Car Transfer (QC): 6 Gait Training Does the Patient Walk?: Yes Distance: 350'x2 Walk 10 feet (QC): 4 Walk 50 ft with 2 Turns(QC): 4 Walk 150 ft (QC): 4 Walking 10ft/uneven surface-QC: 4 Gait Persons Needed: 1 Gait Assistive Device: None Wheelchair Training Does the Pt Use a Wheelchair?: No Wheel 50 ft with 2 turns (QC): 9 Wheel 150 ft (QC): 9 Stair Training Stair Training: Handrails/: 2 handrails #of Steps: 12 1 Step (curb) (QC): 4 4 Steps (QC): 4 12 Steps (QC): 4 Stairs: Pattern: Step to Balance Picking up an Object (QC): 4 ADL-Treatment Eating (QC): 6 Oral Hygiene (QC): 6 Bathing Location: L Arm, R Arm, L Upper Leg, R Upper Leg, L Lower Leg (including foot), R Lower Leg (including foot), Chest, Abdomen, Buttocks, Perineal Area Shower/Bathe Self (QC): 5 (Set up only for covery abdominal wound before shower. Pt is independent with rest.) Upper Body Dressing (QC): 6 Lower Body Dressing (QC): 6 On/Off Footwear (QC): 6 Toileting Hygiene (QC): 6 Toilet Transfer (QC): 6 Assessment/Plan Assessment and Plan Assess & Plan/Chief Complaint Assessment: Critical illness myopathy Catastrophic GI Bleed requiring 9 units of blood 06/17/19 s/p volvulus right hemicolectomy 06/16/19 PAF h/o OAC prior to admit Post op ileus Iron deficiency initiated Venofer Plan: Monitor labs Ileus management IRF protocol Pain control Improved on IRF protocol ASA 325mg daily Patient refuses to take OAC due to life-threatening bleed DC Thursday (1) Volvulus Status: Acute (2) GI bleed (3) Frailty (4) Atrial fibrillation with rapid ventricular response (5) Transfusion of blood during current hospitalization (6) DVT prophylaxis Status: Acute (7) Hypovolemic shock Status: Resolved Resolution Date/Time: 06/20/19 @ 11:26 (8) Anemia Status: Acute (9) Paroxysmal atrial fibrillation Status: Chronic (10) Pacemaker Status: Chronic GEMMA FUENTES DO June 30, 2019 10:10
--- NOTE | 2019-06-30 10:35 | NUR ---
Pastoral care visit.
--- NOTE | 2019-06-30 10:37 | Cardiology Progress Note ---
Cardiology SOAP Progress Note Subjective: No cardiac complaints. Objective: I&O/Vital Signs 06/30/19 06/30/19 06/30/19 05:37 06:34 08:10 Temp 37.0 Pulse 68 Resp 20 B/P (MAP) 109/63 (78) Pulse Ox 94 93 O2 Delivery Room Air Room Air Room Air 06/30/19 00:00 Intake Total 1900 ml Balance 1900 ml Weight (Pounds): 118 Weight (Ounces): 0.0 Weight (Calculated Kilograms): 53.840636 Constitutional: AAO x 3; No apparent distress; PERRL, well-nourished Respiratory: chest is bilaterally symmetric, lungs clear to auscultation; No crackles, No rhonchi, No rales Cardiovascular: regular rate-rhythm; No irregularly irregular, No extra beats, No parasternal heave is noted, No bradycardia, No tachycardia; S1 and S2; No gallop/S4, No diastolic murmur, No systolic murmur Gastrointestional: soft, audible bowel sounds Extremities: normal range of motion, non-tender, normal inspection, no lower extremity edema bilateral Neurologic/Psychiatric: no motor/sensory deficits, alert, normal mood/affect, oriented x 3 Skin: normal color Results/Procedures: Labs Microbiology 06/28/19 Gram Stain - Final, Resulted 06/28/19 Wound Culture - Preliminary, Resulted YEAST A/P: Assessment/Dx: Assessment/Dx: Volvulus, post surgery, Significant bleeding post surgery, hemorrhagic shock, Sinus node dysfunction, Second degree heart block, previous history of dual-chamber permanent pacemaker, History of paroxysmal atrial fibrillation on oral anticoagulation., Hypertension Plan: Volvulus, post surgery, currently inpatient rehabilitation. Earlier in the admission: Significant bleeding post surgery, hemorrhagic shock, numerous transfusions given. Required repeat surgery to clamp an arterial bleed. Much stable now. Sinus node dysfunction, Second degree heart block, previous history of dual-chamber permanent pacemaker, no active issues. History of paroxysmal atrial fibrillation, hold Eliquis. Patient does not want to continue with Eliquis. Discussed at length with the patient and all the risks and benefits. She is okay with full aspirin which was started after getting okay from general surgery. Hypertension Therefore at this point in time we have decided to hold off on Eliquis. General Surgery gave okay for using full aspirin. Full aspirin started. DVT prophylaxis as per general surgery. Thank you for your consultation. Please call me if you have any questions. Elayne Tyson MD, FACP, FACC, FSCAI, FHRS, CCDS Interventional Cardiology Cardiac Electrophysiology Vascular Medicine and Endovascular Interventions Victoriano TYSON MD June 30, 2019 10:37
[2019-06-30] MEDS: LEVOFLOXACIN 250 MG TAB (LEVAQUIN) PO SCH (12:08)
[2019-06-30] MEDS ORDERED: LEVO500T2 PO (13:06)
[2019-06-30] MEDS ORDERED: HYDR-4342 PO (13:06)
--- NOTE | 2019-06-30 13:07 | Discharge Inst-Surgical ---
D/C Lap Instructions-VALDEMAR New, Converted, or Re-Newed RX: RX on Chart Follow Up Appt in 2 weeks Activity as tolerated No driving for 24 hours No driving while on pain medications Incentive Spirometry use every 2 hours while awake Regular Diet wound: wet to dry with normal saline BID. Symptoms to Report: Fever over 101 degree F, Nausea/Vomiting Infection Signs and Symptoms to report: Increased redness, Foul odor of wound, Increased drainage Bathing instructions: May shower Operative Area Clean/Dry; Keep incision clean/dry If any problems/questions: Contact your physician or go to Emergency Room CRISTI ALDRICH MD June 30, 2019 13:07
--- NOTE | 2019-06-30 13:29 | NUR ---
CM/SS PATIENT CARE CONFERENCE SUMMARY and DISCHARGE PLANNING Reviewed Summary with patient yesterday afternoon and patient excitedly agrees to discharge Monday, July 01, 2019. She will be returning home as before with family oversight/assistance. [facility]: Coordinated with [facility] [place] for RN services, particularly wound care education/teaching, wet to dry dressings twice a day or as needed. [facility] was able to accept patient's [employer] insurance and also will schedule opening of services Thursday evening. [employer] Fork[employer] first completed referral with [facility] at patient's request, however they could not begin services until July 04, which was too far outside patient's care plan orders and needs. Patient expressed her appreciation for pursuit of alternate agency that both accepted insurance and could provide timely. It should be noted that these two agencies are the only ones in patient's service area. Patient's daughter will come pick her up as soon as discharge is finalized, likely late morning. Patient is ambulating independently, it appears no new DME is needed. Follow and assist as appropriate.
--- NOTE | 2019-06-30 14:20 | Occupational Ther Daily Note ---
OT Current Status-Daily Note Subjective Pt alert, sitting EOB. Pt agrees to therapy. No c/o pain at this time. Pt anxious about paperwork, went to SW to assist with pt's questions. Mental Status/Objective Patient Orientation: Person, Place, Time, Situation Attachments: IV (midline) ADL-Treatment Therapy Code Descriptions/Definitions Functional [place]utter Measure: 0=Not Assessed/NA 4=Minimal Assistance 1=Total Assistance 5=Supervision or Setup 2=Maximal Assistance 6=Modified [place] 3=Moderate Assistance 7=Complete IndependenceSCALE: Activities may be completed with or without assistive devices. 4-Rbjjpleqpb-bfntddj completes the activity by him/herself with no assistance from a helper. 5-Set-up or Clean-up Assistance-helper sets up or cleans up; patient completes activity. [place] assists only prior to or following the activity. 4-Supervision or Touching Assistance-helper provides verbal cues and/or touching/steadying and/or contact guard assistance as patient completes activity. Assistance may be provided throughout the activity or intermittently. 3-Partial/Moderate Assistance-helper does LESS THAN HALF the effort. [place] lifts, holds or supports trunk or limbs, but provides less than half the effort. 2-Substantial/Maximal Assistance-helper does MORE THAN HALF the effort. [place] lifts or holds trunk or limbs and provides more than half the effort. 1-Gkzdkhoky-knmroo does ALL the effort. Patient does none of the effort to complete the activity. Or, the assistance of 2 or more helpers is required for the patient to complete the activity. If activity was not attempted, code reason: 7-Patient Refused. 9-Not Applicable-not attempted and the patient did not perform the activity before the current illness, exacerbation or injury. 10-Not Attempted due to Environmental Limitations-(lack of equipment, weather restraints, etc.). 88-Not Attempted due to Medical Conditions or Safety Concerns. Eating (QC): 6 Other Treatment Pt able to sit on EOB to complete fine motor skills without difficulty. Pt then was able to complete 2 sets 10 reps of B shldr strengthening exercises without difficulty to increase strength for daily functional tasks. Pt then was able to complete own meal set up and use regular utensils to eat. After therapy, pt eating lunch in recliner. Call light/phone in reach. All needs met in room. OT Short Term Goals Short Term Goals Time Frame: July 06, 2019 Shower/bathe self: 4 Lower body dressin OT Theater Projectionist Goals Prison Goals Time Frame: July 22, 2019 Eating (QC): 6 (met) Oral Hygiene (QC): 6 (met) Toileting Hygiene (QC): 6 (met) Shower/Bathe Self (QC): 6 (set up for covering abdominal wound only, independent for rest of shower) Upper Body Dressing (QC): 6 (met) Lower Body Dressing (QC): 6 (met) On/Off Footwear (QC): 6 (met) Additional Goals: 1-Demonstrate ADL Tasks, 2-Verbalize Understanding, 3-ImproveStrength/Susy 1=Demonstrate adherence to instructed precautions during ADL tasks. 2=Patient will verbalize/demonstrate understanding of assistive devices/modifications for ADL. 3=Patient will improve strength/tolerance for activity to enable patient to perform ADL's. OT Education/Plan Problem List/Assessment Assessment: Decreased Activ Tolerance, Decreased UE Strength Discharge Recommendations Plan/Recommendations: Continue POC Treatment Plan/Plan of Care Patient would benefit from OT for education, treatment and training to promote independence in ADL's, mobility, safety and/or upper extremity function for ADL's. Plan of Care: ADL Retraining, Functional Mobility, Group Exercise/Act as Ind, UE Funct Exercise/Act Treatment Duration: July 22, 2019 Frequency: At least 5 of 7 days/Wk (IRF) Estimated Hrs Per Day: Other (COVID Waiver 60 mins per day, increase as pt able) Agreement: Yes Rehab Potential: Good Time/GCodes Start Time: 11:30 Stop Time: 12:00 Total Time Billed (hr/min): 30 Billed Treatment Time 1 visit-FA 1 (20 min) EX 1 (10 min) FANY ROYAL June 30, 2019 14:20
--- NOTE | 2019-06-30 14:25 | Physical Therapy Daily Note ---
PT Daily Note-Current Subjective Patient in recliner pre tx, agrees to PT, has no complaints of pain Appearance Patient in recliner post tx with nurse call, phone, tray, all needs met. Mental Status Patient Orientation: Person, Place, Situation Transfers SCALE: Activities may be completed with or without assistive devices. 1-Kchsbuonbl-fuiacee completes the activity by him/herself with no assistance from a helper. 5-Set-up or Clean-up Assistance-helper sets up or cleans up; patient completes activity. [place] assists only prior to or following the activity. 4-Supervision or Touching Assistance-helper provides verbal cues and/or touc cal/steadying and/or contact guard assistance as patient completes activity. Assistance may be provided throughout the activity or intermittently. 3-Partial/Moderate Assistance-helper does LESS THAN HALF the effort. [place] lifts, holds or supports trunk or limbs, but provides less than half the effort. 2-Substantial/Maximal Assistance-helper does MORE THAN HALF the effort. [place] lifts or holds trunk or limbs and provides more than half the effort. 9-Jfmqfuxpz-ygpicp does ALL the effort. Patient does none of the effort to complete the activity. Or, the assistance of 2 or more helpers is required for the patient to complete the activity. If activity was not attempted, code reason: 7-Patient Refused. 9-Not Applicable-not attempted and the patient did not perform the activity before the current illness, exacerbation or injury. 10-Not Attempted due to Environmental Limitations-(lack of equipment, weather restraints, etc.). 88-Not Attempted due to Medical Conditions or Safety Concerns. Sit to Stand (QC): 6 Chair/Wdd-zg-Owfqp Xfer(QC): 6 Weight Bearing Right Lower Extremity: Right Weight Bearing/Tolerated Left Lower Extremity: Left Weight Bearing/Tolerated Gait Training Distance: 300'x2 Walk 10 feet (QC): 6 Walk 50 ft with 2 Turns(QC): 6 Walk 150 ft (QC): 6 Gait Assistive Device: Cane Single Point slow but steady ambulation, SOB slightly after going 300', balance better with the SPC Treatments ambulation Assessment Current Status: Fair Progress Using a SPC improved balance PT Short Term Goals Short Term Goals Time Frame: June 30, 2019 Roll Left & Right: 6 Sit to lyin Lying to sitting on side of be: 3 Sit to stand: 5 Chair/nmq-ik-lyyrk transfer: 5 Walk 10 feet: 5 Walk 50 feet with two turns: 5 Walk 150 feet: 5 PT Home Stereo Equipment Installer Goals Correction Goals PT Correction Goals Time Frame: July 14, 2019 Roll Left & Right (QC): 6 Sit to Lying (QC): 6 Lying-Sitting on Side/Bed(QC): 6 Sit to Stand (QC): 6 Chair/Ong-uk-Jkvkk Xfer(QC): 6 Toilet Transfer (QC): 6 Car Transfer (QC): 6 Does the Patient Walk: Yes Walk 10 feet (QC): 6 Walk 50ft with 2 Turns (QC): 6 Walk 150 ft (QC): 6 Walking 10ft on Uneven Surface: 6 1 Step (curb) (QC): 4 4 Steps (QC): 4 12 Steps (QC): 88 Picking up an Object (QC): 88 Does the Pt use WC or Scooter?: No Wheel 50 feet with 2 turns (QC: 9 Wheel 150 feet: 9 PT Plan Problem List Problem List: Activity Tolerance, Functional Strength, Safety, Balance, Gait, Transfer Treatment/Plan Treatment Plan: Continue Plan of Care Treatment Plan: Bed Mobility, Education, Functional Activity Susy, Functional Strength, Group Therapy, Gait, Safety, Therapeutic Exercise, Transfers Treatment Duration: July 14, 2019 Frequency: romelia mathews 60 min per day, will increase as patient is able Estimated Hrs Per Day: 1.5 hours per day Patient and/or Family Agrees t: Yes Safety Risks/Education Patient Education: Gait Training, Transfer Techniques, Correct Positioning, Safety Issues Teaching Recipient: Patient Teaching Methods: Demonstration, Discussion Response to Teaching: Reinforcement Needed Time/GCodes Time In: 1400 Time Out: 1430 Total Billed Treatment Time: 30 Total Billed Treatment 1 visit GT 30' LUIS FELIPE MOSELEY PT June 30, 2019 14:25
--- NOTE | 2019-06-30 14:34 | Progress Note ---
Subjective Date Seen by a Provider: June 30, 2019 Time Seen by a Provider: 14:30 Subjective/Events-last exam doing well. tolerating diet and having BM's. wound granulating well. ambulating well on own. Objective Exam Vital Signs Date Time Temp Pulse Resp B/P (MAP) Pulse Ox O2 Delivery O2 Flow Rate FiO2 06/30/19 08:10 Room Air 06/30/19 06:34 93 Room Air 06/30/19 05:37 37.0 68 20 109/63 (78) 94 Room Air 06/29/19 21:00 Room Air 06/29/19 18:54 94 Room Air 06/29/19 17:13 36.6 74 18 106/69 (81) 96 Room Air I & O 06/30/19 07:00 Intake Total 2450 ml Balance 2450 ml Capillary Refill : Less Than 3 Seconds General Appearance: No Apparent Distress HEENT: PERRL/EOMI Neck: Full Range of Motion Respiratory: Chest Non Tender, Lungs Clear, Normal Breath Sounds Cardiovascular: Regular Rate, Rhythm Gastrointestinal: normal bowel sounds, soft, other (open wound granulating in well) Extremity: Normal Capillary Refill Neurologic/Psychiatric: Alert, Oriented x3 Skin: Normal Color Lymphatic: No Adenopathy Results Lab Microbiology 06/28/19 Gram Stain - Final, Resulted 06/28/19 Wound Culture - Preliminary, Resulted YEAST Staphylococcus epidermidis Assessment/Plan Assessment/Plan Assess & Plan/Chief Complaint s/p RHC for cecal volvulus. doing well. ADL's improving. abd wound abscess s/p opening and drainage. will pack wet to dry. start levaquin PO. ok for home whenever ok with PM&R. patient will need to follow up with us in 2 weeks. Clinical Quality Measures DVT/VTE Risk/Contraindication: Risk Factor Score Per Nursin RFS Level Per Nursing on Admit: 4+=Very High CRISTI ALDRICH MD June 30, 2019 14:34
[2019-06-30] MEDS: ENOXAPARIN 40 MG/0.4 ML (LOVENOX) SYR SC SCH (14:56)
[2019-06-30 16:12] VITALS: BP 98/60
[2019-07-01 05:50] VITALS: BP 116/72
[2019-07-01] MEDS: CATHETER FLUSH 10 ML SYR IV SCH ×2 (06:09→07:56)
[2019-07-01] MEDS: KCL 10 MEQ TAB (MICRO K) PO SCH (06:09)
[2019-07-01] MEDS ORDERED: POTA10TA6 PO (06:10)
[2019-07-01] MEDS ORDERED: DCS100C PO (06:10)
[2019-07-01] MEDS ORDERED: ASPI-808 PO (06:10)
[2019-07-01] MEDS ORDERED: ONDA4TAB11 PO (06:10)
[2019-07-01] MEDS ORDERED: SENN-20 PO (06:10)
[2019-07-01] MEDS ORDERED: PANT40TA3 PO (06:10)
[2019-07-01] MEDS ORDERED: LACT20SO2 PO (06:10)
[2019-07-01] MEDS ORDERED: ALPR0.254 PO (06:10)
--- NOTE | 2019-07-01 06:13 | D/C HH Face to Face Order ---
D/C Face to Face Orders Reconcile Patient Problems Problems Reviewed?: Yes Instructions for Patient [facility] Patient Instructions/FollowUp: [facility] [address] Armendariz as directed Physician to follow Patient: Marcello Discharge Diet for Home: No Restrictions Patient Problems: s/p abdominal surgery Surgical wound Goals for Patient: [place] Patient Data-Allergies,Ht & Wt Patient Allergies: Coded Allergies: Penicillins (Unverified Allergy, Unknown, PASS OUT, 05/12/18) Sulfa (Sulfonamide Antibiotics) (Unverified Allergy, Unknown, RASH, 05/12/18) Height (Feet): 5 Height (Inches): 5.00 Weight (Pounds): 118 Weight (Ounces): 0.0 Home Health Need/Face to Face Date of Face to Face: July 01, 2019 Clinical Findings: Non-healing wound I have seen Pt edqk-em-eiuo: Yes Discharged To: Home Diagnosis/Conditions: s/p abdominal surgery Surgical wound Patient is Homebound due to: Elvie fall risk due to instabilty Homebound Status Due to the above stated illness, injury or surgical procedure (medical condition or diagnosis) and associated clinical findings, the patient is homebound because of his/her inability to leave home except with aid of a supportive device and/or person AND leaving the home requires a considerable and taxing effort or is medically contraindicated. Pt req the following assistanc: [facility] Nursing Orders Home Health Services Order: Nursing Services (wound care and dressing changes per Dr Armendariz) Certify Stmt I certify that this patient is under my care and that I, a nurse practitioner or a physician; a reading assistant working with me, had a face to face encounter that - meets the physician face to face encounter requirements with this patient as dated. GEMMA FUENTES DO July 01, 2019 06:13
[2019-07-01] MEDS: DOCUSATE SODIUM 100 MG (COLACE) CAP PO SCH ×2 (07:31→07:56)
[2019-07-01] MEDS: SENNA W/DOCUSATE (SENOKOT S) TABLET PO SCH (07:32)
[2019-07-01] MEDS: polyethylene glycoL POWDER 17 GM (MIRALAX) PACK PO SCH (07:32)
[2019-07-01] MEDS: ASPIRIN 325 MG (5 GR) TABLET PO SCH (07:56)
[2019-07-01] MEDS: IRON SUCROSE 200 MG/10 ML (VENOFER) VIAL IV SCH (07:56)
[2019-07-01] MEDS: PANTOPRAZOLE 40 MG (PROTONIX) TAB PO SCH (07:56)
[2019-07-01] MEDS: LEVOFLOXACIN 250 MG TAB (LEVAQUIN) PO SCH (07:56)
[2019-07-01] MEDS: RT-ALBUTEROL SULF 2.5 MG/3 ML PRE-MIX VIAL INH SCH (08:03)
[2019-07-01] MEDS: ALPRAZolam 0.25 MG (XANAX) TAB PO PRN (09:44)
--- NOTE | 2019-07-01 10:14 | Progress Note ---
Subjective Date Seen by a Provider: July 01, 2019 Time Seen by a Provider: 10:00 Subjective/Events-last exam doing well. wound granulating well. tolerating diet. ambulating well. Objective Exam Vital Signs Date Time Temp Pulse Resp B/P (MAP) Pulse Ox O2 Delivery O2 Flow Rate FiO2 07/01/19 09:00 Room Air 07/01/19 08:03 93 Room Air 07/01/19 05:50 37.0 81 18 116/72 (87) 96 Room Air 06/30/19 20:15 Room Air 06/30/19 16:12 37.2 77 16 98/60 (73) 97 Room Air I & O 07/01/19 07:00 Intake Total 1030 ml Balance 1030 ml Capillary Refill : Less Than 3 Seconds General Appearance: No Apparent Distress HEENT: PERRL/EOMI Neck: Full Range of Motion Respiratory: Chest Non Tender, Normal Breath Sounds Cardiovascular: Regular Rate, Rhythm Gastrointestinal: normal bowel sounds, soft, other (incision granulating well. no redness/erythema) Extremity: Normal Capillary Refill Neurologic/Psychiatric: Alert, Oriented x3 Skin: Normal Color Results Lab Microbiology 06/28/19 Gram Stain - Final, Resulted 06/28/19 Wound Culture - Preliminary, Resulted YEAST Staphylococcus epidermidis Assessment/Plan Assessment/Plan Assess & Plan/Chief Complaint s/p RHC for cecal volvulus. doing well. ADL's improving. abd wound abscess s/p opening and drainage. will pack wet to dry. start levaquin PO. ok for home whenever ok with PM&R. patient will need to follow up with us in 1 week. Clinical Quality Measures DVT/VTE Risk/Contraindication: Risk Factor Score Per Nursin RFS Level Per Nursing on Admit: 4+=Very High CRISTI ALDRICH MD July 01, 2019 10:13
--- NOTE | 2019-07-01 10:22 | Cardiology Progress Note ---
Cardiology SOAP Progress Note Subjective: No cardiac complaints. She is getting discharge today. Objective: I&O/Vital Signs 07/01/19 07/01/19 07/01/19 05:50 08:03 09:00 Temp 37.0 Pulse 81 Resp 18 B/P (MAP) 116/72 (87) Pulse Ox 96 93 O2 Delivery Room Air Room Air Room Air 07/01/19 00:00 Intake Total 830 ml Balance 830 ml Weight (Pounds): 118 Weight (Ounces): 0.0 Weight (Calculated Kilograms): 53.768777 Constitutional: AAO x 3; No apparent distress; PERRL, well-nourished Respiratory: chest is bilaterally symmetric, lungs clear to auscultation; No crackles, No rhonchi, No rales Cardiovascular: regular rate-rhythm; No irregularly irregular, No extra beats, No parasternal heave is noted, No bradycardia, No tachycardia; S1 and S2; No gallop/S4, No diastolic murmur, No systolic murmur Gastrointestional: soft, audible bowel sounds Extremities: normal range of motion, non-tender, normal inspection, no lower extremity edema bilateral Neurologic/Psychiatric: no motor/sensory deficits, alert, normal mood/affect, oriented x 3 Skin: normal color Results/Procedures: Labs Microbiology 06/28/19 Gram Stain - Final, Resulted 06/28/19 Wound Culture - Preliminary, Resulted YEAST Staphylococcus epidermidis A/P: Assessment/Dx: Assessment/Dx: Volvulus, post surgery, Significant bleeding post surgery, hemorrhagic shock, Sinus node dysfunction, Second degree heart block, previous history of dual-chamber permanent pacemaker, History of paroxysmal atrial fibrillation on oral anticoagulation., Hypertension Plan: Volvulus, post surgery, currently inpatient rehabilitation. Earlier in the admission: Significant bleeding post surgery, hemorrhagic shock, numerous transfusions given. Required repeat surgery to clamp an arterial bleed. Recovered well. Sinus node dysfunction, Second degree heart block, previous history of dual-chamber permanent pacemaker, no active issues. History of paroxysmal atrial fibrillation, hold Eliquis. Patient does not want to continue with Eliquis. Discussed at length with the patient and all the risks and benefits. She is okay with full aspirin which was started after nia chen from general surgery. Hypertension Therefore at this point in time we have decided to hold off on Eliquis. General Surgery gave okay for using full aspirin. Full aspirin started. DVT prophylaxis as per general surgery. She's getting discharge today. I will follow-up in 2-3 weeks. Thank you for your consultation. Please call me if you have any questions. Elayne Tyson MD, FACP, FACC, FSCAI, FHRS, CCDS Interventional Cardiology Cardiac Electrophysiology Vascular Medicine and Endovascular Interventions Victoriano TYSON MD July 01, 2019 10:22
--- NOTE | 2019-07-01 10:39 | Discharge Summary ---
Diagnosis/Chief Complaint Date of Admission Jun 23, 2019 at 10:50 Date of Discharge Discharge Date: July 01, 2019 Discharge Diagnosis Assessment: Critical illness myopathy Catastrophic GI Bleed requiring 9 units of blood 06/17/19 s/p volvulus right hemicolectomy 06/16/19 PAF h/o OAC prior to admit Post op ileus Iron deficiency initiated Venofer Plan: Monitor labs Ileus management IRF protocol Pain control Improved on IRF protocol ASA 325mg daily Patient refuses to take OAC due to life-threatening bleed DC Thursday (1) Volvulus Status: Acute (2) GI bleed (3) Frailty (4) Atrial fibrillation with rapid ventricular response (5) Transfusion of blood during current hospitalization (6) DVT prophylaxis Status: Acute (7) Hypovolemic shock Status: Resolved Resolution Date/Time: 06/20/19 @ 11:26 (8) Anemia Status: Acute (9) Paroxysmal atrial fibrillation Status: Chronic (10) Pacemaker Status: Chronic Discharge Summary Discharge Physical Examination Allergies: Coded Allergies: Penicillins (Unverified Allergy, Unknown, PASS OUT, 05/12/18) Sulfa (Sulfonamide Antibiotics) (Unverified Allergy, Unknown, RASH, 05/12/18) Vitals & I&Os Vital Signs Date Time Temp Pulse Resp B/P (MAP) Pulse Ox O2 Delivery O2 Flow Rate FiO2 07/01/19 13:14 37.0 81 18 116/72 93 Room Air General Appearance: Alert, Oriented X3, Cooperative Respiratory: Clear to Auscultation Cardiovascular: Regular Rate Neuro: Normal Gait, Normal Speech, Strength at 5/5 X4 Ext Psych/Mental Status: Mental Status NL Hospital Course Was the Problem List Reviewed?: Yes Had an uneventful IRF course for 8 days after critical illness and catastrophic GIB following volvulus surgery by Dr Armendariz. Patient requiring aggressive and multiple blood transfusions while in ICU but hgb stabilized and she received and competed iron infusions with good lab results. BM regimen maintained and she regained normal bowel function. Pain was well controlled. Patient declined OAC due to life-threatening blood and maintained on ASA daily. Overall she dramatically improved during her course in IRF and was deemed stable for DC. All meds were reviewed and deemed correct at DC. Labs (last 24 hrs) Laboratory Tests 06/24/19 06:44: White Blood Count 12.0H, Red Blood Count 3.13L, Hemoglobin 9.5L, Hematocrit 28L, Mean Corpuscular Volume 90, Mean Corpuscular Hemoglobin 30, Mean Corpuscular Hemoglobin Concent 34, Red Cell Distribution Width 15.1H, Platelet Count 476H, Mean Platelet Volume 9.5, Neutrophils (%) (Auto) 79H, Lymphocytes (%) (Auto) 10L , Monocytes (%) (Auto) 9, Eosinophils (%) (Auto) 2, Basophils (%) (Auto) 0, Neutrophils # (Auto) 9.5H, Lymphocytes # (Auto) 1.1, Monocytes # (Auto) 1.0, Eosinophils # (Auto) 0.3, Basophils # (Auto) 0.0, Sodium Level 140, Potassium Level 3.1L, Chloride Level 108H, Carbon Dioxide Level 23, Anion Gap 9, Blood Urea Nitrogen 4L, Creatinine 0.62, Estimat Glomerular Filtration Rate > 60, BUN/Creatinine Ratio 6, Glucose Level 102, Calcium Level 7.9L, Corrected Calcium 8.9, Iron Level 23L, Total Bilirubin 0.4, Aspartate Amino Transf (AST/SGOT) 32, Alanine Aminotransferase (ALT/SGPT) 35, Alkaline Phosphatase 77, Total Protein 5.0L, Albumin 2.8L 06/25/19 07:37: White Blood Count 11.7H, Red Blood Count 3.01L, Hemoglobin 8.9L, Hematocrit 28L, Mean Corpuscular Volume 92, Mean Corpuscular Hemoglobin 30, Mean Corpuscular Hemoglobin Concent 32, Red Cell Distribution Width 15.1H, Platelet Count 514H, Mean Platelet Volume 9.8, Neutrophils (%) (Auto) 80H, Lymphocytes (%) (Auto) 9L, Monocytes (%) (Auto) 8, Eosinophils (%) (Auto) 2, Basophils (%) (Auto) 0, Neutrophils # (Auto) 9.4H, Lymphocytes # (Auto) 1.1, Monocytes # (Auto) 1.0, Eosinophils # (Auto) 0.3, Basophils # (Auto) 0.0, Sodium Level 138, Potassium Level 3.4L, Chloride Level 107, Carbon Dioxide Level 21, Anion Gap 10, Blood Urea Nitrogen 5L, Creatinine 0.66, Estimat Glomerular Filtration Rate > 60, BUN/Creatinine Ratio 8, Glucose Level 144H, Calcium Level 8.0L, Corrected Calcium 9.0, Total Bilirubin 0.4, Aspartate Amino Transf (AST/SGOT) 29, Alanine Aminotransferase (ALT/SGPT) 36, Alkaline Phosphatase 76, Total Protein 5.1L, Albumin 2.8L 06/27/19 06:25: White Blood Count 12.0H, Red Blood Count 3.04L, Hemoglobin 9.0L, Hematocrit 28L, Mean Corpuscular Volume 92, Mean Corpuscular Hemoglobin 30, Mean Corpuscular Hemoglobin Concent 32, Red Cell Distribution Width 15.1H, Platelet Count 563H, Mean Platelet Volume 9.1, Neutrophils (%) (Auto) 84H, Lymphocytes (%) (Auto) 10L , Monocytes (%) (Auto) 7, Eosinophils (%) (Auto) 0, Basophils (%) (Auto) 0, Neutrophils # (Auto) 10.0H, Lymphocytes # (Auto) 1.2, Monocytes # (Auto) 0.8, Eosinophils # (Auto) 0.0, Basophils # (Auto) 0.0, Sodium Level 138, Potassium Level 3.9, Chloride Level 106, Carbon Dioxide Level 22, Anion Gap 10, Blood Urea Nitrogen 5L, Creatinine 0.62, Estimat Glomerular Filtration Rate > 60, BUN/Creatinine Ratio 8, Glucose Level 103, Calcium Level 8.3L, Corrected Calcium 9.1, Total Bilirubin 0.3, Aspartate Amino Transf (AST/SGOT) 18, Alanine Aminotransferase (ALT/SGPT) 30, Alkaline Phosphatase 82, Total Protein 5.2L, Albumin 3.0L Microbiology 06/28/19 Gram Stain - Final, Complete 06/28/19 Wound Culture - Final, Complete YEAST Staphylococcus epidermidis Pending Labs Microbiology Date/Time Source Procedure Growth Status 06/28/19 12:21 Incision Abdominal Abscess Gram Stain - Final Complete 06/28/19 12:21 Wound Culture - Final YEAST Staphylococcus epidermidis Complete Laboratory Tests 06/24/19 06:44: White Blood Count 12.0, Red Blood Count 3.13, Hemoglobin 9.5, Hematocrit 28, Mean Corpuscular Volume 90, Mean Corpuscular Hemoglobin 30, Mean Corpuscular Hemoglobin Concent 34, Red Cell Distribution Width 15.1, Platelet Count 476, Mean Platelet Volume 9.5, Neutrophils (%) (Auto) 79, Lymphocytes (%) (Auto) 10, Monocytes (%) (Auto) 9, Eosinophils (%) (Auto) 2, Basophils (%) (Auto) 0, Neutrophils # (Auto) 9.5, Lymphocytes # (Auto) 1.1, Monocytes # (Auto) 1.0, Eosinophils # (Auto) 0.3, Basophils # (Auto) 0.0, Sodium Level 140, Potassium Level 3.1, Chloride Level 108, Carbon Dioxide Level 23, Anion Gap 9, Blood Urea Nitrogen 4, Creatinine 0.62, Estimat Glomerular Filtration Rate > 60, BU N/Creatinine Ratio 6, Glucose Level 102, Calcium Level 7.9, Corrected Calcium 8.9, Iron Level 23, Total Bilirubin 0.4, Aspartate Amino Transf (AST/SGOT) 32, Alanine Aminotransferase (ALT/SGPT) 35, Alkaline Phosphatase 77, Total Protein 5.0, Albumin 2.8 06/25/19 07:37: White Blood Count 11.7, Red Blood Count 3.01, Hemoglobin 8.9, Hematocrit 28, Mean Corpuscular Volume 92, Mean Corpuscular Hemoglobin 30, Mean Corpuscular Hemoglobin Concent 32, Red Cell Distribution Width 15.1, Platelet Count 514, Mean Platelet Volume 9.8, Neutrophils (%) (Auto) 80, Lymphocytes (%) (Auto) 9, Monocytes (%) (Auto) 8, Eosinophils (%) (Auto) 2, Basophils (%) (Auto) 0, Neutrophils # (Auto) 9.4, Lymphocytes # (Auto) 1.1, Monocytes # (Auto) 1.0, Eosinophils # (Auto) 0.3, Basophils # (Auto) 0.0, Sodium Level 138, Potassium Level 3.4, Chloride Level 107, Carbon Dioxide Level 21, Anion Gap 10, Blood Urea Nitrogen 5, Creatinine 0.66, Estimat Glomerular Filtration Rate > 60, BUN/Creatinine Ratio 8, Glucose Level 144, Calcium Level 8.0, Corrected Calcium 9.0, Total Bilirubin 0.4, Aspartate Amino Transf (AST/SGOT) 29, Alanine Aminotransferase (ALT/SGPT) 36, Alkaline Phosphatase 76, Total Protein 5.1, Albumin 2.8 06/27/19 06:25: White Blood Count 12.0, Red Blood Count 3.04, Hemoglobin 9.0, Hematocrit 28, Mean Corpuscular Volume 92, Mean Corpuscular Hemoglobin 30, Mean Corpuscular Hemoglobin Concent 32, Red Cell Distribution Width 15.1, Platelet Count 563, Mean Platelet Volume 9.1, Neutrophils (%) (Auto) 84, Lymphocytes (%) (Auto) 10, Monocytes (%) (Auto) 7, Eosinophils (%) (Auto) 0, Basophils (%) (Auto) 0, Neutrophils # (Auto) 10.0, Lymphocytes # (Auto) 1.2, Monocytes # (Auto) 0.8, Eosinophils # (Auto) 0.0, Basophils # (Auto) 0.0, Sodium Level 138, Potassium Level 3.9, Chloride Level 106, Carbon Dioxide Level 22, Anion Gap 10, Blood Urea Nitrogen 5, Creatinine 0.62, Estimat Glomerular Filtration Rate > 60, BUN/Creatinine Ratio 8, Glucose Level 103, Calcium Level 8.3, Corrected Calcium 9.1, Total Bilirubin 0.3, Aspartate Amino Transf (AST/SGOT) 18, Alanine Aminotransferase (ALT/SGPT) 30, Alkaline Phosphatase 82, Total Protein 5.2, Alb umin 3.0 Discharge Home Medications: Active Scripts Active Pantoprazole Sodium 40 Mg Tablet.dr 40 Mg PO DAILY Ondansetron Odt (Ondansetron) 4 Mg Tab.rapdis 4 Mg PO Q6H PRN Senna-Time S Tablet (Sennosides/Docusate Sodium) 1 Each Tablet 1 Ea PO BID Dok (Docusate Sodium) 100 Mg Capsule 100 Mg PO BID Klor-Con 10 (Potassium Chloride) 10 Meq Tablet.er 10 Meq PO DAILY Lactulose 20 Gm/30 Ml Solution 10 Gm PO BID PRN Alprazolam 0.25 Mg Tablet 0.25 Mg PO Q8H PRN Aspirin 325 Mg Tablet 325 Mg PO DAILY Levaquin (Levofloxacin) 500 Mg Tablet 500 Mg PO DAILY Hydrocodone-Acetamin 7.5-325 (Hydrocodone/Acetaminophen) 1 Each Tablet 1 Each PO Q4H Reported Gas-X (Simethicone) 125 Mg Tab.chew 125-250 Mg PO BID PRN One Daily For Women 50+ Adv Tb (Multivitamins-Min/FA/Ginkgo) 1 Each Tablet 1 Tab PO DAILY Tylenol Extra Strength (Acetaminophen) 500 Mg Tablet 1,000 Mg PO Q6H PRN Instructions to patient/family Please see electronic discharge instructions given to patient. Diagnosis/Problems Diagnosis/Problems (1) Volvulus Status: Acute (2) GI bleed (3) Frailty (4) Atrial fibrillation with rapid ventricular response (5) Transfusion of blood during current hospitalization (6) DVT prophylaxis Status: Acute (7) Hypovolemic shock Status: Resolved Resolution Date/Time: 06/20/19 @ 11:26 (8) Anemia Status: Acute (9) Paroxysmal atrial fibrillation Status: Chronic (10) Pacemaker Status: Chronic Clinical Quality Measures DVT/VTE Risk/Contraindication: Risk Factor Score Per Nursin RFS Level Per Nursing on Admit: 4+=Very High GEMMA FUENTES DO July 01, 2019 10:39
--- NOTE | 2019-07-01 11:46 | Therapy Team Discharge Summary ---
Therapy Discharge Summary Discharge Recommendations Date of Discharge Physical Therapy Patient came to rehab with colculus, s/p R hemicolectomy. Upon evaluation patient performed bed mobility with SBA, supine <-> sit mod assist, sit <-> stand CGA, transfers CGA, car transfer mod assist, toilet transfer CGA, ambulat ed 50' with a rolling walker with CGA (including 50' with at least 2 turns of 90 degrees and 10' over an uneven surface), and went up and down 1 steps using a rolling walker with CGA. Patient has been performing bed mobility and transfer training, balance and endurance training, functional strengthening, stair training, gait training, and education. Patient has made fair progress and has met her intermediate goals except for ambulation. Now, patient performs bed mobility and transfers with independence, car transfer with independence, ambulates 350' without an assistive device with SBA (including 50' with at least 2 turns of 90 degrees and 10' over an uneven surface), can go up and down 12 steps using 2 handrails with SBA, and can order picker an object from the floor with SBA. Patient is discharging from this facility today and will be discharged from PT at this time. Occupational Therapy Decreased Activ Tolerance, Decreased UE Strength PT Detention Goals Wireless Sales Manager Goals PT Wireless Sales Manager Goals Time Frame: July 14, 2019 Roll Left to Right (QC): 6 Sit to Lying (QC): 6 Lying-Sitting on Side/Bed(QC): 6 Sit to Stand (QC): 6 Chair/Tox-pq-Xngcy Xfer(QC): 6 Car Transfer (QC): 6 Does the Patient Walk: Yes Walk 10 feet (QC): 6 Walk 10ft-Uneven Surface(QC): 6 Walk 50ft with 2 Turns (QC): 6 Walk 150 ft (QC): 6 Does the Pt use WC or Scooter?: No Wheel 50 feet with 2 turns (QC: 9 1 Step (curb) (QC): 4 4 Steps (QC): 4 12 Steps (QC): 88 Picking up an Object (QC): 88 OT Wireless Sales Manager Goals Detention Goals Time Frame: July 22, 2019 Eating (FIM): 6 Eating (QC): 6 (met) Oral Hygiene (QC): 6 (met) Shower/Bathe Self (QC): 6 (set up for covering abdominal wound only, independent for rest of shower) Upper Body Dressing (QC): 6 (met) Lower Body Dressing (QC): 6 (met) On/Off Footwear (QC): 6 (met) Toileting(FIM): 6 Toileting Hygiene (QC): 6 (met) Toilet/Commode Transfer (QC): 6 Additional Goals: 1-Demonstrate ADL Tasks, 2-Verbalize Understanding, 3-ImproveStrength/Susy 1=Demonstrate adherence to instructed precautions during ADL tasks. 2=Patient will verbalize/demonstrate understanding of assistive devices/modifications for ADL. 3=Patient will improve strength/tolerance for activity to enable patient to perform ADL's. LUIS FELIPE MOSELEY PT July 01, 2019 11:46
--- NOTE | 2019-07-01 11:57 | Therapy Team Discharge Summary ---
Therapy Discharge Summary Discharge Recommendations Date of Discharge Occupational Therapy Pt admitted to ARU on 06/23/2019 with dx of volvulus s/p R hemicolectomy. At evaluation, pt required set up assist with feeding and oral hygiene, and min A with the following ADLS: showering, upper/lower body dressing, footwear, and toileting. OT tx with focus on increasing independence and safety with ADLs and functional mobility, increasing BUE strength and functional endurance for tasks. At discharge, pt was independent with all ADLs except showering where she required set up assist for covering her abdominal wound. Pt was then able to complete all parts of showering. Pt made good progress towards goals, meeting all goals except for showering goal. Pt to d/c from facility on this date, thus d/c from OT services at this time. Decreased Activ Tolerance, Decreased UE Strength PT Group Home Goals Aluminum Hydroxide Process Operator Goals PT Aluminum Hydroxide Process Operator Goals Time Frame: July 14, 2019 Roll Left to Right (QC): 6 Sit to Lying (QC): 6 Lying-Sitting on Side/Bed(QC): 6 Sit to Stand (QC): 6 Chair/Sut-xz-Umfmv Xfer(QC): 6 Car Transfer (QC): 6 Does the Patient Walk: Yes Walk 10 feet (QC): 6 Walk 10ft-Uneven Surface(QC): 6 Walk 50ft with 2 Turns (QC): 6 Walk 150 ft (QC): 6 Does the Pt use WC or Scooter?: No Wheel 50 feet with 2 turns (QC: 9 1 Step (curb) (QC): 4 4 Steps (QC): 4 12 Steps (QC): 88 Picking up an Object (QC): 88 OT Group Home Goals Group Home Goals Time Frame: July 22, 2019 Eating (FIM): 6 Eating (QC): 6 (met) Oral Hygiene (QC): 6 (met) Shower/Bathe Self (QC): 6 (set up for covering abdominal wound only, independent for rest of shower) Upper Body Dressing (QC): 6 (met) Lower Body Dressing (QC): 6 (met) On/Off Footwear (QC): 6 (met) Toileting(FIM): 6 Toileting Hygiene (QC): 6 (met) Toilet/Commode Transfer (QC): 6 Additional Goals: 1-Demonstrate ADL Tasks, 2-Verbalize Understanding, 3- ImproveStrength/Susy 1=Demonstrate adherence to instructed precautions during ADL tasks. 2=Patient will verbalize/demonstrate understanding of assistive devices/modifi cations for ADL. 3=Patient will improve strength/tolerance for activity to enable patient to perform ADL's. MAUDE GONZALEZ OT July 01, 2019 11:57
--- NOTE | 2019-07-01 12:20 | NUR ---
MARTÍN MATHEW demonstrates understanding of discharge instructions and accurately returns instructions upon questioning. Copy of Post-Discharge Instructions given to pt. MARTÍN MATHEW is/is not able to manage continuing needs after discharge and will have C. Patients belongings returned to . Patient discharged from 230-1 on 07-01-2019 at 1220. MARTÍN MATHEW left floor via , accompanied by .
--- NOTE | 2019-07-01 12:33 | NUR ---
CM/SS DISCHARGE Patient discharged to home as planned. HHC: Finalized with [facility], faxed orders/instructions as promised. Agency staff called, deferred to assigned Unit RN/Claire for specific wound care/nursing questions. Patient daughter waiting to crop picker as soon as patient lets her know discharge paperwork complete. IMM2 reviewed, signed, charted yesterday in preparation for planned release.
[2019-07-01 13:14] VITALS: BP 116/72
--- NOTE | 2019-07-02 13:00 | NUR ---
Pt's daughter calls in. reports levofloxacin 500mg wasn't filled at [facility] along with other scripts @ discharge yesterday. Confirmed with pharmacy. Dr Armendariz Notified, ok to change order to Augmentin 875mg po [id number], disp 20, 1 refill, if pharma unable to fill levoquin. Called to pharmacy, pharmacist confirms, order not rec'd, will fill original levoquin order and send family text once filled.
--- NOTE | 2019-07-06 12:05 | Physical Therapy Daily Note ---
PT Daily Note-Current Subjective Pt. agreed to Rx, wanted to use toilet . Pain Location: No Pain Reported Mental Status Patient Orientation: Normal For Age Transfers SCALE: Activities may be completed with or without assistive devices. 5-Tsyqngxwyx-lcrgdos completes the activity by him/herself with no assistance from a helper. 5-Set-up or Clean-up Assistance-helper sets up or cleans up; patient completes activity. [place] assists only prior to or following the activity. 4-Supervision or Touching Assistance-helper provides verbal cues and/or touching/steadying and/or contact guard assistance as patient completes activity. Assistance may be provided throughout the activity or intermittently. 3-Partial/Moderate Assistance-helper does LESS THAN HALF the effort. [place] lifts, holds or supports trunk or limbs, but provides less than half the effort. 2-Substantial/Maximal Assistance-helper does MORE THAN HALF the effort. [place] lifts or holds trunk or limbs and provides more than half the effort. 6-Ofbhfmiou-vsopos does ALL the effort. Patient does none of the effort to complete the activity. Or, the assistance of 2 or more helpers is required for the patient to complete the activity. If activity was not attempted, code reason: 7-Patient Refused. 9-Not Applicable-not attempted and the patient did not perform the activity before the current illness, exacerbation or injury. 10-Not Attempted due to Environmental Limitations-(lack of equipment, weather restraints, etc.). 88-Not Attempted due to Medical Conditions or Safety Concerns. TRFs SBA Weight Bearing Right Lower Extremity: Right Weight Bearing/Tolerated Left Lower Extremity: Left Weight Bearing/Tolerated Gait Training Does the Patient Walk?: Yes Gait Assistive Device: [id number] SBA, no LOB Exercises Seated Therapy Exercises: Ankle pumps, Sit to stand, Long arc quads, Hip fle xion, Hip abd/add Seated Reps: 20 Standing: Hip Abduction, Heel/toe raises, Marching Standing Reps: 15 Assessment Current Status: Good Progress PT Short Term Goals Short Term Goals Time Frame: June 30, 2019 Roll Left & Right: 6 Sit to lyin Lying to sitting on side of be: 3 Sit to stand: 5 Chair/sxv-yj-hrkby transfer: 5 Walk 10 feet: 5 Walk 50 feet with two turns: 5 Walk 150 feet: 5 PT Senior Living Goals Senior Living Goals PT Hand Binder Cutter Goals Time Frame: July 14, 2019 Roll Left & Right (QC): 6 Sit to Lying (QC): 6 Lying-Sitting on Side/Bed(QC): 6 Sit to Stand (QC): 6 Chair/Ktx-sy-Gyyzd Xfer(QC): 6 Toilet Transfer (QC): 6 Car Transfer (QC): 6 Does the Patient Walk: Yes Walk 10 feet (QC): 6 Walk 50ft with 2 Turns (QC): 6 Walk 150 ft (QC): 6 Walking 10ft on Uneven Surface: 6 1 Step (curb) (QC): 4 4 Steps (QC): 4 12 Steps (QC): 88 Picking up an Object (QC): 88 Does the Pt use WC or Scooter?: No Wheel 50 feet with 2 turns (QC: 9 Wheel 150 feet: 9 PT Plan Treatment/Plan Treatment Plan: Continue Plan of Care Treatment Plan: Bed Mobility, Education, Functional Activity Susy, Functional Strength, Group Therapy, Gait, Safety, Therapeutic Exercise, Transfers Treatment Duration: July 14, 2019 Frequency: romelia mathews 60 min per day, will increase as patient is able Estimated Hrs Per Day: 1.5 hours per day Patient and/or Family Agrees t: Yes Safety Risks/Education Patient Education: Gait Training, Transfer Techniques, Correct Positioning, Disease Process, Safety Issues Teaching Recipient: Patient Teaching Methods: Demonstration, Discussion Response to Teaching: Verbalize Understanding, Return Demonstration Time/GCodes Time In: 1300 Time Out: 1330 Total Billed Treatment Time: 30 Total Billed Treatment 1,EX15m,GT15m SO LONG PTA July 06, 2019 12:05
== END 2019-07-01 12:20 | disposition home health service (06) | DRG 92 ==
PROVIDERS: ADMIT Internal Medicine; ATTEND Internal Medicine
DX: G72.81 Critical illness myopathy (principal); Z48.815 Encounter for surgical aftercare following surgery on the digestive system; K91.89 Other postprocedural complications and disorders of digestive system; T81.49XA Infection following a procedure, other surgical site, initial encounter; I48.0 Paroxysmal atrial fibrillation; E78.00 Pure hypercholesterolemia, unspecified; K21.9 Gastro-esophageal reflux disease without esophagitis; K64.9 Unspecified hemorrhoids; K20.9 Esophagitis, unspecified; K44.9 Diaphragmatic hernia without obstruction or gangrene; M19.91 Primary osteoarthritis, unspecified site; I49.5 Sick sinus syndrome; I44.1 Atrioventricular block, second degree; E61.1 Iron deficiency; M54.9 Dorsalgia, unspecified; I10 Essential (primary) hypertension; D64.9 Anemia, unspecified; F41.0 Panic disorder [episodic paroxysmal anxiety]; Z90.710 Acquired absence of both cervix and uterus; Z90.89 Acquired absence of other organs; Z95.0 Presence of cardiac pacemaker
CPT/HCPCS: 36415; 80053; 83540; 85025; 87070; 87077; 87205; 94640; 94760

== ENCOUNTER 2019-12-27 07:50 | Inpatient (IN) | payer MEDICARE ==
[~2019-12-27] VITALS: Ht 162.5 cm; Wt 62.9 kg
[~2019-12-27 07:50] MED LIST changes: +ALPR.25T PO; +ASPI-808 PO; -BISACODYL 10 MG SUPP (DULCOLAX) PR PRN; -CALCIUM CARBONATE 500 MG (TUMS) TAB.CHEW PO PRN; +DCS100C PO; -DOCUSATE SODIUM 100 MG (COLACE) CAP PO PRN; -FLEET ENEMA ADULT 1 EA BTL PR PRN; +HYDR-3817 PO; -HYDR-4342 PO; +LACT20SO2 PO; -LACTULOSE SYRUP 10GM/15ML (ENULOSE) 30ML UDC PO PRN; +LEVO500T2 PO; +LINE600T12 PO; -LOPERAMIDE 2 MG (IMODIUM) TABLET PO PRN; -MELATONIN 3 MG TABLET PO PRN; -ONDANSETRON 4 MG (ZOFRAN) ORAL DISSOLVE TAB PO PRN; -PANT40TA3 PO; +PANT40TA52 PO; +POTA10TA6 PO; +SENN-20 PO; +SERT50TA2 PO; -diphenhydrAMINE 25 MG TAB (BENADRYL) PO PRN; -guaiFENesin/CODEINE (ROBITUSSIN AC) 10ML UDC PO PRN
--- NOTE | 2019-12-27 07:50 | NUR ---
Patient arrival via [facility] for chief c/o SOA and temp. EMS report 102 temp reported just [employer] and note pt reports chilling. See triage/nurses assesments/for further detail. Pt very limited historian and trouble following direction. Pt trying to get off cot. Reports need to void but not trying to wait for staff. Pt unsteady on feet with 2 RN assist and pt pulling her PJ's back up and then trying to sit on commode. Pt sat less than 60 sec and voided some in commode and some on floor. Pt trying to maneuver withouit proper steps like pulling up PJ's. RN's wiping patient and re-dressing. Pt shivering and demands more blankets but not granted r/t high fever 103.0. is in room assessing.
[2019-12-27] MEDS ORDERED: NS IV 1000 ML 1,000 ML IV SCH (07:59)
[2019-12-27] MEDS ORDERED: cefTRIAXone FOR IV USE 1,000 MG in WATER (STERILE) FOR INJECTION 10 ML IV ONE (08:00)
[2019-12-27] MEDS ORDERED: ONDANSETRON 4 MG/2 ML (SDV) Z0FRAN IV ONE (08:00)
[2019-12-27] MEDS ORDERED: ACETAMINOPHEN 325 MG TABLET PO ONE (08:00)
[2019-12-27] MEDS ORDERED: AZITHROMYCIN INJECTION 500 MG in NS (IVPB) 250 ML IV ONE (08:00)
--- NOTE | 2019-12-27 08:13 | ED Respiratory ---
General Chief Complaint: Respiratory Problems Stated Complaint: SOB; FEVER Source: EMS Exam Limitations: clinical condition History of Present Illness Date Seen by Provider: Dec 27, 2019 Time Seen by Provider: 08:07 Initial Comments Patient to call for name notes today because of increasing shortness of breath patient states she was sick one day which the ambulance people report as well fever cough and shortness of breath nausea no vomiting no diarrhea. Patient is somewhat weak and was hypoxic and although not significantly struggling to breathe probably has some component of altered mental status and no family in no known change from her baseline. Timing/Duration: this morning Severity: moderate Prior Episodes/Possible Cause: no prior episodes Modifying Factors: Improves With Oxygen Associated Symptoms: cough, fever/chills Allergies and Home Medications Allergies Coded Allergies: Penicillins (Unverified Allergy, Unknown, PASS OUT, 05/12/18) Sulfa (Sulfonamide Antibiotics) (Unverified Allergy, Unknown, RASH, 05/12/18) Home Medications ALPRAZolam 0.25 Mg Tablet, 0.25 MG PO Q8H PRN for ANXIETY Prescribed by: GEMMA FUENTES on 07/01/19 06 Acetaminophen 500 Mg Tablet, 1,000 MG PO Q6H PRN for PAIN-MILD, (Reported) Aspirin 325 Mg Tablet, 325 MG PO DAILY Prescribed by: GEMMA FUENTES on 07/01/19 06 Docusate Sodium 100 Mg Capsule, 100 MG PO BID Prescribed by: GEMMA FUENTES on 07/01/19 06 Hydrocodone/Acetaminophen 1 Each Tablet, 1 EACH PO Q4H Prescribed by: CRISTI ALDRICH on 07/27/19 1338 Lactulose 20 Gm/30 Ml Solution, 10 GM PO BID PRN for CONSTIPATION-2ND LINE Prescribed by: GEMMA FUENTES on 07/01/19 06 Linezolid 600 Mg Tablet, 600 MG PO BID Prescribed by: BHUMI LEDEZMA on 07/27/19 1121 Multivitamins-Min/FA/Ginkgo 1 Each Tablet, 1 TAB PO DAILY, (Reported) Pantoprazole Sodium 40 Mg Tablet.dr, 40 MG PO DAILY Prescribed by: GEMMA FUENTES on 07/01/19 06 Potassium Chloride 10 Meq Tablet.er, 10 MEQ PO DAILY Prescribed by: GEMMA FUENTES on 07/01/19 06 Sennosides/Docusate Sodium 1 Each Tablet, 1 EA PO BID Prescribed by: GEMMA FUENTES on 07/01/19 0610 Sertraline HCl 50 Mg Tablet, 50 MG PO DAILY Prescribed by: CRISTI ALDRICH on 07/27/19 1338 Patient Home Medication List Home Medication List Reviewed: Yes Review of Systems Review of Systems Constitutional: see HPI, fever EENTM: no symptoms reported Respiratory: see HPI, cough, orthopnea Cardiovascular: see HPI Gastrointestinal: nausea Genitourinary: no symptoms reported : No Musculoskeletal: no symptoms reported Skin: no symptoms reported Psychiatric/Neurological: No Symptoms Reported Past Shxfcnh-Kqhjif-Bhlklu Hx Past Med/Social Hx: Reviewed Nursing Past Med/Soc Hx Patient Social History Alcohol Use: Denies Use Recreational Drug Use: No Smoking Status: Unknown if Ever Smoked Type Used: Cigarettes Former Smoker, Quit: Aug 23, 1985 2nd Hand Smoke Exposure: No Recent Hopitalizations: Yes (APRIL 2018 L URETER REPAIR, INTESTINAL SURGERY IN MAY) Immunizations Up To Date Tetanus Booster (TDap): Less than 5yrs Date of Pneumonia Vaccine: Feb 11, 2018 Seasonal Allergies Seasonal Allergies: Yes Past Medical History Surgeries: Yes (dental, left ureter, compound facial bone fx, EGD, PARTIAL HYSTERECTOMY) Abdominal, Bladder Surgery, Gallbladder, Hysterectomy, Pacemaker, Tonsillectomy Respiratory: No Cardiac: Yes (SYMPTOMATIC 2ND DEGREE AV, Pacemaker) Atrial Fibrillation, High Cholesterol, Hypertension Neurological: No 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 0.0oz. 53.586696nc; 19.20 BMI Method:Stated General Appearance: WD/WN, mild distress, thin; No severe distress, No cachetic Eyes: Bilateral Eye Normal Inspection, Bilateral Eye PERRL, Bilateral Eye EOMI HEENT: PERRL/EOMI, normal ENT inspection, pharynx normal Neck: non-tender, full range of motion Respiratory: chest non-tender, lungs clear, decreased breath sounds; No wheezing Cardiovascular: normal peripheral pulses, regular rate, rhythm, no edema Gastrointestinal: normal bowel sounds, non tender, soft, no organomegaly Genital/Rectal: normal genital exam; No normal genital exam Extremities: normal range of motion, non-tender, normal inspection 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 as tested, alert, oriented x 3 Skin: normal color, warm/dry Lymphatic: no adenopathy, axilla node tender (R), axilla node tender (L), inguinal node tender (R), inguinal node tender (L) Focused Exam Lactate Level 12/27/19 08:05: Lactic Acid Level 4.12*H Lactic Acid Level Laboratory Tests Test 12/27/19 08:05 Lactic Acid Level 4.12 MMOL/L (0.50-2.00) *H Procedures/Interventions Date of ETT Placement: Jun 17, 2019 Time of ETT Placement: 1435 Suture Size: 4-0 Progress/Results/Core Measures Suspected Sepsis SIRS Temperature: Pulse: Respiratory Rate: Laboratory Tests 12/27/19 08:05: White Blood Count 2.8L Blood Pressure / Mean: 12/27/19 08:05: Lactic Acid Level 4.12*H Laboratory Tests 12/27/19 08:05: Creatinine 0.93, INR Comment 1.2, Platelet Count 200, Total Bilirubin 1.1H Results/Orders Lab Results Laboratory Tests Test 12/27/19 08:05 12/27/19 08:35 12/27/19 08:45 Range/Units White Blood Count 2.8 L 4.3-11.0 10^3/uL Red Blood Count 5.03 4.35-5.85 10^6/uL Hemoglobin 13.4 11.5-16.0 G/DL Hematocrit 40 35-52 % Mean Corpuscular Volume 80 80-99 FL Mean Corpuscular Hemoglobin 27 25-34 PG Mean Corpuscular Hemoglobin Concent 33 32-36 G/DL Red Cell Distribution Width 14.7 H 10.0-14.5 % Platelet Count 200 130-400 10^3/uL Mean Platelet Volume 10.0 7.4-10.4 FL Immature Granulocyte % (Auto) 0 % Neutrophils (%) (Auto) 86 H 42-75 % Lymphocytes (%) (Auto) 13 12-44 % Monocytes (%) (Auto) 1 0-12 % Eosinophils (%) (Auto) 0 0-10 % Basophils (%) (Auto) 0 0-10 % Neutrophils # (Auto) 2.4 1.8-7.8 X 10^3 Lymphocytes # (Auto) 0.4 L 1.0-4.0 X 10^3 Monocytes # (Auto) 0.0 0.0-1.0 X 10^3 Eosinophils # (Auto) 0.0 0.0-0.3 10^3/uL Basophils # (Auto) 0.0 0.0-0.1 10^3/uL Immature Granulocyte # (Auto) 0.0 0.0-0.1 10^3/uL Neutrophils % (Manual) 42 % Lymphocytes % (Manual) 15 % Monocytes % (Manual) 1 % Eosinophils % (Manual) 0 % Basophils % (Manual) 0 % Band Neutrophils 40 % Atypical Lymphocytes 2 % Blood Morphology Comment NORMAL Prothrombin Time 15.3 H 12.2-14.7 SEC INR Comment 1.2 0.8-1.4 Sodium Level 137 135-145 MMOL/L Potassium Level 3.7 3.6-5.0 MMOL/L Chloride Level 101 98-107 MMOL/L Carbon Dioxide Level 20 L 21-32 MMOL/L Anion Gap 16 H 5-14 MMOL/L Blood Urea Nitrogen 15 7-18 MG/DL Creatinine 0.93 0.60-1.30 MG/DL Estimat Glomerular Filtration Rate 59 BUN/Creatinine Ratio 16 Glucose Level 111 H 70-105 MG/DL Lactic Acid Level 4.12 *H 0.50-2.00 MMOL/L Calcium Level 9.2 8.5-10.1 MG/DL Corrected Calcium 9.3 8.5-10.1 MG/DL Total Bilirubin 1.1 H 0.1-1.0 MG/DL Aspartate Amino Transf (AST/SGOT) 27 5-34 U/L Alanine Aminotransferase (ALT/SGPT) 17 0-55 U/L Alkaline Phosphatase 137 H 40-136 U/L Troponin I < 0.30 <0.30 NG/ML C-Reactive Protein 13.42 H <0.50 MG/DL Pro-B-Type Natriuretic Peptide 631.7 H <75.0 PG/ML Total Protein 6.6 6.4-8.2 GM/DL Albumin 3.9 3.2-4.5 GM/DL Blood Gas Puncture Site RT RAD Blood Gas Patient Temperature 103.4 Arterial Blood pH 7.48 H 7.37-7.43 Arterial Blood Partial Pressure CO2 26 L 35-45 MMHG Arterial Blood Partial Pressure O2 107 H 79-93 MMHG Arterial Blood HCO3 19 L 23-27 MMOL/L Arterial Blood Total CO2 20.2 L 21.0-31.0 MMOL/L Arterial Blood Oxygen Saturation 99 94-100 % Arterial Blood Base Excess -2.8 L -2.5-2.5 MMOL/L Geronimo Test YES-POS Blood Gas Ventilator Setting NO Blood Gas Inspired Oxygen 6 L Micro Results Microbiology 12/27/19 Influenza Types A,B Antigen (EUSEBIO) - Final, Complete My Orders Orders - ALLREDASAF B DO Vital Signs: Every 4 Hours (Or (12/27/19 07:59) Vital Signs: Hourly (Order) (12/27/19 07:59) Monitor-Rhythm Ecg Trace Only (12/27/19 07:59) Intake & Output 06,14,22 (12/27/19 07:59) Ed Iv/Invasive Line Start (12/27/19 07:59) Cbc With Automated Diff (12/27/19 07:59) Comprehensive Metabolic Panel (12/27/19 07:59) Crp Fs (12/27/19 07:59) Troponin I Fs (12/27/19 07:59) Lactic Acid Analyzer (12/27/19 07:59) Protime With Inr (12/27/19 07:59) Ekg Tracing (12/27/19 07:59) Arterial Blood Gas (12/27/19 07:59) Ns Iv 1000 Ml (Sodium Chloride 0.9%) (12/27/19 07:59) Acetaminophen Tablet/Caplet (Tylenol T (12/27/19 08:00) Ondansetron Injection (Zofran Injectio (12/27/19 08:00) Oxygen Delivery Set Up (12/27/19 07:59) Blood Culture (12/27/19 07:59) Chest 1 View Ap/Pa Only (12/27/19 07:59) Ceftriaxone For Iv Use (Rocephin For I (12/27/19 08:00) Azithromycin Injection (Zithromax Inject (12/27/19 08:00) Ekg Tracing (12/27/19 08:13) Probnp Fs (12/27/19 08:13) Manual Differential (12/27/19 08:05) Influenza A And B Antigens (12/27/19 08:45) Coronavirus Sars-Cov-2 So 2019 (12/27/19 08:45) Blood Culture (12/27/19 08:30) Medications Given in ED Current Medications Medications Dose Ordered Sig/Mela Route Start Time Stop Time Status Last Admin Dose Admin Acetaminophen 650 mg ONCE ONCE PO 12/27/19 08:00 12/27/19 08:07 DC 12/27/19 08:41 650 MG Azithromycin 500 mg/Sodium Chloride 250 ml @ 250 mls/hr ONCE ONCE IV 12/27/19 08:00 12/27/19 08:59 DC 12/27/19 08:52 250 MLS/HR Ceftriaxone Sodium 1000 mg/ Sterile Water 10 ml @ 200 mls/hr ONCE ONCE IV 12/27/19 08:00 12/27/19 08:07 DC 12/27/19 08:51 200 MLS/HR Ondansetron HCl 4 mg ONCE ONCE IV 12/27/19 08:00 12/27/19 08:07 DC 12/27/19 08:42 4 MG Vital Signs/I&O 12/27/19 12/27/19 12/27/19 12/27/19 07:50 07:50 08:00 08:15 Temp 39.7 39.7 Pulse 87 87 83 83 Resp 24 24 25 25 B/P (MAP) 106/83 (91) 106/83 113/47 104/70 Pulse Ox 97 97 97 97 O2 Delivery Nasal Cannula O2 Flow Rate 6.00 6.00 6.00 6.00 12/27/19 12/27/19 08:30 08:41 Temp 39.7 Pulse 84 Resp 25 B/P (MAP) 119/59 Pulse Ox 97 O2 Flow Rate 6.00 Capillary Refill : ECG Initial ECG Impression Date: Dec 27, 2019 Initial ECG Impression Time: 08:26 Initial ECG Rate: 83 Initial ECG Rhythm: Normal Sinus (atrial paced at 83) Initial ECG Intervals: Normal Initial ECG Impression: Nonspecific Changes Initial ECG Comparisson: No Previous ECG Available Comment EKG at 826 shows atrial paced rhythm there nondiagnostic T-wave changes in the lateral V4 5 and [address] segment elevation no arrhythmia other than the paced rhythm no interval or conduction disturbances. Critical Care Note Critical Care Total Time (minutes) Patient comes in with fever cough is somewhat of a poor historian. Old record was reviewed differential includes pneumonia COVID infection with hypoxemia the plan oxygen supplementation sepsis COVID evaluation antibiotics probably plan for transfer for admission Departure Communication (Admissions) Discussed the case with Dr. Longoria who accepts the patient in admission to [facility] Patient's oxygen saturations of in stable mental status has possibly improved with the IV fluids hemodynamically normal. Impression Primary Impression: Pneumonia Additional Impression: COVID-19 determined by clinical diagnostic criteria Disposition: ADMITTED INPATIENT Condition: Stable Admissions Decision to Admit Reason: Admit from ER (General) Decision to Admit/Date: Dec 27, 2019 Transfer Transfer Reason: Exceeds level of care Transfer Progress Notes See note above discussed with Dr. Longoria who accepts the patient admission Transfer Time: 10:00 Transfer Facility: [facility]. Method of Transfer: EMS Departure-Patient Inst. Decision time for Depature: 10:00 Referrals: ARMANDO COMER MD (PCP/Family) Primary Care Physician ASAF ALLRED DO Dec 27, 2019 08:13
--- NOTE | 2019-12-27 08:28 | Diagnostic Imaging Report ---
EXAMINATION: Chest 1 view HISTORY: fever and cough COMPARISON: Chest radiograph 07/23/2019 FINDINGS: Stable enlargement of the cardiac silhouette. There is a left-sided cardiac pacemaker. Pulmonary vasculature is unchanged. There are coarse interstitial markings throughout both lungs. Bibasilar linear opacities. No pneumothorax. Blunting of left costophrenic angle. Degenerative changes of the thoracic spine. Stable findings suggestive of hiatal hernia. Osseous structures are otherwise intact. IMPRESSION: 1. Stable cardiomegaly and mild interstitial opacities which could represent pulmonary edema. 2. Trace left pleural effusion with minimal bibasilar atelectasis, scarring, or consolidation. 3. Hiatal hernia. Dictated by: Dictated on workstation # [id number]
[2019-12-27 08:42] LABS: BASOPHILS % (AUTO) 0 % (0-10); EOSINOPHILS % (AUTO) 0 % (0-10); HEMATOCRIT 40 % (35-52); HEMOGLOBIN 13.4 G/DL (11.5-16.0); LYMPHOCYTES # (AUTO) 0.4 X 10^3 (1.0-4.0); LYMPHOCYTES % (AUTO) 13 % (12-44); MEAN CORPUSCULAR HEMOGLOBIN 27 PG (25-34); MEAN CORPUSCULAR HGB CONC 33 G/DL (32-36); MEAN CORPUSCULAR VOLUME 80 FL (80-99); MONOCYTES % (AUTO) 1 % (0-12); NEUTROPHILS # (AUTO) 2.4 X 10^3 (1.8-7.8); NEUTROPHILS % (AUTO) 86 % (42-75); PLATELET COUNT 200 10^3/uL (130-400); WHITE BLOOD COUNT 2.8 10^3/uL (4.3-11.0)
[2019-12-27 08:55] LABS: ALLENS TEST YES-POS; INSPIRED O2 6 L
[2019-12-27 08:56] LABS: PATIENT TEMP 103.4; VENTILATOR NO
[2019-12-27 08:58] LABS: ABG BASE EXCESS -2.8 MMOL/L (-2.5-2.5); ABG OXYGEN SATURATION 99 % (94-100); ABG PCO2 26 MMHG (35-45); ABG PH 7.48 (7.37-7.43); ABG PO2 107 MMHG (79-93); ABG TCO2 20.2 MMOL/L (21.0-31.0)
[2019-12-27 09:00] LABS: INR 1.2 (0.8-1.4); PROTHROMBIN TIME PATIENT 15.3 SEC (12.2-14.7)
[2019-12-27 09:16] LABS: ATYPICAL LYMPHOCYTES 2 %; BAND NEUTROPHILS 40 %; BASOPHILS % (MANUAL) 0 %; EOSINOPHILS % (MANUAL) 0 %; LYMPHOCYTES % (MANUAL) 15 %; MONOCYTES % (MANUAL) 1 %; NEUTROPHILS % (MANUAL) 42 %; RBC MORPH NORMAL
--- NOTE | 2019-12-27 09:17 | NUR ---
Attempted to call patient's daughter per patient's request, no answer received, voicemail message left on daughter's phone.
[2019-12-27 09:19] LABS: CHLORIDE 101 MMOL/L (98-107); POTASSIUM 3.7 MMOL/L (3.6-5.0); SODIUM 137 MMOL/L (135-145)
[2019-12-27 09:20] LABS: ALANINE AMINOTRANSFERASE 17 U/L (0-55); ALBUMIN 3.9 GM/DL (3.2-4.5); ALKALINE PHOSPHATASE 137 U/L (40-136); BILIRUBIN,TOTAL 1.1 MG/DL (0.1-1.0); BUN/CREATININE RATIO 16; CALCIUM 9.2 MG/DL (8.5-10.1); CARBON DIOXIDE 20 MMOL/L (21-32); CREATININE SERUM 0.93 MG/DL (0.60-1.30); GFR ESTIMATED 59; GLUCOSE 111 MG/DL (70-105); TOTAL PROTEIN 6.6 GM/DL (6.4-8.2)
--- NOTE | 2019-12-27 09:21 | NUR ---
Patient's daughter, Magalie, returned phone call, informed daughter that patient's condition is requiring a hospital admission, daughter gave telephone consent for patient to be admitted to [facility] in [place]. Daughter also reports patient had colon surgery recently and has been experiencing abdominal pain, states PCP had ordered an abdominal ultrasound scheduled for 12/28/2019. Daughter reports patient's surgeon was Dr. Armendariz in [place].
--- NOTE | 2019-12-27 09:50 | NUR ---
EMS has arrived and patient departing at this time via [facility] to [place] [address]. Pt is on IV NS wide open and is receiving Azithromycin IV on Higgins pump.
--- NOTE | 2019-12-27 10:30 | NUR ---
Three Dimensional Map Modeler Arlene IMR calls to notify that patient is going to ICU instead of [facility] 424. Informed Three Dimensional Map Modeler that patient should be arriving just shortly as depart before 1000.
[2019-12-27] MEDS ORDERED: NS IV 1000 ML 1,000 ML ONE (11:08)
[2019-12-27] MEDS ORDERED: NS IV 1000 ML 1,800 ML IV ONE (11:15)
[2019-12-27] MEDS ORDERED: CATHETER FLUSH 10 ML SYR IV PRN (11:30)
--- NOTE | 2019-12-27 11:40 | NUR ---
Phone call from pt's dgt requesting update if patient left [facility] or whether in [place]. Dgt updated the patient arriving to [facility] about now but change of room plan from Medical Telemetry to ICU.
--- NOTE | 2019-12-27 11:45 | Pulmonary Consultation ---
History of Present Illness History of Present Illness Date Seen by Provider: Dec 27, 2019 Time Seen by Provider: 11:40 Date of Admission History of Present Illness 74yo with hx of volvuluss s/p right hemicolectomy on 06/16/19 and then went back to surgery on 06/17/19 secondary to bleeding presented to ED secondary to worsening SOB, body aches, nausea, and cough over the last 1-2 days. No Vomiting or diarrhea. Pt was found to be hypoxic while in the ED. Pt denies recent sick contacts. Allergies and Home Medications Allergies Coded Allergies: Penicillins (Unverified Allergy, Unknown, PASS OUT, 05/12/18) Sulfa (Sulfonamide Antibiotics) (Unverified Allergy, Unknown, RASH, 05/12/18) Home Medications ALPRAZolam 0.25 Mg Tablet, 0.25 MG PO Q8H PRN for ANXIETY Prescribed by: GEMMA FUENTES on 07/01/19 0611 Acetaminophen 500 Mg Tablet, 1,000 MG PO Q6H PRN for PAIN-MILD, (Reported) Aspirin 325 Mg Tablet, 325 MG PO DAILY Prescribed by: GEMMA FUENTES on 07/01/19 0610 Docusate Sodium 100 Mg Capsule, 100 MG PO BID Prescribed by: GEMMA FUENTES on 07/01/19 06 Hydrocodone/Acetaminophen 1 Each Tablet, 1 EACH PO Q4H Prescribed by: CRISTI ALDRICH on 07/27/19 1338 Lactulose 20 Gm/30 Ml Solution, 10 GM PO BID PRN for CONSTIPATION-2ND LINE Prescribed by: GEMMA FUENTES on 07/01/19 06 Linezolid 600 Mg Tablet, 600 MG PO BID Prescribed by: BHUMI LEDEZMA on 07/27/19 1121 Multivitamins-Min/FA/Ginkgo 1 Each Tablet, 1 TAB PO DAILY, (Reported) Pantoprazole Sodium 40 Mg Tablet.dr, 40 MG PO DAILY Prescribed by: GEMMA FUENTES on 07/01/19 06 Potassium Chloride 10 Meq Tablet.er, 10 MEQ PO DAILY Prescribed by: GEMMA FUENTES on 07/01/19 06 Sennosides/Docusate Sodium 1 Each Tablet, 1 EA PO BID Prescribed by: GEMMA FUENTES on 07/01/19 06 Sertraline HCl 50 Mg Tablet, 50 MG PO DAILY Prescribed by: CRISTI ALDRICH on 07/27/19 1338 Past Eausijx-Sytacz-Aewtip Hx Past Med/Social Hx: Reviewed Nursing Past Med/Soc Hx Patient Social History Alcohol Use: Denies Use Recreational Drug Use: No Smoking Status: Unknown if Ever Smoked Type Used: Cigarettes Former Smoker, Quit: Aug 23, 1985 2nd Hand Smoke Exposure: No Recent Foreign Travel: No Contact w/Someone Who Travel: No Recent Infectious Disease Expo: No Recent Hopitalizations: No Physical Abuse: No Sexual Abuse: No Mistreated: No Fear: No Immunizations Up To Date Tetanus Booster (TDap): Less than 5yrs Date of Pneumonia Vaccine: Feb 11, 2018 Seasonal Allergies Seasonal Allergies: Yes Past Medical History Surgeries: Yes (dental, left ureter, compound facial bone fx, EGD, PARTIAL HYSTERECTOMY) Abdominal, Bladder Surgery, Gallbladder, Hysterectomy, Pacemaker, Tonsillectomy Respiratory: No (Hx Tobaccoism) Cardiac: Yes (SYMPTOMATIC 2ND DEGREE AV, Pacemaker) Atrial Fibrillation, High Cholesterol, Hypertension Neurological: No (known tremulous voice hx) 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 Genitourinary: Yes (RECENT REPAIR OF L URETER, Hx cystitis, UTI, pyelonephritis) Gastrointestinal: Yes (Intestinal surgery) Gastroesophageal Reflux, Gastrointestinal Bleed, Hemorrhoids, Esophagitis, Hiatal Hernia Musculoskeletal: Yes (bilateral DJD shoulders, midline thoracic spine pain) Arthritis, Chronic Back Pain Endocrine: No HEENT: No Cancer: No Psychosocial: Yes Anxiety Integumentary: No Blood Disorders: No Family Medical History Cardiovascular disease Colon cancer Hypertension Visual disorder No Family History of: Cystic fibrosis No Pertinent Family Hx Sepsis Event Evaluation Height, Weight, BMI Height: 5'5.00" Weight: 118lbs. 0.0oz. 53.359386pg; 22.00 BMI Method:Stated Exam Exam Vital Signs Date Time Temp Pulse Resp B/P (MAP) Pulse Ox O2 Delivery O2 Flow Rate FiO2 12/27/19 11:18 37.8 85 24 95/59 96 Nasal Cannula 2.00 12/27/19 09:45 38.1 104 27 130/65 97 3.00 12/27/19 09:30 93 27 141/58 99 3.00 12/27/19 09:15 90 28 137/64 98 4.00 12/27/19 09:00 83 26 135/61 96 4.00 12/27/19 08:45 85 20 120/67 96 4.00 12/27/19 08:41 39.7 12/27/19 08:30 84 25 119/59 97 6.00 12/27/19 08:15 83 25 104/70 97 6.00 12/27/19 08:00 83 25 113/47 97 6.00 12/27/19 07:50 39.7 87 24 106/83 97 6.00 12/27/19 07:50 39.7 87 24 106/83 (91) 97 Nasal Cannula 6.00 Height & Weight Height: 5'5.00" Weight: 118lbs. 0.0oz. 53.462397hm; 22.00 BMI Method:Stated Capillary Refill: Less Than 3 Seconds Gastrointestinal: normal bowel sounds, non tender, soft, no organomegaly Results Lab Laboratory Tests 12/27/19 08:05 Assessment/Plan Assessment/Plan Acute respiratory distress -COVID is pending -Continue oxygen -Check ABG Metabolic lactic acidosis -Continue IVF Severe sepsis -Continue sepsis protocol -IVF - DAYA VILLEDA DO Dec 27, 2019 11:45
--- NOTE | 2019-12-27 13:59 | Diagnostic Imaging Report ---
INDICATION: PICC line placement. TIME OF EXAM: 01:36 p.m. COMPARISON: Correlation is made with prior chest earlier the same day. FINDINGS: Right upper extremity PICC line has tip in good position overlying the SVC. Dual-lead left subclavian cardiac pacemaker remains in place. Heart size is stable. Left hemidiaphragm is elevated. No pneumothorax is identified. Lungs appear clear. IMPRESSION: Satisfactory PICC line placement. Dictated by: Dictated on workstation # [id number]
[2019-12-27] MEDS: metroNIDAZOLE 500MG/100ML IVPB 100 ML IV SCH ×2 (14:35→22:18)
[2019-12-27] MEDS: NS IV 1000 ML 1,000 ML IV SCH ×2 (14:35→20:07)
[2019-12-27 14:59] LABS: ABG BASE EXCESS -6.5 MMOL/L (-2.5-2.5); ABG OXYGEN SATURATION 95 % (94-100); ABG PCO2 24 MMHG (35-45); ABG PH 7.46 (7.37-7.43); ABG PO2 70 MMHG (79-93); ABG TCO2 17.3 MMOL/L (21.0-31.0)
[2019-12-27 15:00] LABS: ALLENS TEST YES-POS; INSPIRED O2 2; PATIENT TEMP 37.8; VENTILATOR NO
[2019-12-27] MEDS ORDERED: ALPR0.254 PO (15:54)
[2019-12-27] MEDS ORDERED: POTA10TA PO (15:54)
[2019-12-27] MEDS ORDERED: PANT40TA52 PO (15:54)
[2019-12-27] MEDS ORDERED: ASPI325T32 PO (15:54)
--- NOTE | 2019-12-27 15:54 | NUR ---
UNABLE TO SPEAK WITH THE PT, I CALLED HER ROOM PHONE MULTIPLE TIMES AND ALSO LEFT A VOICEMAIL ON HER CELL PHONE. I ENTERED THE MED REC USING THE MED REC AND THE MED LIST FROM [facility]. WHEN I AM ABLE TO SPEAK WITH THE PT I WILL UPDATE THE MED REC/NOTES IF NEEDED Addendum: 12/28/19 at 1119 by AMARILYS GARNER [facility] I WAS ABLE TO SPEAK WITH THE PT AND ACCORDING TO HER SHE IS NO LONGER TAKING POTASSIUM (PT SAID SHE RAN OUT OF MEDICATION AND THE BOTTLE SAID "NO REFILLS UNTIL AUTHORIZED BY " AND PT TOOK THAT TO MEAN SHE DIDNT HAVE TO TAKE IT ANY LONGER) PT WAS VERY ADAMANT THAT SHE ONLY TAKES ALPRAZOLAM VERY RARELY AND ONLY IF SHE HAS EXTREME STRESS/ANXIETY OTC MEDS: TYLENOL ASPIRIN 325MG [employer]
[2019-12-27] MEDS: ENOXAPARIN 40 MG/0.4 ML (LOVENOX) SYR SC SCH (20:07)
--- NOTE | 2019-12-27 20:25 | History & Physical-Hospitalist ---
History of Present Illness HPI/Chief Complaint CC: Fever with hypoxia HPI: This is a 74yoWF known to me from prior hospital stay due to critical illness and rehab who presents to [facility] ER with SOB and fever. She was found to have temperature of 102 findings consistent with possible Covid with pneumonia, placed on empiric antibiotics and panculture. At the time I evaluated the lab results showing lactic acid of 4.1 and evidence of hypotension so I placed her on a severe sepsis protocol, placed her in ICU [address] Sierra for pacemaker and Dr. Barker for intensive care. Covid swab is pending. She has lost a lot of weight since I last saw her after a GI bleed requiring resection. 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 Patients Allergies have been reviewed. Allergies Allergies Coded Allergies Penicillins (Unverified Allergy, Unknown, PASS OUT, 05/12/18) Sulfa (Sulfonamide Antibiotics) (Unverified Allergy, Unknown, RASH, 05/12/18) Past Rfmvpyq-Xppusz-Sjnlmg Hx Past Med/Social Hx: Reviewed Nursing Past Med/Soc Hx, Reviewed and Corrections made Patient Social History Marrital Status: single Employed/Student: retired Alcohol Use: Denies Use Recreational Drug Use: No Smoking Status: Unknown if Ever Smoked Former Smoker, Quit: Aug 23, 1985 Type Used: Cigarettes 2nd Hand Smoke Exposure: No Recent Foreign Travel: No Contact w/other who traveled: No Recent Hopitalizations: No Recent Infectious Disease Expo: No Immunizations Up To Date Tetanus Booster (TDap): Less than 5yrs Date of Pneumonia Vaccine: Feb 11, 2018 Seasonal Allergies Seasonal Allergies: Yes Past Medical History Surgeries: Abdominal, Bladder Surgery, Gallbladder, Hysterectomy, Pacemaker, Tonsillectomy Respiratory: Pneumonia Cardiac: Atrial Fibrillation, High Cholesterol, Hypertension 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: No Hysterectomy Gastrointestinal: Gastroesophageal Reflux, Gastrointestinal Bleed, Hemorrhoids, Esophagitis, Hiatal Hernia Musculoskeletal: Arthritis, Chronic Back Pain Psychosocial: Anxiety History of Blood Disorders: No Family History Cardiovascular disease Colon cancer Hypertension Visual disorder No Family History of: Cystic fibrosis No Pertinent Family Hx Review of Systems Constitutional: see HPI, fever, malaise, weakness Physical Exam Physical Exam Vital Signs Vital Signs - First Documented Capillary Refill : Less Than 3 Seconds Height, Weight, BMI Height: 5'5.00" Weight: 118lbs. 0.0oz. 53.119252ah; 22.00 BMI Method:Stated General Appearance: Anxious, Chronically ill, Cachetic, Moderate Distress HEENT: PERRL/EOMI, Pharynx Normal Neck: Full Range of Motion, Normal Inspection, Non Tender Respiratory: Chest Non Tender, Lungs Clear, Normal Breath Sounds, No Accessory Muscle Use, No Respiratory Distress Cardiovascular: No Edema, No Gallop, No JVD, No Murmur, Normal Peripheral Pulses, Irregularly Irregular, Tachycardia Neurologic/Psychiatric: Alert, Oriented x3, No Motor/Sensory Deficits, Normal Mood/Affect, Disoriented Skin: Normal Color, Warm/Dry Results Results/Procedures Labs Laboratory Tests 12/27/19 08:05 Patient resulted labs reviewed. Assessment/Plan Admission Diagnosis Assessment: Hypovolumic shock PNA COVID swab pending Cachexia Acute on chronic debility AF h/o massive GIB Dehydration Neutropenia Plan: Abx IVF Monitor closely Admission Status: Inpatient Order (span 2 midnights) Reason for Inpatient Admission: severe sepsis Diagnosis/Problems Diagnosis/Problems (1) Hypovolemic shock Status: Resolved Resolution Date/Time: 06/20/19 @ 11:26 (2) Frailty (3) Paroxysmal atrial fibrillation Status: Chronic (4) Pacemaker Status: Chronic Clinical Quality Measures DVT/VTE Risk/Contraindication: Risk Factor Score Per Nursin RFS Level Per Nursing on Admit: 4+=Very High LEANNE FUENTES DO Dec 27, 2019 20:25
[2019-12-27] MEDS ORDERED: LOPERAMIDE 2 MG (IMODIUM) TABLET PO PRN (21:30)
[2019-12-27] MEDS ORDERED: ALPRAZolam 0.25 MG (XANAX) TAB PO PRN (21:30)
[2019-12-27] MEDS ORDERED: DOCUSATE SODIUM 100 MG (COLACE) CAP PO PRN (21:30)
[2019-12-27] MEDS ORDERED: CALCIUM CARBONATE 500 MG (TUMS) TAB.CHEW PO PRN (21:30)
[2019-12-27] MEDS ORDERED: ONDANSETRON 4 MG/2 ML (SDV) Z0FRAN IVP PRN (21:30)
[2019-12-27] MEDS ORDERED: MELATONIN 3 MG TABLET PO PRN (21:30)
[2019-12-27] MEDS ORDERED: HYDROcodone/APAP 5 MG/325 MG (LORTAB) TAB PO PRN (21:30)
[2019-12-27] MEDS ORDERED: diphenhydrAMINE 25 MG TAB (BENADRYL) PO PRN (21:30)
[2019-12-27 23:06] LABS: BILIRUBIN,URINE NEGATIVE (NEGATIVE); CLARITY,URINE CLEAR; COLOR,URINE YELLOW; GLUCOSE, URINE (UA) NEGATIVE (NEGATIVE); KETONES,URINE NEGATIVE (NEGATIVE); LEUKOCYTE ESTERASE ,URINE 2+ (NEGATIVE); NITRITE,URINE NEGATIVE (NEGATIVE); PROTEIN,URINE TRACE (NEGATIVE)
[2019-12-27 23:23] LABS: AMORPHOUS SEDIMENT,UR FEW AMOR URATES /LPF; BACTERIA,URINE FEW /HPF; WBC,URINE 25-50 /HPF
[2019-12-27] MEDS: ACETAMINOPHEN 500 MG TAB (TYLENOL) PO PRN (23:30)
[2019-12-28] MEDS: NS IV 1000 ML 1,000 ML IV SCH ×3 (02:24→08:16)
--- NOTE | 2019-12-28 03:33 | Pulmonary Progress Note ---
Subjective Time Seen by a Provider: 03:30 Subjective/Events-last exam Pt appear to be doing better. Sepsis Event Evaluation Height, Weight, BMI Height: 5'5.00" Weight: 118lbs. 0.0oz. 53.430196re; 22.00 BMI Method:Stated Focused Exam Lactate Level 12/27/19 16:09: Lactic Acid Level 2.74*H 12/27/19 18:05: Lactic Acid Level 2.47*H 12/27/19 20:22: Lactic Acid Level 1.80 Exam Exam Vital Signs Date Time Temp Pulse Resp B/P (MAP) Pulse Ox O2 Delivery O2 Flow Rate FiO2 12/28/19 03:00 65 24 93/53 97 Nasal Cannula 2.00 12/28/19 02:00 75 21 93/60 96 Nasal Cannula 2.00 12/28/19 01:00 80 15 111/77 99 Nasal Cannula 2.00 12/28/19 01:00 80 12/28/19 00:00 72 14 99/64 99 Nasal Cannula 2.00 12/28/19 00:00 95 Nasal Cannula 2.00 12/27/19 23:00 75 9 123/68 99 Nasal Cannula 2.00 12/27/19 22:00 76 17 91/64 98 Nasal Cannula 2.00 12/27/19 21:00 78 25 98/66 98 Nasal Cannula 2.00 12/27/19 21:00 98 Nasal Cannula 2.00 12/27/19 20:09 37.0 12/27/19 20:00 71 21 103/60 98 Nasal Cannula 2.00 12/27/19 20:00 95 Nasal Cannula 2.00 12/27/19 19:00 67 22 107/61 96 Nasal Cannula 2.00 12/27/19 19:00 70 12/27/19 18:00 79 25 96 Nasal Cannula 2.00 12/27/19 17:00 68 93/67 97 Nasal Cannula 2.00 12/27/19 16:19 37.3 72 25 115/94 Nasal Cannula 2.00 12/27/19 16:00 95 Nasal Cannula 2.00 12/27/19 16:00 85 21 98/59 96 Nasal Cannula 2.00 12/27/19 15:34 97 12/27/19 15:00 82 11 98/63 97 Nasal Cannula 2.00 12/27/19 14:00 83 34 106/69 98 Nasal Cannula 2.00 12/27/19 13:00 75 25 90/54 98 Nasal Cannula 2.00 12/27/19 12:00 96 Nasal Cannula 2.00 12/27/19 12:00 37.8 12/27/19 12:00 82 37 92/65 95 Nasal Cannula 2.00 12/27/19 11:52 Nasal Cannula 2.00 12/27/19 11:18 37.8 85 24 95/59 96 Nasal Cannula 2.00 12/27/19 09:50 38.1 104 27 130/65 (86) 97 3.00 12/27/19 09:45 38.1 104 27 130/65 97 3.00 12/27/19 09:30 93 27 141/58 99 3.00 12/27/19 09:15 90 28 137/64 98 4.00 12/27/19 09:00 83 26 135/61 96 4.00 12/27/19 08:45 85 20 120/67 96 4.00 12/27/19 08:41 39.7 12/27/19 08:30 84 25 119/59 97 6.00 12/27/19 08:15 83 25 104/70 97 6.00 12/27/19 08:00 83 25 113/47 97 6.00 12/27/19 07:50 39.7 87 24 106/83 97 6.00 12/27/19 07:50 39.7 87 24 106/83 (91) 97 Nasal Cannula 6.00 I & O 12/28/19 07:00 Intake Total 1160 ml Balance 1160 ml Height & Weight Height: 5'5.00" Weight: 118lbs. 0.0oz. 53.900068cv; 22.00 BMI Method:Stated General Appearance: Anxious, Chronically ill, Cachetic, Moderate Distress HEENT: PERRL/EOMI, Pharynx Normal Neck: Full Range of Motion, Normal Inspection, Non Tender Respiratory: Chest Non Tender, Lungs Clear, Normal Breath Sounds, No Accessory Muscle Use, No Respiratory Distress Cardiovascular: No Edema, No Gallop, No JVD, No Murmur, Normal Peripheral Pulses, Irregularly Irregular, Tachycardia Capillary Refill: Less Than 3 Seconds Gastrointestinal: normal bowel sounds, non tender, soft, no organomegaly Neurologic/Psychiatric: Alert, Oriented x3, No Motor/Sensory Deficits, Normal Mood/Affect, Disoriented Skin: Normal Color, Warm/Dry Results Lab Laboratory Tests 12/27/19 08:05 Assessment/Plan Assessment/Plan Acute respiratory distress -COVID is negative -Continue oxygen 2 liter -Repeat CXR pending Metabolic lactic acidosis - improving -Continue IVF Severe sepsis secondary to UTI -Continue sepsis protocol -IVF -Cultures pending DAYA VILLEDA DO Dec 28, 2019 03:33
[2019-12-28 03:46] LABS: BASOPHILS # (AUTO) 0.1 10^3/uL (0.0-0.1); BASOPHILS % (AUTO) 0 % (0-10); EOSINOPHILS % (AUTO) 0 % (0-10); HEMATOCRIT 33 % (35-52); HEMOGLOBIN 10.7 g/dL (11.5-16.0); LYMPHOCYTES # (AUTO) 0.6 10^3/uL (1.0-4.0); LYMPHOCYTES % (AUTO) 3 % (12-44); MEAN CORPUSCULAR HEMOGLOBIN 27 pg (25-34); MEAN CORPUSCULAR HGB CONC 33 g/dL (32-36); MEAN CORPUSCULAR VOLUME 81 fL (80-99); MEAN PLATELET VOLUME 10.8 fL (9.0-12.2); MONOCYTES # (AUTO) 0.7 10^3/uL (0.0-1.0); MONOCYTES % (AUTO) 4 % (0-12); NEUTROPHILS # (AUTO) 17.4 10^3/uL (1.8-7.8); NEUTROPHILS % (AUTO) 92 % (42-75); PLATELET COUNT 149 10^3/uL (130-400); WHITE BLOOD COUNT 18.9 10^3/uL (4.3-11.0)
[2019-12-28 03:57] LABS: POTASSIUM 3.3 MMOL/L (3.6-5.0); SODIUM 138 MMOL/L (135-145)
[2019-12-28 03:58] LABS: CALCIUM 7.9 MG/DL (8.5-10.1)
[2019-12-28 03:59] LABS: GLUCOSE 103 MG/DL (70-105)
[2019-12-28 04:01] LABS: CARBON DIOXIDE 17 MMOL/L (21-32)
[2019-12-28 04:03] LABS: CREATININE SERUM 0.79 MG/DL (0.60-1.30); GFR ESTIMATED > 60; PHOSPHORUS 2.5 MG/DL (2.3-4.7)
[2019-12-28 04:04] LABS: BUN/CREATININE RATIO 16
[2019-12-28 04:05] LABS: MAGNESIUM 1.7 MG/DL (1.6-2.4)
[2019-12-28 04:18] LABS: BAND NEUTROPHILS 24 %; LYMPHOCYTES % (MANUAL) 2 %; MONOCYTES % (MANUAL) 1 %; NEUTROPHILS % (MANUAL) 73 %
[2019-12-28 04:19] LABS: RBC MORPH NORMAL
[2019-12-28 04:20] LABS: CHLORIDE 111 MMOL/L (98-107)
[2019-12-28] MEDS: metroNIDAZOLE 500MG/100ML IVPB 100 ML IV SCH ×3 (05:39→21:40)
[2019-12-28] MEDS ORDERED: POTASSIUM CL 10MEQ/50ML IVPB 50 ML IV SCH (06:00)
[2019-12-28] MEDS ORDERED: KCL 20 MEQ TAB (K-DUR) PO SCH ×2 (06:00→07:00)
[2019-12-28] MEDS ORDERED: MAGNESIUM 1 GM/100 ML IVPB 100 ML IV SCH (06:00)
[2019-12-28] MEDS ORDERED: PANTOPRAZOLE 40 MG (PROTONIX) TAB PO SCH (07:00)
[2019-12-28] MEDS ORDERED: CEFEPIME INJECTION 1,000 MG in WATER (STERILE) FOR INJECTION 10 ML IV SCH (07:30)
--- NOTE | 2019-12-28 08:13 | Diagnostic Imaging Report ---
EXAMINATION: Chest 1 view HISTORY: Shortness of breath. COMPARISON: 12/27/2019. FINDINGS: Stable configuration of the right PICC and left pectoral dual-chamber pacemaker. There is stable cardiomegaly. The left hemidiaphragm remains elevated with small amount of patchy opacities in the left lung base. No large pleural effusion or pneumothorax. IMPRESSION: 1. Stable cardiomegaly. No overt pulmonary edema. 2. Stable support devices. Dictated by: Dictated on workstation # [id number]
[2019-12-28] MEDS: SENNA W/DOCUSATE (SENOKOT S) TABLET PO SCH ×2 (08:16→21:40)
--- NOTE | 2019-12-28 10:27 | Progress Note - Hospitalist ---
Subjective HPI/CC On Admission Date Seen by Provider: Dec 28, 2019 Time Seen by Provider: 10:30 CC: Fever with hypoxia HPI: This is a 74yoWF known to me from prior hospital stay due to critical illness and rehab who presents to [facility] ER with SOB and fever. She was found to have temperature of 102 findings consistent with possible Covid with pneumonia, placed on empiric antibiotics and panculture. At the time I evaluated the lab results showing lactic acid of 4.1 and evidence of hypotension so I placed her on a severe sepsis protocol, placed her in ICU [address] Sierra for pacemaker and Dr. Barker for intensive care. Covid swab is pending. She has lost a lot of weight since I last saw her after a GI bleed requiring resection. Subjective/Events-last exam Pt much improved Transferring to fourth floor PT and OT will be ordered Gram negative rods in all four blood cultures No pain is reported Review of Systems General: Fatigue, Malaise Focused Exam Lactate Level 12/27/19 16:09: Lactic Acid Level 2.74*H 12/27/19 18:05: Lactic Acid Level 2.47*H 12/27/19 20:22: Lactic Acid Level 1.80 Objective Exam Vital Signs Vital Signs Date Time Temp Pulse Resp B/P (MAP) Pulse Ox O2 Delivery O2 Flow Rate FiO2 12/29/19 04:25 Room Air 12/29/19 03:54 36.3 63 16 116/72 92 12/28/19 16:00 1.00 Capillary Refill : Less Than 3 Seconds General Appearance: No Apparent Distress, Anxious, Chronically ill, Thin Respiratory: Chest Non Tender, Lungs Clear, Normal Breath Sounds, No Accessory Muscle Use, No Respiratory Distress Cardiovascular: Regular Rate, Rhythm, No Edema, No Gallop, No JVD, No Murmur, Normal Peripheral Pulses Neurologic/Psychiatric: Alert, Oriented x3, No Motor/Sensory Deficits, Normal Mood/Affect Results/Procedures Lab Patient resulted labs reviewed. Assessment/Plan Assessment and Plan Assess & Plan/Chief Complaint Assessment: Hypovolumic shock with severe sepsis from Gram negative bacteremia PNA COVID swab negative Cachexia Acute on chronic debility AF h/o massive GIB Dehydration Neutropenia Plan: Abx IVF Monitor closely 12/28/19: Move to 4th PT OT Dr Armendariz Diagnosis/Problems Diagnosis/Problems (1) Hypovolemic shock Status: Resolved Resolution Date/Time: 4/27/20 @ 11:26 (2) Frailty (3) Paroxysmal atrial fibrillation Status: Chronic (4) Pacemaker Status: Chronic Clinical Quality Measures DVT/VTE Risk/Contraindication: Risk Factor Score Per Nursin RFS Level Per Nursing on Admit: 4+=Very High GEMMA FUENTES DO Dec 28, 2019 10:27
[2019-12-28] MEDS ORDERED: cefTRIAXone FOR IV USE 1,000 MG in WATER (STERILE) FOR INJECTION 10 ML IV SCH (12:00)
[2019-12-28] MEDS: KCL 20 MEQ TAB (K-DUR) PO SCH ×2 (12:05→17:15)
[2019-12-28] MEDS: CEFEPIME INJECTION 1,000 MG in WATER (STERILE) FOR INJECTION 10 ML IV SCH ×2 (14:47→21:40)
[2019-12-28] MEDS: ACETAMINOPHEN 500 MG TAB (TYLENOL) PO PRN ×2 (14:49→19:34)
--- NOTE | 2019-12-28 15:47 | CONSULTATION REPORT ---
DATE OF SERVICE: 12/28/2019 ATTENDING PRIMARY CARE PHYSICIAN: Dr. Madhu Gould. ADMITTING PHYSICIAN: Dr. Nieto. HISTORY OF PRESENT ILLNESS: The patient is a 74-year-old female known to us. She initially presented with abdominal pain and distention and a CT scan was performed, which was consistent with cecal volvulus. On 06/16/2019, she underwent a right hemicolectomy, which she tolerated well. She continued to have rectal bleeding requiring initiation of a massive transfusion protocol and was brought to the operating room the following day and was found to have an ileocolonic anastomotic arterial bleed and underwent reexploration of laparotomy and enterotomy and oversew the bleeder as well as an enteroplasty. She was in the ICU for several days and also requiring a ventilator. She was then extubated and slowly improved; however, felt weak and was transferred to the inpatient rehabilitation. During that timeframe, she did have some fluctuance around the area of the abdomen, which was opened by bedside and wound care initiated with wet to dry dressings. She was eventually sent home and the wound closed by secondary intention. She felt weak, called EMS and was admitted to the ICU and found to have urosepsis. Since being admitted and placed on IV antibiotics, she has improved in the past 24 hours and was transferred to the floor. We are being consulted for discomfort in the area of the previous midline laparotomy incision. Upon examination, there is complete epithelialization and slight tenderness to palpation and some areas of hardness, which is likely scar tissue and the etiology of her discomfort. There are no hernias palpable. She is otherwise eating well and having normal bowel function. PAST MEDICAL HISTORY: Gastroesophageal reflux disease, history of diverticulosis, hiatal hernia, degenerative joint disease, anxiety, hypercholesterolemia, secondary heart block, history of cecal volvulus. PAST SURGICAL HISTORY: Open right hemicolectomy with reexploration and oversewing of ileocolonic bleeder, cholecystectomy, bladder suspension, hysterectomy, pacemaker implantation, tonsillectomy, left ureteral repair. ALLERGIES: PENICILLIN, SULFA. MEDICATIONS: Alprazolam 0.25 mg q.8 hours p.r.n., aspirin 325 mg daily, Protonix 40 mg daily. SOCIAL HISTORY: Previous smoker, quit 1985. Negative alcohol. FAMILY HISTORY: Noncontributory. VITAL SIGNS: Temperature 38.1, blood pressure 117/63, pulse 71, respirations 20, pulse ox 99% on 1 liter nasal cannula. REVIEW OF SYSTEMS: Well-nourished female, currently in no acute distress. She is not experiencing any shortness of breath or difficulty breathing. No chest pain, palpitations, diaphoresis. No nausea or vomiting. No diarrhea or constipation. Mild amount of anterior abdominal discomfort upon palpation. No hernias. She did present with fevers and weakness and was found to have urosepsis. She states that she has not been taking care of herself and has been dehydrated recently. She has lost weight over time and this is just likely due to depression and not eating much. PHYSICAL EXAMINATION: CHEST: Clear. Good breath sounds bilaterally. HEART: Regular, no murmurs. EXTREMITIES: No lower extremity edema, negative Homans sign. HEENT: No scleral icterus. NECK: No cervical lymphadenopathy. ABDOMEN: Soft, nondistended. There is mild discomfort in the previous open portion of the previous laparotomy incision with some hardness, likely consistent with scar tissue. There are no hernias palpable. SKIN: Warm, dry. LABORATORY DATA: WBC 18.9, hemoglobin 10.7, hematocrit 33. BUN 13, creatinine 0.79. UA, leukocyte esterase 2+, positive bacteria. ASSESSMENT AND PLAN: A 74-year-old female with urosepsis. We were consulted to evaluate her abdomen and there is significant amount of scar tissue from a previous open midline laparotomy incision. However, the stages of wound healing were explained to the patient and that there is increased amount of collagen deposition initially; however, over time adequate cross bridges and tensile strength will occur and the scar tissue will soften up and there will be less discomfort within the region. From our standpoint, she may ambulate as tolerated as well as diet as tolerated. Job ID: [id number] DocumentID: [id number] Dictated Date: 12/28/2019 15:05:06 Industry Operations Investigator Date: 12/28/2019 15:46:48 Dictated By: CRISTI ALDRICH MD [facility]
[2019-12-28] MEDS: ENOXAPARIN 40 MG/0.4 ML (LOVENOX) SYR SC SCH (21:40)
[2019-12-29] MEDS: CEFEPIME INJECTION 1,000 MG in WATER (STERILE) FOR INJECTION 10 ML IV SCH ×3 (06:17→21:37)
[2019-12-29] MEDS: ACETAMINOPHEN 500 MG TAB (TYLENOL) PO PRN (06:17)
[2019-12-29] MEDS: metroNIDAZOLE 500MG/100ML IVPB 100 ML IV SCH ×3 (06:17→21:37)
[2019-12-29 06:35] LABS: BASOPHILS # (AUTO) 0.1 10^3/uL (0.0-0.1); BASOPHILS % (AUTO) 0 % (0-10); EOSINOPHILS # (AUTO) 0.2 10^3/uL (0.0-0.3); EOSINOPHILS % (AUTO) 1 % (0-10); HEMATOCRIT 34 % (35-52); HEMOGLOBIN 11.3 g/dL (11.5-16.0); LYMPHOCYTES # (AUTO) 0.7 10^3/uL (1.0-4.0); LYMPHOCYTES % (AUTO) 5 % (12-44); MEAN CORPUSCULAR HEMOGLOBIN 27 pg (25-34); MEAN CORPUSCULAR HGB CONC 33 g/dL (32-36); MEAN CORPUSCULAR VOLUME 81 fL (80-99); MEAN PLATELET VOLUME 10.5 fL (9.0-12.2); MONOCYTES # (AUTO) 0.6 10^3/uL (0.0-1.0); MONOCYTES % (AUTO) 5 % (0-12); NEUTROPHILS # (AUTO) 11.9 10^3/uL (1.8-7.8); NEUTROPHILS % (AUTO) 88 % (42-75); PLATELET COUNT 158 10^3/uL (130-400); WHITE BLOOD COUNT 13.5 10^3/uL (4.3-11.0)
[2019-12-29 06:53] LABS: ALANINE AMINOTRANSFERASE 69 U/L (0-55); ALBUMIN 2.8 GM/DL (3.2-4.5); ALKALINE PHOSPHATASE 182 U/L (40-136); BILIRUBIN,TOTAL 0.4 MG/DL (0.1-1.0); BUN/CREATININE RATIO 14; CALCIUM 8.4 MG/DL (8.5-10.1); CARBON DIOXIDE 21 MMOL/L (21-32); CHLORIDE 111 MMOL/L (98-107); CREATININE SERUM 0.73 MG/DL (0.60-1.30); GFR ESTIMATED > 60; GLUCOSE 101 MG/DL (70-105); POTASSIUM 3.8 MMOL/L (3.6-5.0); SODIUM 141 MMOL/L (135-145); TOTAL PROTEIN 5.5 GM/DL (6.4-8.2)
--- NOTE | 2019-12-29 07:16 | Pulmonary Progress Note ---
Subjective Time Seen by a Provider: 07:15 Subjective/Events-last exam Pt appears to be doing better. Sepsis Event Evaluation Height, Weight, BMI Height: 5'5.00" Weight: 118lbs. 0.0oz. 53.948335yn; 22.00 BMI Method:Stated Focused Exam Lactate Level 12/27/19 16:09: Lactic Acid Level 2.74*H 12/27/19 18:05: Lactic Acid Level 2.47*H 12/27/19 20:22: Lactic Acid Level 1.80 Exam Exam Vital Signs Date Time Temp Pulse Resp B/P (MAP) Pulse Ox O2 Delivery O2 Flow Rate FiO2 12/29/19 04:25 Room Air 12/29/19 03:54 36.3 63 16 116/72 92 Room Air 12/29/19 01:00 63 12/29/19 00:01 36.8 66 16 131/76 95 Room Air 12/28/19 23:42 36.8 66 16 131/76 95 Room Air 12/28/19 23:36 Room Air 12/28/19 20:53 37.4 73 16 136/64 93 Room Air 12/28/19 19:39 37.4 73 16 136/64 93 Room Air 12/28/19 19:30 Room Air 12/28/19 19:30 Room Air 12/28/19 19:00 70 12/28/19 18:27 93 Room Air 12/28/19 16:00 96 Nasal Cannula 1.00 12/28/19 15:54 76 16 123/64 96 Nasal Cannula 1.00 12/28/19 13:48 99 Nasal Cannula 1.00 12/28/19 13:21 36.8 71 20 117/63 99 Nasal Cannula 1.00 12/28/19 12:34 70 12/28/19 11:55 95 Nasal Cannula 2.00 12/28/19 10:00 68 20 114/67 100 Nasal Cannula 2.00 12/28/19 09:00 96 Nasal Cannula 2.00 12/28/19 09:00 72 23 104/65 99 Nasal Cannula 2.00 12/28/19 08:00 96 Nasal Cannula 2.00 12/28/19 08:00 63 21 104/69 98 Nasal Cannula 2.00 12/28/19 08:00 36.8 I & O 12/29/19 07:00 Intake Total 1795 ml Balance 1795 ml Height & Weight Height: 5'5.00" Weight: 118lbs. 0.0oz. 53.462626ig; 22.00 BMI Method:Stated General Appearance: No Apparent Distress, Anxious, Chronically ill, Thin HEENT: PERRL/EOMI, Pharynx Normal Neck: Full Range of Motion, Normal Inspection, Non Tender Respiratory: Chest Non Tender, Lungs Clear, Normal Breath Sounds, No Accessory Muscle Use, No Respiratory Distress Cardiovascular: Regular Rate, Rhythm, No Edema, No Gallop, No JVD, No Murmur, Normal Peripheral Pulses Capillary Refill: Less Than 3 Seconds Gastrointestinal: normal bowel sounds, non tender, soft, no organomegaly Neurologic/Psychiatric: Alert, Oriented x3, No Motor/Sensory Deficits, Normal Mood/Affect Skin: Normal Color, Warm/Dry Results Lab Laboratory Tests 12/27/19 08:05 12/28/19 02:47 12/29/19 06:20 Assessment/Plan Assessment/Plan Acute respiratory distress - much improved -COVID is negative -Continue oxygen 2 liter -Repeat CXR pending Severe sepsis secondary to UTI - improving -Continue sepsis protocol -IVF -Cultures pending Anxiety DAYA VILLEDA DO Dec 29, 2019 07:16
[2019-12-29] MEDS: SENNA W/DOCUSATE (SENOKOT S) TABLET PO SCH ×2 (08:38→21:34)
--- NOTE | 2019-12-29 11:13 | Physical Therapy Evaluation ---
PT Evaluation-General Medical Diagnosis Admission Date Dec 27, 2019 at 10:39 Medical Diagnosis: pneumonia Onset Date: Dec 27, 2019 Therapy Diagnosis Therapy Diagnosis: debility Height/Weight Height (Feet): 5 Height (Inches): 5.00 Weight (Pounds): 118 Weight (Ounces): 0.0 Precautions Precautions/Isolations: Standard Precautions Referral Physician: Emilia Reason for Referral: Evaluation/Treatment Medical History Pertinent Medical History: Atrial Fib, Arthritis, GERD, HTN Current History EMS secondary to SOA, fever x 1 day Reviewed History: Yes Social History Home: Single Level Current Living Status: Alone Entry Into Home: Level Entry Prior Prior Level of Function SCALE: Activities may be completed with or without assistive devices. 6-Yxzzirznuh-dcgvejg completes the activity by him/herself with no assistance from a helper. 5-Set-up or Clean-up Assistance-helper sets up or cleans up; patient completes activity. [place] assists only prior to or following the activity. 4-Supervision or Touching Assistance-helper provides verbal cues and/or touching/steadying and/or contact guard assistance as patient completes activity. Assistance may be provided throughout the activity or intermittently. 3-Partial/Moderate Assistance-helper does LESS THAN HALF the effort. [place] lifts, holds or supports trunk or limbs, but provides less than half the effort. 2-Substantial/Maximal Assistance-helper does MORE THAN HALF the effort. [place] lifts or holds trunk or limbs and provides more than half the effort. 6-Zlodliflg-tmxhvk does ALL the effort. Patient does none of the effort to complete the activity. Or, the assistance of 2 or more helpers is required for the patient to complete the activity. If activity was not attempted, code reason: 7-Patient Refused. 9-Not Applicable-not attempted and the patient did not perform the activity before the current illness, exacerbation or injury. 10-Not Attempted due to Environmental Limitations-(lack of equipment, weather restraints, etc.). 88-Not Attempted due to Medical Conditions or Safety Concerns. Bed Mobility: 6 Transfers (B,C,W/C): 6 Gait: 6 Stairs: 9 Indoor Mobility (Ambulation): Independent Stairs: Independent Prior Devices Use: None PT Evaluation-Current Subjective Patient agrees to PT. No c/o. She reports she hopes to go home today. Objective Patient Orientation: Normal For Age ROM/Strength ROM Lower Extremities bilateral LE WFL Strength Lower Extremities 4/5 grossly bilateral LE Integumentary/Posture Integumentary refer to nursing notes Bowel Incontinence: No Bladder Incontinence: No Posture WFL Neuromuscular (Tone, Coordination, Reflexes) grossly intact Sensory Vision: Functional Hearing: Functional Transfers Roll Left to Right (QC): 6 Sit to Lying (QC): 6 Lying to Sitting/Side of Bed(Q: 6 Sit to Stand (QC): 6 Chair/Kfl-vc-Pgmdr Xfer(QC): 6 Gait Does the Patient Walk?: Yes Mode of Locomotion: Walk Anticipated Mode of Locomotion: Walk Walk 10 feet (QC): 6 Walk 50 ft with 2 Turns(QC): 6 Walk 150 ft (QC): 6 Distance: 500' Gait Assistive Device: None Comments/Gait Description safe and functional with no deviation Balance Sitting Static: Normal Sitting Dynamic: Normal Standing Static: Normal Standing Dynamic: Normal Assessment/Needs 74 y.o. female, is currently at independent [facility] with all gross motor skills and does not require skilled therapy intervention. Rehab Potential: Fair PT Plan Treatment/Plan Treatment Plan: Discontinue PT, goals met Treatment Duration: Dec 29, 2019 Frequency: 1 time per week Estimated Hrs Per Day: .25 hour per day Patient and/or Family Agrees t: Yes Time/GCodes Time In: 933 Time Out: 949 Total Billed Treatment Time: 16 Total Billed Treatment 1 visit EVMod 16 min ISABELLE CAMILO PT Dec 29, 2019 11:13
[2019-12-29] MEDS ORDERED: CHOLESTYRAMINE 4 GM (QUESTRAN LITE, PREVALITE) PKT PO ONE (11:45)
[2019-12-29] MEDS ORDERED: LOPERAMIDE 2 MG (IMODIUM) TABLET PO PRN (11:45)
[2019-12-29] MEDS ORDERED: LOPERAMIDE 2 MG (IMODIUM) TABLET PO ONE (11:45)
--- NOTE | 2019-12-29 12:34 | Progress Note ---
Subjective Date Seen by a Provider: Dec 29, 2019 Time Seen by a Provider: 12:00 Subjective/Events-last exam doing better today. no fever/chills. energy levels better. tolerating diet. no abd pain. Focused Exam Lactate Level 12/27/19 16:09: Lactic Acid Level 2.74*H 12/27/19 18:05: Lactic Acid Level 2.47*H 12/27/19 20:22: Lactic Acid Level 1.80 Objective Exam Vital Signs Date Time Temp Pulse Resp B/P (MAP) Pulse Ox O2 Delivery O2 Flow Rate FiO2 12/29/19 12:14 Room Air 12/29/19 09:00 Room Air 12/29/19 08:53 36.4 70 24 138/82 93 Room Air 12/29/19 08:00 Room Air 12/29/19 07:00 63 12/29/19 04:25 Room Air 12/29/19 03:54 36.3 63 16 116/72 92 Room Air 12/29/19 01:00 63 12/29/19 00:01 36.8 66 16 131/76 95 Room Air 12/28/19 23:42 36.8 66 16 131/76 95 Room Air 12/28/19 23:36 Room Air 12/28/19 20:53 37.4 73 16 136/64 93 Room Air 12/28/19 19:39 37.4 73 16 136/64 93 Room Air 12/28/19 19:30 Room Air 12/28/19 19:30 Room Air 12/28/19 19:00 70 12/28/19 18:27 93 Room Air 12/28/19 16:00 96 Nasal Cannula 1.00 12/28/19 15:54 76 16 123/64 96 Nasal Cannula 1.00 12/28/19 13:48 99 Nasal Cannula 1.00 12/28/19 13:21 36.8 71 20 117/63 99 Nasal Cannula 1.00 12/28/19 12:34 70 I & O 12/29/19 07:00 Intake Total 1795 ml Balance 1795 ml Capillary Refill : Less Than 3 SecondsLess Than 3 Seconds General Appearance: No Apparent Distress HEENT: PERRL/EOMI Neck: Full Range of Motion Respiratory: Chest Non Tender, Lungs Clear Cardiovascular: Regular Rate, Rhythm Gastrointestinal: normal bowel sounds, soft Extremity: Normal Capillary Refill Neurologic/Psychiatric: Oriented x3 Skin: Normal Color Lymphatic: No Adenopathy Results Lab Laboratory Tests 12/29/19 06:20: White Blood Count 13.5H, Red Blood Count 4.22, Hemoglobin 11.3L, Hematocrit 34L, Mean Corpuscular Volume 81, Mean Corpuscular Hemoglobin 27, Mean Corpuscular Hemoglobin Concent 33, Red Cell Distribution Width 15.3H, Platelet Count 158, Mean Platelet Volume 10.5, Immature Granulocyte % (Auto) 1, Neutrophils (%) (Auto) 88H, Lymphocytes (%) (Auto) 5L, Monocytes (%) (Auto) 5, Eosinophils (%) (Auto) 1, Basophils (%) (Auto) 0, Neutrophils # (Auto) 11.9H, Lymphocytes # (Auto) 0.7L, Monocytes # (Auto) 0.6, Eosinophils # (Auto) 0.2, Basophils # (Aut o) 0.1, Immature Granulocyte # (Auto) 0.1, Sodium Level 141, Potassium Level 3.8, Chloride Level 111H, Carbon Dioxide Level 21, Anion Gap 9, Blood Urea Nitrogen 10, Creatinine 0.73, Estimat Glomerular Filtration Rate > 60, BUN/Creatinine Ratio 14, Glucose Level 101, Calcium Level 8.4L, Corrected Calcium 9.4, Total Bilirubin 0.4, Aspartate Amino Transf (AST/SGOT) 41H, Alanine Aminotransferase (ALT/SGPT) 69H, Alkaline Phosphatase 182H, Total Protein 5.5L, Albumin 2.8L Microbiology 12/27/19 Urine Culture - Final, Complete NO GROWTH 12/27/19 Influenza Types A,B Antigen (EUSEBIO) - Final, Complete 12/27/19 Blood Culture - Preliminary, Resulted Escherichia coli Assessment/Plan Assessment/Plan Assess & Plan/Chief Complaint urosepsis. cont IV abx. diet as tolerated. ambulate. Clinical Quality Measures DVT/VTE Risk/Contraindication: Risk Factor Score Per Nursin RFS Level Per Nursing on Admit: 4+=Very High CRISTI ALDRICH MD Dec 29, 2019 12:34
--- NOTE | 2019-12-29 12:38 | Progress Note - Hospitalist ---
ADAIR DELGADO MED STUDENT 12/29/19 1238: Subjective HPI/CC On Admission Date Seen by Provider: Dec 29, 2019 Time Seen by Provider: 08:30 CC: Fever with hypoxia HPI: This is a 74yoWF known to me from prior hospital stay due to critical illness and rehab who presents to [facility] ER with SOB and fever. She was found to have temperature of 102 findings consistent with possible Covid with pneumonia, placed on empiric antibiotics and panculture. At the time I evaluated the lab results showing lactic acid of 4.1 and evidence of hypotension so I placed her on a severe sepsis protocol, placed her in ICU [address] Sierra for pacemaker and Dr. Barker for intensive care. Covid swab is pending. She has lost a lot of weight since I last saw her after a GI bleed requiring resection. Subjective/Events-last exam Patient reports she's doing better this morning. States she is not having SOB, fevers, chills, chest pain, or nausea. Reports that she is having some watery diarrhea though. States that she is tolerating po intake well, but needs her dentures which are at home. She feels stronger today and has been working with therapy. She is hopeful that she can be discharged soon to home. Review of Systems General: No Chills, No Night Sweats, No Fatigue, No Malaise HEENT: No Head Aches, No Visual Changes Pulmonary: No Dyspnea, No Cough Cardiovascular: No: Chest Pain, Palpitations Gastrointestinal: Diarrhea; No: Nausea, Vomiting Genitourinary: No Dysuria, No Frequency Musculoskeletal: No: neck pain, shoulder pain Neurological: No: Weakness, Numbness Focused Exam Lactate Level 12/27/19 16:09: Lactic Acid Level 2.74*H 12/27/19 18:05: Lactic Acid Level 2.47*H 12/27/19 20:22: Lactic Acid Level 1.80 Objective Exam Vital Signs Vital Signs Date Time Temp Pulse Resp B/P (MAP) Pulse Ox O2 Delivery O2 Flow Rate FiO2 12/29/19 12:14 Room Air 12/29/19 08:53 36.4 70 24 138/82 93 12/28/19 16:00 1.00 Capillary Refill : Less Than 3 SecondsLess Than 3 Seconds General Appearance: No Apparent Distress, Chronically ill, Thin HEENT: PERRL/EOMI, Pharynx Normal Neck: Normal Inspection, Non Tender Respiratory: Chest Non Tender, No Accessory Muscle Use, No Respiratory Distress, Decreased Breath Sounds Cardiovascular: No Edema, No Murmur, Normal Peripheral Pulses Gastrointestinal: Normal Bowel Sounds, Non Tender, Soft; No Distended, No Guarding Rectal: Deferred Back: Normal Inspection, No Vertebral Tenderness Extremity: Normal Capillary Refill, Normal Inspection, Non Tender, No Calf Tenderness, No Pedal Edema Neurologic/Psychiatric: Alert, Oriented x3, Normal Mood/Affect Skin: Normal Color, Warm/Dry Lymphatic: No Adenopathy Results/Procedures Lab Laboratory Tests 12/29/19 06:20 Patient resulted labs reviewed. Assessment/Plan Assessment and Plan Assess & Plan/Chief Complaint Severe gram negative shock- resolved ARDS- resolved Pneumonia cachexia acute on chronic debility Afib H/O massive GIB 1. Continue flagyl and Cefepime 2. Encourage increased ambulation 3. PT and OT 4. Continue lovenox- DVT prophylaxis 5. Possible discharge tomorrow Clinical Quality Measures DVT/VTE Risk/Contraindication: Risk Factor Score Per Nursin RFS Level Per Nursing on Admit: 4+=Very High LEANNE FUENTES DO 12/29/192101: Subjective Subjective/Events-last exam Pt doing better Labs reviewed BCx pending Objective Exam General Appearance: No Apparent Distress, WD/WN, Chronically ill, Thin Respiratory: Lungs Clear Cardiovascular: Regular Rate, Rhythm Assessment/Plan Assessment and Plan Assess & Plan/Chief Complaint Abx Await sensitivity Supervisory-Addendum Brief Verification & Attestation Participated in pt care: history, MDM, physical Personally performed: exam, history, MDM, supervision of care Care discussed with: Medical Student Procedures: n/a Results interpretation: Verified all documentation Verification and Attestation of Medical Student E/M Service A medical student performed and documented this service in my presence. I reviewed and verified all information documented by the medical student and made modifications to such information, when appropriate. I personally performed the physical exam and medical decision making. Leanne Fuentes, Dec 29, 2019,21:02 ADAIR DELGADO MED STUDENT Dec 29, 2019 12:38 LEANNE FUENTES DO Dec 29, 2019 21:02
--- NOTE | 2019-12-29 12:48 | NUR ---
"RD ASSESSMENT PMHx: afib; hypercholesterolemia; HTN; GERD; GI bleeds; esophagitis; hiatal hernia; SurgHx - hemicolectomy (05/2019) PT INTERACTION: Pt was awake and pleasant during nutrition assessment. Pt states current appetite is terrible and has been this way for the past 2-3 weeks. Note avg PO intake 45% x2d, per chart review. Pt states following a regular diet at home, and has some issues with chewing food, as she is missing her dentures. Note pt is currently on a DYS2 Mechanically Altered diet, per chart review. Pt states recent issues with diarrhea. Note last BM was 12/27, and pt currently on bowel regimen of senna BID, per chart review. Pt states recent 15# wt loss x2-3mon. Note recent 25# wt gain x5mon, per chart review. ABNORMAL NUTRITION-RELATED LAB VALUES LOW: Ca 8.4; Pro 5.5; alb 2.8 HIGH: Cl 111; AST 41; ALT 69; alkphos 182 Est. kcal needs: 7067-6876 kcal | 25-30 kcal/kg Est. Pro needs: 65-78 g Pro | 1.0-1.2 g Pro/kg PES STATEMENT: Inadequate oral intake (NI-2.1) related to loss of appetite and diarrhea, as evidenced by pt interview and avg PO intake 45% x2d. INTERVENTION: Continue with current diet order of DYS2 Mechanically Altered diet. Continue with current supplementation order of Ensure Enlive with meals TID, for increased kcal intake. Provides 350 kcal and 20 g Pro per serving. Will continue to follow and reassess as pt needs, intake, and status change. Addy Hollingsworth, MS RD LD"
[2019-12-29] MEDS: KCL 20 MEQ TAB (K-DUR) PO SCH ×2 (13:40→21:35)
--- NOTE | 2019-12-29 13:46 | NUR ---
CM/SS visited with patient for discharge planning. Plan: Patient will likely discharge home tomorrow 12/29. Home: Patient lives at home alone with four dogs. She states it is a [address] [place] house with 10 acres. The patient reports that she gets around the home independently without assistance. Equipment: None. Supports: Patient reports she is still close with her 2 daughter. She states they now live in [place] as well. The patient reports she does not have any needs but she would like education on the Kidney Infection. CM/SS will notify the nurse. CM/SS will continue to follow.
--- NOTE | 2019-12-29 15:35 | Occupational Ther Daily Note ---
OT Current Status-Daily Note Subjective No pain reported. Pt. states that she just feels tired. Mental Status/Objective Patient Orientation: Person, Place ADL-Treatment Therapy Code Descriptions/Definitions Functional Josephine Measure: 0=Not Assessed/NA 4=Minimal Assistance 1=Total Assistance 5=Supervision or Setup 2=Maximal Assistance 6=Modified Josephine 3=Moderate Assistance 7=Complete IndependenceSCALE: Activities may be completed with or without assistive devices. 9-Xvkpfepbjo-gueqcek completes the activity by him/herself with no assistance from a helper. 5-Set-up or Clean-up Assistance-helper sets up or cleans up; patient completes activity. [place] assists only prior to or following the activity. 4-Supervision or Touching Assistance-helper provides verbal cues and/or touching/steadying and/or contact guard assistance as patient completes activity. Assistance may be provided throughout the activity or intermittently. 3-Partial/Moderate Assistance-helper does LESS THAN HALF the effort. [place] lifts, holds or supports trunk or limbs, but provides less than half the effort. 2-Substantial/Maximal Assistance-helper does MORE THAN HALF the effort. [place] lifts or holds trunk or limbs and provides more than half the effort. 1-Zearjlfmm-amltuc does ALL the effort. Patient does none of the effort to complete the activity. Or, the assistance of 2 or more helpers is required for the patient to complete the activity. If activity was not attempted, code reason: 7-Patient Refused. 9-Not Applicable-not attempted and the patient did not perform the activity before the current illness, exacerbation or injury. 10-Not Attempted due to Environmental Limitations-(lack of equipment, weather restraints, etc.). 88-Not Attempted due to Medical Conditions or Safety Concerns. On/Off Footwear: 5 Toileting Hygiene (QC): 6 Toilet Transfer (QC): 6 Other Treatment Pt. up in room ambulating to bathroom when OT entered room. Pt. ambulated without walker and toileted self with independence. She stood at sink and washed hands, and then ambulated back to her bed. Pt. able to doff/don slipper socks, and get in/out of bed several times without assistance or issue. Pt. verbalizes that she felt weak when she became ill, but is gaining her strength. She became tearful when talking about OT Senior Care Goals Detail Manager Goals 1=Demonstrate adherence to instructed precautions during ADL tasks. 2=Patient will verbalize/demonstrate understanding of assistive devices/modifications for ADL. 3=Patient will improve strength/tolerance for activity to enable patient to perform ADL's. OT Education/Plan Treatment Plan/Plan of Care Patient would benefit from OT for education, treatment and training to promote independence in ADL's, mobility, safety and/or upper extremity function for ADL's. Rehab Potential: GURMEET Gutierrez OT Dec 29, 2019 15:35
--- NOTE | 2019-12-29 15:48 | Occupational Therapy Eval ---
OT Evaluation-General/PLF Medical Diagnosis Admission Date Dec 27, 2019 at 10:39 Medical Diagnosis: pneumonia Onset Date: Dec 27, 2019 Therapy Diagnosis Therapy Diagnosis: Weakness Height/Weight Height (Feet): 5 Height (Inches): 5.00 Weight (Pounds): 118 Weight (Ounces): 0.0 Precautions Precautions/Isolations: Standard Precautions Referral Physician: Emilia Referral Reason: Activity Tolerance, Self Care, Evaluation/Treatment, Strengthening/ROM Medical History Pertinent Medical History: Atrial Fib, Arthritis, GERD, HTN Additional Medical History Hysterectomy, pacemaker Current History Pt. states that she was okay at home, and then become violently ill. She was unsure why but called EMS. Reviewed History: Yes Social History Home: Single Level Current Living Status: Alone Entry Into Home: Stairs With Railing Steps Into Home: 2 ADL-Prior Level of Function SCALE: Activities may be completed with or without assistive devices. 7-Pzezylkywb-zsdoaby completes the activity by him/herself with no assistance from a helper. 5-Set-up or Clean-up Assistance-helper sets up or cleans up; patient completes activity. [place] assists only prior to or following the activity. 4-Supervision or Touching Assistance-helper provides verbal cues and/or touching/steadying and/or contact guard assistance as patient completes activity. Assistance may be provided throughout the activity or intermittently. 3-Partial/Moderate Assistance-helper does LESS THAN HALF the effort. [place] lifts, holds or supports trunk or limbs, but provides less than half the effort. 2-Substantial/Maximal Assistance-helper does MORE THAN HALF the effort. [place] lifts or holds trunk or limbs and provides more than half the effort. 5-Uutyjhtju-tkribr does ALL the effort. Patient does none of the effort to complete the activity. Or, the assistance of 2 or more helpers is required for the patient to complete the activity. If activity was not attempted, code reason: 7-Patient Refused. 9-Not Applicable-not attempted and the patient did not perform the activity before the current illness, exacerbation or injury. 10-Not Attempted due to Environmental Limitations-(lack of equipment, weather restraints, etc.). 88-Not Attempted due to Medical Conditions or Safety Concerns. ADL PLOF Comments Pt. reports that she typically is independent with all ADLs. [place] drives [place]. Self Care: Independent Functional Cognition: Independent DME/Equipment: Tub/Shower Drive Self: Yes OT Current Status Subjective No pain reported. Pt. verbalizes that she is gaining her strength. Mental Status/Objective Patient Orientation: Person, Place ADL-Treatment Eating (QC): 6 On/Off Footwear (QC): 6 Toileting Hygiene (QC): 6 Other Treatments Pt. up in room ambulating to bathroom when OT entered room. Pt. ambulated without walker and toileted self with independence. She stood at sink and washed hands, and then ambulated back to her bed. Pt. able to doff/don slipper socks, and get in/out of bed several times without assistance or issue. Pt. verbalizes that she felt weak when she became ill, but is gaining her strength. 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 Pt. reports that she has supportive daughters at home that will "nag" her to keep her well. Pt. reports that she showered last night, and had no difficulties. No skilled OT needs warranted at this time. Education OT Patient Education: Correct positioning, Modified ADL techniques, Progress toward Goal/Update tx plan, Purpose of tx/functional activities, Reviewed precautions, Rehab process, Transfer techniques Teaching Recipient: Patient Teaching Methods: Demonstration, Discussion Response to Teaching: Verbalize Understanding, Return Demonstration OT Halfway Goals Halfway Goals Time Frame: Dec 29, 2019 Additional Goals: 1-Demonstrate ADL Tasks 1=Demonstrate adherence to instructed precautions during ADL tasks. 2=Patient will verbalize/demonstrate understanding of assistive devices/ modifications for ADL. 3=Patient will improve strength/tolerance for activity to enable patient to perform ADL's. Pt. up in room. Pt. able to complete ADL tasks. No further OT needs. OT Education/Plan Problem List/Assessment Assessment: No Skilled OT Needs ID'd Discharge Recommendations Plan/Recommendations: Discontinue OT Treatment Plan/Plan of Care Plan of Care: OTHER Treatment Duration: Dec 29, 2019 Frequency: 1 time per week Estimated Hrs Per Day: .5 hour per day Rehab Potential: Good Time/GCodes Start Time: 13:45 Stop Time: 14:10 Total Time Billed (hr/min): 25 Billed Treatment Time 1, visit 0910- Pt. on phone 1, EVL x 10minutes, ADL x 15minutes Discharge pt. GURMEET LORENZ OT Dec 29, 2019 15:48
--- NOTE | 2019-12-29 18:17 | NUR ---
Patient refused potassium at this time. Stated she wants it later tonight after she has eatin more.
[2019-12-29] MEDS: CHOLESTYRAMINE 4 GM (QUESTRAN LITE, PREVALITE) PKT PO SCH (20:10)
[2019-12-29] MEDS: ENOXAPARIN 40 MG/0.4 ML (LOVENOX) SYR SC SCH (21:37)
[2019-12-30] MEDS: metroNIDAZOLE 500MG/100ML IVPB 100 ML IV SCH (05:23)
[2019-12-30] MEDS: CEFEPIME INJECTION 1,000 MG in WATER (STERILE) FOR INJECTION 10 ML IV SCH (05:23)
[2019-12-30] MEDS: ACETAMINOPHEN 500 MG TAB (TYLENOL) PO PRN (05:24)
[2019-12-30 06:24] LABS: ALBUMIN 3.1 GM/DL (3.2-4.5)
[2019-12-30 06:25] LABS: CHLORIDE 105 MMOL/L (98-107); POTASSIUM 4.5 MMOL/L (3.6-5.0); SODIUM 138 MMOL/L (135-145)
[2019-12-30 06:26] LABS: CALCIUM 9.2 MG/DL (8.5-10.1)
[2019-12-30 06:27] LABS: BASOPHILS % (AUTO) 0 % (0-10); EOSINOPHILS # (AUTO) 0.3 10^3/uL (0.0-0.3); EOSINOPHILS % (AUTO) 3 % (0-10); GLUCOSE 104 MG/DL (70-105); HEMATOCRIT 38 % (35-52); HEMOGLOBIN 12.4 g/dL (11.5-16.0); LYMPHOCYTES # (AUTO) 0.8 10^3/uL (1.0-4.0); LYMPHOCYTES % (AUTO) 7 % (12-44); MEAN CORPUSCULAR HEMOGLOBIN 26 pg (25-34); MEAN CORPUSCULAR HGB CONC 33 g/dL (32-36); MEAN CORPUSCULAR VOLUME 81 fL (80-99); MEAN PLATELET VOLUME 11.1 fL (9.0-12.2); MONOCYTES # (AUTO) 0.5 10^3/uL (0.0-1.0); MONOCYTES % (AUTO) 5 % (0-12); NEUTROPHILS # (AUTO) 8.8 10^3/uL (1.8-7.8); NEUTROPHILS % (AUTO) 83 % (42-75); PLATELET COUNT 214 10^3/uL (130-400); TOTAL PROTEIN 5.7 GM/DL (6.4-8.2); WHITE BLOOD COUNT 10.6 10^3/uL (4.3-11.0)
[2019-12-30 06:28] LABS: CARBON DIOXIDE 24 MMOL/L (21-32)
[2019-12-30 06:29] LABS: BILIRUBIN,TOTAL 0.4 MG/DL (0.1-1.0)
[2019-12-30 06:30] LABS: ALKALINE PHOSPHATASE 163 U/L (40-136)
[2019-12-30 06:31] LABS: CREATININE SERUM 0.71 MG/DL (0.60-1.30); GFR ESTIMATED > 60
[2019-12-30 06:32] LABS: BUN/CREATININE RATIO 8
[2019-12-30 06:33] LABS: ALANINE AMINOTRANSFERASE 53 U/L (0-55)
[2019-12-30] MEDS: CHOLESTYRAMINE 4 GM (QUESTRAN LITE, PREVALITE) PKT PO SCH (08:51)
[2019-12-30] MEDS: SENNA W/DOCUSATE (SENOKOT S) TABLET PO SCH (09:08)
[2019-12-30 11:48] VITALS: BP 149/85
--- NOTE | 2019-12-30 11:49 | NUR ---
Per the nurse the patient has been without her oxygen all morning. During her 6 minute walk her saturation ranged 94%-96%. She talked the entire walk. Addendum: 12/30/19 at 1226 by FELICIANO MCFADDEN Amended: Links added.
[2019-12-30] MEDS: KCL 20 MEQ TAB (K-DUR) PO SCH (12:11)
[2019-12-30] MEDS ORDERED: CEFD300C3 PO (12:11)
--- NOTE | 2019-12-30 12:11 | Discharge Summary ---
Discharge Summary Hospital Course Was the Problem List Reviewed?: Yes Problems/Dx: (1) Hypovolemic shock Status: Resolved (2) Frailty (3) Paroxysmal atrial fibrillation Status: Chronic (4) Pacemaker Status: Chronic Hospital Course Date of Admission: Dec 27, 2019 at 10:39 Admission Diagnosis : Family Physician/Provider: Madhu Gould MD Date of Discharge: 12/30/19 Discharge Diagnosis: UTI, severe sepsis, weakness Hospital Course: Hospital Course: Pt had an uneventful hospital course. She was admitted, placed on Covid precautions, Covid swab was negative. UTI diagnosed gram negative E. Coli as ultimate diagnosis. She had hypovolemic and septic shock that was treated with aggressive IV fluids and ultimately returned home in improved condition. Labs and Pending Lab Test: Laboratory Tests 12/30/19 05:20: White Blood Count 10.6, Red Blood Count 4.71, Hemoglobin 12.4, Hematocrit 38, Mean Corpuscular Volume 81, Mean Corpuscular Hemoglobin 26, Mean Corpuscular Hemoglobin Concent 33, Red Cell Distribution Width 15.1H, Platelet Count 214, Mean Platelet Volume 11.1, Immature Granulocyte % (Auto) 2, Neutrophils (%) (Auto) 83H, Lymphocytes (%) (Auto) 7L, Monocytes (%) (Auto) 5, Eosinophils (%) (Auto) 3, Basophils (%) (Auto) 0, Neutrophils # (Auto) 8.8H, Lymphocytes # (Auto) 0.8L, Monocytes # (Auto) 0.5, Eosinophils # (Auto) 0.3, Basophils # (Auto) 0.0, Immature Granulocyte # (Auto) 0.2H, Sodium Level 138, Potassium Level 4.5, Chloride Level 105, Carbon Dioxide Level 24, Anion Gap 9, Blood Urea Nitrogen 6L, Creatinine 0.71, Estimat Glomerular Filtration Rate > 60, BUN/Creatinine Ratio 8, Glucose Level 104, Calcium Level 9.2, Corrected Calcium 9.9, Total Bilirubin 0.4, Aspartate Amino Transf (AST/SGOT) 27, Alanine Aminotransferase (ALT/SGPT) 53, Alkaline Phosphatase 163H, Total Protein 5.7L, Albumin 3.1L Microbiology 12/27/19 Urine Culture - Final, Complete NO GROWTH 12/27/19 Influenza Types A,B Antigen (EUSEBIO) - Final, Complete 12/27/19 Blood Culture - Preliminary, Resulted Escherichia coli Home Meds Active Reported Aspirin EC (Aspirin) 325 Mg Tablet.dr 325 Mg PO DAILY ALPRAZolam 0.25 Mg Tablet 0.25 Mg PO Q8H PRN Pantoprazole Sodium 40 Mg Tablet.dr 40 Mg PO DAILY One Daily For Women 50+ Adv Tb (Multivitamins-Min/FA/Ginkgo) 1 Each Tablet 1 Tab PO DAILY Tylenol Extra Strength (Acetaminophen) 500 Mg Tablet 1,000 Mg PO Q6H PRN Assessment/Pt Instructions chc 1 week Discharge Planning: <30 minutes discharge planning Discharge Instructions Discharge Diet: No Restrictions Discharge Physical Examination Vital Signs Vital Signs Date Time Temp Pulse Resp B/P (MAP) Pulse Ox O2 Delivery O2 Flow Rate FiO2 12/30/19 11:48 36.4 75 18 149/85 (106) 98 Room Air 12/30/19 03:50 2.00 General Appearance: No Apparent Distress, WD/WN, Chronically ill, Thin Respiratory: Lungs Clear Allergies: Coded Allergies: Penicillins (Unverified Allergy, Unknown, PASS OUT, 05/12/18) Sulfa (Sulfonamide Antibiotics) (Unverified Allergy, Unknown, RASH, 05/12/18) Discharge Summary Date of Admission Dec 27, 2019 at 10:39 Date of Discharge Discharge Date: Dec 30, 2019 Admission Diagnosis Assessment: Hypovolumic shock PNA COVID swab pending Cachexia Acute on chronic debility AF h/o massive GIB Dehydration Neutropenia Plan: Abx IVF Monitor closely Discharge Diagnosis Abx Await sensitivity (1) Hypovolemic shock Status: Resolved (2) Frailty (3) Paroxysmal atrial fibrillation Status: Chronic (4) Pacemaker Status: Chronic Clinical Quality Measures DVT/VTE Risk/Contraindication: Risk Factor Score Per Nursin RFS Level Per Nursing on Admit: 4+=Very High GEMMA FUENTES DO Dec 30, 2019 12:11
--- NOTE | 2019-12-30 12:17 | Progress Note ---
ADAIR DELGADO MED STUDENT 12/30/19 1217: Progress Note Jigna Loaiza is a 74 year old female with an extensive medical history who presented to the ED in [facility] with SOB, fever, and cough for 2 days. She was pancultured and started on broad spectrum IV antibiotics. In ED she received fluids for a lactic of 4.1 and hypotension. Was later transferred to [facility] and admitted to ICU. She was eventually diagnosed with gram negative septic shock and treated per the sepsis protocol. Patient was later transferred to the medical floor and is being discharged to home today. Her labs and vital signs ar e stable today. Plan for an evaluation of home 02 therapy and home on oral antibiotics. LEANNE FUENTES DO 12/31/19 0612: Supervisory-Addendum Brief Verification & Attestation Participated in pt care: history, MDM, physical Personally performed: exam, history, MDM, supervision of care Care discussed with: Medical Student Procedures: n/a Results interpretation: Verified all documentation Verification and Attestation of Medical Student E/M Service A medical student performed and documented this service in my presence. I reviewed and verified all information documented by the medical student and made modifications to such information, when appropriate. I personally performed the physical exam and medical decision making. Leanne Fuentes, Dec 31, 2019,06:12 ADAIR DELGADO MED STUDENT Dec 30, 2019 12:17 LEANNE FUENTES DO Dec 31, 2019 06:12
[2019-12-30 12:30] VITALS: BP 149/85
--- NOTE | 2019-12-30 13:44 | NUR ---
MARTÍN MATHEW demonstrates understanding of discharge instructions and accurately returns instructions upon questioning. Copy of Post-Discharge Instructions and Medication Discharge Instructions given to patient. MARTÍN MATHEW is able to manage continuing needs after discharge. Patients belongings returned to patient. Skin dry and intact; no breakdown noted. Patient discharged from [facility] on 12/30/19 at 1340. MARTÍN MATHEW left floor via wheelchair, accompanied by staff.
--- NOTE | 2019-12-30 13:47 | Progress Note ---
Subjective Date Seen by a Provider: Dec 30, 2019 Time Seen by a Provider: 13:30 Subjective/Events-last exam doing well. no fever/chills. tolerating diet. no abd pain. Focused Exam Lactate Level 12/27/19 16:09: Lactic Acid Level 2.74*H 12/27/19 18:05: Lactic Acid Level 2.47*H 12/27/19 20:22: Lactic Acid Level 1.80 Objective Exam Vital Signs Date Time Temp Pulse Resp B/P (MAP) Pulse Ox O2 Delivery O2 Flow Rate FiO2 12/30/19 12:49 66 12/30/19 12:00 Room Air 12/30/19 11:49 93 96 12/30/19 11:48 36.4 75 18 149/85 (106) 98 Room Air 12/30/19 09:00 Room Air 12/30/19 08:00 Room Air 12/30/19 08:00 36.8 63 20 122/75 95 Room Air 12/30/19 07:00 65 12/30/19 04:15 Room Air 12/30/19 03:50 37.4 91 16 130/77 96 Nasal Cannula 2.00 12/30/19 01:00 71 12/30/19 00:15 Room Air 12/30/19 00:14 37.4 67 16 133/78 67 Nasal Cannula 2.00 12/29/19 20:07 37.3 71 18 146/83 71 Room Air 12/29/19 20:00 Room Air 12/29/19 20:00 Room Air 12/29/19 19:00 64 12/29/19 16:47 Room Air 12/29/19 16:21 37.7 79 17 161/96 94 Nasal Cannula 2.00 I & O 12/30/19 07:00 Intake Total 1970 ml Balance 1970 ml Capillary Refill : Less Than 3 SecondsLess Than 3 Seconds General Appearance: No Apparent Distress HEENT: PERRL/EOMI Neck: Full Range of Motion Respiratory: Chest Non Tender, Lungs Clear, Normal Breath Sounds Cardiovascular: Regular Rate, Rhythm Gastrointestinal: normal bowel sounds, non tender, soft Extremity: Normal Capillary Refill Neurologic/Psychiatric: Alert, Oriented x3 Skin: Normal Color Lymphatic: No Adenopathy Results Lab Laboratory Tests 12/30/19 05:20: White Blood Count 10.6, Red Blood Count 4.71, Hemoglobin 12.4, Hematocrit 38, Mean Corpuscular Volume 81, Mean Corpuscular Hemoglobin 26, Mean Corpuscular Hemoglobin Concent 33, Red Cell Distribution Width 15.1H, Platelet Count 214, Mean Platelet Volume 11.1, Immature Granulocyte % (Auto) 2, Neutrophils (%) (Auto) 83H, Lymphocytes (%) (Auto) 7L, Monocytes (%) (Auto) 5, Eosinophils (%) (Auto) 3, Basophils (%) (Auto) 0, Neutrophils # (Auto) 8.8H, Lymphocytes # (Auto) 0.8L, Monocytes # (Auto) 0.5, Eosinophils # (Auto) 0.3, Basophils # (Auto) 0.0, Immature Granulocyte # (Auto) 0.2H, Sodium Level 138, Potassium Level 4.5, Chloride Level 105, Carbon Dioxide Level 24, Anion Gap 9, Blood Urea Nitrogen 6L, Creatinine 0.71, Estimat Glomerular Filtration Rate > 60, BUN/Creatinine Ratio 8, Glucose Level 104, Calcium Level 9.2, Corrected Calcium 9.9, Total Bilirubin 0.4, Aspartate Amino Transf (AST/SGOT) 27, Alanine A minotransferase (ALT/SGPT) 53, Alkaline Phosphatase 163H, Total Protein 5.7L, Albumin 3.1L Microbiology 12/27/19 Urine Culture - Final, Complete NO GROWTH 12/27/19 Influenza Types A,B Antigen (EUSEBIO) - Final, Complete 12/27/19 Blood Culture - Preliminary, Resulted Escherichia coli Assessment/Plan Assessment/Plan Assess & Plan/Chief Complaint urosepsis. diet as tolerated. ambulate. no restrictions. home soon. Clinical Quality Measures DVT/VTE Risk/Contraindication: Risk Factor Score Per Nursin RFS Level Per Nursing on Admit: 4+=Very High CRISTI ALDRICH MD Dec 30, 2019 13:47
== END 2019-12-30 13:40 | disposition home or self-care (01) | DRG 871 ==
LOC: EDUNIT# 07:54 → ER FS 07:59 → ICU 10:39 → 4TH 12-28 12:50
PROVIDERS: ADMIT Internal Medicine; ATTEND Internal Medicine
DX: A41.9 Sepsis, unspecified organism (principal); R57.1 Hypovolemic shock; J18.9 Pneumonia, unspecified organism; J80 Acute respiratory distress syndrome; R65.21 Severe sepsis with septic shock; R64 Cachexia; E87.2 Acidosis; Z20.828 Contact with and (suspected) exposure to other viral communicable diseases; E86.0 Dehydration; I48.0 Paroxysmal atrial fibrillation; D70.9 Neutropenia, unspecified; I10 Essential (primary) hypertension; E78.00 Pure hypercholesterolemia, unspecified; R53.81 Other malaise; J30.2 Other seasonal allergic rhinitis; K21.9 Gastro-esophageal reflux disease without esophagitis; K64.9 Unspecified hemorrhoids; K44.9 Diaphragmatic hernia without obstruction or gangrene; M19.011 Primary osteoarthritis, right shoulder; M19.012 Primary osteoarthritis, left shoulder; M54.6 Pain in thoracic spine; F41.9 Anxiety disorder, unspecified; Z87.891 Personal history of nicotine dependence; Z95.0 Presence of cardiac pacemaker
CPT/HCPCS: 36415; 36569; 71045; 76937; 80048; 80053; 81000; 82805; 83605; 83735; 83880; 84100; 84484; 85007; 85025; 85027; 85610; 86141; 87040; 87077; 87088; 87186; 87635; 87804; 93005; 93041; 94761

== ENCOUNTER 2020-07-01 16:06 | Emergency (ER) | payer MEDICARE ==
[2020-07-01 16:06] VITALS: BP 138/95
[~2020-07-01 16:06] MED LIST changes: +ALPR0.254 PO; +ASPI325T32 PO; -CLIN300C11 PO; +CLIN300C12 PO; +POTA10TA PO
[2020-07-01] MEDS ORDERED: ACETAMINOPHEN 500 MG TAB (TYLENOL) PO STA (16:25)
--- NOTE | 2020-07-01 16:25 | ED Fall/Injury ---
General Chief Complaint: Trauma-Non Activation Stated Complaint: FALL | HEAD INJ Nursing Triage Note: Patient presents to the ED via EMS with c/o of left sided head pain. Patient reports she lost her balance while loading her shopping bags fell forward trying to catch herself with her upper extremities but still hit the left side of her forehead on the concrete. She denies any loss of conciousness. Source: patient, EMS History of Present Illness Date Seen by Provider: July 01, 2020 Time Seen by Provider: 16:07 Initial Comments 74-year-old female presenting by EMS from the [facility]. She states that she was trying to load her bags and she fell in the parking lot at the [facility]. She denies any loss of consciousness. She thinks that she lost her footing on the concrete but cannot remember for sure if she tripped over something or what happened. She tried to catch herself with her outstretched hands and has some pain to both palms. She did hit her forehead and has an abrasion with bleeding to the right forehead. She again denied any loss of consciousness and denies having any nausea or vomiting. She states there is no change in her vision. She has no drainage from her nose or ears. She has no increased pain to her neck or back. She has chronic arthritis pain all the time but states that is not any different right now. She usually takes acetaminophen for her pain from arthritis. She denies taking any blood thinners not even aspirin. She states that she stopped taking anything like that after having a GI bleed a few years ago. She states that her tetanus shot is less than 5 years ago. Location Injury Occurred: [facility] Occurred: just prior to arrival Severity: mild Injuries/Pain Location: face (right forehead), upper extremity (bilateral palms) Context: unknown (thinks she tripped or lost balance but not entirely sure) Loss of Consciousness: no loss of consciousness Associated Symptoms (Fall): No Abdominal Pain, No Chest Pain, No Confusion, No Dizziness; Headache (right forehead where she has abrasion and contusion); No Lightheadedness, No Muscle Spasms, No Nausea/Vomiting, No Neck Pain, No Ringing in Ears, No Seizures, No Shortness of Air, No Slurred Speech; Trouble Walking (chronic arthritis); No Vision Changes Allergies and Home Medications Allergies Coded Allergies: Penicillins (Unverified Allergy, Unknown, PASS OUT, 05/12/18) Sulfa (Sulfonamide Antibiotics) (Unverified Allergy, Unknown, RASH, 05/12/18) Home Medications ALPRAZolam 0.25 Mg Tablet, 0.25 MG PO Q8H PRN for ANXIETY, (Reported) Acetaminophen 500 Mg Tablet, 1,000 MG PO Q6H PRN for PAIN-MILD, (Reported) Aspirin 325 Mg Tablet.dr, 325 MG PO DAILY, (Reported) Cefdinir 300 Mg Capsule, 300 MG PO BID Prescribed by: GEMMA FUENTES on 12/30/19 1211 Multivitamins-Min/FA/Ginkgo 1 Each Tablet, 1 TAB PO DAILY, (Reported) Pantoprazole Sodium 40 Mg Tablet.dr, 40 MG PO DAILY, (Reported) Patient Home Medication List Home Medication List Reviewed: Yes Review of Systems Review of Systems Constitutional: No chills, No diaphoresis, No dizziness, No fever Eyes: Denies Blurred Vision, Denies Photophobia, Denies Vision Changes Ears, Nose, Mouth, Throat: denies ear pain, denies ear discharge, denies nose pain, denies nose discharge, denies epistaxis Respiratory: No cough Cardiovascular: No chest pain Gastrointestinal: No nausea, No vomiting Genitourinary: No dysuria, No frequency Musculoskeletal: see HPI Skin: see HPI Psychiatric/Neurological: See HPI Past Vrycblp-Pircpx-Rcvqbp Hx Past Med/Social Hx: Reviewed Nursing Past Med/Soc Hx Patient Social History Alcohol Use: Denies Use Smoking Status: Former Smoker Type Used: Cigarettes Former Smoker, Quit: Aug 23, 1985 2nd Hand Smoke Exposure: No Recent Infectious Disease Expo: No Recent Hopitalizations: No Immunizations Up To Date Tetanus Booster (TDap): Less than 5yrs Date of Pneumonia Vaccine: Feb 11, 2018 Seasonal Allergies Seasonal Allergies: Yes Past Medical History Surgeries: Yes (dental, left ureter, compound facial bone fx, EGD, PARTIAL HYSTERECTOMY) Abdominal, Bladder Surgery, Gallbladder, Hysterectomy, Pacemaker, Tonsillectomy Respiratory: No (Hx Tobaccoism) Cardiac: Yes (SYMPTOMATIC 2ND DEGREE AV, Pacemaker) Atrial Fibrillation, High Cholesterol, Hypertension Neurological: No (known tremulous voice hx) 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 Genitourinary: Yes (RECENT REPAIR OF L URETER, Hx cystitis, UTI, pyelonephritis) Gastrointestinal: Yes (Intestinal surgery) Gastroesophageal Reflux, Gastrointestinal Bleed, Hemorrhoids, Esophagitis, Hiatal Hernia Musculoskeletal: Yes (bilateral DJD shoulders, midline thoracic spine pain) Arthritis, Chronic Back Pain Endocrine: No HEENT: No Cancer: No Psychosocial: Yes Anxiety Integumentary: No Blood Disorders: No Family Medical History Cardiovascular disease Colon cancer Hypertension Visual disorder No Family History of: Cystic fibrosis No Pertinent Family Hx Physical Exam Vital Signs Vital Signs - First Documented 07/01/20 16:06 Pulse 77 Resp 16 B/P (MAP) 138/95 (109) Pulse Ox 97 O2 Delivery Room Air Capillary Refill : Less Than 3 Seconds Height, Weight, BMI Height: 5'5.00" Weight: 118lbs. 0.0oz. [id number]; 22.00 BMI Method:Stated General Appearance: no apparent distress HEENT: PERRL/EOMI, pharynx normal, other (contusion with abrasion and skin tear to right forehead, bleeding controlled by time of arrival to ED. Negative Aaron sign, Negative Raccoon sign. 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 as tested, alert, oriented x 3 Skin: warm/dry, other (5 mm x 6 mm rectangular skin tear/abrasion to right forehead with contusion and mild tenderness to palpation) Nico Coma Score Best Eye Response: (4) Open Spontaneously Best Verbal Response: (5) Oriented Best Motor Response: (6) Obeys Commands Nico Total: 15 Procedures/Interventions Date of ETT Placement: Jun 17, 2019 Time of ETT Placement: 1435 Suture Size: 4-0 Progress/Results/Core Measures Results/Orders My Orders Orders - CLINTON ANGLIN MD Acetaminophen Tablet (Tylenol Tablet) (07/01/20 16:25) Ice: Apply To Affected Area (07/01/20 16:26) Vital Signs/I&O 07/01/20 16:06 Pulse 77 Resp 16 B/P (MAP) 138/95 (109) Pulse Ox 97 O2 Delivery Room Air Blood Pressure Mean: 109 Progress Progress Note : Progress Note Since patient denies taking any blood thinners and denies any loss of consciousness a CT head would not be warranted currently. With no dizziness, shortness of breath, chest pain, nausea, vomiting, abdominal pain or other symptoms to indicate need for blood work or additional testing will defer on doing these. Counseled on follow-up and return precautions. The wound was cleaned with chlorhexidine soap and sterile water. Then a bandage was applied. Ice pack to help with swelling and pain. Counseled to try and sleep with her head elevated for the next few nights to help with swelling and pain. She states that her tetanus is up-to-date. Advised to take Tylenol for pain and given a first dose here. Counseled to check back through the clinic for continued concerns. Departure Impression Primary Impression: Abrasion of forehead Qualified Codes: S00.81XA - Abrasion of other part of head, initial encounter Additional Impressions: Forehead contusion Qualified Codes: S00.83XA - Contusion of other part of head, initial encou nter Fall Qualified Codes: W19.XXXA - Unspecified fall, initial encounter Closed head injury without loss of consciousness Qualified Codes: S09.90XA - Unspecified injury of head, initial encounter Skin tear Contusion of left hand, initial encounter Contusion of right hand, initial encounter Disposition: 01 HOME, SELF-CARE Condition: Stable Departure-Patient Inst. Decision time for Depature: 16:29 Referrals: ARMANDO COMER MD (PCP/Family) Primary Care Physician Patient Instructions: Minor Head Injury, Adult ED, Abrasions ED, Minor Contusion ED, Preventing Falls in the Older Adult Add. Discharge Instructions: Keep the wound on the forehead clean with soap and water. May apply antibiotic ointment 2-3 times a day as needed. Use ice 10 to 15 minutes every few hours as needed for pain and swelling. Try to sleep with your head elevated for the next 2-3 nights to help limit the swelling and pain in your forehead from the injury. Check back with the clinic for continued concerns. Return or seek medical care if you start having repeated episodes of vomiting, worsening headache, trouble with your vision. All discharge instructions reviewed with patient and/or family. Voiced understanding. Images Head/Face 1 - Abrasion (5 mm x 6 mm rectangular abrasion/skin tear with contusion, mild swelling and tenderness to right forehead), Contusion, Swelling, Tenderness CLINTON ANGLIN MD July 01, 2020 16:25
== END 2020-07-01 16:35 | disposition home or self-care (01) ==
LOC: EDUNIT# 16:06 → ER FS 16:09
DX: S00.83XA Contusion of other part of head, initial encounter (principal); S60.222A Contusion of left hand, initial encounter; S60.221A Contusion of right hand, initial encounter; S09.90XA Unspecified injury of head, initial encounter; K21.9 Gastro-esophageal reflux disease without esophagitis; F41.9 Anxiety disorder, unspecified; I10 Essential (primary) hypertension; R40.2410 Glasgow coma scale score 13-15, unspecified time; Z88.0 Allergy status to penicillin; Z88.2 Allergy status to sulfonamides; Z87.891 Personal history of nicotine dependence; Z79.899 Other long term (current) drug therapy; Z79.82 Long term (current) use of aspirin; W22.8XXA Striking against or struck by other objects, initial encounter
CPT/HCPCS: 99283

== ENCOUNTER 2020-09-30 18:28 | Emergency (ER) | payer MEDICARE ==
[2020-09-30 18:32] VITALS: BP 125/74
--- NOTE | 2020-09-30 18:35 | ED Abdominal Pain ---
General Stated Complaint: BOWEL CONSTIPATION; ABD PAIN History of Present Illness Date Seen by Provider: Sep 30, 2020 Time Seen by Provider: 18:35 Initial Comments 74-year-old female presents with left lower quadrant pain. She reports this pain just started today. She reports she has not had a bowel movement in 5 days. She states she is passing gas, no nausea or vomiting. No fevers chills or urinary symptoms. She does report a recent bout with shingles and was on an antiviral. Allergies and Home Medications Allergies Coded Allergies: Penicillins (Unverified Allergy, Unknown, PASS OUT, 05/12/18) Sulfa (Sulfonamide Antibiotics) (Unverified Allergy, Unknown, RASH, 05/12/18) Home Medications ALPRAZolam 0.25 Mg Tablet, 0.25 MG PO Q8H PRN for ANXIETY, (Reported) Acetaminophen 500 Mg Tablet, 1,000 MG PO Q6H PRN for PAIN-MILD, (Reported) Aspirin 325 Mg Tablet.dr, 325 MG PO DAILY, (Reported) Cefdinir 300 Mg Capsule, 300 MG PO BID Prescribed by: GEMMA FUENTES on 12/30/19 1211 Multivitamins-Min/FA/Ginkgo 1 Each Tablet, 1 TAB PO DAILY, (Reported) Pantoprazole Sodium 40 Mg Tablet.dr, 40 MG PO DAILY, (Reported) Patient Home Medication List Home Medication List Reviewed: Yes Review of Systems Review of Systems Constitutional: see HPI; No chills, No fever EENTM: No Symptoms Reported Respiratory: Denies Cough, Denies Shortness of Air Cardiovascular: Denies Chest Pain, Denies Lightheadedness, Denies Palpitations Gastrointestinal: Abdominal Pain, Constipated; Denies Diarrhea, Denies Nausea, Denies Vomiting Genitourinary: No Symptoms Reported Musculoskeletal: no symptoms reported Skin: no symptoms reported Endocrine: No Symptoms Reported Past Tfnkwvl-Rtwkcy-Vnguso Hx Immunizations Up To Date Tetanus Booster (TDap): Less than 5yrs Seasonal Allergies Seasonal Allergies: Yes Past Medical History Surgeries: Yes (dental, left ureter, compound facial bone fx, EGD, PARTIAL HYSTERECTOMY) Abdominal, Bladder Surgery, Gallbladder, Hysterectomy, Pacemaker, Tonsillectomy Respiratory: No (Hx Tobaccoism) Cardiac: Yes (SYMPTOMATIC 2ND DEGREE AV, Pacemaker) Atrial Fibrillation, High Cholesterol, Hypertension Neurological: No (known tremulous voice hx) 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 Genitourinary: Yes (RECENT REPAIR OF L URETER, Hx cystitis, UTI, pyelonephritis) Gastrointestinal: Yes (Intestinal surgery) Gastroesophageal Reflux, Gastrointestinal Bleed, Hemorrhoids, Esophagitis, Hiatal Hernia Musculoskeletal: Yes (bilateral DJD shoulders, midline thoracic spine pain) Arthritis, Chronic Back Pain Endocrine: No HEENT: No Cancer: No Psychosocial: Yes Anxiety Integumentary: No Blood Disorders: No Family Medical History Cardiovascular disease Colon cancer Hypertension Visual disorder No Family History of: Cystic fibrosis No Pertinent Family Hx Physical Exam Vital Signs Vital Signs - First Documented 09/30/20 18:32 Temp 36.6 Pulse 74 Resp 16 B/P (MAP) 125/74 (91) Pulse Ox 96 O2 Delivery Room Air Capillary Refill : Height/Weight/BMI Height: 5'5.00" Weight: 118lbs. 0.0oz. 53.856326rc; 22.00 BMI Method:Stated General Appearance: WD/WN Neck: full range of motion, supple Respiratory: lungs clear, normal breath sounds Cardiovascular: normal peripheral pulses, regular rate, rhythm Gastrointestinal: soft, tenderness (mild LLQ ) Extremities: non-tender, normal inspection Skin: other (healing zoster rash on left mid back ) Procedures/Interventions Date of ETT Placement: Jun 17, 2019 Time of ETT Placement: 143 Suture Size: 4-0 Progress/Results/Core Measures Results/Orders Lab Results Laboratory Tests Test 09/30/20 18:45 09/30/20 19:00 Range/Units White Blood Count 8.8 4.3-11.0 10^3/uL Red Blood Count 4.84 4.35-5.85 10^6/uL Hemoglobin 13.4 11.5-16.0 G/DL Hematocrit 40 35-52 % Mean Corpuscular Volume 83 80-99 FL Mean Corpuscular Hemoglobin 28 25-34 PG Mean Corpuscular Hemoglobin Concent 34 32-36 G/DL Red Cell Distribution Width 14.3 10.0-14.5 % Platelet Count 298 130-400 10^3/uL Mean Platelet Volume 9.3 7.4-10.4 FL Immature Granulocyte % (Auto) 1 % Neutrophils (%) (Auto) 56 42-75 % Lymphocytes (%) (Auto) 30 12-44 % Monocytes (%) (Auto) 8 0-12 % Eosinophils (%) (Auto) 5 0-10 % Basophils (%) (Auto) 1 0-10 % Neutrophils # (Auto) 4.9 1.8-7.8 X 10^3 Lymphocytes # (Auto) 2.6 1.0-4.0 X 10^3 Monocytes # (Auto) 0.7 0.0-1.0 X 10^3 Eosinophils # (Auto) 0.5 H 0.0-0.3 10^3/uL Basophils # (Auto) 0.1 0.0-0.1 10^3/uL Immature Granulocyte # (Auto) 0.1 0.0-0.1 10^3/uL Sodium Level 138 135-145 MMOL/L Potassium Level 4.1 3.6-5.0 MMOL/L Chloride Level 105 98-107 MMOL/L Carbon Dioxide Level 21 21-32 MMOL/L Anion Gap 12 5-14 MMOL/L Blood Urea Nitrogen 17 7-18 MG/DL Creatinine 0.73 0.60-1.30 MG/DL Estimat Glomerular Filtration Rate 78 BUN/Creatinine Ratio 23 Glucose Level 121 H 70-105 MG/DL Calcium Level 9.3 8.5-10.1 MG/DL Corrected Calcium 9.3 8.5-10.1 MG/DL Total Bilirubin 0.3 0.1-1.0 MG/DL Aspartate Amino Transf (AST/SGOT) 16 5-34 U/L Alanine Aminotransferase (ALT/SGPT) 13 0-55 U/L Alkaline Phosphatase 94 40-136 U/L Total Protein 6.5 6.4-8.2 GM/DL Albumin 4.0 3.2-4.5 GM/DL Urine Color YELLOW Urine Clarity CLEAR Urine pH 5.5 5-9 Urine Specific Beason 1.010 L 1.016-1.022 Urine Protein NEGATIVE NEGATIVE Urine Glucose (UA) NEGATIVE NEGATIVE Urine Ketones NEGATIVE NEGATIVE Urine Nitrite NEGATIVE NEGATIVE Urine Bilirubin NEGATIVE NEGATIVE Urine Urobilinogen 0.2 < = 1.0 MG/DL Urine Leukocyte Esterase TRACE H NEGATIVE Urine RBC (Auto) NEGATIVE NEGATIVE Urine RBC NONE /HPF Urine WBC 2-5 /HPF Urine Squamous Epithelial Cells 2-5 /HPF Urine Crystals NONE /LPF Urine Bacteria TRACE /HPF Urine Casts NONE /LPF Urine Mucus NEGATIVE /LPF Urine Culture Indicated YES My Orders Orders - STEELE,FELA L DO Cbc With Automated Diff (09/30/20 18:40) Comprehensive Metabolic Panel (09/30/20 18:40) Ua Culture If Indicated (09/30/20 18:40) Abdomen Flat & Upright/Decub (09/30/20 18:40) Urine Culture (09/30/20 19:00) Magnesium Citrate Oral Soln (Citrate Of (09/30/20 19:30) Bisacodyl Suppository (Dulcolax Supposit (09/30/20 19:30) Glycerin Pediatric Suppository (Pedia-La (09/30/20 19:30) Vital Signs/I&O 09/30/20 18:32 Temp 36.6 Pulse 74 Resp 16 B/P (MAP) 125/74 (91) Pulse Ox 96 O2 Delivery Room Air Progress Progress Note : Progress Note Patient is x-ray consistent with moderate constipation, no acute finding on labs. Patient was offered treatment here versus treatment at home. She would prefer to go home due to she does not like to drive at night and the comfort of her own home to have bowel movements. I will send her with some mag citrate and a Dulcolax and glycerin suppository to help her get some relief. She should use MiraLAX 3-4 times daily until soft daily stool. Patient stable and discharged Departure Impression Primary Impression: Constipation Qualified Codes: K59.00 - Constipation, unspecified Disposition: HOME, SELF-CARE Condition: Stable Departure-Patient Inst. Referrals: SELF,ARMANDO COLINDRES (PCP/Family) Primary Care Physician Patient Instructions: Constipation, Adult (DC) Add. Discharge Instructions: MiraLAX, 1 capful 4-5 times daily until soft daily stool You may use the medication you were sent home with tonight to help initiate a bowel movement and then add MiraLAX tomorrow. Return to the ER as needed FELA STEELE DO Sep 30, 2020 18:35
[2020-09-30 18:52] LABS: HEMATOCRIT 40 % (35-52); HEMOGLOBIN 13.4 G/DL (11.5-16.0); MEAN CORPUSCULAR HEMOGLOBIN 28 PG (25-34); MEAN CORPUSCULAR HGB CONC 34 G/DL (32-36); MEAN CORPUSCULAR VOLUME 83 FL (80-99); WHITE BLOOD COUNT 8.8 10^3/uL (4.3-11.0)
[2020-09-30 18:53] LABS: BASOPHILS # (AUTO) 0.1 10^3/uL (0.0-0.1); BASOPHILS % (AUTO) 1 % (0-10); EOSINOPHILS # (AUTO) 0.5 10^3/uL (0.0-0.3); EOSINOPHILS % (AUTO) 5 % (0-10); LYMPHOCYTES # (AUTO) 2.6 X 10^3 (1.0-4.0); LYMPHOCYTES % (AUTO) 30 % (12-44); MEAN PLATELET VOLUME 9.3 FL (7.4-10.4); MONOCYTES # (AUTO) 0.7 X 10^3 (0.0-1.0); MONOCYTES % (AUTO) 8 % (0-12); NEUTROPHILS # (AUTO) 4.9 X 10^3 (1.8-7.8); NEUTROPHILS % (AUTO) 56 % (42-75); PLATELET COUNT 298 10^3/uL (130-400)
[2020-09-30 19:10] LABS: BACTERIA,URINE TRACE /HPF; BILIRUBIN,URINE NEGATIVE (NEGATIVE); CLARITY,URINE CLEAR; COLOR,URINE YELLOW; GLUCOSE, URINE (UA) NEGATIVE (NEGATIVE); KETONES,URINE NEGATIVE (NEGATIVE); LEUKOCYTE ESTERASE ,URINE TRACE (NEGATIVE); NITRITE,URINE NEGATIVE (NEGATIVE); PH,URINE 5.5 (5-9); PROTEIN,URINE NEGATIVE (NEGATIVE)
[2020-09-30 19:11] LABS: BILIRUBIN,TOTAL 0.3 MG/DL (0.1-1.0); CALCIUM 9.3 MG/DL (8.5-10.1); CREATININE SERUM 0.73 MG/DL (0.60-1.30); POTASSIUM 4.1 MMOL/L (3.6-5.0); TOTAL PROTEIN 6.5 GM/DL (6.4-8.2)
--- NOTE | 2020-09-30 19:17 | Diagnostic Imaging Report ---
HISTORY: 74-year-old female with constipation for 5 days, right-sided abdominal pain. COMPARISON: CT abdomen and pelvis 07/23/2019. FINDINGS: Lung bases show a left pleural effusion of moderate size. Underlying basilar infiltrates cannot be excluded. The abdomen is otherwise senescent. There is a nonspecific bowel gas pattern. There is a moderate amount of fecal load in the distal colon to the rectum. There are some surgical staple sutures in the right lower quadrant of the abdomen associated with previous enteric anastomosis from possible bowel resection. There is no organomegaly or abnormal calcification. Multiple clips are seen in the right lower quadrant which may be associated with previous bowel surgery versus previous cholecystectomy. Bony abdomen/pelvis appears senescent. There are moderate degenerative changes of the lumbosacral spine. IMPRESSION: 1. There is a moderate amount of fecal load throughout the colon, most prominent in the distal colon and rectum. 2. Moderate degenerative changes of the lumbosacral spine. 3. Previous enteric anastomosis in the right lower quadrant of the abdomen, possibly from a previous bowel resection. 4. Previous cholecystectomy. 5. There is a moderate-sized left pleural effusion. Underlying left lower lobe consolidation cannot be excluded. Dictated by: Dictated on workstation # [id number]
[2020-09-30] MEDS ORDERED: BISACODYL 10 MG SUPP (DULCOLAX) PR ONE (19:30)
[2020-09-30] MEDS ORDERED: MAGNESIUM CITRATE 300 ML BTL PO ONE (19:30)
[2020-09-30] MEDS ORDERED: GLYCERIN PEDIATRIC SUPPOSITORY 1 EACH SUPP PR ONE (19:30)
--- OUTSIDE RECORDS SUMMARY | 2020-10-01 17:05 | XMS REPORT | Clinical Summary ---
Author Author [facility] Organization [facility] Address Unknown Phone Unavailable Care Team Providers Care Piercing Artist Name Role Phone Self, Madhu COLINDRES PCP Fede Fu MD Unavailable Carolyn Reardon MD, Sudheer Ortega Unavailable [phone] Monisha Contreras NP 7 Jamaal Tyson MD [id number] Source Comments Some departments are not documenting in the electronic medical record. If you d o not see the information that you expected, contact Release of Information in [facility] [employer] department at [phone] for further assistan ce in locating additional records.[facility] Allergies Comments Active Allergy Reactions Severity Noted Date Sulfamethoxazole-Trimetho RASH 05/24/2012 prim Equate multi vitamins, broke out in hives Unclassified Drug SEE COMMENTS 05/24/2012 "If you give me an injection, I pass out on the floor before the needle is out of my arm." Penicillins SEE COMMENTS 05/24/2012 Sulfa (Sulfonamide RASH 05/24/2012 Antibiotics) Medications End Date Status Medication Sig Dispensed Refills Start Date Active OMEPRAZOLE (PRILOSEC PO) Take by 0 mouth. Active ELIQUIS 5 mg tablet [address] every 12 0 (VOLTAREN) 25 mg tablet hours. Active omeprazole DR(+) every 24 0 (PRILOSEC) 20 mg capsule hours. 8 Active hydrocortisone Insert or 14 0 (ANUSOL-HC) 25 mg rectal Apply one suppository 9 suppositoryIndications: suppository Grade IV hemorrhoids to rectal area as directed every 12 hours. Active Problems No known active problems Surgical History Surgery Date Site/Laterality Comments HYSTERECTOMY HX TONSILLECTOMY HX CHOLECYSTECTOMY 02/10/2012 MANDIBLE FRACTURE SURGERY 11/04 Broke in 5 p ieces per patient Medical History Medical History Date Comments Hiatal hernia Pacemaker 2018 Family History Relation Name Status Comments Father Mother Alive Social History Date Tobacco Use Types Packs/Day Years Used Former Smoker Cigarettes 25 Smokeless Tobacco: Never Used Drinks/Week oz/Week Comments Alcohol Use Not Asked Sex Assigned at Date Recorded Not on file Last Filed Vital Signs Reading Time Taken Comments Vital Sign 131/79 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 Blood Pressure 77 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 Pulse 36.8 C (98.2 F) 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 Temperature 14 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 Respiratory Rate 99% 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 Oxygen Saturation - - Inhaled Oxygen Concentration 56.5 kg (124 lb 9.6 oz) 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 Weight 166.4 cm (5' 5.5") 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 Height 20.42 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 Body Mass Index Plan of Treatment Health Maintenance Due Date Last Done Comments MEDICARE ANNUAL WELLNESS 1945 VISIT DTAP/TDAP VACCINES (1 - 1962 Tdap) HEPATITIS C SCREENING 1962 PHYSICAL (COMPREHENSIVE) 1962 EXAM COLORECTAL CANCER 1994 SCREENING SHINGLES RECOMBINANT 1994 VACCINE (1 of 2) OSTEOPOROSIS 2009 SCREENING/MONITORING PNEUMONIA (PPSV23) 2009 VACCINE (1 of 1 - PPSV23) INFLUENZA VACCINE 11/23/2020 Results Not on filefrom Last 3 Months Insurance Type Payer Benefit Subscriber ID Effective Phone Address Plan / Dates Group Medicare HUMANA MEDICARE HUMANA [id number] 2019-P CHOICE PPO resent [phone] Advance Directives 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
== END 2020-09-30 19:30 | disposition home or self-care (01) ==
LOC: EDUNIT# 18:28 → ER FS 18:31
DX: K59.00 Constipation, unspecified (principal); I10 Essential (primary) hypertension; K21.9 Gastro-esophageal reflux disease without esophagitis; F41.9 Anxiety disorder, unspecified; Z79.82 Long term (current) use of aspirin; Z79.899 Other long term (current) drug therapy
CPT/HCPCS: 36415; 74019; 80053; 81000; 85025; 87088

== ENCOUNTER 2022-02-28 07:05 | Emergency (ER) | payer MEDICARE ==
[~2022-02-28 07:05] MED LIST changes: +CLIN-144 PO; -CLIN300C12 PO; -DCS100C PO; -DICL25TA PO; +DICL25TA9 PO; +DOCU-239 PO; +POTA-160 PO; -POTA10TA6 PO
[2022-02-28 07:36] LABS: BASOPHILS # (AUTO) 0.1 10^3/uL (0.0-0.1); BASOPHILS % (AUTO) 1 % (0-10); EOSINOPHILS # (AUTO) 0.2 10^3/uL (0.0-0.3); EOSINOPHILS % (AUTO) 2 % (0-10); HEMATOCRIT 42 % (35-52); LYMPHOCYTES # (AUTO) 1.3 10^3/uL (1.0-4.0); LYMPHOCYTES % (AUTO) 12 % (12-44); MEAN CORPUSCULAR HEMOGLOBIN 27 pg (25-34); MEAN CORPUSCULAR HGB CONC 33 g/dL (32-36); MEAN CORPUSCULAR VOLUME 81 fL (80-99); MEAN PLATELET VOLUME 9.7 fL (9.0-12.2); MONOCYTES # (AUTO) 0.7 10^3/uL (0.0-1.0); MONOCYTES % (AUTO) 6 % (0-12); NEUTROPHILS # (AUTO) 8.8 10^3/uL (1.8-7.8); NEUTROPHILS % (AUTO) 80 % (42-75); PLATELET COUNT 209 10^3/uL (130-400)
--- NOTE | 2022-02-28 07:43 | ED Cardiac General ---
History of Present Illness General Chief Complaint: Cardiac/General Problems Stated Complaint: ACTIVATED PACEMAKER Nursing Triage Note: Patient presents to the ED with c/o pacemaker problems. Reports intermittent stabbing sensation over pacemaker. States, "It feels like I am getting stabbed by a nail." Rates pain at an 8 when it occurs and states pain started 1 hour prior to arrival. Denies any recent illness, fever, cough, or injury. Source: patient, old records Exam Limitations: no limitations (LLOYD BONDS) History of Present Illness Date Seen by Provider: Feb 28, 2022 Time Seen by Provider: 07:15 Initial Comments This is a 76yo F who presents with sharp chest pain for the past 1 hr. Reports intermittent, sharp, "stabbing" sensation on her left chest, rates pain at 8/10 when it occurs. No radiation of symptoms. She is not currently having any chest pain, only endorses some "sensitivity" on her left chest. Pt reports the pacemaker as her only pmhx. 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 Pt reports she is not currently taking any prescription medications, tylenol is her only medication. Denies any recent illness, fever, cough, injury, SOA, palpitations, near syncope, syncope, or other symptoms. Denies any use of alcohol, tobacco products, or illicit drug use. Timing/Duration: 1 hour Severity: moderate Location: other (left chest) Activities at Onset: none Modifying Factors: improves with other (none reported) ASA po DEBONING TEAM LEADER: No Associated Systoms: Chest Pain; No Cough, No Diaphoresis, No Fever/Chills, No Headaches, No Malaise, No Nausea/Vomiting, No Shortness of Air, No Syncope, No Weakness (LLOYD BONDS) Allergies and Home Medications Allergies Coded Allergies: Penicillins (Unverified Allergy, Unknown, PASS OUT, 05/12/18) Sulfa (Sulfonamide Antibiotics) (Unverified Allergy, Unknown, RASH, 05/12/18) Patient Home Medication List Home Medication List Reviewed: Yes (LLOYD BONDS) ALPRAZolam (ALPRAZolam) 0.25 Mg Tablet, 0.25 MG PO Q8H PRN for ANXIETY, (Reported) Entered as Reported by: AMARILYS GARNER on 12/27/19 1554 Acetaminophen (Tylenol Extra Strength) 500 Mg Tablet, 1,000 MG PO Q6H PRN for PAIN-MILD, (Reported) Entered as Reported by: YORDY KAHN on 05/13/18 0859 Aspirin (Aspirin EC) 325 Mg Tablet.dr, 325 MG PO DAILY, (Reported) Entered as Reported by: AMARILYS GARNER on 12/27/19 1554 Cefdinir (Cefdinir) 300 Mg Capsule, 300 MG PO BID Prescribed by: GEMMA FUENTES on 12/30/19 1211 Multivitamins-Min/FA/Ginkgo (One Daily For Women 50+ Adv Tb) 1 Each Tablet, 1 TAB PO DAILY, (Reported) Entered as Reported by: YORDY KAHN on 05/13/18 0859 Pantoprazole Sodium (Pantoprazole Sodium) 40 Mg Tablet.dr, 40 MG PO DAILY, (Reported) Entered as Reported by: AMARILYS GARNER on 12/27/19 1554 Review of Systems Review of Systems Constitutional: no symptoms reported EENTM: No Symptoms Reported Respiratory: No Symptoms Reported Cardiovascular: Chest Pain (Localized to left chest); Denies Edema, Denies Irregular Heart Rate, Denies Lightheadedness, Denies Palpitations, Denies Syncope Gastrointestinal: No Symptoms Reported Genitourinary: No Symptoms Reported Musculoskeletal: no symptoms reported Skin: no symptoms reported Psychiatric/Neurological: No Symptoms Reported (LLOYD BONDS) Past Rchydvc-Onrtmh-Tkyaso Hx Patient Social History Tobacco Use?: No Use of E-Cig and/or Vaping dev: No Substance use?: No Alcohol Use?: No Pt feels they are or have been: No (LLOYD BONDS) Immunizations Up To Date Tetanus Booster (TDap): Less than 5yrs Influenza Vaccine Up-to-Date: No; Not Current First/Initial COVID19 Vaccinat: Denies (LLOYD BONDS) Seasonal Allergies Seasonal Allergies: Yes (LLOYD BONDS) Past Medical History Surgery/Hospitalization HX: Pacemaker; CKD Surgeries: Yes (dental, left ureter, compound facial bone fx, EGD, PARTIAL HYSTERECTOMY) Abdominal, Bladder Surgery, Gallbladder, Hysterectomy, Pacemaker, Tonsillectomy Respiratory: No (Hx Tobaccoism) Cardiac: Yes (SYMPTOMATIC 2ND DEGREE AV, Pacemaker) Atrial Fibrillation, High Cholesterol, Hypertension Neurological: No (known tremulous voice hx) 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 Disorders: No 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 Genitourinary: Yes (RECENT REPAIR OF L URETER, Hx cystitis, UTI, pyelonephritis) Gastrointestinal: Yes (Intestinal surgery) Gastroesophageal Reflux, Gastrointestinal Bleed, Hemorrhoids, Esophagitis, Hiatal Hernia Musculoskeletal: Yes (bilateral DJD shoulders, midline thoracic spine pain) Arthritis, Chronic Back Pain Endocrine: No HEENT: No Cancer: No Psychosocial: Yes Anxiety Integumentary: No Blood Disorders: No (LLOYD BONDS) Family Medical History Cardiovascular disease Colon cancer Hypertension Visual disorder No Family History of: Cystic fibrosis No Pertinent Family Hx (LLOYD BONDS) Physical Exam Vital Signs Vital Signs - First Documented 02/28/22 07:09 Temp 36.4 Pulse 84 Resp 16 B/P (MAP) 149/75 (99) Pulse Ox 99 O2 Delivery Room Air (MANUEL CARR MD) Vital Signs Capillary Refill : Less Than 3 Seconds (LLOYD BONDS) Height, Weight, BMI Height: 5'5.00" Weight: 118lbs. 0.0oz. 53.450922ty; 22.00 BMI Method:Stated (LLOYD BONDS) General Appearance: No Apparent Distress, WD/WN, Thin HEENT: PERRL/EOMI, Normal ENT Inspection Neck: Normal Inspection; No JVD Respiratory: Lungs Clear, Normal Breath Sounds, No Accessory Muscle Use, Other (Left upper chest sensitive to touch around the pacemaker) Cardiovascular: Regular Rate, Rhythm, No Edema, No Murmur Gastrointestinal: Normal Bowel Sounds, Non Tender Extremity: Normal Inspection, No Pedal Edema Neurologic/Psychiatric: Alert, Oriented x3, No Motor/Sensory Deficits, Normal Mood/Affect Skin: Normal Color, Warm/Dry, Other (No edema, erythema, rashes, or warmth over or near the pacemaker) (MANUEL CARR MD) Procedures/Interventions Date of ETT Placement: Jun 17, 2019 Time of ETT Placement: 1435 (LLOYD BONDS) Suture Size: 4-0 (LLOYD BONDS) Progress/Results/Core Measures Results/Orders Lab Results Laboratory Tests Test 02/28/22 07:25 02/28/22 10:20 Range/Units White Blood Count 11.0 4.3-11.0 10^3/uL Red Blood Count 5.21 H 3.80-5.11 10^6/uL Hemoglobin 14.0 11.5-16.0 g/dL Hematocrit 42 35-52 % Mean Corpuscular Volume 81 80-99 fL Mean Corpuscular Hemoglobin 27 25-34 pg Mean Corpuscular Hemoglobin Concent 33 32-36 g/dL Red Cell Distribution Width 14.1 10.0-14.5 % Platelet Count 209 130-400 10^3/uL Mean Platelet Volume 9.7 9.0-12.2 fL Immature Granulocyte % (Auto) 0 % Neutrophils (%) (Auto) 80 H 42-75 % Lymphocytes (%) (Auto) 12 12-44 % Monocytes (%) (Auto) 6 0-12 % Eosinophils (%) (Auto) 2 0-10 % Basophils (%) (Auto) 1 0-10 % Neutrophils # (Auto) 8.8 H 1.8-7.8 10^3/uL Lymphocytes # (Auto) 1.3 1.0-4.0 10^3/uL Monocytes # (Auto) 0.7 0.0-1.0 10^3/uL Eosinophils # (Auto) 0.2 0.0-0.3 10^3/uL Basophils # (Auto) 0.1 0.0-0.1 10^3/uL Immature Granulocyte # (Auto) 0.0 0.0-0.1 10^3/uL Prothrombin Time 13.6 12.2-14.7 SEC INR Comment 1.0 0.8-1.4 Activated Partial Thromboplast Time 30 24-35 SEC Sodium Level 144 135-145 MMOL/L Potassium Level 3.9 3.6-5.0 MMOL/L Chloride Level 109 H 98-107 MMOL/L Carbon Dioxide Level 25 21-32 MMOL/L Anion Gap 10 5-14 MMOL/L Blood Urea Nitrogen 11 7-18 MG/DL Creatinine 0.85 0.60-1.30 MG/DL Estimat Glomerular Filtration Rate 71 BUN/Creatinine Ratio 13 Glucose Level 92 70-105 MG/DL Calcium Level 9.6 8.5-10.1 MG/DL Corrected Calcium 9.4 8.5-10.1 MG/DL Magnesium Level 2.3 1.6-2.4 MG/DL Total Bilirubin 0.8 0.1-1.0 MG/DL Aspartate Amino Transf (AST/SGOT) 18 5-34 U/L Alanine Aminotransferase (ALT/SGPT) 10 0-55 U/L Alkaline Phosphatase 97 40-136 U/L Myoglobin 36.4 <58.0 NG/ML Troponin I < 0.30 < 0.30 <0.30 NG/ML Total Protein 6.7 6.4-8.2 GM/DL Albumin 4.2 3.2-4.5 GM/DL (MANUEL CARR MD) My Orders Orders - MANUEL CARR MD Cbc With Automated Diff (02/28/22 07:16) Magnesium (02/28/22 07:16) Chest 1 View Ap/Pa Only (02/28/22 07:16) Comprehensive Metabolic Panel (02/28/22 07:16) Myoglobin Serum (02/28/22 07:16) Protime With Inr (02/28/22 07:16) Partial Thromboplastin Time (02/28/22 07:16) O2 (02/28/22 07:16) Monitor-Rhythm Ecg Trace Only (02/28/22 07:16) Ed Iv/Invasive Line Start (02/28/22 07:16) Troponin I Fs (02/28/22 07:16) Ekg Tracing (02/28/22 07:16) Acetaminophen Tablet/Caplet (Tylenol T (02/28/22 08:30) Troponin I Fs (02/28/22 10:10) (MANUEL CARR MD) Medications Given in ED Current Medications Medications Dose Ordered Sig/Mela Route Start Time Stop Time Status Last Admin Dose Admin Acetaminophen 650 mg ONCE ONCE PO 02/28/22 08:30 02/28/22 08:31 DC 02/28/22 08:28 650 MG (MANUEL CARR MD) Vital Signs/I&O 02/28/22 02/28/22 07:09 10:57 Temp 36.4 36.4 Pulse 84 77 Resp 16 16 B/P (MAP) 149/75 (99) 137/69 Pulse Ox 99 99 O2 Delivery Room Air Room Air (MANUEL CARR MD) 2 Blood Pressure Mean: 99 Progress Progress Note #1: Time: 08:42 Progress Note Patient was interviewed and examined along with MS 4. Her pain has characteristics of a superficial musculoskeletal pain or mechanical irritation from the pacemaker. She has been replacing benjamin in her home and has been up and down and on her hands and knees working recently which would explain a mechanical irritation. She has some sensitivity to palpation around the pacemaker site. Initial work-up was unremarkable. The chest x-ray which was viewed by me demonstrates some increased density in the left lower lung. This correlates with the region of prior scarring and effusion on previous x-rays. There has been improvement from prior x-rays. This does not correlate with any acute symptoms or objective findings to suggest an acute process. Patient is being treated with Tylenol. I discussed the case with Dr. Webb, summer analyst cottonseed meat presser for the ER. It seems reasonable at this time to finish a cardiac rule out since she has not had any recent stress testing or angiography. A repeat troponin will be obtained at 1010. All labs and the cardiac panel including CBC, CMP, and troponin have been reviewed. Chest x-ray was viewed and compared with prior which was also reviewed. EKG was reviewed and documentation from [place] dtronic pacemaker interrogation was also reviewed. There have been no major cardiac events per interrogation. Progress Note #2: Progress Note Repeat troponin was negative and patient's pain resolved after Tylenol. She was discharged in improved condition. I believe her pain was most likely due to irritation around the pacemaker from recent physical activity. See discharge instructions for further discussion. (MANUEL CARR MD) Initial ECG Impression Date: Feb 28, 2022 Initial ECG Impression Time: 07:10 Initial ECG Rate: 72 Comment Dual-chamber pacemaker paced rhythm with no significant abnormalities. (MANUEL CARR MD) Diagnostic Imaging Diagonstic Imaging: Xray Plain Films/CT/US/NM/MRI: chest Comments Chest x-ray viewed by me and report reviewed. X-ray was compared with prior. By my interpretation there has been improvement in left lower lung pulmonary markings. There have been no adverse acute changes. See report below: NAME: MARTÍN MATHEW [facility] REC#: [id number] PT STATUS: REG ER : 1945 PHYSICIAN: MANUEL CARR MD ADMIT DATE: 02/28/22/ER FS Draft Date of Exam:02/28/22 CHEST 1 VIEW AP/PA ONLY INDICATION: Chest pain and shortness of breath. COMPARISONS: 12/28/2019 FINDINGS: Single view of the chest shows a senescent chest with cardiomegaly. There is extensive coarse interstitial opacities consistent with some chronic parenchymal changes. The left diaphragmatic silhouette is slightly obscured, suggestive of some left basilar infiltrates. There are some bullous emphysematous changes. There is a dual-chamber left-sided pacer. Soft tissues and bony thorax are unchanged. IMPRESSION: Left lower lobe infiltrates superimposed on some extensive chronic parenchymal changes. There is also COPD with some air trapping seen. Scattered areas of bullous emphysema changes are also present. Dictated on workstation # [id number] Dict: 02/28/22 0735 Trans: 02/28/22 0755 CVB [id number] Interpreted by: SILVANO CAMPBELL MD (MANUEL CARR MD) Departure Impression Primary Impression: Chest wall pain Disposition: HOME, SELF-CARE Condition: Improved Departure-Patient Inst. Decision time for Depature: 10:51 (MANUEL CARR MD) Referrals: ARMANDO COMER MD (PCP) Primary Care Physician Patient Instructions: Chest Pain, Adult ED Add. Discharge Instructions: You may continue taking Tylenol (acetaminophen) up to 650 mg every 6 hours as needed for pain. Please contact Dr. Sierra's office and follow-up with him in the clinic next week. Avoid activities that worsen your pain. Consider using a protective mask or aspirator while working in guille and dirty environments. Return to the emergency room if you are having recurrent chest pain or worsening symptoms despite following these instructions. All discharge instructions reviewed with patient and/or family. Voiced understanding. Copy Copies To 1: HECTOR SIERRA MD Copies To 2: ARMANDO COMER MD, ABRAHAM Feb 28, 2022 07:43 MANUEL CARR MD Feb 28, 2022 08:47
[2022-02-28 07:49] LABS: PROTHROMBIN TIME PATIENT 13.6 SEC (12.2-14.7)
--- NOTE | 2022-02-28 07:56 | Diagnostic Imaging Report ---
INDICATION: Chest pain and shortness of breath. COMPARISONS: 12/28/2019 FINDINGS: Single view of the chest shows a senescent chest with cardiomegaly. There is extensive coarse interstitial opacities consistent with some chronic parenchymal changes. The left diaphragmatic silhouette is slightly obscured, suggestive of some left basilar infiltrates. There are some bullous emphysematous changes. There is a dual-chamber left-sided pacer. Soft tissues and bony thorax are unchanged. IMPRESSION: Left lower lobe infiltrates superimposed on some extensive chronic parenchymal changes. There is also COPD with some air trapping seen. Scattered areas of bullous emphysema changes are also present. Dictated by: Dictated on workstation # [id number]
[2022-02-28 08:00] LABS: POTASSIUM 3.9 MMOL/L (3.6-5.0)
[2022-02-28 08:01] LABS: ALBUMIN 4.2 GM/DL (3.2-4.5); BILIRUBIN,TOTAL 0.8 MG/DL (0.1-1.0); CALCIUM 9.6 MG/DL (8.5-10.1); CREATININE SERUM 0.85 MG/DL (0.60-1.30); MAGNESIUM 2.3 MG/DL (1.6-2.4); TOTAL PROTEIN 6.7 GM/DL (6.4-8.2)
[2022-02-28] MEDS ORDERED: ACETAMINOPHEN 325 MG TABLET PO ONE (08:30)
[2022-02-28 10:57] VITALS: BP 137/69
== END 2022-02-28 10:58 | disposition home or self-care (01) ==
LOC: EDUNIT# 07:05 → ER FS 07:10
DX: R07.89 Other chest pain (principal); Z95.0 Presence of cardiac pacemaker; Z28.310 Unvaccinated for COVID-19
CPT/HCPCS: 36415; 71045; 80053; 83735; 83874; 84484; 85025; 85610; 85730; 93005; 93041

== ENCOUNTER 2022-06-28 06:13 | Emergency (ER) | payer MEDICARE ==
[~2022-06-28] VITALS: Ht 167.7 cm; Wt 53.5 kg
[2022-06-28] MEDS ORDERED: ALPRAZolam 0.25 MG (XANAX) TAB PO ONE (06:30)
--- NOTE | 2022-06-28 06:35 | ED General ---
General Stated Complaint: ANXIETY Source of Information: Patient, EMS Exam Limitations: No Limitations History of Present Illness Date Seen by Provider: June 28, 2022 Time Seen by Provider: 06:15 Initial Comments 76-year-old female with past medical history of high blood pressure coming in via EMS from home after she woke up feeling like she had a bad dream and now is tearful. She has been very stressed out by multiple things in the house including the repairman has not been coming likely said they would, there is a sink stopped up, and other things that are stressing her out that would normally stress other people out. She denies any chest pain, syncope, shortness of breath, abdominal pain, nausea, vomiting, diarrhea, weakness, numbness, headache, vision changes, diaphoresis, dysuria, rash, or any other concerns. She states this is happened before when she is woken up, but this is worse than in the past. She is otherwise denying any other acute complaints including any homicidal or suicidal ideation. Allergies and Home Medications Allergies Coded Allergies: Penicillins (Unverified Allergy, Unknown, PASS OUT, 05/12/18) Sulfa (Sulfonamide Antibiotics) (Unverified Allergy, Unknown, RASH, 05/12/18) Patient Home Medication List Home Medication List Reviewed: Yes ALPRAZolam (ALPRAZolam) 0.25 Mg Tablet, 0.25 MG PO Q8H PRN for ANXIETY, (Reported) Entered as Reported by: AMARILYS GARNER on 12/27/19 1554 Acetaminophen (Tylenol Extra Strength) 500 Mg Tablet, 1,000 MG PO Q6H PRN for PAIN-MILD, (Reported) Entered as Reported by: YORDY KAHN on 05/13/18 0859 Aspirin (Aspirin EC) 325 Mg Tablet., 325 MG PO DAILY, (Reported) Entered as Reported by: AMARILYS GARNER on 12/27/19 1554 Cefdinir (Cefdinir) 300 Mg Capsule, 300 MG PO BID Prescribed by: GEMMA FUENTES on 12/30/19 1211 Multivitamins-Min/FA/Ginkgo (One Daily For Women 50+ Adv Tb) 1 Each Tablet, 1 TAB PO DAILY, (Reported) Entered as Reported by: YORDY KAHN on 05/13/18 0859 Pantoprazole Sodium (Pantoprazole Sodium) 40 Mg Tablet.dr, 40 MG PO DAILY, (Reported) Entered as Reported by: AMARILYS GARNER on 12/27/19 6636 Review of Systems Review of Systems Constitutional: No fever EENTM: no symptoms reported Respiratory: no symptoms reported Cardiovascular: no symptoms reported Gastrointestinal: no symptoms reported Genitourinary: no symptoms reported Musculoskeletal: no symptoms reported Skin: no symptoms reported Psychiatric/Neurological: See HPI Hematologic/Lymphatic: No Symptoms Reported Past Vzasaxb-Uehpkw-Euppln Hx Patient Social History Tobacco Use?: No Immunizations Up To Date Tetanus Booster (TDap): Less than 5yrs First/Initial COVID19 Vaccinat: Denies Seasonal Allergies Seasonal Allergies: Yes Past Medical History Surgery/Hospitalization HX: Pacemaker; CKD Surgeries: Yes (dental, left ureter, compound facial bone fx, EGD, PARTIAL HYSTERECTOMY) Abdominal, Bladder Surgery, Gallbladder, Hysterectomy, Pacemaker, Tonsillectomy Respiratory: No (Hx Tobaccoism) Cardiac: Yes (SYMPTOMATIC 2ND DEGREE AV, Pacemaker) Atrial Fibrillation, High Cholesterol, Hypertension Neurological: No (known tremulous voice hx) 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 Genitourinary: Yes (RECENT REPAIR OF L URETER, Hx cystitis, UTI, pyelonephritis) Gastrointestinal: Yes (Intestinal surgery) Gastroesophageal Reflux, Gastrointestinal Bleed, Hemorrhoids, Esophagitis, Hiatal Hernia Musculoskeletal: Yes (bilateral DJD shoulders, midline thoracic spine pain) Arthritis, Chronic Back Pain Endocrine: No HEENT: No Cancer: No Psychosocial: Yes Anxiety Integumentary: No Blood Disorders: No Family Medical History Cardiovascular disease Colon cancer Hypertension Visual disorder No Family History of: Cystic fibrosis No Pertinent Family Hx Physical Exam Vital Signs Vital Signs - First Documented 06/28/22 06:31 Temp 37.0 Pulse 79 Resp 19 B/P (MAP) 150/88 (108) Pulse Ox 95 O2 Delivery Room Air Capillary Refill : Height, Weight, BMI Height: 5'5.00" Weight: 118lbs. 0.0oz. [id number]; 22.00 BMI Method:Stated General Appearance: WD/WN, Other (tearful at times) Eyes: Bilateral Eye Normal Inspection HEENT: PERRL/EOMI, Normal ENT Inspection, Pharynx Normal Neck: Full Range of Motion, Normal Inspection, Non Tender, Supple Respiratory: Chest Non Tender, Lungs Clear, Normal Breath Sounds, No Accessory Muscle Use, No Respiratory Distress Cardiovascular: Regular Rate, Rhythm, No Edema, Normal Peripheral Pulses Gastrointestinal: Normal Bowel Sounds, Non Tender, Soft; No Distended, No Guarding Back: Normal Inspection, No CVA Tenderness Extremity: Normal Capillary Refill, Normal Inspection, Normal Range of Motion, Non Tender, No Calf Tenderness, No Pedal Edema Neurologic/Psychiatric: Alert, Oriented x3, No Motor/Sensory Deficits, Normal 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, 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, Other (normal gait, normal finger to nose) Skin: Normal Color, Warm/Dry Procedures/Interventions Date of ETT Placement: Jun 17, 2019 Time of ETT Placement: 1435 Suture Size: 4-0 Progress/Results/Core Measures Suspected Sepsis SIRS Temperature: Pulse: Respiratory Rate: Blood Pressure / Mean: Results/Orders Lab Results Laboratory Tests Test 06/28/22 06:43 Range/Units Glucometer 93 70-110 MG/DL My Orders Orders - SONG SANTIAGO MD Accucheck Stat ONCE (06/28/22 06:29) Ekg Tracing (06/28/22 06:29) Alprazolam Tablet (Xanax Tablet) (06/28/22 06:30) Medications Given in ED Current Medications Medications Dose Ordered Sig/Mela Route Start Time Stop Time Status Last Admin Dose Admin Alprazolam 0.25 mg ONCE ONCE PO 06/28/22 06:30 06/28/22 06:31 DC 06/28/22 06:50 0.25 MG Vital Signs/I&O 06/28/22 06:31 Temp 37.0 Pulse 79 Resp 19 B/P (MAP) 150/88 (108) Pulse Ox 95 O2 Delivery Room Air Capillary Refill : Progress Note : Progress Note 76-year-old female coming in after she feels like she woke up from a bad dream and is tearful. ABCs were intact and vitals were stable on presentation. Physical exam reassuring including a comprehensive neurovascular exam which is on. EKG ordered and interpreted by me showing a ventricularly paced rhythm with no acute ischemic changes with a rate of 77. Blood sugar is appropriate here at 93. Patient is not having any chest pain or any symptoms that would be concerning for ACS. No clinical signs of a DVT or PE on exam. Overall no signs of anything life-threatening. She does have a lot going on in her life, and this does appear to be an anxiety type reaction, particularly in relation to this "bad dream." Further work-up at this time not indicated. Patient is not wanting to be screened for psychiatric conditions, additionally she is not suicidal or homicidal. I will give her information on mental health resources as an outpatient. I believe she stable for discharge with outpatient follow-up. She was sent home with strict return precautions. ECG Initial ECG Impression Date: June 28, 2022 Initial ECG Impression Time: 06:26 Initial ECG Rate: 77 Initial ECG Rhythm: Normal Sinus Comment Wide QRS with a ventricularly paced rhythm, no STEMI equivalent Departure Impression Primary Impression: Anxiety as acute reaction to exceptional stress Disposition: 01 HOME, SELF-CARE Condition: Stable Departure-Patient Inst. Decision time for Depature: 07:00 Referrals: ARMANDO COMER MD (PCP/Family) Primary Care Physician Patient Instructions: Anxiety, Adult (DC), OUTPT MENTAL HEALTH SERVICES Add. Discharge Instructions: We are not seeing any evidence of anything life-threatening at this time. To us this does seem like a reaction to the stressors going on in your life. Please reach out to your regular doctor or [facility] to discuss getting a counselor and potentially being put on medications if this is an every day occurrence. SONG SANTIAGO MD June 28, 2022 06:35
[2022-06-28 07:11] VITALS: BP 137/70
== END 2022-06-28 07:11 | disposition home or self-care (01) ==
LOC: EDUNIT# 06:13 → ER FS 06:15
DX: F43.0 Acute stress reaction (principal); Z28.310 Unvaccinated for COVID-19
CPT/HCPCS: 82947; 93005

== ENCOUNTER 2022-12-02 14:48 | Emergency (ER) | payer MEDICARE ==
[~2022-12-02] VITALS: Ht 169 cm; Wt 50.0 kg
[~2022-12-02 14:48] MED LIST changes: +POTA-185 PO; -POTA10TA PO
--- NOTE | 2022-12-02 15:17 | ED Chest Pain ---
General Chief Complaint: Cardiac/General Problems Stated Complaint: PACEMAKER ISSUES Nursing Triage Note: PT STATES LT UPPER CHEST PAIN BY HER PACEMAKER, PT WAS MOVING SOMETHING YESTERDAY AND MAY HAVE PULLED A MUSCLE BUT IS NOT SURE, FEELS PACEMAKER COULD BE GOING OFF. DENIES PAIN AT THIS TIME, IS SOB OFF AND ON, PT WENT TO URGENT CARE IN [facility] AND THEY CALLED [facility] AND THEN WAS TOLD TO COME HERE. DR. CARR INFORMED OF PT BEING HERE AT 1455 Source: patient Exam Limitations: no limitations History of Present Illness Date Seen by Provider: Dec 02, 2022 Time Seen by Provider: 14:55 Initial Comments This 76-year-old woman presents to the emergency room as referred by [facility] in [place] for reasons of "twinges" of chest pain that started last night. Her last episode was when she was in the clinic in [place]. These twinges are sharp in nature. They started after she was "jerking a piece of wood around" yesterday. She has history of second-degree heart block causing bradycardia for which she received a pacemaker. She is presently in paced rhythm. She also has history of atrial fibrillation with RVR. She declines any anticoagulation due to history of life threatening perioperative bleed while anticoagulated that required multiple transfusions. Patient denies any chest pain or associated symptoms at this time. She occasionally has shortness of breath which does not seem acutely associated with these other complaints. Pacemaker interrogation was performed upon patient arrival. No recent adverse events were noted. She is almost entirely paced. Patient denies any coronary artery disease or other cardiac interventions. There are no reports of stress test or angiography on the chart. Her alterations sewer is Dr. Sierra and her primary care provider is Dr. Gould. Allergies and Home Medications Allergies Coded Allergies: Penicillins (Unverified Allergy, Unknown, PASS OUT, 05/12/18) Sulfa (Sulfonamide Antibiotics) (Unverified Allergy, Unknown, RASH, 05/12/18) Patient Home Medication List Home Medication List Reviewed: Yes ALPRAZolam (ALPRAZolam) 0.25 Mg Tablet, 0.25 MG PO Q8H PRN for ANXIETY, (Reported) Entered as Reported by: AMARILYS GARNER on 12/27/19 1554 Acetaminophen (Tylenol Extra Strength) 500 Mg Tablet, 1,000 MG PO Q6H PRN for PAIN-MILD, (Reported) Entered as Reported by: YORDY KAHN on 05/13/18 0859 Aspirin (Aspirin EC) 325 Mg Tablet., 325 MG PO DAILY, (Reported) Entered as Reported by: AMARILYS GARNER on 12/27/19 1554 Cefdinir (Cefdinir) 300 Mg Capsule, 300 MG PO BID Prescribed by: GEMMA FUENTES on 12/30/19 1211 Famotidine (Pepcid) 20 Mg Tablet, 20 MG PO BID Prescribed by: MANUEL DRIVER on 12/02/22 1823 Multivitamins-Min/FA/Ginkgo (One Daily For Women 50+ Adv Tb) 1 Each Tablet, 1 TAB PO DAILY, (Reported) Entered as Reported by: YORDY KAHN on 05/13/18 0859 Pantoprazole Sodium (Pantoprazole Sodium) 40 Mg Tablet., 40 MG PO DAILY, (Reported) Entered as Reported by: AMARILYS GARNER on 12/27/19 1554 Review of Systems Review of Systems Constitutional: no symptoms reported EENTM: No Symptoms Reported Respiratory: No Symptoms Reported Cardiovascular: See HPI Gastrointestinal: No Symptoms Reported Genitourinary: No Symptoms Reported Musculoskeletal: no symptoms reported Skin: no symptoms reported Psychiatric/Neurological: No Symptoms Reported Endocrine: No Symptoms Reported Hematologic/Lymphatic: No Symptoms Reported Past Uosdsdz-Yonoez-Qewqdv Hx Patient Social History Tobacco Use?: No Substance use?: No Alcohol Use?: Yes Alcohol Frequency: Once in a while Immunizations Up To Date Tetanus Booster (TDap): Less than 5yrs First/Initial COVID19 Vaccinat: YES Seasonal Allergies Seasonal Allergies: Yes Past Medical History Surgery/Hospitalization HX: Pacemaker Surgeries: Yes (dental, left ureter, compound facial bone fx, EGD, PARTIAL HYSTERECTOMY) Abdominal (Bowel obstruction), Bladder Surgery, Gallbladder, Hysterectomy, Pacemaker, Tonsillectomy Respiratory: No (Hx Tobaccoism) Cardiac: Yes (SYMPTOMATIC 2ND DEGREE AV, Pacemaker) Atrial Fibrillation (Declines anticoagulation due to perioperative life- threatening bleed), High Cholesterol, Hypertension Neurological: No (known tremulous voice hx) 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 Genitourinary: Yes (RECENT REPAIR OF L URETER, Hx cystitis, UTI, pyelonephritis) Gastrointestinal: Yes (Intestinal surgery) Gastroesophageal Reflux, Gastrointestinal Bleed, Hemorrhoids, Esophagitis, Hiatal Hernia Musculoskeletal: Yes (bilateral DJD shoulders, midline thoracic spine pain) Arthritis, Chronic Back Pain Endocrine: No HEENT: No Cancer: No Psychosocial: Yes Anxiety Integumentary: No Blood Disorders: No Family Medical History Cardiovascular disease Colon cancer Hypertension Visual disorder No Family History of: Cystic fibrosis No Pertinent Family Hx Physical Exam Vital Signs Vital Signs - First Documented 12/02/22 14:51 Temp 36.6 Pulse 78 Resp 20 B/P (MAP) 157/87 (110) Pulse Ox 97 O2 Delivery Room Air Capillary Refill : Less Than 3 Seconds Height, Weight, BMI Height: 5'5.00" Weight: 118lbs. 0.0oz. 53.570487yb; 17.00 BMI Method:Stated General Appearance: No Apparent Distress, WD/WN HEENT: PERRL/EOMI, Normal ENT Inspection Neck: Normal Inspection; No JVD Respiratory: Chest Non Tender, Lungs Clear, Normal Breath Sounds, No Accessory Muscle Use, No Respiratory Distress Cardiovascular: Regular Rate, Rhythm, No Edema, No Murmur Gastrointestinal: Non Tender, Soft; No Distended Extremity: Normal Inspection, Non Tender Neurologic/Psychiatric: Alert, Oriented x3, No Motor/Sensory Deficits, Normal Mood/Affect Skin: Normal Color, Warm/Dry Procedures/Interventions Date of ETT Placement: Jun 17, 2019 Time of ETT Placement: 1435 Suture Size: 4-0 Progress/Results/Core Measures Results/Orders Lab Results Laboratory Tests Test 12/02/22 14:57 12/02/22 17:08 Range/Units White Blood Count 8.7 4.3-11.0 10^3/uL Red Blood Count 5.45 H 3.80-5.11 10^6/uL Hemoglobin 14.5 11.5-16.0 g/dL Hematocrit 45 35-52 % Mean Corpuscular Volume 82 80-99 fL Mean Corpuscular Hemoglobin 27 25-34 pg Mean Corpuscular Hemoglobin Concent 32 32-36 g/dL Red Cell Distribution Width 14.1 10.0-14.5 % Platelet Count 219 130-400 10^3/uL Mean Platelet Volume 10.3 9.0-12.2 fL Immature Granulocyte % (Auto) 0 % Neutrophils (%) (Auto) 68 42-75 % Lymphocytes (%) (Auto) 21 12-44 % Monocytes (%) (Auto) 6 0-12 % Eosinophils (%) (Auto) 4 0-10 % Basophils (%) (Auto) 1 0-10 % Neutrophils # (Auto) 5.9 1.8-7.8 10^3/uL Lymphocytes # (Auto) 1.8 1.0-4.0 10^3/uL Monocytes # (Auto) 0.5 0.0-1.0 10^3/uL Eosinophils # (Auto) 0.3 0.0-0.3 10^3/uL Basophils # (Auto) 0.1 0.0-0.1 10^3/uL Immature Granulocyte # (Auto) 0.0 0.0-0.1 10^3/uL Prothrombin Time 14.2 12.2-14.7 SEC INR Comment 1.1 0.8-1.4 Activated Partial Thromboplast Time 28 24-35 SEC Sodium Level 140 135-145 MMOL/L Potassium Level 4.0 3.6-5.0 MMOL/L Chloride Level 108 H 98-107 MMOL/L Carbon Dioxide Level 21 21-32 MMOL/L Anion Gap 11 5-14 MMOL/L Blood Urea Nitrogen 15 7-18 MG/DL Creatinine 0.88 0.60-1.30 MG/DL Estimat Glomerular Filtration Rate 68 BUN/Creatinine Ratio 17 Glucose Level 95 70-105 MG/DL Calcium Level 9.3 8.5-10.1 MG/DL Corrected Calcium 9.1 8.5-10.1 MG/DL Magnesium Level 2.4 1.6-2.4 MG/DL Total Bilirubin 0.6 0.1-1.0 MG/DL Aspartate Amino Transf (AST/SGOT) 22 5-34 U/L Alanine Aminotransferase (ALT/SGPT) 13 0-55 U/L Alkaline Phosphatase 90 40-136 U/L Myoglobin 34.0 10.0-92.0 NG/ML Troponin I < 0.028 < 0.028 <0.028 NG/ML Total Protein 6.9 6.4-8.2 GM/DL Albumin 4.2 3.2-4.5 GM/DL My Orders Orders - MANUEL CARR MD Ekg Tracing (12/02/22 14:52) Cbc And Automated Diff (12/02/22 15:12) Magnesium (12/02/22 15:12) Comprehensive Metabolic Panel (12/02/22 15:12) Myoglobin Serum (12/02/22 15:12) Protime With Inr (12/02/22 15:12) Partial Thromboplastin Time (12/02/22 15:12) O2 (12/02/22 15:12) Monitor-Rhythm Ecg Trace Only (12/02/22 15:12) Ed Iv/Invasive Line Start (12/02/22 15:12) Troponin I Becki (12/02/22 15:12) Chest Pa/Lat (2 View) (12/02/22 15:12) Troponin I Becki (12/02/22 17:00) Vital Signs/I&O 12/02/22 12/02/22 14:51 18:28 Temp 36.6 36.6 Pulse 78 84 Resp 20 20 B/P (MAP) 157/87 (110) 137/75 Pulse Ox 97 97 O2 Delivery Room Air Room Air Blood Pressure Mean: 110 Progress Progress Note : Progress Note This patient was interviewed and examined by me. ECG demonstrated not ischemic changes and a paced rhythm as noted in my interpretation below. Labs were obtained, reviewed and interpreted by me. CBC, CMP, magnesium, coag panel, troponin, and serial troponin were all unremarkable. Chest x-ray was viewed by me and compared with prior. The large diaphragmatic hernia was noted and appeared stable compared to prior. No additional new acute abnormalities were identified by my interpretation. Radiologist's note was also reviewed as below. Patient denied any further episodes of chest pain during the ER visit. The hernia is a suspicious possible source for her pain. I have advised PPI therapy and consultation with surgeon. Initial ECG Impression Date: Dec 02, 2022 Initial ECG Impression Time: 14:53 Initial ECG Rate: 79 Comment Dual paced rhythm with no other acute abnormalities appreciated. No acute change from February 2022. Diagnostic Imaging Diagonstic Imaging: Xray Plain Films/CT/US/NM/MRI: chest Comments NAME: MARTÍN MATHEW MED REC#: [id number] PT STATUS: REG ER : 1945 PHYSICIAN: MANUEL CARR MD ADMIT DATE: 12/02/22/ER Signed Date of Exam:12/02/22 CHEST PA/LAT (2 VIEW) INDICATION: Left lower chest pain. FINDINGS: The patient has a dual-chamber pacemaker. There is a large diaphragmatic hernia with herniation of bowel into the thoracic cavity. This appears similar to prior study from 06/22/2019. There are no effusions or pneumothoraces. There are no infiltrates. IMPRESSION: Large diaphragmatic hernia. This has not significantly changed from prior study. Dictated by: Dictated on workstation # [id number] Dict: 12/02/22 1602 Trans: 12/02/221711 AS6 [id number] Interpreted by: LAUREN DIAZ MD Electronically signed by: LAUREN DIAZ MD 12/02/221711 Departure Impression Primary Impression: Atypical chest pain Additional Impression: Diaphragmatic hernia Qualified Codes: K44.9 - Diaphragmatic hernia without obstruction or gangrene Disposition: 01 HOME, SELF-CARE Condition: Stable Departure-Patient Inst. Decision time for Depature: 18:19 Referrals: SELFARMANDO MD (PCP/Family) Primary Care Physician Patient Instructions: Chest Pain, Hiatal hernia Add. Discharge Instructions: You have a diaphragmatic hernia on your chest x-ray which has been present since at least 2019. This is a very large version of a hiatal hernia described on the attached information. This may cause you pain and acid reflux from time to time. You may help with the symptoms by taking an antacid medication such as Pepcid (famotidine) as prescribed. Please follow-up with your primary care provider soon as possible and discuss a referral to an appropriate surgeon for consultation. It may be beneficial to explore surgically repairing this hernia. Please also follow with Dr. Sierra regarding your chest pain. The exact cause of your chest pain is uncertain based on your work-up in the emergency room. Further work-up by Dr. Sierra may be appropriate to investigate causes of chest pain further. Avoid the following: Eating large meals, eating close to bedtime, caffeine, carbonation, chocolate, citrus fruits and juices, tomato products, mints, spicy foods, fatty/greasy foods, NSAID medications such as ibuprofen or naproxen, alcohol, tobacco, and anything else you know irritates your stomach. Avoid excessive roughage that is hard to digest and chew food carefully or choose to eat soft food with small particles. Return to care if you have worsening symptoms despite following these instructions. All discharge instructions reviewed with patient and/or family. Voiced understanding. Scripts Famotidine (Pepcid) 20 Mg Tablet 20 MG PO BID, #30 TAB Prov: MANUEL CARR MD 12/02/22 Copy Copies To 1: ARMANDO GOULD MD Copies To 2: HECTOR SIERRA MD, JOSHUA T MD Dec 02, 2022 15:17
[2022-12-02 15:19] LABS: BASOPHILS # (AUTO) 0.1 10^3/uL (0.0-0.1); BASOPHILS % (AUTO) 1 % (0-10); EOSINOPHILS # (AUTO) 0.3 10^3/uL (0.0-0.3); EOSINOPHILS % (AUTO) 4 % (0-10); HEMATOCRIT 45 % (35-52); HEMOGLOBIN 14.5 g/dL (11.5-16.0); LYMPHOCYTES # (AUTO) 1.8 10^3/uL (1.0-4.0); LYMPHOCYTES % (AUTO) 21 % (12-44); MEAN CORPUSCULAR HEMOGLOBIN 27 pg (25-34); MEAN CORPUSCULAR HGB CONC 32 g/dL (32-36); MEAN CORPUSCULAR VOLUME 82 fL (80-99); MEAN PLATELET VOLUME 10.3 fL (9.0-12.2); MONOCYTES # (AUTO) 0.5 10^3/uL (0.0-1.0); MONOCYTES % (AUTO) 6 % (0-12); NEUTROPHILS # (AUTO) 5.9 10^3/uL (1.8-7.8); NEUTROPHILS % (AUTO) 68 % (42-75); PLATELET COUNT 219 10^3/uL (130-400); WHITE BLOOD COUNT 8.7 10^3/uL (4.3-11.0)
[2022-12-02 15:24] LABS: ALBUMIN 4.2 GM/DL (3.2-4.5)
[2022-12-02 15:25] LABS: CHLORIDE 108 MMOL/L (98-107); SODIUM 140 MMOL/L (135-145)
[2022-12-02 15:26] LABS: CALCIUM 9.3 MG/DL (8.5-10.1); INR 1.1 (0.8-1.4); PROTHROMBIN TIME PATIENT 14.2 SEC (12.2-14.7)
[2022-12-02 15:27] LABS: GLUCOSE 95 MG/DL (70-105); TOTAL PROTEIN 6.9 GM/DL (6.4-8.2)
[2022-12-02 15:28] LABS: CARBON DIOXIDE 21 MMOL/L (21-32)
[2022-12-02 15:29] LABS: BILIRUBIN,TOTAL 0.6 MG/DL (0.1-1.0)
[2022-12-02 15:30] LABS: ALKALINE PHOSPHATASE 90 U/L (40-136); CREATININE SERUM 0.88 MG/DL (0.60-1.30); GFR ESTIMATED 68
[2022-12-02 15:32] LABS: BUN/CREATININE RATIO 17
[2022-12-02 15:33] LABS: ALANINE AMINOTRANSFERASE 13 U/L (0-55); MAGNESIUM 2.4 MG/DL (1.6-2.4)
--- NOTE | 2022-12-02 16:10 | Diagnostic Imaging Report ---
INDICATION: Left lower chest pain. FINDINGS: The patient has a dual-chamber pacemaker. There is a large diaphragmatic hernia with herniation of bowel into the thoracic cavity. This appears similar to prior study from 06/22/2019. There are no effusions or pneumothoraces. There are no infiltrates. IMPRESSION: Large diaphragmatic hernia. This has not significantly changed from prior study. Dictated by: Dictated on workstation # [id number]
[2022-12-02] MEDS ORDERED: FAMO-119 PO (18:23)
[2022-12-02 18:28] VITALS: BP 137/75
== END 2022-12-02 18:28 | disposition home or self-care (01) ==
LOC: EDUNIT# 14:48 → ER 14:49
DX: R07.89 Other chest pain (principal); K44.9 Diaphragmatic hernia without obstruction or gangrene; Z95.0 Presence of cardiac pacemaker; Z86.79 Personal history of other diseases of the circulatory system
CPT/HCPCS: 36415; 71046; 80053; 83735; 83874; 84484; 85025; 85610; 85730; 93005; 93041